=== PATIENT | female | born 1945 | race Caucasian/White ===

== ENCOUNTER 2018-03-14 19:35 | Emergency (ER) | payer MEDICARE ==
--- OUTSIDE RECORDS SUMMARY | 2018-03-14 19:37 | XMS REPORT | Summary of Care ---
:1945 Author Name Masha Yusuf M.A. Address Unavailable Unavailable , Care Team Providers Name Role Phone DORON ANDERS Unavailable Unavailable Unavailable Unavailable Unavailable Functional Status Name Dates Details Functional status health issues are not documented Status: Name Dates Details Cognitive status health issues are not documented Status: Problems Name Dates Details Periprosthetic fracture of shaft of femur (996.44, M97.8XXA) Status: Active Medications Name Dates Details Acetaminophen-Codeine #3 300-30 MG Oral Tablet TAKE 1 TABLET EVERY 6 HOURS Quantity: 20 Refills: 0 DORON ANDERS Start : 08-Jan-2018 Active Vitamin D (Ergocalciferol) 45015 UNIT Oral Capsule TAKE 1 CAPSULE WEEKLY. Quantity: 12 Refills: 0 DORON ANDERS Start : 02-Mar-2018 Active Allergies and Adverse Reactions Name Dates Details Allergy history not documented Status: Procedures Procedure Dates Details Procedures not documented Immunization Name Dates Details Immunizations not documented Social History Name Dates Details Unknown if ever smoked Vital Signs Date Test Result Details No Known Vitals to report Results Date Description Value Details [id number] [U] XRAY FEMUR 2 VWS LEFT 69700 XR FEMUR 2 VWS LEFT Images acquired, not reported on this accession number. Plan of Care Name Dates Details Planned Observations Planned Goals not documented Interventions Provided Medication ChangesVitamin D (Ergocalciferol) 71427 UNIT Oral Capsule - StartLabs /Procedures/Imaging[U] XRAY FEMUR 2 VWS LEFT 74417; Done: 02 Mar 2018 Instructions Name Dates Details Instructions not documented Encounters Appointment; DORON CALDERON PA On: 22-Dec-2017 9:30 Encounter Diagnosis: Problem not documented Appointment; DORON CALDERON PA On: 19-Jan-2018 10:30 Encounter Diagnosis: Problem not documented Appointment; DORON CALDERON PA On: 02-Mar-2018 10:30 Encounter Diagnosis: Problem not documented
[2018-03-14 20:29] LABS: Absolute Lymphocytes (CBC) 0.5 K/uL (0.7-4.9); Absolute Monocytes 0.5 K/uL (0.1-1.3); Absolute Neutrophil 9.5 K/uL (1.8-8.0); Basophils % 0.2 % (0-1.3); Eosinophils % 0.1 % (0-4.4); Hematocrit 30.2 % (36.0-45.0); Lymphocytes % 4.7 % (15.3-44.8); MCH 27.4 pg (27.0-35.0); MCV 80.5 fL (80-100); MPV 7.3 fL (7.6-11.3); RBC Red Blood Cell Count 3.75 M/uL (3.86-4.86)
[2018-03-14 20:35] LABS: Protime INR 1.18
[2018-03-14] MEDS ORDERED: NA CHLORIDE 0.9% 1,000 ML ONE ×2 (20:37→21:42)
--- NOTE | 2018-03-14 20:37 | RAD REPORT ---
EXAM DESCRIPTION: Otf Single View03/14/2018 8:09 pm CLINICAL HISTORY: Cough COMPARISON: 2016 FINDINGS: Calcified granulomas are present within the lungs. The lungs appear clear of acute infiltrate. The heart is normal size IMPRESSION: No acute abnormalities displayed
[2018-03-14 20:42] LABS: Bicarbonate 24 mEq/L (21-31); Glucose Level 164 mg/dL (65-120); Lipase 34 U/L (22-51); Potassium 3.9 mEq/L (3.6-5.0); Sodium Level 130 mEq/L (135-145)
[2018-03-14 20:51] LABS: ALT/SGPT 12 IU/L (10-60); AST/SGOT 16 IU/L (10-42); Albumin 2.5 g/dL (3.2-5.5); Alkaline Phosphatase 89 IU/L (42-121); Amylase Level 54 U/L (28-100); BUN Blood Urea Nitrogen 14 mg/dL (6-20); Bilirubin Direct 0.3 mg/dL (0-0.2); CKMB Creatine Kinase MB 0.7 ng/ml (0.3-4.0); Creatine Phosphokinase 12 IU/L (22-269); Protein, Total 6.6 g/dL (6.0-8.3)
[2018-03-14 20:53] LABS: Blood Morphology Comment NOT SEEN (NOT SEEN); Platelet Estimate ADEQ; Urine White Blood Cell Casts OK
[2018-03-14 21:07] LABS: C-Reactive Protein 219.9 mg/L (<10.0)
[2018-03-14] MEDS ORDERED: AZITHROMYCIN 250 MG TAB ONE (21:09)
[2018-03-14] MEDS ORDERED: CEFTRIAXONE/SWI 1gm 1 GM/10 ML SYR ONE (21:10)
--- NOTE | 2018-03-14 22:29 | EDPHYS ---
Physician Documentation [facility] Name: Jayesh Leavitt Age: 72 yrs Sex: Female : 1945 Arrival Date: 03/14/2018 Time: 19:37 Bed 23 Private MD: ED Physician Queenie Woodward HPI: 03/14 19:56 This 72 yrs old Female presents to ER via Wheelchair with complaints of ma2 Fever, Altered Mental Status. 19:56 The patient reports fever, that was measured at 100.5 degrees Fahrenheit. Onset: The ma2 symptoms/episode began/occurred gradually, 2 day(s) ago. Associated signs and symptoms: Pertinent positives: cough, Pertinent negatives: None. abdominal pain, myalgias, night sweats, runny nose, sinus congestion. Severity of symptoms: At their worst the symptoms were moderate in the emergency department the symptoms are unchanged. The patient has experienced a previous episode. bib daughter who states she has been sleepy all day did not eat anything has been having cough and chills x 2 days . Historical: - Allergies: 19:45 No Known Allergies; la1 - PMHx: 19:45 Anemia; Arthritis; Crohn's; Diabetes - NIDDM; Hypertension; Hypothyroidism; la1 - Immunization history:: Adult Immunizations up to date. - Social history:: Smoking status: Patient/guardian denies using tobacco. - Family history:: not pertinent. ROS: 19:56 Eyes: Negative for injury, pain, redness, and discharge, ENT: Negative for injury, ma2 pain, and discharge, Neck: Negative for injury, pain, and swelling, Cardiovascular: Negative for chest pain, palpitations, and edema, Abdomen/GI: Negative for abdominal pain, nausea, diarrhea, and constipation, Back: Negative for injury and pain, : Negative for injury, bleeding, discharge, and swelling, MS/Extremity: Negative for injury and deformity, Skin: Negative for injury, rash, and discoloration, Neuro: Negative for headache, weakness, numbness, tingling, and seizure, Allergy/Immunology: Negative for hives, rash, and allergies, Hematologic/Lymphatic: Negative for swollen nodes, abnormal bleeding, and unusual bruising. 19:56 Respiratory: Positive for cough, Negative for dyspnea on exertion, hemoptysis, orthopnea, shortness of breath, sputum production, wheezing. Exam: 19:56 Constitutional: This is a well developed, well nourished patient who is awake, alert, ma2 and in no acute distress. Head/Face: Normocephalic, atraumatic. Chest/axilla: Normal chest wall appearance and motion. Nontender with no deformity. No lesions are appreciated. Cardiovascular: Regular rate and rhythm with a normal S1 and S2. No gallops, murmurs, or rubs. Normal PMI, no JVD. No pulse deficits. Respiratory: Lungs have equal breath sounds bilaterally, clear to auscultation and percussion. No rales, rhonchi or wheezes noted. No increased work of breathing, no retractions or nasal flaring. Abdomen/GI: Soft, non-tender, with normal bowel sounds. No distension or tympany. No guarding or rebound. No evidence of tenderness throughout. Skin: Warm, dry with normal turgor. Normal color with no rashes, no lesions, and no evidence of cellulitis. Vital Signs: 19:45 BP 129 / 62; Pulse 103; Resp 19; Temp 100.3(TE); Pulse Ox 100% on R/A; Weight 65.77 kg; la1 Height 5 ft. 5 in. (165.10 cm); 20:16 Pulse 97; Resp 18; Temp 99.3; Pulse Ox 95% on R/A; kr2 22:22 BP 128 / 77; Pulse 92; Resp 16; Pulse Ox 98% on R/A; kr2 19:45 Body Mass Index 24.13 (65.77 kg, 165.10 cm) vt1 MDM: 19:46 Patient medically screened. ma2 19:56 Differential diagnosis: viral Infection, bacterial infection, URI, bronchitis, ma2 pneumonia. 22:25 Data reviewed: vital signs, nurses notes, EMS record, diagnostic data from outside [facility] facility, lab test result(s). Test interpretation: by ED physician or midlevel provider: ECG, plain radiologic studies. Counseling: I had a detailed discussion with the patient and/or guardian regarding: the historical points, exam findings, and any diagnostic results supporting the discharge/admit diagnosis, the presence of at least one elevated blood pressure reading (>120/80) during this emergency department visit, the need for outpatient follow up. Response to treatment: the patient's symptoms have markedly improved after treatment. ED course: patient has cough and was tachycardic initially to 97, she is AOX4 her pulse improved with IVF she has no other component of SIRS her lab and CXR wnl, she is likely having bronchitis or early pneumonia, she improved plan is do discharge home with close f/u or return to ed for any new or worsening of her cough she agree with plan. . 03/14 19:55 Order name: Amylase, Serum; Complete Time: 21:12 dc03/14 19:55 Order name: Basic Metabolic Panel; Complete Time: 21:12 dc03/14 19:55 Order name: Blood Culture Adult (2) dc03/14 19:55 Order name: BNP; Complete Time: 20:53 dc03/14 19:55 Order name: C-Reactive Protein; Complete Time: 21:12 dc03/14 19:55 Order name: CBC with Diff; Complete Time: 20:53 dc03/14 19:55 Order name: Ckmb; Complete Time: 21:12 [facility] 03/14 19:55 Order name: CPK; Complete Time: 21:12 dc03/14 19:55 Order name: Lactate; Complete Time: 20:53 dc03/14 19:55 Order name: LFT's; Complete Time: 21:12 dc03/14 19:55 Order name: Lipase; Complete Time: 21:12 03/14 19:55 Order name: Procalcitonin; Complete Time: 21:12 dc03/14 19:55 Order name: Protime (+inr); Complete Time: 20:53 dc03/14 19:55 Order name: Ptt, Activated; Complete Time: 20:53 dc03/14 19:55 Order name: Sed Rate; Complete Time: 20:53 dc03/14 19:55 Order name: Troponin (emerg Dept Use Only); Complete Time: 20:53 dc03/14 19:55 Order name: Chest Single View XRAY; Complete Time: 20:53 dc03/14 19:55 Order name: Accucheck; Complete Time: 20:25 dc03/14 19:55 Order name: Cardiac monitoring; Complete Time: 20:25 [facility] 03/14 19:55 Order name: EKG - Nurse/Tech; Complete Time: 20:32 dc2 03/14 19:55 Order name: IV Saline Lock - Large Bore; Complete Time: 20:25 dc2 03/14 19:55 Order name: Labs collected and sent; Complete Time: 20:25 dc2 03/14 19:55 Order name: O2 Per Protocol; Complete Time: 20:25 dc2 03/14 19:55 Order name: O2 Sat Monitoring; Complete Time: 20:26 dc2 03/14 19:55 Order name: Urine Dipstick-Ancillary (obtain specimen); Complete Time: 22:42 dc2 03/14 20:32 Order name: CBC Smear Scan; Complete Time: 20:53 EDHI 03/14 21:15 Order name: UA MICROSCOPIC ma2 Administered Medications: 20:45 Drug: NS 0.9% (30 ml/kg) 30 ml/kg Route: IV; Rate: bolus; Site: right antecubital; kr2 22:42 Follow up: Response: No adverse reaction; IV Status: Completed infusion kr2 21:15 Drug: Rocephin 1 grams Route: IV; Rate: bolus; Site: right antecubital; kr2 21:30 Follow up: Response: No adverse reaction; IV Status: Completed infusion kr2 21:15 Drug: AZITHromycin 500 mg Route: PO; kr2 22:27 Follow up: Response: No adverse reaction kr2 Point of Care Testing: Blood Glucose: 20:16 Blood Glucose: 167 mg/dL; kr2 Ranges: Critical Glucose Levels:Adult <50 mg/dl or >400 mg/dl <40 mg/dl or >180 mg/dl Disposition: 03/14/18 22:28 Discharged to Home. Impression: Bronchitis, not specified as acute or chronic. - Condition is Stable. - Prescriptions for Zithromax 500 mg Oral Tablet - take 1 tablet by ORAL route once daily for 5 days; 5 tablet. - Medication Reconciliation Form, Thank You Letter, Antibiotic Education, Prescription Opioid Use form. - Follow up: Private Physician; When: Tomorrow; Reason: Continuance of care. - Problem is new. - Symptoms are unchanged. Signatures: Dispatcher [employer] EDHI Mina Townsend RN RN la1 Flaquita Bledsoe RN RN kr2 Queenie Woodward MD MD ma2
--- NOTE | 2018-03-14 22:29 | ER ---
Nurse's Notes [facility] Name: Jayesh Leavitt Age: 72 yrs Sex: Female : 1945 Arrival Date: 03/14/2018 Time: 19:37 Bed 23 Private MD: Diagnosis: Bronchitis, not specified as acute or chronic Presentation: 03/14 19:44 Presenting complaint: Child states: She has been acting "not herself" and yesterday she la1 was very drowsy and sleepy. I noticed she had a cough and fever as well. Transition of care: patient was not received from another setting of care. Onset of symptoms was March 14, 2018. Initial Sepsis Screen: Does the patient meet any 2 criteria? No. Patient's initial sepsis screen is negative. Does the patient have a suspected source of infection? Yes:. Care prior to arrival: None. 19:44 Method Of Arrival: Wheelchair la1 19:44 Acuity: VELVET 3 la1 Historical: - Allergies: 19:45 No Known Allergies; la1 - PMHx: 19:45 Anemia; Arthritis; Crohn's; Diabetes - NIDDM; Hypertension; Hypothyroidism; la1 - Immunization history:: Adult Immunizations up to date. - Social history:: Smoking status: Patient/guardian denies using tobacco. - Family history:: not pertinent. Screenin:00 Abuse screen: Denies threats or abuse. Denies injuries from another. Nutritional kr2 screening: No deficits noted. Tuberculosis screening: No symptoms or risk factors identified. Fall Risk IV access (20 points). Assessment: 19:50 General: Appears in no apparent distress. comfortable, slender, well groomed, well kr2 developed, well nourished, Behavior is calm, cooperative. Pain: Denies pain. Neuro: Level of Consciousness is awake, alert, obeys commands, Oriented to person, place, situation, Diamond Sawer are equal bilaterally Moves all extremities. Speech is normal, Facial symmetry appears normal, Pupils are PERRLA, Intact. Cardiovascular: Denies chest pain, Capillary refill < 3 seconds in bilateral fingers Patient's skin is warm and dry. Rhythm is sinus rhythm. Cardiovascular: Parent/caregiver reports patient has had fatigue. Respiratory: Reports cough that is persistent pain with cough since 2 weeks Airway is patent Respiratory effort is even, unlabored, Respiratory pattern is regular, symmetrical. GI: Abdomen is flat, non-distended, Reports Decreased appetite starting yesterday, episode of diarrhea after taking Methotrexate. : Parent/caregiver report the patient having urine that has been dark with a strong odor. EENT: Oral mucosa is dry. Derm: Skin is intact, is fragile, Skin is pink, warm \\T\\ dry. Musculoskeletal: Circulation, motion, and sensation intact. 21:00 Reassessment: Patient appears in no apparent distress at this time. Patient and/or kr2 family updated on plan of care and expected duration. Pain level reassessed. Patient is alert, oriented x 3, equal unlabored respirations, skin warm/dry/pink. Patient denies pain at this time. Patient states feeling better. 22:45 Reassessment: Patient appears in no apparent distress at this time. Patient and/or kr2 family updated on plan of care and expected duration. Pain level reassessed. Patient is alert, oriented x 3, equal unlabored respirations, skin warm/dry/pink. Family member states, "She is doing much better than we she came in" Patient denies pain at this time. Patient states feeling better. Patient states symptoms have improved. Vital Signs: 19:45 BP 129 / 62; Pulse 103; Resp 19; Temp 100.3(TE); Pulse Ox 100% on R/A; Weight 65.77 kg; la1 Height 5 ft. 5 in. (165.10 cm); 20:16 Pulse 97; Resp 18; Temp 99.3; Pulse Ox 95% on R/A; kr2 22:22 BP 128 / 77; Pulse 92; Resp 16; Pulse Ox 98% on R/A; kr2 19:45 Body Mass Index 24.13 (65.77 kg, 165.10 cm) la1 ED Course: 19:37 Patient arrived in ED. al2 19:45 Triage completed. la1 19:45 Arm band placed on left wrist. la1 19:46 Queenie Woodward MD is Attending Physician. ma2 20:00 Patient has correct armband on for positive identification. Bed in low position. Call kr2 light in reach. Side rails up X2. Adult w/ patient. phototypesetting equipment monitor on. Pulse ox on. NIBP on. Door closed. Head of bed elevated. 20:08 X-ray completed. Portable x-ray completed in exam room. Patient tolerated procedure kp1 well. 20:09 Chest Single View XRAY In Process Unspecified. EDMS 20:12 Flaquita Bledsoe, RN is Primary Nurse. kr2 20:17 Initial lab(s) drawn, by me, sent to lab. First set of blood cultures drawn by me. dh3 20:17 Inserted saline lock: 22 gauge in right antecubital area, using aseptic technique. dh3 Blood collected. 20:32 EKG done, by ED staff, reviewed by Queenie Woodward MD. kr2 20:48 Second set of blood cultures drawn by venipuncture 23G to right forearm by me. dh3 22:45 No provider procedures requiring assistance completed. IV discontinued, intact, kr2 bleeding controlled, No redness/swelling at site. Pressure dressing applied. Administered Medications: 20:45 Drug: NS 0.9% (30 ml/kg) 30 ml/kg Route: IV; Rate: bolus; Site: right antecubital; kr2 22:42 Follow up: Response: No adverse reaction; IV Status: Completed infusion kr2 21:15 Drug: Rocephin 1 grams Route: IV; Rate: bolus; Site: right antecubital; kr2 21:30 Follow up: Response: No adverse reaction; IV Status: Completed infusion kr2 21:15 Drug: AZITHromycin 500 mg Route: PO; kr2 22:27 Follow up: Response: No adverse reaction kr2 Point of Care Testing: Blood Glucose: 20:16 Blood Glucose: 167 mg/dL; kr2 Ranges: Outcome: 22:28 Discharge ordered by MD. ma2 22:46 Discharged to home via wheelchair, with family. kr2 22:46 Condition: improved 22:46 Discharge instructions given to patient, family, Instructed on discharge instructions, follow up and referral plans. medication usage, Demonstrated understanding of instructions, follow-up care, medications, Prescriptions given X 1. 22:46 Patient left the ED. kr2 Addendum: 03/19/2018 10:23 Addendum: Culture Results: Positive urine culture. Phone call Attempt #1 spoke with s s pt's daughter who reports that patient is not having any urinary s/s, and will follow up as needed with PCP. Signatures: Dispatcher [facility] Scarlett Armenta RN RN Mina Townsend RN RN la1 FrancoHemalatha 1 Mary Bonilla 3 Flaquita Bledsoe, NIKO RN kr2 Masha, Romi al2 Queenie Woodward MD MD ma2 Corrections: (The following items were deleted from the chart) 03/14 20:25 20:23 Inserted saline lock: 22 gauge in right antecubital area, using aseptic 3 technique. Blood collected. 3 22:14 19:50 Neuro: Level of Consciousness is awake, alert, obeys commands, Oriented to kr2 person, place, time, situation, Diamond Sawer are equal bilaterally Moves all extremities. Speech is normal, Facial symmetry appears normal, Pupils are PERRLA, Intact 2 22:45 21:00 Reassessment: Patient appears in no apparent distress at this time. Patient kr2 and/or family updated on plan of care and expected duration. Pain level reassessed. Patient is alert, oriented x 3, equal unlabored respirations, skin warm/dry/pink. Family member states, "She is doing much better than we she came in" Patient denies pain at this time. Patient states feeling better. Patient states symptoms have improved. kr2
[2018-03-14 22:53] VITALS: TEMP 99.3
[2018-03-14 22:54] VITALS: BP 128/77; O2SAT 98
[2018-03-14 23:02] LABS: Urine Bacteria 20-50 /HPF (<20); Urine Culture Reflex Order REFLEXED; Urine Mucus MOD /HPF (NONE SEEN); Urine RBC <5 /HPF (NONE SEEN)
--- NOTE | 2018-03-15 12:03 | EKG ---
Test Date: 2018-03-14 Test Time: 20:27:47 [employer] Taper Helper: JOSE MEASUREMENT RESULTS: Intervals: Rate: 94 [place]: 140 QRSD: 88 QT: 356 QTc: 445 [place]: P: 0 [place]: 140 QRS: 24 T: 45 INTERPRETIVE STATEMENTS: Normal sinus rhythm Normal ECG Compared to ECG 11/22/2015 14:05:24 No significant changes Electronically Signed On 03-15-18 12:03:18 CDT by Taurus White
== END 2018-03-14 22:46 | disposition home or self-care (01) ==
LOC: ER 19:35
DX: J40 Bronchitis, not specified as acute or chronic (principal); R50.9 Fever, unspecified; I10 Essential (primary) hypertension
CPT/HCPCS: 36415; 71045; 80048; 80076; 81015; 82150; 82550; 82553; 82962; 83605; 83690; 83880; 84145; 84484; 85025; 85610; 85652; 85730; 86140; 87040 ×2; 87086; 87088; 93005; 96365; 96366; 96375; 99285; J0696; J7030 ×2; 87077; 87186

== ENCOUNTER 2018-09-10 22:15 | Inpatient (IN) | payer MEDICARE ==
[2018-09-10] MEDS ORDERED: NA CHLORIDE 0.9% 1,000 ML ONE (23:10)
[2018-09-10] MEDS ORDERED: ONDANSETRON 4 MG/2 ML VIAL ONE (23:10)
[2018-09-10] MEDS ORDERED: FENTANYL CITR 100 MCG/2 ML ONE (23:10)
[2018-09-10] MEDS ORDERED: FAMOTIDINE 20 MG/2 ML VIAL IV ONE (23:10)
[2018-09-10 23:36] LABS: Protime INR 0.94
[2018-09-10 23:43] LABS: Absolute Lymphocytes (CBC) 0.3 K/uL (0.7-4.9); Absolute Monocytes 0.2 K/uL (0.1-1.3); Absolute Neutrophil 1.4 K/uL (1.8-8.0); Basophils % 0.3 % (0-1.3); Eosinophils % 0.4 % (0-4.4); Hematocrit 28.5 % (36.0-45.0); MCH 24.2 pg (27.0-35.0); MCV 73.5 fL (80-100); MPV 7.2 fL (7.6-11.3); Monocytes % 11.2 % (3.3-12.3); RBC Red Blood Cell Count 3.87 M/uL (3.86-4.86)
[2018-09-10 23:46] LABS: ALT/SGPT 17 U/L (12-78); AST/SGOT 14 U/L (15-37); Albumin 2.6 g/dL (3.4-5.0); Alkaline Phosphatase 74 U/L (45-117); BUN Blood Urea Nitrogen 18 mg/dL (7-18); Bicarbonate 26 mmol/L (21-32); Bilirubin Direct < 0.1 mg/dL (0-0.2); Bilirubin Total 0.2 mg/dL (0.2-1.0); Glucose Level 146 mg/dL (74-106); Lipase 238 U/L (73-393); NT PRO-BNP 319 pg/mL (<125); Potassium 4.3 mmol/L (3.5-5.1); Protein, Total 6.5 g/dL (6.4-8.2); Sodium Level 133 mmol/L (136-145); Troponin (Emerg Dept Use Only) < 0.02 ng/mL (0.0-0.045)
--- NOTE | 2018-09-11 00:02 | ER ---
Nurse's Notes [facility] Name: Jayesh Leavitt Age: 72 yrs Sex: Female : 1945 Arrival Date: 09/10/2018 Time: 22:17 Bed 6 Private MD: Diagnosis: Fall due to bumping against object;Fracture of unspecified part of neck of right femur;Type 1 diabetes mellitus;Retention of urine;Neutropenia, unspecified;Anemia, unspecified Presentation: 09/10 22:24 Presenting complaint: EMS states: "pt fell from a standing position onto right hip. pt jd3 unsure if it is broken, but she say it hurts to move the right hip at all.". Transition of care: patient was not received from another setting of care. Onset of symptoms was September 10, 2018. Risk Assessment: Do you want to hurt yourself or someone else? Patient reports no desire to harm self or others. Initial Sepsis Screen: Does the patient meet any 2 criteria? No. Patient's initial sepsis screen is negative. Does the patient have a suspected source of infection? No. Patient's initial sepsis screen is negative. Care prior to arrival: None. 22:24 Method Of Arrival: EMS: [facility] jd3 22:24 Acuity: VELVET 3 jd3 Historical: - Allergies: 22:34 No Known Allergies; jd3 - Home Meds: 22:34 levothyroxine oral once daily [Active]; Prednisone Oral [Active]; Paxil Oral [Active]; jd3 Folic Acid Oral [Active]; - PMHx: 22:34 Anemia; Arthritis; Diabetes - NIDDM; Hypertension; Crohn's; Hypothyroidism; jd3 - PSHx: 22:34 ; joseph knee knee; left femur fracture; jd3 - Immunization history:: Pneumococcal vaccine is not up to date, Flu vaccine is not up to date. - Social history:: Smoking status: Patient/guardian denies using tobacco. - Ebola Screening: : Patient negative for fever greater than or equal to 101.5 degrees Fahrenheit, and additional compatible Ebola Virus Disease symptoms. - Family history:: not pertinent. Screenin:37 Abuse screen: Denies threats or abuse. Nutritional screening: No deficits noted. jd3 Tuberculosis screening: No symptoms or risk factors identified. Fall Risk Fall in past 12 months (25 points). Ambulatory Aid- None/Bed Rest/Nurse Assist (0 pts). Gait- Impaired (20 pts.). Mental Status- Oriented to own ability (0 pts). Total Gonzalez Fall Scale indicates High Risk Score (45 or more points). Fall prevention measures have been instituted. Side Rails Up X 2 Placed Close to Nursing Station Frequent Obs/Assessments Occuring Family Present and informed to notify staff if the need to leave the bedside. Assessment: 22:35 General: Appears uncomfortable, Behavior is calm, cooperative, appropriate for age. jd3 Pain: Complains of pain in right hip Pain currently is 7 out of 10 on a pain scale. Quality of pain is described as sharp, Is continuous, Aggravated by increased activity, repositioning. Neuro: Level of Consciousness is awake, alert, obeys commands, Oriented to person, place, time, situation. Cardiovascular: Capillary refill < 3 seconds Patient's skin is warm and dry. Respiratory: Airway is patent Respiratory effort is even, unlabored, Respiratory pattern is regular, symmetrical. GI: No signs and/or symptoms were reported involving the gastrointestinal system. : No signs and/or symptoms were reported regarding the genitourinary system. EENT: No signs and/or symptoms were reported regarding the EENT system. Derm: Skin is intact, Skin is dry, Skin is normal, Skin temperature is warm. Musculoskeletal: Circulation, motion, and sensation intact. Range of motion: limited in right hip. 23:58 Reassessment: Patient appears in no apparent distress at this time. No changes from jd3 previously documented assessment. Patient and/or family updated on plan of care and expected duration. Pain level reassessed. Patient is alert, oriented x 3, equal unlabored respirations, skin warm/dry/pink. 09/11 01:02 Reassessment: Patient appears in no apparent distress at this time. Patient and/or jd3 family updated on plan of care and expected duration. Pain level reassessed. Patient is alert, oriented x 3, equal unlabored respirations, skin warm/dry/pink. 02:28 Reassessment: Patient appears in no apparent distress at this time. Patient and/or jd3 family updated on plan of care and expected duration. Pain level reassessed. Patient is alert, oriented x 3, equal unlabored respirations, skin warm/dry/pink. Vital Signs: 09/10 22:34 BP 164 / 91; Pulse 72; Resp 17 S; Temp 98.7(O); Pulse Ox 98% on R/A; Weight 70.31 kg jd3 (R); Height 5 ft. 5 in. (165.10 cm) (R); Pain 8/10; 23:58 BP 165 / 86; Pulse 80; Resp 18 S; Pulse Ox 99% on R/A; jd3 09/11 01:02 BP 155 / 90; Pulse 72; Resp 16 S; Pulse Ox 99% on R/A; jd3 02:28 BP 170 / 73; Pulse 74; Resp 17 S; Pulse Ox 97% on R/A; jd3 09/10 22:34 Body Mass Index 25.79 (70.31 kg, 165.10 cm) jd3 ED Course: 09/10 22:17 Patient arrived in ED. mr 22:22 Derian Carr RN is Primary Nurse. jd3 22:27 Triage completed. jd3 22:30 Inserted saline lock: 22 gauge in right antecubital area, using aseptic technique. jd3 Blood collected. placed by Erum POPE. 22:35 Arm band placed on. jd3 22:37 Patient has correct armband on for positive identification. Bed in low position. Call jd3 light in reach. Side rails up X2. Adult w/ patient. 22:38 Carlyle Torrez MD is Attending Physician. pastora 23:56 Milagros Adam MD is Hospitalizing Provider. pastora 09/11 00:23 XRAY Chest (1 view) In Process Unspecified. EDMS 00:23 Pelvis XRAY In Process Unspecified. EDMS 00:23 Hip Right 2 View XRAY In Process Unspecified. EDMS 00:23 Femur Right XRAY In Process Unspecified. EDMS 02:26 No provider procedures requiring assistance completed. Patient admitted, IV remains in jd3 place. Administered Medications: 09/10 23:12 Drug: NS 0.9% 1000 ml Route: IV; Rate: 125 ml/hr; Site: right antecubital; tl2 09/11 02:35 Follow up: Response: No adverse reaction; IV Status: Infusion continued upon admission j 09/10 23:12 Drug: fentaNYL (PF) 50 mcg Route: IVP; Site: right antecubital; tl2 09/11 00:03 Follow up: Response: No adverse reaction jd3 09/10 23:12 Drug: Zofran 4 mg Route: IVP; Site: right antecubital; tl2 09/11 00:04 Follow up: Response: No adverse reaction jd3 09/10 23:12 Drug: Pepcid 20 mg Route: IVP; Site: right antecubital; tl2 09/11 00:04 Follow up: Response: No adverse reaction jd3 00:47 Drug: fentaNYL (PF) 25 mcg Route: IVP; Site: right antecubital; jd3 01:41 Follow up: Response: No adverse reaction jd3 02:03 Not Given (Physician Discretion): fentaNYL (PF) 25 mcg IVP once jd3 02:08 Drug: Dilaudid 0.5 mg Route: IVP; Site: right antecubital; tl2 02:34 Follow up: Response: Marked relief of symptoms; Pain is decreased jd3 02:09 Drug: Zofran 4 mg Route: IVP; Site: right antecubital; tl2 02:34 Follow up: Response: No adverse reaction jd3 02:55 Drug: Dilaudid 0.5 mg Route: IVP; Site: right antecubital; tl2 03:06 Follow up: Response: No adverse reaction; Pain is decreased tl2 Outcome: 00:01 Decision to Hospitalize by Provider. pastora 02:27 Admitted to Med/surg accompanied by nurse, via stretcher, room 412, with chart, Report jd3 called to Carmela POPE 02:27 Condition: stable 02:27 Instructed on the need for admit, Demonstrated understanding of instructions. 03:07 Patient left the ED. tl2 Signatures: Dispatcher [employer] Carlyle Mason MD MD cha Rivera, Mary mr Knox, Taylor, RN RN tl2 Derian Carr RN RN jd3
--- NOTE | 2018-09-11 00:03 | EDPHYS ---
Physician Documentation [facility] Name: Jayesh Leavitt Age: 72 yrs Sex: Female : 1945 Arrival Date: 09/10/2018 Time: 22:17 Bed 6 Private MD: ED Physician Carlyle Torrez HPI: 09/10 22:48 This 72 yrs old Female presents to ER via EMS with complaints of fall, right pastora hip pain. 22:48 The patient or guardian reports decreased range of motion, pain. that occurred at home, pastora sustained from a fall. The complaints affect the right femoral area and right hip. Onset: The symptoms/episode began/occurred just prior to arrival. Modifying factors: The symptoms are alleviated by nothing, the symptoms are aggravated by nothing. Associated signs and symptoms: Pertinent positives: nausea, vomiting, weakness. Severity of symptoms: At their worst the symptoms were mild, moderate, in the emergency department the symptoms are unchanged. The patient has not experienced similar symptoms in the past. Historical: - Allergies: 22:34 No Known Allergies; jd3 - Home Meds: 22:34 levothyroxine oral once daily [Active]; Prednisone Oral [Active]; Paxil Oral [Active]; jd3 Folic Acid Oral [Active]; - PMHx: 22:34 Anemia; Arthritis; Diabetes - NIDDM; Hypertension; Crohn's; Hypothyroidism; jd3 - PSHx: 22:34 ; joseph knee knee; left femur fracture; jd3 - Immunization history:: Pneumococcal vaccine is not up to date, Flu vaccine is not up to date. - Social history:: Smoking status: Patient/guardian denies using tobacco. - Ebola Screening: : Patient negative for fever greater than or equal to 101.5 degrees Fahrenheit, and additional compatible Ebola Virus Disease symptoms. - Family history:: not pertinent. ROS: 22:48 Constitutional: Negative for fever, chills, and weight loss, Eyes: Negative for injury, pastora pain, redness, and discharge, ENT: Negative for injury, pain, and discharge, Neck: Negative for injury, pain, and swelling, Cardiovascular: Negative for chest pain, palpitations, and edema, Respiratory: Negative for shortness of breath, cough, wheezing, and pleuritic chest pain, Abdomen/GI: Negative for abdominal pain, nausea, vomiting, diarrhea, and constipation, Back: Negative for injury and pain, : Negative for injury, bleeding, discharge, and swelling, Skin: Negative for injury, rash, and discoloration, Neuro: Negative for headache, weakness, numbness, tingling, and seizure, Psych: Negative for depression, anxiety, suicide ideation, homicidal ideation, and hallucinations, Allergy/Immunology: Negative for hives, rash, and allergies, Endocrine: Negative for neck swelling, polydipsia, polyuria, polyphagia, and marked weight changes, Hematologic/Lymphatic: Negative for swollen nodes, abnormal bleeding, and unusual bruising. 22:48 MS/extremity: Positive for decreased range of motion, pain, of the right femoral area and right hip. Exam: 22:48 Constitutional: This is a well developed, well nourished patient who is awake, alert, pastora and in no acute distress. Head/Face: Normocephalic, atraumatic. Eyes: Pupils equal round and reactive to light, extra-ocular motions intact. Lids and lashes normal. Conjunctiva and sclera are non-icteric and not injected. Cornea within normal limits. Periorbital areas with no swelling, redness, or edema. ENT: Nares patent. No nasal discharge, no septal abnormalities noted. Tympanic membranes are normal and external auditory canals are clear. Oropharynx with no redness, swelling, or masses, exudates, or evidence of obstruction, uvula midline. Mucous membranes moist. Neck: Trachea midline, no thyromegaly or masses palpated, and no cervical lymphadenopathy. Supple, full range of motion without nuchal rigidity, or vertebral point tenderness. No Meningismus. Chest/axilla: Normal chest wall appearance and motion. Nontender with no deformity. No lesions are appreciated. Cardiovascular: Regular rate and rhythm with a normal S1 and S2. No gallops, murmurs, or rubs. Normal PMI, no JVD. No pulse deficits. Respiratory: Lungs have equal breath sounds bilaterally, clear to auscultation and percussion. No rales, rhonchi or wheezes noted. No increased work of breathing, no retractions or nasal flaring. Abdomen/GI: Soft, non-tender, with normal bowel sounds. No distension or tympany. No guarding or rebound. No evidence of tenderness throughout. Back: No spinal tenderness. No costovertebral tenderness. Full range of motion. Skin: Warm, dry with normal turgor. Normal color with no rashes, no lesions, and no evidence of cellulitis. Neuro: Awake and alert, GCS 15, oriented to person, place, time, and situation. Cranial nerves II-XII grossly intact. Motor strength 5/5 in all extremities. Sensory grossly intact. Cerebellar exam normal. Normal gait. Psych: Awake, alert, with orientation to person, place and time. Behavior, mood, and affect are within normal limits. 22:48 Musculoskeletal/extremity: Extremities: noted in the right hip: decreased ROM, pain, tenderness. Vital Signs: 22:34 BP 164 / 91; Pulse 72; Resp 17 S; Temp 98.7(O); Pulse Ox 98% on R/A; Weight 70.31 kg [facility] (R); Height 5 ft. 5 in. (165.10 cm) (R); Pain 8/10; 23:58 BP 165 / 86; Pulse 80; Resp 18 S; Pulse Ox 99% on R/A; d3 09/11 01:02 BP 155 / 90; Pulse 72; Resp 16 S; Pulse Ox 99% on R/A; jd3 02:28 BP 170 / 73; Pulse 74; Resp 17 S; Pulse Ox 97% on R/A; [facility] 09/10 22:34 Body Mass Index 25.79 (70.31 kg, 165.10 cm) [facility] MDM: 09/10 22:38 Patient medically screened. [facility] 22:52 Data reviewed: vital signs, nurses notes, lab test result(s), EKG, radiologic studies, pastora plain films. 09/10 22:48 Order name: Basic Metabolic Panel [facility] 09/10 22:48 Order name: CBC with Diff [facility] 09/10 22:48 Order name: LFT's; Complete Time: 23:52 [facility] 09/10 22:48 Order name: Magnesium; Complete Time: 23:52 [facility] 09/10 22:48 Order name: NT PRO-BNP; Complete Time: 23:52 [facility] 09/10 22:48 Order name: PT-INR; Complete Time: 23:45 [facility] 09/10 22:48 Order name: Troponin (emerg Dept Use Only); Complete Time: 23:52 [facility] 09/10 22:48 Order name: Lipase; Complete Time: 23:52 [facility] 09/10 22:48 Order name: Type And Screen; Complete Time: 01:56 [facility] 09/10 22:48 Order name: Urine Culture [facility] 09/10 22:48 Order name: Basic Metabolic Panel; Complete Time: 23:52 [facility] 09/10 22:48 Order name: CBC with Automated Diff; Complete Time: 01:56 [facility]IN 09/11 00:12 Order name: CBC Smear Scan; Complete Time: 01:56 [facility]IN 09/11 00:47 Order name: Urine Dipstick--Ancillary (enter results) nd 09/10 22:48 Order name: XRAY Chest (1 view) [facility] 09/10 22:48 Order name: EKG; Complete Time: 22:49 [facility] 09/10 22:48 Order name: Pelvis XRAY [facility] 09/10 22:48 Order name: Hip Right 2 View XRAY [facility] 09/10 22:48 Order name: Femur Right XRAY [facility] 09/11 00:13 Order name: CONS Physician Consult [facility] 09/11 02:06 Order name: Urine Dipstick-Ancillary [facility] 09/10 22:48 Order name: Cardiac monitoring; Complete Time: 23:12 [facility] 09/10 22:48 Order name: EKG - Nurse/Tech; Complete Time: 23:12 [facility] 09/10 22:48 Order name: IV Saline Lock; Complete Time: 23:12 [facility] 09/10 22:48 Order name: Labs collected and sent; Complete Time: 23:12 [facility] 09/10 22:48 Order name: O2 Per Protocol; Complete Time: 22:50 [facility] 09/10 22:48 Order name: O2 Sat Monitoring; Complete Time: 22:50 [facility] 09/10 22:48 Order name: Urine Dipstick-Ancillary (obtain specimen); Complete Time: 00:46 [facility] 09/11 00:02 Order name: Mcgarry; Complete Time: 00:46 [facility] 09/11 00:13 Order name: CONS Physician Consult EDMS Administered Medications: 23:12 Drug: NS 0.9% 1000 ml Route: IV; Rate: 125 ml/hr; Site: right antecubital; tl2 09/11 02:35 Follow up: Response: No adverse reaction; IV Status: Infusion continued upon admission jd3 09/10 23:12 Drug: fentaNYL (PF) 50 mcg Route: IVP; Site: right antecubital; tl2 09/11 00:03 Follow up: Response: No adverse reaction jd3 09/10 23:12 Drug: Zofran 4 mg Route: IVP; Site: right antecubital; tl2 09/11 00:04 Follow up: Response: No adverse reaction jd3 09/10 23:12 Drug: Pepcid 20 mg Route: IVP; Site: right antecubital; tl2 09/11 00:04 Follow up: Response: No adverse reaction jd3 00:47 Drug: fentaNYL (PF) 25 mcg Route: IVP; Site: right antecubital; jd3 01:41 Follow up: Response: No adverse reaction jd3 02:03 Not Given (Physician Discretion): fentaNYL (PF) 25 mcg IVP once jd3 02:08 Drug: Dilaudid 0.5 mg Route: IVP; Site: right antecubital; tl2 02:34 Follow up: Response: Marked relief of symptoms; Pain is decreased jd3 02:09 Drug: Zofran 4 mg Route: IVP; Site: right antecubital; tl2 02:34 Follow up: Response: No adverse reaction jd3 02:55 Drug: Dilaudid 0.5 mg Route: IVP; Site: right antecubital; tl2 03:06 Follow up: Response: No adverse reaction; Pain is decreased tl2 Disposition: 09/11/18 00:01 Hospitalization ordered by Milagros Adam for Inpatient Admission. Preliminary diagnosis are Fall due to bumping against object, Fracture of unspecified part of neck of right femur, Type 1 diabetes mellitus, Retention of urine, Neutropenia, unspecified, Anemia, unspecified. - Bed requested for Telemetry/MedSurg (Inpatient). - Status is Inpatient Admission. tl2 - Condition is Fair. - Problem is new. - Symptoms have improved. UTI on Admission? No Signatures: Dispatcher [employer] Cherri Pearce RN RN kl Anderson, Corey, MD MD cha Ballard, Brenda, RN RN bb Knox, Taylor, RN RN tl2 Derian Carr RN RN jd3 Corrections: (The following items were deleted from the chart) 00:03 00:01 Hospitalization Ordered by Milagros Adam MD for Inpatient Admission. Preliminary pastora diagnosis is Fall due to bumping against object; Fracture of unspecified part of neck of right femur. Bed requested for Telemetry/MedSurg (Inpatient). Status is Inpatient Admission. Condition is Fair. Problem is new. Symptoms have improved. UTI on Admission? No. [place] 00:12 00:03 09/11/2018 00:01 Hospitalization Ordered by Milagros Adam MD for Inpatient pastora Admission. Preliminary diagnosis is Fall due to bumping against object; Fracture of unspecified part of neck of right femur; Type 1 diabetes mellitus. Bed requested for Telemetry/MedSurg (Inpatient). Status is Inpatient Admission. Condition is Fair. Problem is new. Symptoms have improved. UTI on Admission? No. past[place] 00:30 00:12 09/11/2018 00:01 Hospitalization Ordered by Milagros Adam MD for Inpatient pastora Admission. Preliminary diagnosis is Fall due to bumping against object; Fracture of unspecified part of neck of right femur; Type 1 diabetes mellitus; Retention of urine; Neutropenia, unspecified. Bed requested for Telemetry/MedSurg (Inpatient). Status is Inpatient Admission. Condition is Fair. Problem is new. Symptoms have improved. UTI on Admission? No. past[place] 01:37 00:30 09/11/2018 00:01 Hospitalization Ordered by Milagros Adam MD for Inpatient kl Admission. Preliminary diagnosis is Fall due to bumping against object; Fracture of unspecified part of neck of right femur; Type 1 diabetes mellitus; Retention of urine; Neutropenia, unspecified; Anemia, unspecified. Bed requested for Telemetry/MedSurg (Inpatient). Status is Inpatient Admission. Condition is Fair. Problem is new. Symptoms have improved. UTI on Admission? No. past[place] 03:07 01:37 09/11/2018 00:01 Hospitalization Ordered by Milagros Adam MD for Inpatient tl2 Admission. Preliminary diagnosis is Fall due to bumping against object; Fracture of unspecified part of neck of right femur; Type 1 diabetes mellitus; Retention of urine; Neutropenia, unspecified; Anemia, unspecified. Bed requested for Telemetry/MedSurg (Inpatient). Status is Inpatient Admission. Condition is Fair. Problem is new. Symptoms have improved. UTI on Admission? No. kl
[2018-09-11] MEDS ORDERED: FENTANYL CITR 100 MCG/2 ML ONE (00:52)
[2018-09-11 01:40] LABS: Blood Morphology Comment NOT SEEN (NOT SEEN); Platelet Estimate ADEQ; Urine White Blood Cell Casts OK
--- NOTE | 2018-09-11 01:47 | P.HP ---
Certification for Inpatient Patient admitted to: Inpatient With expected LOS: >2 Midnights Practitioner: I am a practitioner with admitting privileges, knowledge of patient current condition, hospital course, and medical plan of care. Services: Services provided to patient in accordance with Admission requirements found in Title 42 Section 412.3 of the Code of Federal Regulations Patient History Date of Service: 09/11/18 Reason for admission: Hip fracture History of Present Illness: Ms Leavitt is a 72-year-old woman with history of diabetes mellitus types 2, RA on prednisone treatment, left hip fracture, who was walking at home when suddenly she fell from standing position over her right side. Immediately she started feeling significant pain of her right hip area, unable to bear weight. She denied any dizziness, palpitation or chest pain previous to the fall. X- ray was remarkable for right femoral neck fracture. Lab work remarkable for leukopenia, WBC count 1.9 K. Allergies No Known Allergies Allergy (Verified 05/22/17 02:48) Home medications list reviewed: Yes Home Medications: Levothyroxine Sodium 300 mcg PO [id number] 01/18/15 Ciprofloxacin HCl [Cipro 500 MG Tablet] 500 mg PO BID #14 tab 05/22/17 Cyanocobalamin (Vitamin B-12) [Vitamin B-12] 1,000 mcg PO DAILY #30 tablet 05/22 Ferrous Sulfate [Iron] 325 mg PO BID #60 tablet 05/22/17 Pantoprazole [Protonix Tab] 40 mg PO DAILY #30 tab 05/22/17 - Past Medical/Surgical History Diabetic: Yes -: Diabetes mellitus type 2 -: Hypertension -: Hypothyroidism -: Crohn's disease -: Rheumatoid Arthritis -: Iron and B12 deficiency anemia -: Bilateral knee replacements -: C-sections x2 Psychosocial/ Personal History: She is a . She has 6 children. She is retired - Family History Mother -: Diabetes, Blood disorders (Pernicious anemia) Father -: Heart disease, Cancer (Bladder cancer) Notes: mother and sister diabetes. father bladder ca - Social History Alcohol use: No CD- Drugs: No Caffeine use: Yes Place of Residence: Home Review of Systems 10-point ROS is otherwise unremarkable Physical Examination - Physical Exam General: Alert, In no apparent distress HEENT: Atraumatic, PERRLA, Mucous membr. moist/pink, EOMI, Sclerae nonicteric Neck: Supple, 2+ carotid pulse no bruit, No LAD, Without JVD or thyroid abnormality Respiratory: Clear to auscultation bilaterally, Normal air movement Cardiovascular: Regular rate/rhythm, Normal S1 S2 Gastrointestinal: Normal bowel sounds, No tenderness Musculoskeletal: Tenderness (Right hip area) Integumentary: No rashes Neurological: Normal speech, Normal strength at 5/5 x4 extr, Normal tone, Normal affect Lymphatics: No axilla or inguinal lymphadenopathy - Studies Laboratory Data (last 24 hrs) 09/10/18 23:00: PT 11.1, INR 0.94 09/10/18 23:00: WBC 1.9 L*, Hgb 9.4 L, Hct 28.5 L, Plt Count 241 09/10/18 23:00: Sodium 133 L, Potassium 4.3, BUN 18, Creatinine 0.50 L, Glucose 146 H, Magnesium 2.0, Total Bilirubin 0.2, AST 14 L, ALT 17, Alkaline Phosphatase 74, Lipase 238 Assessment and Plan - Problems (Diagnosis) (1) Hip fracture Current Visit: Yes Status: Acute Qualifiers: Encounter type: initial encounter Fracture type: closed Laterality: right Qualified Code(s): S72.001A - Fracture of unspecified part of neck of right femur, initial encounter for closed fracture (2) DM2 (diabetes mellitus, type 2) Current Visit: No Status: Acute Qualifiers: Diabetes mellitus marketing lead insulin use: with marketing lead use Diabetes mellitus complication status: without complication Qualified Code(s): E11.9 - Type 2 diabetes mellitus without complications (3) Diabetes mellitus Current Visit: No Status: Chronic Qualifiers: Diabetes mellitus type: type 2 Diabetes mellitus marketing lead insulin use: without jail use Diabetes mellitus complication status: without complication Qualified Code(s): E11.9 - Type 2 diabetes mellitus without complications (4) Hypertension Current Visit: No Status: Chronic Qualifiers: Hypertension type: essential hypertension Qualified Code(s): I10 - Essential (primary) hypertension (5) Rheumatoid arthritis Current Visit: No Status: Chronic Qualifiers: Rheumatoid arthritis location: unspecified site Rheumatoid factor presence : unspecified presence Qualified Code(s): M06.9 - Rheumatoid arthritis, unspecified - Plan The patient will be admitted to the hospital due to right hip fracture. Will keep her NPO for surgical fixation in the morning. Will order an echocardiogram to evaluate progression of aortic valve disease radiated to surgery. Will continue with traction and pain medication. Consult Dr. Cazares. - Advance Directives Does patient have a Living Will: No Does patient have a Durable POA for Healthcare: No - Code Status/Comfort Care Code Status Assessed: Yes Code Status: Full Code
[2018-09-11 02:05] LABS: Urine Blood NEGATIVE (NEG); Urine Glucose NEGATIVE (NEG); Urine Protein NEGATIVE (NEG); Urine Specific Gravity 1.025 (1.005-1.030)
[2018-09-11] MEDS ORDERED: HYDROMORPHONE HCL 1 MG/ML INJ ONE (02:05)
[2018-09-11] MEDS ORDERED: ONDANSETRON 4 MG/2 ML VIAL ONE (02:09)
[2018-09-11] MEDS ORDERED: SODIUM CHLORIDE 0.9% 10ML INJ IV PRN (03:01)
[2018-09-11] MEDS ORDERED: ONDANSETRON 4 MG/2 ML VIAL IV PRN (03:01)
[2018-09-11] MEDS ORDERED: KETOROLAC 30 MG/ML INJ IV PRN (03:01)
[2018-09-11] MEDS ORDERED: ACETAMINOPHEN 500 MG TAB PO PRN (03:01)
[2018-09-11 04:34] VITALS: BMI 25.7
[2018-09-11] MEDS: NA CHLORIDE 0.9% 1,000 ML IV SCH ×3 (05:33→16:33)
[2018-09-11] MEDS: INSULIN -REGULAR HUMAN 50 UNIT/0.5 ML ML SQ SCH ×3 (06:00→18:00)
--- NOTE | 2018-09-11 06:50 | EKG ---
Test Date: 2018-09-10 Test Time: 23:12:11 Thread Machine Operator: MEENA MEASUREMENT RESULTS: Intervals: Rate: 68 PA: 144 QRSD: 92 QT: 418 QTc: 444 [place]: P: 62 PA: 144 QRS: 16 T: 59 INTERPRETIVE STATEMENTS: Normal sinus rhythm Normal ECG Compared to ECG 03/14/2018 20:27:47 No significant changes Electronically Signed On 09-11-18 06:49:[address]
[2018-09-11] MEDS ORDERED: INFLUENZA VACCINE (for 3y+) 0.5 ML DOSE IMVAC ONE (08:00)
[2018-09-11] MEDS ORDERED: PNEUMOCOCCAL VACCINE 0.5 ML IMVAC ONE (08:00)
--- NOTE | 2018-09-11 08:06 | RAD REPORT ---
EXAM DESCRIPTION: RAD - Hip Right 2 View - 09/11/2018 12:22 am CLINICAL HISTORY: Right hip pain status post fall FINDINGS: Subcapital fracture extends into the proximal the femoral neck with mild displacement of fracture fra gments. No dislocation is seen
--- NOTE | 2018-09-11 08:06 | RAD REPORT ---
EXAM DESCRIPTION: RAD - Pelvis - 09/11/2018 12:22 am CLINICAL HISTORY: Pelvic pain status post fall FINDINGS: Subcapital fracture extends into the proximal the femoral neck with mild displacement of f racture fragments. No dislocation is seen
--- NOTE | 2018-09-11 08:06 | RAD REPORT ---
EXAM DESCRIPTION: RAD - Femur Right - 09/11/2018 12:22 am CLINICAL HISTORY: Right leg pain status post fall FINDINGS: Subcapital fracture extends into the proximal the femoral neck with mild displacement of fracture fra gments. No dislocation is seen with
--- NOTE | 2018-09-11 08:47 | RAD REPORT ---
EXAM DESCRIPTION: Zuleymat Single View09/11/2018 12:22 am CLINICAL HISTORY: Chest pain COMPARISON: February 2018 FINDINGS: Calcified lung granulomas are seen. The lungs appear clear of acute infiltrate. The heart is normal size IMPRESSION: No acute abnormalities displayed
[2018-09-11] MEDS: PANTOPRAZOLE 40 MG INJ IVP SCH (09:56)
[2018-09-11 12:32] LABS: C-Reactive Protein 17.4 mg/L (<3.00); Ferritin 39.6 ng/mL (8-388)
--- NOTE | 2018-09-11 13:37 | PN ---
Date of Progress Note: 09/11/2018 Subjective: The patient seen and examined. Chart reviewed and case discussed with RN. The patient states her pain is well controlled. Otherwise doing well. Receiving echocardiogram. Code status, full. Review of Systems: Negative except as above. Medications: List reviewed. Physical Examination: Vital Signs: Temperature 97.6, heart rate 72, blood pressure 156/86, respirations 20, O2 98% on room air. General: Awake, alert, oriented x3. Some mild distress due to pain. Elderly female appearing. CV: S1, S2. Peripheral pulses present. No murmurs. Respiratory: Moving air well bilaterally. Abdomen: Soft, nontender, nondistended. Positive bowel sounds. Extremities: No clubbing, cyanosis, or edema. Musculoskeletal: Right hip tenderness to palpation, shortened. Neurologic: Nonfocal. Laboratory Data: Urine culture pending. Assessment: A 72-year-old female with: 1. Right-sided hip fracture, initial encounter closed. Pain control. Traction. 2. Diabetes mellitus type 2 with long-term use of insulin with hyperglycemia. We will continue sliding scale insulin. Check hemoglobin A1c. Continue Accu- Cheks. 3. Essential hypertension, stable. resume home meds 4. Rheumatoid arthritis, steroid dependent. 5. Hypothyroidism. Continue levothyroxine. 6. History of Crohn disease, stable. 7. Iron deficiency and B12 deficiency anemia, on supplements. 8. Gastrointestinal and deep venous thrombosis prophylaxis, addressed. Plan: Review echocardiogram. Plan for surgery in a.m. by Dr. Cazares. /NAN Voice ID: [id number] Report ID: [id number] MTDD
[2018-09-11] MEDS: MORPHINE 4 MG/ML SYR IV PRN ×2 (14:08→20:29)
[2018-09-11 14:09] LABS: RBC Red Blood Cell Count 3.72 M/uL (3.86-4.86)
--- NOTE | 2018-09-11 16:40 | CON ---
Date of Service: 09/11/2018 Preoperative Diagnosis: Right hip femoral neck fracture with underlying rheumatoid disease. History Of Present Illness: Ms. Jayesh Leavitt is a 72-year-old woman who sustained a fall in her home. She previously had fractured her left femur in diaphyseal region, treated with Synthes nail in [facility] with a displaced femoral neck fracture. Underlying history of rheumatoid disease is significant as there appears to be an erosion of her acetabulum. Likely, she will need a total hip replacement. She also has a history of neutropenia with her current white blood cell count of 1.9. This is concerning for her hip fracture, but we have little alternative. Secondary to her low white blood count, she is not a candidate for biologics for immunosuppression. Her rheumatoid disease has been fairly symptomatic lately. Past Medical History: Significant for hypothyroidism, diabetes mellitus, hypertension, GERD, Crohn disease, rheumatoid arthritis, history of anemia and right knee degenerative joint disease. Current Medications: Tylenol Extra Strength, folic acid, Novolin insulin, Toradol, Protonix, Paxil. She is on intermittent Zofran as well. Allergies: SHE HAS NO ALLERGIES LISTED. Physical Examination: General: She is well developed, alert, and oriented. Musculoskeletal: Complains of pain in her right hip and 5 pounds of Sam's traction. Neurologic and vascular structures appear to be intact. She has well -healed surgical scars on the left hip. Provocative testing of the right hip is not performed. Chest: Clear. Abdomen: Soft to isolate herself. Plan: Will be to proceed with a right total hip after medical clearance. She should have a hematology oncologic evaluation. She will follow up at her surgical setting tomorrow morning. SUMAN Voice ID: [id number] Report ID: [id number] MARITO
[2018-09-12] MEDS: MORPHINE 4 MG/ML SYR IV PRN ×3 (00:33→13:56)
[2018-09-12] MEDS: NA CHLORIDE 0.9% 1,000 ML IV SCH ×2 (00:37→08:33)
[2018-09-12] MEDS: LEVOTHYROXINE SOD 0.1 MG TAB PO SCH (05:35)
[2018-09-12] MEDS: INSULIN -REGULAR HUMAN 50 UNIT/0.5 ML ML SQ SCH ×5 (06:00→20:21)
[2018-09-12 06:02] LABS: Absolute Lymphocytes (CBC) 0.3 K/uL (0.7-4.9); Absolute Monocytes 0.2 K/uL (0.1-1.3); Absolute Neutrophil 0.8 K/uL (1.8-8.0); Basophils % 0.9 % (0-1.3); Eosinophils % 2.9 % (0-4.4); Hematocrit 27.6 % (36.0-45.0); Lymphocytes % 25.6 % (15.3-44.8); MCH 23.8 pg (27.0-35.0); MCV 73.8 fL (80-100); MPV 6.9 fL (7.6-11.3); Monocytes % 13.8 % (3.3-12.3); RBC Red Blood Cell Count 3.74 M/uL (3.86-4.86)
[2018-09-12 06:10] LABS: BUN Blood Urea Nitrogen 13 mg/dL (7-18); Bicarbonate 25 mmol/L (21-32); Glucose Level 106 mg/dL (74-106); Potassium 3.9 mmol/L (3.5-5.1); Sodium Level 134 mmol/L (136-145)
[2018-09-12] MEDS: PANTOPRAZOLE 40 MG INJ IVP SCH (08:29)
[2018-09-12] MEDS ORDERED: CEFAZOLIN/SWI 1gm 2 GM/20 ML SYR ONE (09:13)
[2018-09-12] MEDS ORDERED: PROPOFOL 200 MG/20 ML VIAL IV ONE (09:19)
[2018-09-12] MEDS ORDERED: GLYCOPYRROLATE 0.2 MG/ML SYR ONE ×2 (09:20)
[2018-09-12] MEDS ORDERED: LIDOCAINE 2% MPF 5 ML VIAL ONE (09:20)
[2018-09-12] MEDS ORDERED: FENTANYL CITR 250 MCG/5 ML ONE (09:20)
[2018-09-12] MEDS ORDERED: ROCURONIUM 50 MG/5 ML VIAL IV ONE ×2 (09:20→10:31)
[2018-09-12] MEDS ORDERED: MIDAZOLAM HCL 2 MG/2 ML INJ ONE (09:21)
[2018-09-12] MEDS ORDERED: SUCCINYLCHOLINE 20 MG/ML (10 ML) IV ONE (09:30)
[2018-09-12] MEDS ORDERED: MORPHINE/NS PCA 50 MG/50 ML PCA.SYRING IV PRN (09:38)
[2018-09-12] MEDS ORDERED: ONDANSETRON 4 MG/2 ML VIAL IV PRN (09:38)
[2018-09-12] MEDS ORDERED: DOCUSATE NA 100 MG CAP PO PRN (09:38)
[2018-09-12] MEDS: Ringers Lactate 1,000 ML IV SCH (10:00)
[2018-09-12] MEDS ORDERED: HYDROCORTISONE SUC 250 MG INJ ONE (10:02)
[2018-09-12] MEDS ORDERED: TRANEXAMIC ACID 1,000 MG in NA CHLORIDE 0.9% 50 ML IV ONE (10:53)
[2018-09-12] MEDS ORDERED: Phenylephrine HCl 10 MG/ML 1 ML VIAL ONE (11:34)
[2018-09-12] MEDS ORDERED: POTASSIUM CL SA 10 MEQ TAB PO ONE (12:00)
[2018-09-12] MEDS: MIDAZOLAM HCL 2 MG/2 ML INJ ONE ×2 (12:21→13:07)
[2018-09-12] MEDS ORDERED: Ringers Lactate 1,000 ML IV ONE (13:01)
[2018-09-12] MEDS ORDERED: METHYLPREDNISOLONE 40 MG INJ IV ONE (14:08)
[2018-09-12] MEDS: FOLIC ACID 1 MG TABLET PO SCH (14:30)
[2018-09-12] MEDS: PARoxetine HCl 10 MG TAB PO SCH (14:30)
--- NOTE | 2018-09-12 14:54 | RAD REPORT ---
EXAM DESCRIPTION: RAD - Pelvis - 09/12/2018 2:24 pm CLINICAL HISTORY: Right femoral fracture FINDINGS: Right hip arthroplasty has been performed. Prosthesis is in good position. No dislocation is seen. A drain is in place
[2018-09-12] MEDS ORDERED: D50W 25 GM/50 ML SYRINGE IV PRN (15:26)
[2018-09-12] MEDS ORDERED: GLUCAGON 1 MG/VIAL IM PRN (15:26)
[2018-09-12 17:50] LABS: Hematocrit 27.4 % (36.0-45.0)
--- NOTE | 2018-09-12 18:28 | PN ---
Date of Progress Note: 09/12/2018 History: The patient seen and examined. Chart reviewed and case discussed with Dr. Cazares. The p atient did well postoperatively. Tolerated procedure well. Does report some pain. Review of Systems: Negative except as above. Medications: List reviewed. Physical Examination: Vital Signs: Temperature 98.9, heart rate 75, blood pressure 101/53, respirations 18, O2 98% on supp lemental oxygen. CV: S1, S2. No murmurs. Peripheral pulses present. Respiratory: Moving air well bilaterally. No wheezing. Gastrointestinal: Abdomen is soft, nontender, nondistended. Positive bowel sounds. Extremities: No clubbing, cyanosis, edema. Musculoskeletal: Right hip incision site clean, dry, intact. Neurologic: Nonfocal. Laboratory Data: Sodium 134, potassium 3.9, chloride 103, CO2 25, BUN 13, creatinine 0.4, glucose 10 6, calcium 7.1. WBC 1.3, H and H 8.9, 27.6, recheck after surgery is 8.7, 26, platelets 150, neutrop hils 56%. Urine culture growing 4+ gram-negative rods. Assessment And Plan: A 72-year-old female with: 1.Acute right-sided hip fracture, initial encounter, closed fracture status post open reduction and internal fixation, postoperative day #0, Dr. Cazares on the case. 2.Diabetes mellitus type 2 with long-term use of insulin with hyperglycemia. We will continue slidi ng scale insulin. Continue Accu-Cheks. 3.Essential hypertension, stable. 4.Rheumatoid arthritis, steroid dependent. We will resume home dose of steroids. 5.Hypothyroidism. Continue levothyroxine. 6.History of Crohn disease, stable. 7.Leukopenia. We will continue to monitor. Hematology consultation underway. 8.Iron deficiency and B12 deficiency anemia, on supplements. We will expect hemoglobin to drop post operatively. We will monitor H and H and transfuse as needed. 9.Gastrointestinal and deep venous thrombosis prophylaxis with Xarelto for post hip surgery deep arnold ous thrombosis prophylaxis. /NNA Voice ID: [id number] Report ID: [id number]
[2018-09-12] MEDS: VANCOMYCIN/NS 1 gm 1 GM/250 ML BAG IV SCH (20:50)
[2018-09-12] MEDS ORDERED: VANCOMYCIN 1GM/D5W 200 ML IV SCH (21:00)
--- NOTE | 2018-09-12 23:18 | OP ---
Surgeon: Santos Cazares MD Date of Sercvice: 09/12/2018 Preoperative Diagnoses: 1. Right femoral neck fracture. 2. Primary bone marrow disorder. Postoperative Diagnoses: 1. Right femoral neck fracture. 2. Primary bone marrow disorder. Procedure Performed: Right total hip arthroplasty. Coin Machine Supervisor: Edin Mae PA-C. Complications: None. Disposition: Recovery room, stable. Procedure In Detail: The patient was taken to the operative suite, placed in supine position, induced anesthesia, the hip was prepped and draped in usual sterile fashion. This patient had significant preexisting acetabular disease secondary to rheumatoid arthritis. She has a primary bone marrow disorder resulting in exceptionally low granulocytes. Her white blood cell count preoperatively was 1.9. She was cleared by Cardiology and Hematology prior to surgery. During the surgery, we obtained a bone marrow aspirate for us to help delineate the nature of her bone marrow disorder. A posterior approach to the hip was utilized and a skin incision created. Hemostasis was verified. External rotators were elevated, tagged for later reattachment. A circumferential capsulectomy was performed after the fractured femoral neck was osteomized and femoral head was delivered. So, reaming was begun through a 53 mm diameter, 54 mm cup was impacted into appropriate orientation and version with femoral screw fixation with 2 screws. Hi-Wall liner was then placed followed by a trial. The ring canal was reamed and broached to a maximum diameter of 14. There was excessive bleeding in the intramedullary canal. It was controlled with tamponade by the insertion of the broach. Reviewing the medications, it appears the patient received a preoperative dose of Toradol approximately 24 hours prior to surgery. A 14 stem standard offset was appropriate with a standard neck. It was impacted in appropriate orientation and version. A layered closure was performed including reattachment of external rotators through drill holes in bone. The patient tolerated the procedure well. Reversed anesthesia and should be in the recovery room shortly. GALINA/NAN Voice ID: [id number] Report ID: [id number] MARITO
--- NOTE | 2018-09-12 23:50 | CON ---
Date of Consultation: 09/11/2018 Consulting Physician: Milagros Harris. Reason For Consultation: Neutropenia. History Of Present Illness: Ms. Leavitt is a 72-year-old lady who was hospitalized in the early hours of 09/11/2018 with a fracture of the right femur. She describes waking up at night to go to the bathroom where she lost her balance and fell on her right hip following which she was unable to stand and noted significant pain on that side. An x-ray done in the emergency room revealed a femoral neck fracture on the right side. CBC on admission revealed a white count of 1.9 with an absolute neutrophil count of 1.4, hemoglobin was 9.4, hematocrit 28.5 with a low MCV and MCH. Platelet count was normal 241, 000. Ms. Leavitt was scheduled to see me on September 14 for evaluation of this neutropenia. Her white count was noted to be low by her mesh man on 02/24/2018. The total white count was 1.5 with an absolute neutrophil count of 600, hemoglobin was 10.3, and hematocrit was 31.7 at that time. She has a long history of rheumatoid arthritis, which has largely gone untreated because of her failure to follow up with the mesh man and recommendations. She says that she has noted a 40 pounds weight loss in the past 2 years, anorexia, and severe fatigue. She blamed it on taking care for her sick parents who finally 2 years ago. During this past 2 years, she has noted dry eyes with a gritty sensation and a dry mouth requiring her to drink multiple sips of water through the day and at night. She denies any fevers or sweats. She denies any enlarged lymph nodes, rash, or itching. There is no history of dysphagia, reflux type symptoms, abdominal pain, or diarrhea. She has noted stiffness and pain of the small joints of her hands as well as her feet, which have been worsening in the past 2 years. She also describes blanching pain and blue mottling of her extremities intermittently. She has noted numbness and pain at the bottom of her feet along with difficulty walking, which she actually ascribes to weakness of her thighs and shoulder muscles. She had similarly fall in November 2017 and fractured her left femoral shaft and underwent open reduction and internal fixation of the joint followed by rehab. She states she was able to walk upon leaving rehab. Unfortunately, her overall weakness has necessitated her using a wheelchair since the past 6 months or so. Past Medical History: Significant for: 1. Hypertension. 2. Diabetes mellitus type 2 (off all medications since she lost weight). 3. Hypothyroidism. 4. Iron deficiency anemia. 5. Rheumatoid arthritis. Past Surgical History: Significant for 2 sections, knee replacement in 2009, ORIF left femoral shaft in November 2017. Medications: Home medications are as follows: 1. Levothyroxine 300 mcg p.o. daily in a.m. 2. Vitamin B12 1000 mcg p.o. daily. 3. Iron sulfate 325 mg p.o. b.i.d. 4. Protonix 40 mg p.o. daily. Allergies: SHE HAS NO KNOWN DRUG ALLERGIES. Social/family History: Ms. Leavitt is a . She lives alone and has 6 children. There is family history of rheumatoid arthritis in her sister. She is a former smoker, quit long time ago. Denies any alcohol or recreational drug use. Physical Examination: General: Ms. Leavitt appears chronically ill and pale. Vital Signs: At 8 a.m. revealed a temperature of 97.6, pulse 72, respirations 20, blood pressure 156/86, saturating at 98% on room air. HEENT: Reveals pallor. There was no petechiae, bleeding, or bruising noted. No oral thrush. Lymph Node Survey: Reveals no palpable lymphadenopathy in the neck, axilla, or groin. Chest: Clear to auscultation. No rales or rhonchi were heard. Heart: Sounds reveal normal S1, S2. No gallops or murmurs. Abdomen: Soft and nontender. Liver and spleen were not palpable. Bowel sounds were present. Neurologic: She was alert and oriented with no acute neuro deficits. Extremities: Showed some coolness to palpation, but no cyanosis. No evidence of calf swelling or tenderness. Laboratory Data: As noted above. White count on admission was 1.9, hemoglobin 9.4 g/dL, platelet count 241,000. I ordered a sedimentation rate which was elevated at 50, reticulocyte count was normal at 2.61%. Chemistries reveal a sodium of 133 on admission, potassium was 4.3, BUN, creatinine were normal for an estimated GFR of 90, glucose was mildly elevated at 146. Albumin was low at 2.6, globulin was mildly elevated at 3.9. C-reactive protein was 17.4. An iron profile revealed a low iron of 27, transferrin saturation was 9.5, ferritin was 39.6. Assessment And Plan: 1. Leukopenia/neutropenia. Her white count has been chronically low since at least February 2018 as per records available from her mesh man. The possible etiologies include uncontrolled rheumatoid arthritis and/or other autoimmune disease such as mixed connective tissue disorder. Another possibility in the setting of RA would be LGL leukemia and/or marrow hypoplasia. The possibility of acute leukemia is low given the chronicity of her pancytopenia. I have spoken to Dr. Patiño, who is going to be performing surgery on 2017. We will get a bone marrow aspirate and possibly a biopsy at the time of surgery to evaluate her bone marrow. I will start her on G-CSF on 300 mcg SQ daily from 09/12/2018 to prevent any worsening of neutropenia and to help with postop healing. The plan is to treat her with a biologic agent for the rheumatoid arthritis once a hematological disorder is ruled out. 2. Anemia. She has hypochromic microcytic anemia, iron saturation, and ferritin were low especially given the elevated sedimentation rate and CRP, which point to anemia of chronic disease as well. I will start her on IV iron while she is in the hospital to replenish iron stores and correct the iron deficiency anemia. Some of this anemia is due to the autoimmune disorder and should improve with treatment of the rheumatoid arthritis. Thank you for asking me to see her. Please do not hesitate to call me if you have any questions. HUBERT/NAN Voice ID: [id number] Report ID: [id number] MARITO
[2018-09-13] MEDS: LEVOTHYROXINE SOD 0.1 MG TAB PO SCH (04:50)
[2018-09-13] MEDS: Ringers Lactate 1,000 ML IV SCH ×2 (04:50→21:28)
[2018-09-13 07:02] LABS: BUN Blood Urea Nitrogen 17 mg/dL (7-18); Bicarbonate 23 mmol/L (21-32); Glucose Level 111 mg/dL (74-106); Potassium 4.5 mmol/L (3.5-5.1); Sodium Level 133 mmol/L (136-145)
[2018-09-13] MEDS: INSULIN -REGULAR HUMAN 50 UNIT/0.5 ML ML SQ SCH ×4 (07:30→20:45)
[2018-09-13] MEDS: predniSONE 10 MG TAB PO SCH (08:11)
[2018-09-13] MEDS: PANTOPRAZOLE 40 MG INJ IVP SCH (08:11)
[2018-09-13] MEDS: PARoxetine HCl 10 MG TAB PO SCH (08:11)
[2018-09-13] MEDS: RIVAROXABAN 10 MG TABLET PO SCH (08:12)
[2018-09-13] MEDS: FOLIC ACID 1 MG TABLET PO SCH (08:12)
[2018-09-13] MEDS: TBO-FILGRASTIM 300 MCG/0.5 ML SYR SQ SCH (08:13)
[2018-09-13] MEDS: Meropenem 1,000 MG in NA CHLORIDE 0.9% 100 ML IV SCH ×2 (08:49→17:59)
[2018-09-13] MEDS ORDERED: Meropenem 1000 MG/VIAL IV SCH (09:00)
[2018-09-13 09:01] LABS: Absolute Lymphocytes (CBC) 0.4 K/uL (0.7-4.9); Absolute Monocytes 0.2 K/uL (0.1-1.3); Absolute Neutrophil 0.7 K/uL (1.8-8.0); Basophils % 0.8 % (0-1.3); Hematocrit 24.9 % (36.0-45.0); Lymphocytes % 32.1 % (15.3-44.8); MCH 24.7 pg (27.0-35.0); MCV 75.2 fL (80-100); MPV 6.9 fL (7.6-11.3); Monocytes % 13.3 % (3.3-12.3); RBC Red Blood Cell Count 3.32 M/uL (3.86-4.86)
[2018-09-13] MEDS: VANCOMYCIN/NS 1 gm 1 GM/250 ML BAG IV SCH (09:28)
--- NOTE | 2018-09-13 13:28 | P.PN ---
Subjective Date of Service: 09/13/18 Chief Complaint: Hip fracture Subjective: Tolerating diet, New changes (hgbbstabilizing at 8.2 hemovac drainage clear at this time), Working w/ PT Physical Examination - Vital Signs Temperature: 97.9 F Blood Pressure: 109/50 Pulse: 94 Respirations: 15 Pulse Ox (%): 100
--- NOTE | 2018-09-13 14:57 | PN ---
Date of Progress Note: 09/13/2018 Subjective: The patient was seen and examined, chart reviewed, and case discussed with RN. The cathy ent is feeling better today. Pain is well controlled. Continues to be on PORTABLE POWER TOOL REPAIRER morphine pump. Review of Systems: Negative except as above. Medications: List reviewed. Objective: Vital Signs: Temperature 97.9, heart rate 83, blood pressure 131/62, respirations 18, O2 of 100% on room air. General: Awake, alert, oriented x3, in some mild distress due to pain, elderly female. CV: S1, S2. Peripheral pulses present. Regular rate and rhythm. Respiratory: Clear to auscultation bilaterally. No wheezing. Gastrointestinal: Abdomen is soft, nontender, nondistended. Positive bowel sounds. Extremities: No clubbing, cyanosis, or edema. Neurologic: Nonfocal. Musculoskeletal: Right hip incision site is clean, dry, and intact. Hemovac in place. Minimal drai nage. Laboratory Data: Sodium 133, potassium 4.5, chloride 101, CO2 of 23, BUN 17, creatinine 0.4, glucose 111, calcium 7.2. WBC 1.3, H and H 8.2 and 24.9, platelets 156, neutrophils 51%. Urine culture liseth wing out E. coli that is ESBL producing. Assessment And Plan: A 72-year-old female with: 1.Status post fall. 2.Right hip fracture, initial encounter closed, status post open reduction and internal fixation, po stoperative day #1. Ortho on the case. Continue Xarelto for deep venous thrombosis prophylaxis. We will start on PT, and will likely need rehab. 3.Leukopenia, unclear etiology. The patient had bone marrow biopsy done during the hip surgery. Ap preciate Dr. Leiva's input. Continue to monitor WBC count. Not neutropenic at this time. 4.Acute cystitis without hematuria secondary to extended-spectrum beta-lactamase producing Escherich ia coli. The patient will need at least 2 weeks of IV antibiotics. We will switch to meropenem 1 g q.8 hours. 5.Diabetes mellitus type 2 with long-term use of insulin with hyperglycemia. Continue sliding scale insulin. 6.Acute blood loss anemia. The patient also has history of iron deficiency and vitamin B12 deficien cy. We will continue to monitor hemoglobin and hematocrit. The patient received 1 unit PRBCs yester day. 7.Essential hypertension, stable. 8.Rheumatoid arthritis, steroid dependent. 9.Hypothyroidism, levothyroxine. 10.History of Crohn disease. 11.Gastrointestinal and deep venous thrombosis prophylaxis, addressed. PLAN: Step down from ICU. /NAN Voice ID: [id number] Report ID: [id number]
[2018-09-14] MEDS: Meropenem 1,000 MG in NA CHLORIDE 0.9% 100 ML IV SCH ×3 (00:28→17:01)
[2018-09-14 05:26] LABS: Hematocrit 22.2 % (36.0-45.0)
[2018-09-14] MEDS ORDERED: Magnesium Sulfate 2gm IVPB 2 G/50 ML BAG IV ONE (06:00)
[2018-09-14] MEDS: LEVOTHYROXINE SOD 0.1 MG TAB PO SCH (06:26)
[2018-09-14] MEDS ORDERED: NA CHLORIDE 0.9% 100 ML ONE (06:28)
[2018-09-14] MEDS: INSULIN -REGULAR HUMAN 50 UNIT/0.5 ML ML SQ SCH ×4 (07:30→21:00)
--- NOTE | 2018-09-14 08:15 | ECHO ---
HEIGHT: 5 ft 5 in WEIGHT: 155 lb 0 oz DATE OF STUDY: 09/11/[address]: Milagros Harris MD 2-DIMENSIONAL: YES M.MODE: YES DOPPLER: YES COLOR FLOW: YES TDS: NO PORTABLE: NO DEFINITY: NO BUBBLE STUDY: NO DIAGNOSIS: SYSTOLIC MURMUR CARDIAC HISTORY: CATHERIZATION: NO SURGERY: NO PROSTHETIC VALVE: NO PACEMAKER: NO MEASUREMENTS (cm) DIASTOLIC (NORMALS) SYSTOLIC (NORMALS) IVSd 1.0 (0.6-1.2) LA Diam 4.0 (1.9-4.0) LVEF 67% LVIDd 4.3 (3.5-5.7) LVIDs 2.7 (2.0-3.5) %FS 37% LVPWd 1.0 (0.6-1.2) Ao Diam 2.7 (2.0-3.7) 2 DIMENSIONAL ASSESSMENT: RIGHT ATRIUM: NORMAL LEFT ATRIUM: NORMAL RIGHT VENTRICLE: NORMAL LEFT VENTRICLE: NORMAL TRICUSPID VALVE: NORMAL MITRAL VALVE: MITRAL ANNULAR CALCIFICATION PULMONIC VALVE: NORMAL AORTIC VALVE: STENOTIC PERICARDIAL EFFUSION: NONE AORTIC ROOT: NORMAL LEFT VENTRICULAR WALL MOTION: NORMAL. DOPPLER/COLOR FLOW: AORTIC STENOSIS MODERATE 1.4 CENTIMETERS SQUARED. COMMENTS: MODERATE AORTIC STENOSIS 1.4 CENTIMETERS SQUARED. MITRAL ANNULAR CALCIFICATION. NORMAL LEFT VENTRICULAR SIZE AND FUNCTION. TECHNICALLY DIFFICULT STUDY. TECHNOLOGIST: DAPHNE FLYNN
[2018-09-14] MEDS: RIVAROXABAN 10 MG TABLET PO SCH (09:00)
[2018-09-14] MEDS: PANTOPRAZOLE 40 MG INJ IVP SCH (09:06)
[2018-09-14] MEDS: PARoxetine HCl 10 MG TAB PO SCH (09:07)
[2018-09-14] MEDS: FOLIC ACID 1 MG TABLET PO SCH (09:07)
[2018-09-14] MEDS: predniSONE 10 MG TAB PO SCH (09:07)
[2018-09-14] MEDS: TBO-FILGRASTIM 300 MCG/0.5 ML SYR SQ SCH (11:07)
[2018-09-14 12:47] LABS: Hematocrit 24.8 % (36.0-45.0)
[2018-09-14 14:01] VITALS: O2SAT 97
[2018-09-14] MEDS ORDERED: MAGNESIUM SULFATE 1 gm IVPB 1 GM/100 ML BAG IV ONE (15:50)
--- NOTE | 2018-09-14 15:59 | RAD REPORT ---
EXAM DESCRIPTION: RAD - Chest Single View - 09/14/2018 3:54 pm CLINICAL HISTORY: Device placement PICC line placement COMPARISON: September 10 FINDINGS: A PICC line has been inserted with its tip in the mid superior vena cava. The lungs appear clear of acute infiltrate. The heart is normal size. IMPRESSION: PICC line with its tip in the mid superior vena cava
--- NOTE | 2018-09-14 16:18 | P.PN ---
Subjective Date of Service: 09/14/18 Chief Complaint: Hip fracture Physical Examination - Vital Signs Temperature: 97.1 F Blood Pressure: 112/64 Pulse: 108 Respirations: 16 Pulse Ox (%): 96
--- NOTE | 2018-09-14 16:20 | P.PN ---
Subjective Date of Service: 09/14/18 Chief Complaint: Hip fracture Subjective: Tolerating diet (hgb 8.1 ready for rehab from [facility]), Doing well Physical Examination - Vital Signs Temperature: 97.1 F Blood Pressure: 112/64 Pulse: 108 Respirations: 16 Pulse Ox (%): 96
[2018-09-14] MEDS ORDERED: NA CHLORIDE 0.9% 250 ML ONE ×2 (17:06→22:38)
[2018-09-14 19:11] LABS: Absolute Monocytes 0.4 K/uL (0.1-1.3); Absolute Neutrophil 4.4 K/uL (1.8-8.0); Hematocrit 20.9 % (36.0-45.0); MPV 7.1 fL (7.6-11.3); RBC Red Blood Cell Count 2.76 M/uL (3.86-4.86)
[2018-09-14 19:13] LABS: Absolute Lymphocytes (CBC) 0.3 K/uL (0.7-4.9); Eosinophils % 0.1 % (0-4.4); Lymphocytes % 5.1 % (15.3-44.8); MCH 24.6 pg (27.0-35.0); MCV 75.6 fL (80-100); Monocytes % 8.5 % (3.3-12.3)
[2018-09-14 19:18] LABS: BUN Blood Urea Nitrogen 12 mg/dL (7-18); Bicarbonate 24 mmol/L (21-32); Glucose Level 185 mg/dL (74-106); Sodium Level 132 mmol/L (136-145)
[2018-09-14 20:40] LABS: Immunoglobulin A 418 mg/dL (81-463); Immunoglobulin G 1004 mg/dL (694-1618); Immunoglobulin M 169 mg/dL (48-271)
[2018-09-14] MEDS: Ringers Lactate 1,000 ML IV SCH (21:14)
[2018-09-14 23:52] LABS: Blood Morphology Comment NOT SEEN (NOT SEEN); Platelet Estimate ADEQ
--- NOTE | 2018-09-14 23:54 | PN ---
Date of Progress Note: 09/12/2018 Subjective: The patient seen and examined. Chart reviewed and case discussed with RN. The patient' s pain is controlled. Doing well overall. Review of Systems: Negative except as above. Medications: List reviewed. Physical Examination: Vital Signs: Temperature 97.1, heart rate 108, blood pressure 112/64, respirations 16, O2 96% on kwasi m air. General: Awake, alert, oriented x3, not in acute distress. Elderly female. CV: S1, S2. No murmurs. Peripheral pulses present. Respiratory: Moving air well bilaterally. Abdomen: Abdomen is soft, nontender, nondistended. Positive bowel sounds. Extremities: No clubbing, cyanosis, or edema. Musculoskeletal: Right hip incision site clean, dry, intact. NEURO: Nonfocal. Laboratory Data: Glucose 143, 129, 118. H and H 8.3 and 24.8. Assessment: A 72-year-old female with: 1.Status post mechanical fall. 2.Right hip fracture. Initial encounter, closed, status post open reduction and internal fixation, postoperative day #2. Continue Xarelto for deep venous thrombosis prophylaxis. Continue with PT luz ab referral. 3.Leukopenia, a bone marrow biopsy done, pending. Appreciate Dr. Leiva's input. Continue Granix. F ollow up with WBC count. 4.Acute cystitis without hematuria secondary to extended spectrum beta-lactamases producing Escheric hia coli. Continue with meropenem for 2 weeks. 5.Diabetes mellitus type 2 with insulin requiring with hyperglycemia. Continue sliding scale insuli n. 6.Acute blood loss anemia and iron deficiency anemia. Monitor H and H, transfuse as needed. 7.Essential hypertension, stable. 8.Rheumatoid arthritis, steroid dependent. 9.Hypothyroidism, on levothyroxine. 10.History of Crohn disease, stable. 11.Gastrointestinal and deep venous thrombosis prophylaxis, addressed. SA/MODL Voice ID: [id number] Report ID: [id number]
[2018-09-15] MEDS: Meropenem 1,000 MG in NA CHLORIDE 0.9% 100 ML IV SCH ×3 (01:02→17:41)
[2018-09-15 05:36] LABS: Hematocrit 22.3 % (36.0-45.0)
[2018-09-15] MEDS: LEVOTHYROXINE SOD 0.1 MG TAB PO SCH (05:43)
[2018-09-15 05:51] LABS: BUN Blood Urea Nitrogen 8 mg/dL (7-18); Bicarbonate 26 mmol/L (21-32); Glucose Level 82 mg/dL (74-106); Magnesium 2.1 mg/dL (1.8-2.4); Potassium 3.7 mmol/L (3.5-5.1); Sodium Level 137 mmol/L (136-145)
[2018-09-15] MEDS ORDERED: KCL 20 MEQ/100 mL IVPB 20 MEQ/100 ML BAG IV SCH (07:00)
[2018-09-15] MEDS: INSULIN -REGULAR HUMAN 50 UNIT/0.5 ML ML SQ SCH ×4 (07:30→21:00)
[2018-09-15] MEDS: TBO-FILGRASTIM 300 MCG/0.5 ML SYR SQ SCH (08:27)
[2018-09-15] MEDS: predniSONE 10 MG TAB PO SCH (08:28)
[2018-09-15] MEDS: PARoxetine HCl 10 MG TAB PO SCH (08:28)
[2018-09-15] MEDS: FOLIC ACID 1 MG TABLET PO SCH (08:28)
[2018-09-15] MEDS: PANTOPRAZOLE 40 MG INJ IVP SCH (08:29)
[2018-09-15] MEDS: RIVAROXABAN 10 MG TABLET PO SCH (09:00)
--- NOTE | 2018-09-15 10:14 | P.PN ---
Date of Service: 09/15/18 labs reviewed concerned about HBG but it is comming back up, 6.7 yeasterday, 7.2mg today
[2018-09-15] MEDS: Ringers Lactate 1,000 ML IV SCH ×2 (10:26→17:43)
[2018-09-15] MEDS: HYDROCODONE/APAP 7.5/325 MG TAB PO PRN ×2 (14:05→18:21)
--- NOTE | 2018-09-15 14:20 | P.PN ---
Subjective Date of Service: 09/15/18 Chief Complaint: Hip fracture Patient seen and examined at bedside. No family at bedside. Case discussed with nursing staff. Patient is status post ORIF, postop day 3. She is complaining of feeling tired but otherwise states pain is well controlled. She is working with physical therapy. Review of Systems 10-point ROS is otherwise unremarkable Physical Examination - Vital Signs Temperature: 98.1 F Blood Pressure: 117/75 Pulse: 104 Respirations: 16 Pulse Ox (%): 97 - Physical Exam General: Alert, In no apparent distress HEENT: Atraumatic, PERRLA, EOMI Neck: Supple, JVD not distended Respiratory: Clear to auscultation bilaterally, Normal air movement Cardiovascular: Regular rate/rhythm, Normal S1 S2 Gastrointestinal: Normal bowel sounds, No tenderness Musculoskeletal: Other (Incision site without any evidence of infection. Clean , dry and intact.) Neurological: Normal speech, Normal tone, Normal affect - Studies Medications List Reviewed: Yes Assessment And Plan - Current Problems (Diagnosis) (1) Hip fracture Onset Date: 09/14/18 Current Visit: Yes Status: Acute Plan: She is status post ORIF, postop day 3. Pain well controlled. 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 IV pain medications. Patient aware that she will need to ask for medical options for pain control. She will continue working with physical therapy. She is pending insurance/facility approval for placement at [facility] for rehab Qualifiers: Encounter type: initial encounter Fracture type: closed Laterality: right Qualified Code(s): S72.001A - Fracture of unspecified part of neck of right femur, initial encounter for closed fracture (2) Leukopenia Current Visit: Yes Status: Acute Plan: , Bone marrow biopsy done, pending. Appreciate Dr. Leiva's input. Continue Granix. Follow up with WBC count. (3) Acute cystitis with positive culture Current Visit: Yes Status: Acute Plan: secondary to extended spectrum beta-lactamases producing Escherichia coli. Continue with meropenem for 2 weeks (4) DM2 (diabetes mellitus, type 2) Onset Date: 09/14/18 Current Visit: Yes Status: Acute Plan: Continue Accu-Cheks and sliding scale insulin. Qualifiers: Diabetes mellitus manager long term care insulin use: with manager long term care use Diabetes mellitus complication status: without complication Qualified Code(s): E11.9 - Type 2 diabetes mellitus without complications (5) Hypertension Onset Date: 09/14/18 Current Visit: Yes Status: Chronic Plan: Stable, continue current medications. Qualifiers: Hypertension type: essential hypertension Qualified Code(s): I10 - Essential (primary) hypertension (6) Rheumatoid arthritis Onset Date: 09/14/18 Current Visit: Yes Status: Chronic Plan: If patient seems to be steroid dependent for rheumatoid arthritis Qualifiers: Rheumatoid arthritis location: unspecified site Rheumatoid factor presence : unspecified presence Qualified Code(s): M06.9 - Rheumatoid arthritis, unspecified (7) Anemia Onset Date: 05/09/16 Current Visit: No Status: Chronic Plan: H&H stable and status post 2 units PRBCs transfusion. Recheck H&H at 6:00 p.m. today, and if below 7 transfuse 2 units PRBCs. Qualifiers: Anemia type: iron deficiency Iron deficiency anemia type: inadequate dietary iron intake Qualified Code(s): D50.8 - Other iron deficiency anemias (8) Crohn disease Current Visit: No Status: Chronic Plan: Stable Qualifiers: Gastrointestinal tract location: small intestine (9) Hypothyroidism Current Visit: No Status: Chronic Plan: Continue home levothyroxine. Qualifiers: Hypothyroidism type: unspecified Qualified Code(s): E03.9 - Hypothyroidism , unspecified Discharge Plan: Other Plan to discharge in: 48 Hours (Pending insurance/facility approval at [facility].)
[2018-09-15 18:24] LABS: Hematocrit 24.2 % (36.0-45.0)
[2018-09-16] MEDS: Meropenem 1,000 MG in NA CHLORIDE 0.9% 100 ML IV SCH ×3 (00:50→17:00)
[2018-09-16] MEDS: HYDROCODONE/APAP 7.5/325 MG TAB PO PRN ×4 (00:54→17:47)
[2018-09-16 04:54] LABS: Hematocrit 21.8 % (36.0-45.0)
[2018-09-16 05:03] LABS: BUN Blood Urea Nitrogen 9 mg/dL (7-18); Bicarbonate 28 mmol/L (21-32); Glucose Level 108 mg/dL (74-106); Potassium 3.8 mmol/L (3.5-5.1); Sodium Level 137 mmol/L (136-145)
[2018-09-16] MEDS: LEVOTHYROXINE SOD 0.1 MG TAB PO SCH (06:52)
[2018-09-16] MEDS: INSULIN -REGULAR HUMAN 50 UNIT/0.5 ML ML SQ SCH ×3 (07:30→16:30)
--- NOTE | 2018-09-16 08:29 | P.PN ---
Subjective Date of Service: 09/16/18 Chief Complaint: Hip fracture Subjective: New changes, Doing well (hgb drifting down may need to abandon antcoagulation) Physical Examination - Vital Signs Temperature: 97.3 F Blood Pressure: 110/55 Pulse: 74 Respirations: 16 Pulse Ox (%): 97 - Studies Medications List Reviewed: Yes
[2018-09-16] MEDS: predniSONE 10 MG TAB PO SCH (09:00)
[2018-09-16] MEDS: RIVAROXABAN 10 MG TABLET PO SCH (09:25)
[2018-09-16] MEDS: PARoxetine HCl 10 MG TAB PO SCH (09:25)
[2018-09-16] MEDS: FOLIC ACID 1 MG TABLET PO SCH (09:26)
[2018-09-16] MEDS: TBO-FILGRASTIM 300 MCG/0.5 ML SYR SQ SCH (09:27)
[2018-09-16] MEDS: PANTOPRAZOLE 40 MG INJ IVP SCH (09:27)
[2018-09-16] MEDS ORDERED: POTASSIUM 25 MEQ EFFERV TAB PO ONE (09:41)
--- NOTE | 2018-09-16 13:07 | P.PN ---
Subjective Date of Service: 09/16/18 Chief Complaint: Hip fracture Patient seen and examined at bedside. No family at bedside. Case discussed with nursing staff. Patient is status post ORIF, postop day 4. She is complaining of feeling tired but otherwise states pain is well controlled. She is working with physical therapy. Review of Systems As noted above Physical Examination - Vital Signs Temperature: 97.7 F Blood Pressure: 106/61 Pulse: 96 Respirations: 17 Pulse Ox (%): 99 - Physical Exam General: Alert, In no apparent distress HEENT: Atraumatic, PERRLA, EOMI Neck: Supple, JVD not distended Respiratory: Clear to auscultation bilaterally, Normal air movement Cardiovascular: Regular rate/rhythm, Normal S1 S2 Gastrointestinal: Normal bowel sounds, No tenderness Musculoskeletal: Other (Hip without any evidence of infection. No bleeding/ drainage noted) Integumentary: No rashes Neurological: Normal speech, Normal tone, Normal affect Lymphatics: No axilla or inguinal lymphadenopathy - Studies Medications List Reviewed: Yes Assessment And Plan - Current Problems (Diagnosis) (1) Hip fracture Onset Date: 09/14/18 Current Visit: Yes Status: Acute Plan: She is status post ORIF, postop day 3. Pain well controlled. 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 IV pain medications. Patient aware that she will need to ask for medical options for pain control. She will continue working with physical therapy. She is pending insurance/facility approval for placement at [facility] for rehab Qualifiers: Encounter type: initial encounter Fracture type: closed Laterality: right Qualified Code(s): S72.001A - Fracture of unspecified part of neck of right femur, initial encounter for closed fracture (2) Leukopenia Current Visit: Yes Status: Acute Plan: , Bone marrow biopsy done, pending. Appreciate Dr. Leiva's input. Continue Granix. Follow up with WBC count. (3) Acute cystitis with positive culture Current Visit: Yes Status: Acute Plan: secondary to extended spectrum beta-lactamases producing Escherichia coli. Continue with meropenem for 2 weeks (4) DM2 (diabetes mellitus, type 2) Onset Date: 09/14/18 Current Visit: Yes Status: Acute Plan: Continue Accu-Cheks and sliding scale insulin. Qualifiers: Diabetes mellitus terminal gauger supervisor insulin use: with terminal gauger supervisor use Diabetes mellitus complication status: without complication Qualified Code(s): E11.9 - Type 2 diabetes mellitus without complications (5) Hypertension Onset Date: 09/14/18 Current Visit: Yes Status: Chronic Plan: Stable, continue current medications. Qualifiers: Hypertension type: essential hypertension Qualified Code(s): I10 - Essential (primary) hypertension (6) Rheumatoid arthritis Onset Date: 09/14/18 Current Visit: Yes Status: Chronic Plan: If patient seems to be steroid dependent for rheumatoid arthritis Qualifiers: Rheumatoid arthritis location: unspecified site Rheumatoid factor presence : unspecified presence Qualified Code(s): M06.9 - Rheumatoid arthritis, unspecified (7) Anemia Onset Date: 05/09/16 Current Visit: No Status: Chronic Plan: H&H stable and status post 2 units PRBCs transfusion. Recheck H&H at 6:00 p.m. today, and if below 7 transfuse 2 units PRBCs. Qualifiers: Anemia type: iron deficiency Iron deficiency anemia type: inadequate dietary iron intake Qualified Code(s): D50.8 - Other iron deficiency anemias (8) Crohn disease Current Visit: No Status: Chronic Plan: Stable Qualifiers: Gastrointestinal tract location: small intestine (9) Hypothyroidism Current Visit: No Status: Chronic Plan: Continue home levothyroxine. Qualifiers: Hypothyroidism type: unspecified Qualified Code(s): E03.9 - Hypothyroidism , unspecified
[2018-09-16] MEDS: Ringers Lactate 1,000 ML IV SCH (14:00)
[2018-09-16 15:28] LABS: Hematocrit 23.4 % (36.0-45.0)
[2018-09-16 20:07] VITALS: BP 115/63; TEMP 98.1
== END 2018-09-16 20:30 | DRG 470 ==
LOC: ER 22:15 → ERHOLD 09-11 00:24 → 4TH 09-11 02:13 → 3RD-ICU 09-12 13:10 → 2ND 09-13 11:05
PROVIDERS: ADMIT Internal Medicine; ATTEND Family Medicine
PROC: 07DR0ZX Extraction of Iliac Bone Marrow, Open Approach, Diagnostic (ICD-10-PCS; 2018-09-12)
PROC: 30233N1 Transfusion of Nonautologous Red Blood Cells into Peripheral Vein, Percutaneous Approach (ICD-10-PCS; 2018-09-12)
PROC: 0SR90JZ Replacement of Right Hip Joint with Synthetic Substitute, Open Approach (ICD-10-PCS; principal; 2018-09-12 09:30)
PROC: 02HV33Z Insertion of Infusion Device into Superior Vena Cava, Percutaneous Approach (ICD-10-PCS; 2018-09-13)
DX: S72.001A Fracture of unspecified part of neck of right femur, initial encounter for closed fracture (principal); N30.00 Acute cystitis without hematuria; D62 Acute posthemorrhagic anemia; K50.00 Crohn's disease of small intestine without complications; W18.09XA Striking against other object with subsequent fall, initial encounter; Y93.01 Activity, walking, marching and hiking; Y92.129 Unspecified place in nursing home as the place of occurrence of the external cause; E03.9 Hypothyroidism, unspecified; M06.9 Rheumatoid arthritis, unspecified; Z96.653 Presence of artificial knee joint, bilateral; I10 Essential (primary) hypertension; D50.9 Iron deficiency anemia, unspecified; D51.9 Vitamin B12 deficiency anemia, unspecified; K21.9 Gastro-esophageal reflux disease without esophagitis; D70.9 Neutropenia, unspecified; B96.20 Unspecified Escherichia coli [E. coli] as the cause of diseases classified elsewhere; E11.65 Type 2 diabetes mellitus with hyperglycemia; Z79.4 Long term (current) use of insulin
CPT/HCPCS: 36415; 71045; 72170; 80048; 80076; 81003; 82728; 82784; 82962; 83540; 83690; 83735; 83880; 84132; 84466; 84484; 85014; 85018; 85025; 85044; 85610; 85652; 86140; 86334; 86850; 86900; 86901; 87077; 87086; 87088; 87186; 88304; 88305; 88311; 93005; 93306; 96361; 96374; 96375; 97163; 99285; C9113; J0330; J0690; J1170; J1720; J2250; J2270; J2370; J2405; J2920; J3010; J3370; J3475; J7030; J7512; P9016

== ENCOUNTER 2019-05-16 06:57 | Emergency (ER) | payer MEDICARE ==
--- OUTSIDE RECORDS SUMMARY | 2019-05-16 07:03 | XMS REPORT | Continuity of Care Document ---
:1945 Author Organization Interface Problems Problem Status Onset Classification Date Comments Source Date Reported Displaced 12/16/19 03/14/2018 [facility] supracondylar 18 Medical fracture without Center intracondylar extension of lower end of left femur, initial encounter for closed fracture LT FEMUR FRACTURE, Active 11/28/19 [facility] GETTING IN CAR AND Medical LE Center CLOSED COMMINUTED Active 11/28/19 [facility] INTRA-ARTICULAR FX Medical OF [place] Crohns disease Resolved Problem 03/14/2018 [facility] Hypothyroid Resolved Problem 03/14/2018 [facility] RA (<span Resolved Problem 03/14/2018 [facility] ID="[id number]"> Medical Confirmed</span>) Center DM type II Resolved Problem 03/14/2018 [facility] Medical peripheral Center vascular disorder(<span ID="[id number]"> Confirmed</span >) Crohn's disease, 03/14/2018 [facility] unspecified, Medical without Center complications Acute kidney 03/14/2018 [facility] failure, Medical unspecified Center Type 2 diabetes 03/14/2018 [facility] mellitus with Medical hyperglycemia Center Periprosthetic 03/14/2018 [facility] fracture around Medical internal Center prosthetic left hip joint, initial encounter Acute 03/14/2018 [facility] posthemorrhagic Medical anemia Center Rheumatoid 03/14/2018 [facility] arthritis, Medical unspecified Center Fall on same 03/14/2018 [facility] level, Medical unspecified, Center initial encounter Vitamin D 03/14/2018 [facility] deficiency, Medical unspecified Center OTH FRACTURE OF Active [facility] LOWER END OF UNSP Medical FEMUR, Center Medications Medication Details Route Status Patient Ordering Order Source Instructions Provider Date tramadol 50 mg=1 tab, No Longer [place] hydrochloride 50 PO, Q6H, PRN Active 018 Medical MG Oral Tablet Pain Score Center 6-10, X 7 day, # 28 tab, 0 Refill(s) senna 8.6 mg oral 17.2 mg=2 Active [place] tablet tab, PO, 018 Medical Bedtime, 0 Center Refill(s) bisacodyl 10 mg 10 mg=1 Active [facility] rectal supp, [place], 018 Medical suppository Daily, PRN Center Constipation , 0 Refill(s) Docusate Sodium 100 mg=1 Active [facility] 100 MG Oral cap, PO, 018 Medical Capsule BID, 0 Center Refill(s) Ergocalciferol 50,000 Active [facility] [address] UNT Oral IntlUnit=1 018 Medical Capsule cap, PO, Center Q7D, 0 Refill(s) Enoxaparin 30 mg=0.3 Active [facility] mL, SUB-Q, 018 Medical [id number], Center STOP DATE IS 12/20/17, 0 Refill(s) sennosides, [facility] 17.2 mg=2 Active [facility] 8.6 MG Oral tab, PO, 018 Medical Tablet Bedtime, 0 Center Refill(s) Prednisone 10 mg, 1 Inactive [facility] tab, Route: 018 Medical PO, Drug Center form: TAB, Daily, Dosing Weight 74.091, kg, Start date: 12/04/17 9:00:00 [employer], Duration: 30 day, Stop date: 01/02/18 9:00:00 CSTNotes: (Same as: PredniSONE) Take with food. Ergocalciferol 50,000 No Longer [facility] [address] UNT Oral IntlUnit, 1 Active 018 Medical Capsule cap, Route: Center PO, Drug form: CAP, Q7D, Dosing Weight 74.091, kg, Start date: 12/02/17 9:00:00 [employer], Duration: 30 day, Stop date: 12/30/17 9:00:00 CSTNotes: (Same as: Vitamin D) "Do Not Crush" Sodium Chloride 250 mL, No Longer [facility] 0.9% (titrate) Rate: On Active 018 Medical 250 mL call for use Center with blood product administrati on, Dosing Weight 74.091, kg, Route: IV, Total Volume: 250, Start Date: 12/02/17 7:41:00 [employer], Duration: 1 day, Stop date: 12/03/17 7:40:00 [employer], Replace Every: 24 hr Metformin 500 mg=1 No Longer [facility] hydrochloride 500 tab, PO, Active 018 Medical MG Oral Tablet BID-Meals, # Center 180 tab, 0 Refill(s) lisinopril 40 mg 40 mg=1 tab, No Longer [place] oral tablet PO, Daily, # Active 018 Medical 30 tab, 0 Center Refill(s) Acetaminophen 300 1 tab, PO, No Longer [facility] MG / Codeine Q6H, PRN Active 018 Medical Phosphate 60 MG pain, # 28 Center Oral Tablet tab predniSONE 20 mg 10 mg=0.5 No Longer [facility] oral tablet tab, PO, Active [facility] Medical Daily Center Synthroid 300 No Longer [facility] microgram, 3 Active 018 Medical tab, Route: Center PO, Drug form: TAB, [id number], Dosing Weight 74.091, kg, Start date: 12/01/17 11:00:00 [employer], Duration: 30 day, Stop date: 12/31/17 6:30:00 CSTNotes: Take 1 hour before or 2 hours after meal; Enteral feeds may interefere with the absorption of this medication. (Same as:Levothroi d, Synthroid) Prednisone 20 mg, 1 No Longer [facility] tab, Route: Active 018 Medical PO, Drug Center form: TAB, Daily, Dosing Weight 74.091, kg, Start date: 12/01/17 11:00:00 [employer], Duration: 30 day, Stop date: 12/31/17 9:00:00 CSTNotes: Take with food. Calcium Carbonate 1 tab, No Longer [facility] 1250 MG / Route: CHEW, Active 018 Medical Cholecalciferol Drug Form: [place] 400 UNT Chewable CHEWTAB, Tablet Dosing Weight 74.091, kg, BID, Start date: 12/01/17 9:00:00 [employer], Duration: 30 day, Stop date: 12/30/17 17:00:00 CSTNotes: (calcium carbonate-vi t D 500mg-400uni t chew TAB) Same as: Oscal 500+D Sodium Chloride 250 mL, No Longer [facility] 0.9% (titrate) Rate: On Active 018 Medical 250 mL call for use Center with blood product administrati on, Dosing Weight 74.091, kg, Route: IV, Total Volume: 250, Start Date: 11/30/17 7:26:00 [employer], Duration: 30 day, Stop date: 12/30/17 7:25:00 [employer], Replace Every: 24 hr Ancef + sterile 2 gm, Route: No Longer [facility] water 20 mL IVP, [id number], Active [facility] Medical Dosing Center Weight 74.091, kg, Start date: 11/30/17 1:30:00 [employer], Duration: 1 day, Stop date: 12/01/17 2:00:00 [employer], ABX Indication: Surgical ProphylaxisN otes: (Same As: Ancef, Kefzol) MEDICATION WASTE Product Size: 1000 mg Product Wasted: ___ mg sennosides, [facility] 17.2 mg, 2 No Longer [facility] tab, Route: Active [address] [place] [address] PO, Drug Center Form: TAB, Dosing Weight 68.182, kg, Bedtime, Start date: 11/29/17 21:00:00 [employer], Duration: 30 day, Stop date: 12/28/17 21:00:00 CSTNotes: (Same as: Senokot) Cefazolin 2 gm, Route: Inactive [facility] IVPB, [address] [place] [address] [id number], Center Dosing Weight 74.091, kg, Start date: 11/29/17 19:00:00 [employer], Duration: 1 doses or times, Stop date: 11/29/17 19:00:00 [employer], ABX Indication: Surgical ProphylaxisN otes: (Same As: Ancef, Kefzol) MEDICATION WASTE Product Size: 1000 mg Product Wasted: ___ mg Enoxaparin 30 mg, 0.3 No Longer [facility] mL, Route: Active [address] [place] [address] SUB-Q, Drug Center form: INJ, [id number], Dosing Weight 68.182, kg, Start date: 11/29/17 17:51:00 [employer], Stop date: 12/29/17 5:51:00 CSTNotes: (Same as: Lovenox) Isolyte S PH 7.4 500 mL, Inactive [facility] 500 mL Rate: 250 018 Medical ml/hr, Center Infuse over: 2 hr, Route: IV, Dosing Weight 74.091 kg, Total Volume: 500, Start date: 11/29/17 17:12:00 [employer], Duration: 1 doses or times, Stop date: 11/29/17 19:11:00 [employer], 1.86, h2Tthna: (Same as: Isolyte S PH7.4) Sodium Chloride 500 mL, 250 Inactive [place] 0.9% (Bolus) IV ml/hr, 018 Medical Infuse Over: Center 1 hr, Route: IV, ONCE, Priority: Routine, Dosing Weight 74.091 kg, Start date: 11/29/17 17:10:00 [employer], Stop date: 11/29/17 17:10:00 [employer] hydromorphone Route: IV, Inactive [facility] (ANES) Drug form: 018 Medical INJ, ONCE, Center Stop date: 11/29/17 13:02:00 [employer] acetaminophen Route: IV, Inactive [facility] (ANES) Drug form: 018 Medical INJ, ONCE, Center Stop date: 11/29/17 12:47:00 [employer] hydrocortisone Route: IV, Inactive [facility] (ANES) Drug form: 018 Medical INJ, ONCE, Center Stop date: 11/29/17 12:07:00 [employer] norepinephrine Route: IV, Inactive [facility] (ANES) Drug form: 018 Medical INJ, ONCE, Center Stop date: 11/29/17 12:02:00 [employer] phenylephrine Route: IV, Inactive [facility] (ANES) Drug form: 018 Medical INJ, ONCE, Center Stop date: 11/29/17 11:42:00 [employer] rocuronium (ANES) Route: IV, Inactive [facility] Drug form: 018 Medical INJ, ONCE, Center Stop date: 11/29/17 11:42:00 [employer] fentaNYL (ANES) Route: IV, Inactive [facility] Drug form: 018 Medical INJ, ONCE, Center Stop date: 11/29/17 11:42:00 [employer] ceFAZolin (ANES) Route: IV, Inactive [facility] Drug form: 018 Medical INJ, ONCE, Center Stop date: 11/29/17 11:42:00 [employer] lidocaine (ANES) Route: IV, Inactive [facility] Drug form: 018 Medical INJ, ONCE, Center Stop date: 11/29/17 11:42:00 [employer] propofol (ANES) Route: IV, Inactive [facility] Drug form: 018 Medical INJ, ONCE, Center Stop date: 11/29/17 11:42:00 [employer] Lactated Ringers Route: IV, Inactive [facility] Injection IV Total 018 Medical (ANES) 1000 mL Volume: Center 1,000, Start date: 11/29/17 10:46:00 [employer], Stop date: 11/29/17 11:46:00 [employer] Biotene Oral 1 appl, No Longer [facility] Balance Route: Active 018 Medical MUCOUS MEM, Center Drug Form: GEL, Dosing Weight 74.091, kg, 5X Day, Start date: 11/29/17 10:00:00 [employer], Duration: 14 day, Stop date: 12/13/17 6:00:00 CSTNotes: Same as Biotene Oral Balance Dry Mouth Docusate 100 mg, 1 No Longer [facility] cap, Route: Active 018 Medical PO, Drug Center form: CAP, BID, Dosing Weight 68.182, kg, Start date: 11/29/17 9:00:00 [employer], Duration: 30 day, Stop date: 12/28/17 17:00:00 CSTNotes: (Same as: Colace) (Do Not Crush) gabapentin 100 MG 100 mg, 1 No Longer [facility] Oral Capsule cap, Route: Active 018 Medical PO, Drug Center form: CAP, Q8H, Dosing Weight 68.182, kg, Start date: 11/29/17 8:00:00 [employer], Duration: 30 day, Stop date: 12/29/17 0:00:00 CSTNotes: (Same as: Neurontin) levothyroxine 300 300 Active [facility] mcg (0.3 mg) oral microgram=1 018 Medical tablet tab, PO, Center Daily, # 30 tab, 0 Refill(s) Ondansetron 4 mg, 2 mL, No Longer [facility] Route: IVP, Active 018 Medical Drug form: Center INJ, Q8H, Dosing Weight 68.182, kg, PRN Nausea & Vomiting, Start date: 11/29/17 7:28:00 [employer], Duration: 30 day, Stop date: 12/29/17 7:27:00 CSTNotes: (Same as: Zofran) MEDICATION WASTE Product Size: 4 mg Product Wasted: _0__ mg Bisacodyl 10 mg, 1 No Longer [facility] supp, Route: Active 018 Medical KS, Drug Center form: SUPP, Daily, Dosing Weight 68.182, kg, PRN Constipation , Start date: 11/29/17 7:28:00 [employer], Duration: 30 day, Stop date: 12/29/17 7:27:00 CSTNotes: (Same As: Dulcolax, Bisco-Lax) tizanidine 2 mg, 1 tab, No Longer [facility] Route: PO, Active 018 Medical Drug form: Center TAB, Q6H, Dosing Weight 68.182, kg, PRN Muscle Spasms, Start date: 11/29/17 7:28:00 [employer], Duration: 30 day, Stop date: 12/29/17 7:27:00 CSTNotes: (Same As: Zanaflex) Oxycodone 10 mg, 2 No Longer [facility] Hydrochloride 5 tab, Route: Active 018 Medical MG Oral Tablet PO, Drug Center form: TAB, Q4H, Dosing Weight 68.182, kg, PRN Pain Score 7-10, Start date: 11/29/17 7:28:00 [employer], Duration: 30 day, Stop date: 12/29/17 7:27:00 CSTNotes: (Same as: Roxicodone) Tramadol 50 mg, 1 No Longer [facility] tab, Route: Active 018 Medical PO, Drug Center form: TAB, Q6H, Dosing Weight 68.182, kg, PRN Pain Score 4-6, Start date: 11/29/17 7:28:00 [employer], Duration: 30 day, Stop date: 12/29/17 7:27:00 CSTNotes: Not to exceed 400mg/day. (Same As: Ultram) Acetaminophen 650 mg, 2 No Longer [facility] tab, Route: Active 018 Medical PO, Drug Center form: TAB, Q6H, Dosing Weight 68.182, kg, Start date: 11/29/17 6:00:00 [employer], Stop date: 12/29/17 0:00:00 CSTNotes: Do not exceed 4 gm/day. (Same as: Tylenol) predniSONE 20 mg 20 mg=1 tab, No Longer [facility] oral tablet PO, Daily, # Active 018 Medical 7 tab, 0 Center Refill(s) Ondansetron 4 mg, 2 mL, Inactive [facility] Route: IVP, [facility] Medical Drug form: Center INJ, Q6H, Dosing Weight 68.182, kg, PRN Nausea & Vomiting, Start date: 11/29/17 5:51:00 [employer], Duration: 30 day, Stop date: 12/29/17 5:50:00 CSTNotes: (Same as: Zofran) MEDICATION WASTE Product Size: 4 mg Product Wasted: ___ mg Morphine 2 mg, 0.5 No Longer [facility] mL, Route: Active 018 Medical IVP, Drug Center form: SOLN, Q4H, Dosing Weight 68.182, kg, PRN Pain Score 7-10, Start date: 11/29/17 5:51:00 [employer], Duration: 30 day, Stop date: 12/29/17 5:50:00 CSTNotes: (Same as:MORPhine Sulfate) Acetaminophen 325 1 tab, No Longer [facility] MG / Hydrocodone Route: PO, Active [facility] Medical Bitartrate 5 MG Drug Form: Center Oral Tablet TAB, Dosing Weight 68.182, kg, Q4H, PRN Pain Score 4-6, Start date: 11/29/17 5:51:00 [employer], Duration: 30 day, Stop date: 12/29/17 5:50:00 CSTNotes: (Same as: [place] 325/5) Do not exceed 4gm/day of acetaminophe n. Dilaudid 0.5 mg, 0.25 No Longer [facility] mL, Route: Active 018 Medical IVP, Drug Center form: INJ, ONCE, Dosing Weight 68.182, kg, Priority: STAT, Start date: 11/29/17 4:51:00 [employer], Stop date: 11/29/17 4:51:00 CSTNotes: Same as Dilaudid Dilaudid 1 mg, Route: Inactive [facility] IVP, ONCE, 018 Medical Dosing Center Weight 68.182, kg, Priority: STAT, Start date: 11/29/17 4:09:00 [employer], Stop date: 11/29/17 4:09:00 [employer] Zofran 4 mg, 2 mL, Inactive [facility] Route: IVP, 018 Medical Drug form: Center INJ, ONCE, Dosing Weight 68.182, kg, Priority: STAT, Start date: 11/29/17 1:31:00 [employer], Stop date: 11/29/17 1:31:00 CSTNotes: (Same as: Zofran) MEDICATION WASTE Product Size: 4 mg Product Wasted: ___ mg Morphine 4 mg, 1 mL, Inactive [facility] Route: IVP, 018 Medical Drug form: Center SOLN, ONCE, Dosing Weight 68.182, kg, Priority: STAT, Start date: 11/29/17 1:31:00 [employer], Stop date: 11/29/17 1:31:00 CSTNotes: (Same as:MORPhine Sulfate) Saline Flush 0.9% 10 mL, No Longer [facility] Route: IVP, Active 018 Medical Drug Form: Center INJ, Dosing Weight 68.182, kg, PRN, PRN Line Flush, Start date: 11/29/17 0:47:00 [employer], Duration: 30 day, Stop date: 12/29/17 0:46:00 CSTNotes: Same as: BD Posiflush Sterile Allergies, Adverse Reactions, Alerts Substance Category Reaction Severity Reaction Status Date Comments Source type Reported Immunizations Immunization Date Given Site Status Last Updated Comments Source Results Order Name Results Value Reference Date Interpretation Comments Source Range CARDIAC Troponin-I null 0.00 - 12/06 [facility] ENZYMES 0.40 /2017 [facility] HEMATOLOGY MCV 81.1 fL 80.0 - 12/05 [place] 98.0 /2017 [facility] HEMATOLOGY MCH 26.6 pg 27.0 - 12/05 [place] 31.0 /2017 [facility] HEMATOLOGY MCHC 32.8 g/dL 32.0 - 12/05 [facility] 36.0 /2018 [facility] HEMATOLOGY RDW 21.3 % 11.5 - 12/05 [facility] 14.5 [facility] HEMATOLOGY Platelet 252 K/CMM 133 - 450 12/[address] HEMATOLOGY WBC 6.4 K/CMM 3.7 - 10.4 12/[address] HEMATOLOGY RBC 3.92 M/CMM 4.20 - 12/05 [facility] 5.40 /2017 [facility] HEMATOLOGY Hgb 10.4 g/dL 12.0 - 12/05 [facility] 16.0 [facility] HEMATOLOGY Hct 31.8 % 36.0 - 12/05 [facility] 48.0 /2017 [facility] HEMATOLOGY MPV 7.3 fL 7.4 - 10.4 12/[address] HEMATOLOGY Segs-Bands # 5.6 K/CMM 1.5 - 8.1 12/[address] HEMATOLOGY Eosinophils # 0.1 K/CMM 0.0 - 0.5 12/[address] HEMATOLOGY Anisocyte 1+ None Seen 12/05 [facility] [address] [place], [place] [address]ABN* Center (12/05/17 11:44 AM) HEMATOLOGY Lymphocytes # 0.6 K/CMM 1.0 - 5.5 12/[address] HEMATOLOGY Monocytes # 0.2 K/CMM 0.0 - 0.8 12/[address] HEMATOLOGY Basophils 0.2 % 0.0 - 1.0 12/[address] HEMATOLOGY Eosinophils 1.1 % 0.0 - 4.0 12/[address] HEMATOLOGY Monocytes 3.0 % 2.0 - 12.0 12/[address] HEMATOLOGY Lymphocytes 9.3 % 20.0 - 12/05 [facility] 40.0 [facility] HEMATOLOGY Segs 86.4 % 45.0 - 12/05 [facility] 75.0 [facility] CHEM PANEL Phosphorus 2.7 mg/dL 2.5 - 4.5 12/[address] CHEM PANEL Magnesium Lvl 1.8 mg/dL 1.8 - 2.4 12/[address] CHEM PANEL eGFR 108 12/03 Result Comment: The eGFR is calculated using the CKD-EPI formula. In most young, healthy individuals the eGFR will be >90 mL/ min/1.73m2. The eGFR declines with age. An eGFR of 60-89 may be normal in [facility] mL/min/1. some populations, particularly the elderly, for whom the CKD-EPI formula has not been extensively validated. Use of the eGFR is not recommended in the following populations: [place] [address] Center Individuals with unstable creatinine concentrations, including patients and those with serious co-morbid conditions. Patients with extremes in muscle mass or diet. The data above are obtained from the National Kidney Disease Education Program (NKDEP) which additionally recommends that when the eGFR is used in patients with extremes of body mass index for purposes of drug dosing, the eGFR should be multiplied by the estimated BMI. CHEM PANEL Calcium Lvl 7.7 mg/dL 8.5 - 10.5 12/03 [facility] CHEM PANEL AGAP 12.3 meq/L 10.0 - 12/03 [facility] 20.0 [facility] CHEM PANEL CO2 25 meq/L 24 - 32 12/[address] CHEM PANEL BUN 12 mg/dL 7 - 22 12/[address] CHEM PANEL Chloride Lvl 103 meq/L 95 - 109 12/[address] CHEM PANEL Potassium Lvl 4.3 meq/L 3.5 - 5.1 12/[address] CHEM PANEL Glucose Lvl 115 mg/dL 70 - 99 12/[address] CHEM PANEL Creatinine 0.36 mg/dL 0.50 - 12/03 [facility] Lvl 1.40 [facility] CHEM PANEL Sodium Lvl 136 meq/L 135 - 145 12/[address] HEMATOLOGY Hct 24.4 % 36.0 - 12/03 [facility] 48.0 [facility] HEMATOLOGY Hgb 8.0 g/dL 12.0 - 12/03 16.0 [facility] HEMATOLOGY RBC 3.09 M/CMM 4.20 - 12/03 [facility] 5.40 [facility] HEMATOLOGY RDW 20.4 % 11.5 - 12/03 [facility] 14.5 [facility] HEMATOLOGY MCV 79.2 fL 80.0 - 12/03 98.0 [facility] HEMATOLOGY MCHC 32.7 g/dL 32.0 - 12/03 [facility] 36.0 [facility] HEMATOLOGY MCH 25.9 pg 27.0 - 12/03 [facility] 31.0 /2017 [facility] HEMATOLOGY WBC 3.9 K/CMM 3.7 - 10.4 12/03 2017 [facility] HEMATOLOGY Platelet 232 K/CMM 133 - 450 12/[address] HEMATOLOGY MPV 7.0 fL 7.4 - 10.4 12/[address] HEMATOLOGY Lymphocytes # 0.8 K/CMM 1.0 - 5.5 12/[address] HEMATOLOGY Eosinophils # 0.1 K/CMM 0.0 - 0.5 12/[address] HEMATOLOGY Monocytes # 0.3 K/CMM 0.0 - 0.8 12/[address] HEMATOLOGY Lymphocytes 20.6 % 20.0 - 12/03 [facility] 40.0 [facility] HEMATOLOGY Segs 70.2 % 45.0 - 12/03 [facility] 75.0 [facility] HEMATOLOGY Monocytes 7.4 % 2.0 - 12.0 12/[address] HEMATOLOGY Eosinophils 1.5 % 0.0 - 4.0 12/[address] HEMATOLOGY Segs-Bands # 2.7 K/CMM 1.5 - 8.1 12/[address] HEMATOLOGY Basophils 0.3 % 0.0 - 1.0 12/[address] BLOOD BANK Antibody Scrn Negative 12/03 [facility] (12/02/17 6:19 PM) Center BLOOD BANK ABO/Rh A POS 12/03 [facility] HEMATOLOGY Microcyte 1+ None Seen 12/[address] [place] [address] *ABN* Center (12/02/17 6:19 PM) HEMATOLOGY Monocytes # 0.2 K/CMM 0.0 - 0.8 12/[address] HEMATOLOGY Lymphocytes # 0.5 K/CMM 1.0 - 5.5 12/[address] HEMATOLOGY Segs-Bands # 5.3 K/CMM 1.5 - 8.1 12/[address] HEMATOLOGY Basophils 0.1 % 0.0 - 1.0 12/[address] HEMATOLOGY Eosinophils 0.2 % 0.0 - 4.0 12/03 [facility] HEMATOLOGY Monocytes 3.3 % 2.0 - 12.0 12/03 [facility] HEMATOLOGY Lymphocytes 8.7 % 20.0 - 12/03 [place] 40.0 [facility] HEMATOLOGY Segs 87.7 % 45.0 - 12/03 [place] 75.0 [facility] HEMATOLOGY MPV 7.5 fL 7.4 - 10.4 12/03 [facility] HEMATOLOGY RDW 20.3 % 11.5 - 12/03 [place] 14.5 [facility] HEMATOLOGY MCHC 33.3 g/dL 32.0 - 12/03 [place] 36.0 [facility] HEMATOLOGY MCH 26.1 pg 27.0 - 12/03 [facility] 31.0 [facility] HEMATOLOGY Platelet 230 K/CMM 133 - 450 12/03 [facility] HEMATOLOGY WBC 6.0 K/CMM 3.7 - 10.4 12/03 [facility] HEMATOLOGY RBC 3.26 M/CMM 4.20 - 12/03 [place] 5.40 [facility] HEMATOLOGY Hct 25.5 % 36.0 - 12/03 [place] 48.0 [facility] HEMATOLOGY Hgb 8.5 g/dL 12.0 - 12/03 [facility] 16.0 [facility] HEMATOLOGY MCV 78.2 fL 80.0 - 12/03 [facility] 98.0 [facility] BLOOD BANK RBC product Product available 12/02 [facility] (12/02/17 7:41 AM) [place] CHEM PANEL Magnesium Lvl 1.8 mg/dL 1.8 - 2.4 12/02 [facility] CHEM PANEL Phosphorus 3.3 mg/dL 2.5 - 4.5 12/02 [facility] ELECTROLYTE AGAP 11.3 meq/L 10.0 - 12/02 [facility] S 20.0 [facility] ELECTROLYTE eGFR 94 12/02 Result Comment: The eGFR is calculated using the CKD-EPI formula. In most young, healthy individuals the eGFR will be >90 mL/ min/1.73m2. The eGFR declines with age. An eGFR of 60-89 may be normal in [facility] mL/min/1 some populations, particularly the elderly, for whom the CKD-EPI formula has not been extensively validated. Use of the eGFR is not recommended in the following populations: [address] Individuals with unstable creatinine concentrations, including patients and those with serious co-morbid conditions. Patients with extremes in muscle mass or diet. The data above are obtained from the National Kidney Disease Education Program (NKDEP) which additionally recommends that when the eGFR is used in patients with extremes of body mass index for purposes of drug dosing, the eGFR should be multiplied by the estimated BMI. ELECTROLYTE Sodium Lvl 140 meq/L 135 - 145 12/02 [facility] [address] [place] [address] ELECTROLYTE Chloride Lvl 106 meq/L 95 - 109 12/[address] ELECTROLYTE Potassium Lvl 4.3 meq/L 3.5 - 5.1 12/[address] ELECTROLYTE Calcium Lvl 7.7 mg/dL 8.5 - 10.5 12/[address] ELECTROLYTE CO2 27 meq/L 24 - 32 12/[address] ELECTROLYTE Glucose Lvl 131 mg/dL 70 - 99 12/[address] ELECTROLYTE Creatinine 0.55 mg/dL 0.50 - 12/02 [facility] Lvl 1.[address] [place] [address] ELECTROLYTE BUN 17 mg/dL 7 - 22 12/[address] HEMATOLOGY Microcyte 1+ None Seen 12/02 [facility] *ABN* [place] (12/02/17 4:40 AM) CHEM PANEL Vitamin D, 3.7 ng/mL 30.0 - 12/01 [facility] 25-OH, Total 100.0 [facility] HEMATOLOGY Microcyte 1+ None Seen 12/[facility] (12/01/17 8:18 AM) HEMATOLOGY Eosinophils # 0.1 K/CMM 0.0 - 0.5 12/01 [facility] [address] [place] [address] PARATHYROID PTH Intact 55.6 pg/mL 11.1 - 12/01 [facility] PROFILE 79.5 [facility] BLOOD BANK RBC product Product available 11/30 [facility] [facility] (11/30/17 7:26 AM) Center CHEM PANEL eGFR 99 11/30 Result Comment: The eGFR is calculated using the CKD-EPI formula. In most young, healthy individuals the eGFR will be >90 mL/ min/1.73m2. The eGFR declines with age. An eGFR of 60-89 may be normal in [facility] mL/min/1.7 some populations, particularly the elderly, for whom the CKD-EPI formula has not been extensively validated. Use of the eGFR is not recommended in the following populations: [address] Individuals with unstable creatinine concentrations, including patients and those with serious co-morbid conditions. Patients with extremes in muscle mass or diet. The data above are obtained from the National Kidney Disease Education Program (NKDEP) which additionally recommends that when the eGFR is used in patients with extremes of body mass index for purposes of drug dosing, the eGFR should be multiplied by the estimated BMI. CHEM PANEL Creatinine 0.46 mg/dL 0.50 - 11/30 [facility] Lvl 1.40 [facility] CHEM PANEL Sodium Lvl 139 meq/L 135 - 145 11/[address] CHEM PANEL BUN 21 mg/dL 7 - 22 11/[address] CHEM PANEL CO2 26 meq/L 24 - 32 11/[address] CHEM PANEL ALT 12 unit/L 0 - 65 11/[address] CHEM PANEL Albumin Lvl 1.7 g/dL 3.5 - 5.0 11/[address] CHEM PANEL AST 13 unit/L 0 - 37 11/[address] CHEM PANEL Bili Total 0.2 mg/dL 0.2 - 1.3 11/[address] CHEM PANEL Alk Phos 75 unit/L 39 - 136 11/[address] CHEM PANEL Calcium Lvl 7.4 mg/dL 8.5 - 10.5 11/[address] CHEM PANEL Total Protein 4.5 g/dL 6.4 - 8.4 11/[address] CHEM PANEL Potassium Lvl 3.5 meq/L 3.5 - 5.1 11/[address] CHEM PANEL Chloride Lvl 105 meq/L 95 - 109 11/[address] CHEM PANEL Glucose Lvl 88 mg/dL 70 - 99 11/[address] CHEM PANEL B/C Ratio 46 6 - 25 11/[address] CHEM PANEL AGAP 11.5 meq/L 10.0 - 11/30 [facility] [place] 20.0 [facility] CHEM PANEL Globulin 2.8 g/dL 2.7 - 4.2 11/30 [facility] /2017 [facility] CHEM PANEL A/G Ratio 0.6 0.7 - 1.6 11/30 [facility] /2017 [facility] Femur Femur series EXAM: XR FEMUR 2 VIEWS 11/29 - [facility] series DX DX - [facility] DATE: 11/29/2017 10:54 AM [employer] Read by: Wm Blanco MD Dictated Date/time: 11/30/17 07:29 Electronically Signed by: Wm Blanco MD 11/30/17 07:30 FINAL REPORT INDICATION: POST OP IM NAIL - POST OP FILMS IM NAIL COMPARISON: Left femur series 11/29/2017 TECHNIQUE: AP and lateral radiographs of the femur Laterality: Left FINDINGS: Satisfactory alignment of the distal femur metadiaphyseal fracture post fixation using antegrade intramedullary nail and multiple interfragmentary screws. No hardware malalignment. Unchanged, satisfactory appearance of total knee arthroplasty. Severe left hip osteoarthrosis. Left thigh soft tissue swelling and lateral left hip soft tissue gas. IMPRESSION: Satisfactory appearance of distal femur metadiaphyseal fracture post internal fixation. BLOOD BANK Antibody Scrn Negative 11/29 [facility] RESULTS [facility] (11/29/17 5:30 AM) [place] BLOOD BANK ABO/Rh A POS 11/29 [facility] DRUG SCREEN UDS Note See Note 11/29 [facility] (11/29/17 2:31 AM) [place] DRUG SCREEN U Celia Scr Negative Negative 11/29 [facility] *NA* [place] (11/29/17 2:31 AM) DRUG SCREEN U Amph Scr Negative Negative 11/29 [facility] *NA* [place] (11/29/17 2:31 AM) DRUG SCREEN U Benzodia Negative Negative 11/29 [facility] Scr /2017 [facility] *NA* [place] (11/29/17 2:31 AM) DRUG SCREEN U Opiate Scr Positive Negative 11/29 [facility] *ABN* [place] (11/29/17 2:31 AM) DRUG SCREEN U Cannab [facility] Negative [facility] [place] (11/29/17 2:31 AM) DRUG SCREEN U Cocaine Scr Negative Negative 11/29 [facility] *NA* [place] (11/29/17 2:31 AM) DRUG SCREEN U Phencyc Scr Negative Negative 11/29 [facility] [address] [place] [address] *NA* Center (11/29/17 2:31 AM) URINE AND UA WBC 0-2 /HPF [facility] [address] [facility]A Bacteria Many /HPF None [facility] [address] [place] [address] URINE AND UA RBC 0-2 /HPF 0 - 2 11/[address] URINE AND UA Mucus Few /LPF None Seen 11/29 [facility] /LPF /[address] [place] [address] URINE AND UA Sq Epi Few /LPF Few /LPF 11/[address] URINE AND UA Nitrite Positive Negative 11/29 [facility] [address] [place] [address] *ABN* [place] (11/29/17 2:31 AM) URINE AND UA Leuk Est Negative Negative 11/[address] (11/29/17 2:31 AM) [place] URINE AND UA Bili Negative Negative 11/[address] *NA* [place] (11/29/17 2:31 AM) URINE AND UA Blood Negative Negative 11/29 [facility] [address] [place] [address] (11/29/17 2:31 AM) [place] URINE AND UA 1.0 EU/dL 0.1 - 1.0 11/29 [facility] Urobilinogen /[address] [place] [address] URINE AND UA Glucose Negative Negative 11/[address] (11/29/17 2:31 AM) [place] URINE AND UA Ketones Trace Negative 11/29 [facility] [address] [place] [address] *ABN* [place] (11/29/17 2:31 AM) URINE AND UA Spec Grav 1.025 <=1.030 11/[address] URINE AND UA pH 6.0 5.0 - 8.0 11/[address] URINE AND UA Protein Negative Negative 11/[address] (11/29/17 2:31 AM) [place] URINE AND UA Color Dark Yellow Yellow 11/[address] (11/29/17 2:31 AM) [place] URINE AND UA Turbidity Slight Cloudy Clear 11/[address] (11/29/17 2:31 AM) [place] CHEM PANEL Lactic Acid 1.4 mMol/L 0.5 - 2.2 11/29 [facility] Lvl [facility] HEMATOLOGY G-value Rapid 10.0 K 5.0 - 11.6 11/29 [facility] d/sc [facility] HEMATOLOGY Estimated % 3.3 % 0.0 - 7.5 11/29 Result Comment: "Significant Findings called to Clarisse [facility] Gabat at 11/29/2017 02:49 by RM. Read Back OK." [facility] HEMATOLOGY Max Amplitude 67 mm 52 - 71 11/29 [facility] HEMATOLOGY R-time Rapid 0.5 min 0.4 - 0.7 11/29 [facility]2017 [facility] HEMATOLOGY ACT (TEG) 97 s 86 - 118 11/29 [facility] HEMATOLOGY Split Point 0.4 min 11/29 [facility] HEMATOLOGY Angle Rapid 77 degrees 64 - 80 11/29 [facility]2017 [facility] HEMATOLOGY K-time Rapid 1.1 min 0.6 - 2.3 11/29 [facility]2017 [facility] TOXICOLOGY Ethanol Lvl null 11/29 [facility]2017 [facility] TOXICOLOGY Etoh (%) null 11/29 [facility]2017 [facility] Knee 3 Knee 3 views EXAM: XR LEFT FEMUR 2 VIEWS 11/29 - [facility] views DX - Medical EXAM: XR LEFT KNEE 3 VIEWS This report was dictated by a System Technologist/Fellow. I have personally reviewed the images as Center well as the Resident's interpretation and agree with the findings. Read by: Val Oseguera MD Resident: Val Oseguera MD Dictated Date/time: 11/29/17 06:13 DATE: 11/29/2017 5:22 AM [employer] Electronically Signed by: Garry Weiss 11/29/17 07:16 FINAL REPORT INDICATION: - 2 view distal femur in traction COMPARISON: Left femur and knee radiograph 0200 hours TECHNIQUE: 2 views of the femur, 3 views of the knee FINDINGS: Spiral distal femoral metadiaphyseal fracture with persistent three fourth shaft width anterior displacement of the distal fracture fragment and minimal posterior apex angulation. Traction pin is seen in the proximal tibia. IMPRESSION: Distal femoral metadiaphyseal fracture is improved in alignment with persistent three fourth shaft width's anterior displacement and minimal posterior apex angulation. [place] SECTION: ER Femur Femur series EXAM: XR LEFT FEMUR 2 VIEWS 11/29 - [place] series DX DX /2017 - Medical EXAM: XR LEFT KNEE 3 VIEWS This report was dictated by a System Technologist/Fellow. I have personally reviewed the images as Center well as the Resident's interpretation and agree with the findings. Read by: Val Oseguera MD Resident: Val Oseguera MD Dictated Date/time: 11/29/17 06:13 DATE: 11/29/2017 5:22 AM [employer] Electronically Signed by: Garry Weiss 11/29/17 07:16 FINAL REPORT INDICATION: - 2 view distal femur in traction COMPARISON: Left femur and knee radiograph 0200 hours TECHNIQUE: 2 views of the femur, 3 views of the knee FINDINGS: Spiral distal femoral metadiaphyseal fracture with persistent three fourth shaft width anterior displacement of the distal fracture fragment and minimal posterior apex angulation. Traction pin is seen in the proximal tibia. IMPRESSION: Distal femoral metadiaphyseal fracture is improved in alignment with persistent three fourth shaft width's anterior displacement and minimal posterior apex angulation. [place] SECTION: ER Knee wo Knee wo EXAM: CT LEFT KNEE WITHOUT CONTRAST, WITH 3-D 11/29 - [facility] contrast CT contrast CT /2017 - Medical This report was dictated by a System Technologist/Fellow. I have personally reviewed the images as Center well as the Resident's interpretation and agree with the findings. DATE: 11/29/2017 4:32 AM [employer] Read by: Val Oseguera MD Resident: Val Oseguera MD Dictated Date/time: 11/29/17 05:21 Electronically Signed by: Garry Weiss 11/29/17 05:55 FINAL REPORT INDICATION: - periprosthetic fracture, distal femur fx COMPARISON: Femur radiograph 11/29/2017 TECHNIQUE: Volumetric acquisition of the knee without contrast. Axial, sagittal and coronal reconstructions. 3-D volume rendered images. IV contrast: None. DLP: 131 mGy-cm FINDINGS: There is a traction pin through the proximal tibia. Spiral distal femoral metadiaphyseal fracture is again noted with about three fourth shaft width anterior displacement of the distal fracture fragment, lateral apex angulation and 1.5 cm fracture fragme nt override, improved from prior study. Again noted small butterfly fragment which is minimally displaced posteriorly. The fracture is at least 3.5 cm proximal to the femoral component of the knee arthroplasty on the posterior aspect. Total knee arthroplasty and patellar resurfacing is noted, with expected appearance. No loosening or displacement is seen. Mild soft tissue swelling is seen at the knee and distal thigh. Moderate amount of knee joint fluid is present. IMPRESSION: 1. Moderately displaced, mildly angulated and overriding distal femoral metadiaphyseal fracture, without involvement of the femoral component of the knee arthroplasty. 2. Traction pin in the proximal tibia. 3. Moderate amount of knee joint fluid. [place] SECTION: ER Knee 3 Knee 3 views EXAM: XR LEFT HIP 2 VIEW AND AP PELVIS 11/29 - [place] views DX - Medical EXAM: XR LEFT FEMUR 2 VIEWS This report was dictated by a System Technologist/Fellow. I have personally reviewed the images as Center well as the Resident's interpretation and agree with the findings. EXAM: XR LEFT KNEE 3 VIEWS Read by: Val Oseguera MD Resident: Val Oseguera MD Dictated Date/time: 11/29/17 02:40 EXAM: XR LEFT TIBIA-FIBULA 2 VIEWS Electronically Signed by: Garry Weiss 11/29/17 03:19 FINAL REPORT DATE: 11/29/2017 1:31 AM [employer] INDICATION: - L leg pain COMPARISON: Radiograph from outside hospital dated 11/28/2017. TECHNIQUE: AP pelvis, 2 view hip, 2 views of the femur, 3 views of the knee , 2 views of the tibia-fibula FINDINGS: Fiberglas splint seen posterolaterally in the lower leg and thigh. Pelvis/Hip: No acute fracture or malalignment is identified. Severe left hip osteoarthrosis with [id number] appearance, and complete loss of superior joint space. Partially visualized lumbar spine degenerative changes Femur: Spiral and minimally comminuted, extra-articular distal femoral metadiaphyseal fracture with one shaft width anterior displacement of the distal fracture fragment as well as 5 cm fracture fragmen t override. A small posterior butterfly fragment is minimally displaced posteriorly. The fracture is about 2.3 cm proximal to the femoral component of the knee arthroplasty, on the posterior aspect. Knee: Total knee arthroplasty hardware with patellar resurfacing. Hardware is intact without signs of loosening or displacement. Moderate amount of knee joint fluid noted. Tibia-fibula: No acute fracture or dislocation. Soft tissues: Soft tissue swelling about the distal thigh and knee. IMPRESSION: 1. Moderately displaced and overriding spiral distal femoral metadiaphysis fracture, with a small posterior butterfly fragment. 2. Left knee total arthroplasty without hardware fracture or loosening. 3. Moderate amount of knee joint fluid. 4. Left hip osteoarthrosis. [place] SECTION: ER Tibia Tibia fibula EXAM: XR LEFT HIP 2 VIEW AND AP PELVIS 11/29 - [facility] fibula series DX /2018 - Medical series DX EXAM: XR LEFT FEMUR 2 VIEWS This report was dictated by a System Technologist/Fellow. I have personally reviewed the images as Center well as the Resident's interpretation and agree with the findings. EXAM: XR LEFT KNEE 3 VIEWS Read by: Val Oseguera MD Resident: Val Oseguera MD Dictated Date/time: 11/29/17 02:40 EXAM: XR LEFT TIBIA-FIBULA 2 VIEWS Electronically Signed by: Garry Weiss 11/29/17 03:19 FINAL REPORT DATE: 11/29/2017 1:31 AM [employer] INDICATION: - L leg pain COMPARISON: Radiograph from outside hospital dated 11/28/2017. TECHNIQUE: AP pelvis, 2 view hip, 2 views of the femur, 3 views of the knee , 2 views of the tibia-fibula FINDINGS: Fiberglas splint seen posterolaterally in the lower leg and thigh. Pelvis/Hip: No acute fracture or malalignment is identified. Severe left hip osteoarthrosis with [id number] appearance, and complete loss of superior joint space. Partially visualized lumbar spine degenerative changes Femur: Spiral and minimally comminuted, extra-articular distal femoral metadiaphyseal fracture with one shaft width anterior displacement of the distal fracture fragment as well as 5 cm fracture fragmen t override. A small posterior butterfly fragment is minimally displaced posteriorly. The fracture is about 2.3 cm proximal to the femoral component of the knee arthroplasty, on the posterior aspect. Knee: Total knee arthroplasty hardware with patellar resurfacing. Hardware is intact without signs of loosening or displacement. Moderate amount of knee joint fluid noted. Tibia-fibula: No acute fracture or dislocation. Soft tissues: Soft tissue swelling about the distal thigh and knee. IMPRESSION: 1. Moderately displaced and overriding spiral distal femoral metadiaphysis fracture, with a small posterior butterfly fragment. 2. Left knee total arthroplasty without hardware fracture or loosening. 3. Moderate amount of knee joint fluid. 4. Left hip osteoarthrosis. [place] SECTION: ER Femur Femur series EXAM: XR LEFT HIP 2 VIEW AND AP PELVIS 11/29 - [facility] series DX - Medical EXAM: XR LEFT FEMUR 2 VIEWS This report was dictated by a System Technologist/Fellow. I have personally reviewed the images as Center well as the Resident's interpretation and agree with the findings. EXAM: XR LEFT KNEE 3 VIEWS Read by: Val Oseguera MD Resident: Val Oseguera MD Dictated Date/time: 11/29/17 02:40 EXAM: XR LEFT TIBIA-FIBULA 2 VIEWS Electronically Signed by: Garry Weiss 11/29/17 03:19 FINAL REPORT DATE: 11/29/2017 1:31 AM [employer] INDICATION: - L leg pain COMPARISON: Radiograph from outside hospital dated 11/28/2017. TECHNIQUE: AP pelvis, 2 view hip, 2 views of the femur, 3 views of the knee , 2 views of the tibia-fibula FINDINGS: Fiberglas splint seen posterolaterally in the lower leg and thigh. Pelvis/Hip: No acute fracture or malalignment is identified. Severe left hip osteoarthrosis with [id number] appearance, and complete loss of superior joint space. Partially visualized lumbar spine degenerative changes Femur: Spiral and minimally comminuted, extra-articular distal femoral metadiaphyseal fracture with one shaft width anterior displacement of the distal fracture fragment as well as 5 cm fracture fragmen t override. A small posterior butterfly fragment is minimally displaced posteriorly. The fracture is about 2.3 cm proximal to the femoral component of the knee arthroplasty, on the posterior aspect. Knee: Total knee arthroplasty hardware with patellar resurfacing. Hardware is intact without signs of loosening or displacement. Moderate amount of knee joint fluid noted. Tibia-fibula: No acute fracture or dislocation. Soft tissues: Soft tissue swelling about the distal thigh and knee. IMPRESSION: 1. Moderately displaced and overriding spiral distal femoral metadiaphysis fracture, with a small posterior butterfly fragment. 2. Left knee total arthroplasty without hardware fracture or loosening. 3. Moderate amount of knee joint fluid. 4. Left hip osteoarthrosis. [place] SECTION: ER Hip 2/3 Hip 2/3 views EXAM: XR LEFT HIP 2 VIEW AND AP PELVIS 11/29 - [facility] views uni w uni w pelvis /2018 - Medical pelvis DX DX EXAM: XR LEFT FEMUR 2 VIEWS This report was dictated by a System Technologist/Fellow. I have personally reviewed the images as Center well as the Resident's interpretation and agree with the findings. EXAM: XR LEFT KNEE 3 VIEWS Read by: Val Oseguera MD Resident: Val Oseguera MD Dictated Date/time: 11/29/17 02:40 EXAM: XR LEFT TIBIA-FIBULA 2 VIEWS Electronically Signed by: Garry Weiss 11/29/17 03:19 FINAL REPORT DATE: 11/29/2017 1:31 AM [employer] INDICATION: - L leg pain COMPARISON: Radiograph from outside hospital dated 11/28/2017. TECHNIQUE: AP pelvis, 2 view hip, 2 views of the femur, 3 views of the knee , 2 views of the tibia-fibula FINDINGS: Fiberglas splint seen posterolaterally in the lower leg and thigh. Pelvis/Hip: No acute fracture or malalignment is identified. Severe left hip osteoarthrosis with [id number] appearance, and complete loss of superior joint space. Partially visualized lumbar spine degenerative changes Femur: Spiral and minimally comminuted, extra-articular distal femoral metadiaphyseal fracture with one shaft width anterior displacement of the distal fracture fragment as well as 5 cm fracture fragmen t override. A small posterior butterfly fragment is minimally displaced posteriorly. The fracture is about 2.3 cm proximal to the femoral component of the knee arthroplasty, on the posterior aspect. Knee: Total knee arthroplasty hardware with patellar resurfacing. Hardware is intact without signs of loosening or displacement. Moderate amount of knee joint fluid noted. Tibia-fibula: No acute fracture or dislocation. Soft tissues: Soft tissue swelling about the distal thigh and knee. IMPRESSION: 1. Moderately displaced and overriding spiral distal femoral metadiaphysis fracture, with a small posterior butterfly fragment. 2. Left knee total arthroplasty without hardware fracture or loosening. 3. Moderate amount of knee joint fluid. 4. Left hip osteoarthrosis. [place] SECTION: ER Vital Signs Vital Sign Value Date Comments Source Heart Rate 77 12/06/2017 [facility] Respitory Rate 18 12/06/2017 [facility] Systolic (mm Hg) 111 12/06/2017 [facility] Diastolic (mm Hg) 58 12/06/2017 [facility] Temperature Oral (F) 98.9 F 12/06/2017 [facility] Systolic (mm Hg) 134 12/06/2017 [facility] Diastolic (mm Hg) 81 12/06/2017 [facility] Heart Rate 82 12/06/2017 [facility] Temperature Oral (F) 98.6 F 12/06/2017 [facility] Respitory Rate 18 12/06/2017 [facility] Heart Rate 90 12/06/2017 [facility] Systolic (mm Hg) 123 12/06/2017 [facility] Diastolic (mm Hg) 67 12/06/2017 [facility] Respitory Rate 17 12/06/2017 [facility] Temperature Oral (F) 98.3 F 12/06/2017 [facility] BMI Calculated 27.18 11/29/2017 [facility] Weight 74.091 11/29/2017 [facility] Height 165.1 cm 11/29/2017 [facility] Weight 68.182 11/29/2017 [facility] BMI Calculated 25.01 11/29/2017 [facility] Height 165.1 cm 11/29/2017 [facility] Encounters Location Location Encounter Encounter Reason Attending ADM DC Status Source Details Type Number For Provider Date Date Visit [facility] [id number] [facility] 11/29 12/06 [facility] David Vega /2017 [facility] Procedures Procedure Code Date Perfomer Comments Source section [id number] [facility] Knee replacement [id number] [facility]
[2019-05-16] MEDS ORDERED: HYDROMORPHONE HCL 0.5 MG/0.5 ML INJ ONE ×3 (07:22→09:34)
[2019-05-16 07:34] LABS: Absolute Lymphocytes (CBC) 0.5 K/uL (0.7-4.9); Basophils % 0.8 % (0-1.3); Eosinophils % 1.5 % (0-4.4); Hematocrit 31.2 % (36.0-45.0); Lymphocytes % 37.8 % (15.3-44.8); MPV 7.6 fL (7.6-11.3); Monocytes % 23.7 % (3.3-12.3)
[2019-05-16 07:38] LABS: Protime INR 0.98
[2019-05-16 07:43] LABS: BUN Blood Urea Nitrogen 17 mg/dL (7-18); Bicarbonate 23 mmol/L (21-32); Glucose Level 130 mg/dL (74-106); Potassium 4.1 mmol/L (3.5-5.1); Sodium Level 133 mmol/L (136-145)
--- NOTE | 2019-05-16 08:25 | ER ---
Nurse's Notes [facility] Name: Jayesh Leavitt Age: 73 yrs Sex: Female : 1945 Arrival Date: 05/16/2019 Time: 07:06 Bed 3 Private MD: Diagnosis: Right Distal Femur Fracture Presentation: 05/16 07:06 Presenting complaint: EMS states: Pt fell while using bedside commode. Pt states she tl2 fell on her left hip but has severe pain in right upper leg. R hip recently replaced in September. Pt received 100 mcg fentanyl and 4 zofran per EMS. Transition of care: patient was not received from another setting of care. Onset of symptoms was May 16, 2019 at 05:30. Risk Assessment: Do you want to hurt yourself or someone else? Patient reports no desire to harm self or others. Initial Sepsis Screen: Does the patient meet any 2 criteria? No. Patient's initial sepsis screen is negative. Does the patient have a suspected source of infection? No. Patient's initial sepsis screen is negative. Care prior to arrival: Medication(s) given: zofran 4 mg, 100 mcg fentanyl IV initiated. 24 g R hand Glucose check: 133. 07:06 Method Of Arrival: EMS: [facility] tl2 07:06 Acuity: VELVET 2 tl2 07:21 Mechanism of Injury: Fall from standing position. Trauma event details: Injury occurred la1 in the [facility]. Historical: - Allergies: 07:12 No Known Allergies; tl2 - Home Meds: 07:12 Folic Acid Oral [Active]; levothyroxine oral once daily [Active]; Paxil Oral [Active]; tl2 Prednisone Oral [Active]; Tylenol #3 Oral [Active]; - PMHx: 07:12 Anemia; Arthritis; Crohn's; Diabetes - NIDDM; Hypertension; Hypothyroidism; Rheumatoid tl2 Arthritis; - PSHx: 07:12 femur fracture- Nov 2017; right hip replacement- August 2018; KELLY knee replacement; tl2 ; - Immunization history:: Adult Immunizations up to date. - Social history:: Smoking status: Patient/guardian denies using tobacco. - Immunization history: Last tetanus immunization: unknown. - Ebola Screening: : No symptoms or risks identified at this time. Screenin:13 Abuse screen: Denies threats or abuse. Nutritional screening: No deficits noted. tl2 Tuberculosis screening: No symptoms or risk factors identified. Fall Risk IV access (20 points). Ambulatory Aid- None/Bed Rest/Nurse Assist (0 pts). Gait- Impaired (20 pts.). Primary Survey: 07:19 NO uncontrolled hemorrhage observed. A: The patient is alert. Airway: patent. la1 Breathing/Chest: Respiratory pattern: regular, Respiratory effort: spontaneous, unlabored. Circulation: Pulses: palpable right posterior tibial artery, right dorsalis pedis artery, left posterior tibial artery and left dorsalis pedis artery. Skin color: pink. Disability Alert. Exposure/Environment: All clothing and personal items were removed. 07:20 Reassessment Airway Airway Patent Breathing/Chest Respiratory pattern Regular la1 Respiratory effort Spontaneous Unlabored Circulation Color [place] Disability Alert. 08:10 A: The patient is alert. Airway: patent. Breathing/Chest: Respiratory pattern: regular, la1 Respiratory effort: spontaneous, unlabored. Circulation: Skin color: pink. Disability Alert. 09:10 A: The patient is alert. Airway: patent. Breathing/Chest: Respiratory pattern: regular, la1 Respiratory effort: spontaneous, unlabored. Circulation: Skin color: pink. Disability Alert. Exposure/Environment:. Secondary Survey: 07:19 Musculoskeletal: Swelling to right knee, right leg appears possibly shortened. la1 Assessment: 07:20 General: Appears in no apparent distress. Behavior is calm, cooperative. Pain: la1 Complains of pain in right leg. Neuro: Level of Consciousness is awake, alert, obeys commands, Oriented to person, place, time, situation. Cardiovascular: Capillary refill < 3 seconds is brisk in bilateral toes Patient's skin is warm and dry. Respiratory: Airway is patent Respiratory effort is even, unlabored, Respiratory pattern is regular, symmetrical. GI: No signs and/or symptoms were reported involving the gastrointestinal system. : No signs and/or symptoms were reported regarding the genitourinary system. Musculoskeletal: Circulation, motion, and sensation intact. Vital Signs: 07:12 BP 131 / 74; Pulse 78; Resp 18; Temp 98.1(O); Pulse Ox 99% on R/A; Weight 77.11 kg; tl2 Height 5 ft. 5 in. (165.10 cm); Pain 10/10; 07:55 BP 121 / 60; Pulse 81; Resp 16; Pulse Ox 98% on R/A; la1 08:55 BP 107 / 54; Pulse 71; Resp 16; Pulse Ox 98% on R/A; la1 09:33 BP 131 / 74; Pulse 78; Resp 16; Temp 98.4; Pulse Ox 98% on R/A; la1 07:12 Body Mass Index 28.29 (77.11 kg, 165.10 cm) tl2 Patriot Coma Score: 07:20 Eye Response: spontaneous(4). Verbal Response: oriented(5). Motor Response: obeys la1 commands(6). Total: 15. Trauma Score (Adult): 07:20 Eye Response: spontaneous(1); Verbal Response: oriented(1); Motor Response: obeys la1 commands(2); Systolic BP: > 89 mm Hg(4); Respiratory Rate: 10 to 29 per min(4); Patriot Score: 15; Trauma Score: 12 08:10 Eye Response: spontaneous(1); Verbal Response: oriented(1); Motor Response: obeys la1 commands(2); Systolic BP: > 89 mm Hg(4); Respiratory Rate: 10 to 29 per min(4); Patriot Score: 15; Trauma Score: 12 08:55 Eye Response: spontaneous(1); Verbal Response: oriented(1); Motor Response: obeys la1 commands(2); Systolic BP: > 89 mm Hg(4); Respiratory Rate: 10 to 29 per min(4); Mahamed Score: 15; Trauma Score: 12 09:33 Eye Response: spontaneous(1); Verbal Response: oriented(1); Motor Response: obeys la1 commands(2); Systolic BP: > 89 mm Hg(4); Respiratory Rate: 10 to 29 per min(4); Mahamed Score: 15; Trauma Score: 12 ED Course: 07:06 Patient arrived in ED. tl2 07:06 Jon Hoover PA is PHCP. jr8 07:06 Carlyle Torrez MD is Attending Physician. jr8 07:09 Triage completed. tl2 07:12 Arm band placed on right wrist. Affected limb elevated. tl2 07:13 Patient has correct armband on for positive identification. Placed in gown. Bed in low tl2 position. Call light in reach. Side rails up X2. 07:13 Maintain EMS IV. Dressing intact. Site clean \T\ dry. Gauge \T\ site: 24 g R hand. tl 2 07:13 Inserted saline lock: 22 gauge in left hand, using aseptic technique. Blood collected. tl2 placed by AMARIS Webb. 07:19 Mina Townsend, RN is Primary Nurse. la1 07:21 Patient maintains SpO2 saturation greater than 95% on room air. la1 07:21 Thermoregulation: warm blanket given to patient. la1 07:48 XRAY Femur RIGHT In Process Unspecified. EDMS 08:55 Mcgarry cath inserted, using sterile technique, 16 Fr., by ED staff, balloon inflated, to la1 gravity drainage, returned clear yellow urine. Patient tolerated well. 09:34 No provider procedures requiring assistance completed. Patient transferred, IV remains la1 in place. Administered Medications: 07:14 Drug: Dilaudid 0.5 mg Route: IVP; Site: left hand; tl2 09:36 Follow up: Response: No adverse reaction; Pain is decreased la1 08:09 Drug: Dilaudid 0.5 mg Route: IVP; Site: left hand; la1 09:36 Follow up: Response: No adverse reaction; Pain is decreased la1 09:15 Drug: Dilaudid 0.5 mg Route: IVP; Site: left hand; la1 09:37 Follow up: Response: No adverse reaction; Pain is decreased la1 Output: 09:33 Urine: 250ml (Mcgarry); Total: 250ml. la1 Outcome: 08:24 ER care complete, transfer ordered by MD. blair 09:35 Transferred by ground EMS to [facility], Transfer form completed. la1 X-rays sent w/ patient. 09:35 Condition: stable 09:35 Instructed on the need for transfer. 09:35 Transfer truckPatient's length of stay extended due to la1 09:37 Patient left the ED. la1 Signatures: Dispatcher [employer] EDMS Jon Hoover PA PA jr8 Mina Townsend RN RN la1 Erum Toro RN RN tl2
--- NOTE | 2019-05-16 08:25 | EDPHYS ---
Physician Documentation [facility] Name: Jayesh Leavitt Age: 73 yrs Sex: Female : 1945 Arrival Date: 05/16/2019 Time: 07:06 Bed 3 Private MD: ED Physician Carlyle Torrez HPI: 05/16 07:24 This 73 yrs old Female presents to ER via EMS with complaints of Fall Injury. jr8 07:48 Details of fall: The patient fell from an upright position, while standing. Onset: The jr8 symptoms/episode began/occurred acutely, today. Associated injuries: The patient sustained right leg. Severity of symptoms: At their worst the symptoms were moderate, in the emergency department the symptoms are unchanged. The patient has experienced similar episodes in the past, a few times. The patient has not recently seen a physician. Patient stated that she stepped wrong and fell on the left side twisting her right leg. Pain with obvious deformity to right side since incident. EMS medicated and splinted in place prior to arrival . Historical: - Allergies: 07:12 No Known Allergies; tl2 - Home Meds: 07:12 Folic Acid Oral [Active]; levothyroxine oral once daily [Active]; Paxil Oral [Active]; tl2 Prednisone Oral [Active]; Tylenol #3 Oral [Active]; - PMHx: 07:12 Anemia; Arthritis; Crohn's; Diabetes - NIDDM; Hypertension; Hypothyroidism; Rheumatoid tl2 Arthritis; - PSHx: 07:12 femur fracture- Nov 2017; right hip replacement- August 2018; KELLY knee replacement; tl2 ; - Immunization history:: Adult Immunizations up to date. - Social history:: Smoking status: Patient/guardian denies using tobacco. - Immunization history: Last tetanus immunization: unknown. - Ebola Screening: : No symptoms or risks identified at this time. ROS: 07:48 Eyes: Negative for injury, pain, redness, and discharge, ENT: Negative for injury, jr8 pain, and discharge, Neck: Negative for injury, pain, and swelling, Cardiovascular: Negative for chest pain, palpitations, and edema, Respiratory: Negative for shortness of breath, cough, wheezing, and pleuritic chest pain, Abdomen/GI: Negative for abdominal pain, nausea, vomiting, diarrhea, and constipation, Back: Negative for injury and pain, Skin: Negative for injury, rash, and discoloration, Neuro: Negative for headache, weakness, numbness, tingling, and seizure. 07:48 MS/extremity: Positive for decreased range of motion, deformity, pain, tenderness, of the right leg. Exam: 07:48 Eyes: Pupils equal round and reactive to light, extra-ocular motions intact. Lids and jr8 lashes normal. Conjunctiva and sclera are non-icteric and not injected. Cornea within normal limits. Periorbital areas with no swelling, redness, or edema. ENT: Nares patent. No nasal discharge, no septal abnormalities noted. Tympanic membranes are normal and external auditory canals are clear. Oropharynx with no redness, swelling, or masses, exudates, or evidence of obstruction, uvula midline. Mucous membranes moist. Neck: Trachea midline, no thyromegaly or masses palpated, and no cervical lymphadenopathy. Supple, full range of motion without nuchal rigidity, or vertebral point tenderness. No Meningismus. Cardiovascular: Regular rate and rhythm with a normal S1 and S2. No gallops, murmurs, or rubs. Normal PMI, no JVD. No pulse deficits. Respiratory: Lungs have equal breath sounds bilaterally, clear to auscultation and percussion. No rales, rhonchi or wheezes noted. No increased work of breathing, no retractions or nasal flaring. Abdomen/GI: Soft, non-tender, with normal bowel sounds. No distension or tympany. No guarding or rebound. No evidence of tenderness throughout. Back: No spinal tenderness. No costovertebral tenderness. Full range of motion. Skin: Warm, dry with normal turgor. Normal color with no rashes, no lesions, and no evidence of cellulitis. Neuro: Awake and alert, GCS 15, oriented to person, place, time, and situation. Cranial nerves II-XII grossly intact. Motor strength 5/5 in all extremities. Sensory grossly intact. Cerebellar exam normal. Normal gait. 07:48 Musculoskeletal/extremity: Extremities: grossly normal except: noted in the right leg: Patient with obvious deformity to the distal right femur. No bruising or swelling. Tenderness to palpation , ROM: limited active range of motion, in the right leg, limited passive range of motion, in the right leg, limited active range of motion due to pain, in the right leg, limited passive range of motion due to pain, in the right leg, Pulses: noted to be 2+ in the right radial artery, right dorsalis pedis artery, left radial artery and left dorsalis pedis artery, Sensation intact. Vital Signs: 07:12 BP 131 / 74; Pulse 78; Resp 18; Temp 98.1(O); Pulse Ox 99% on R/A; Weight 77.11 kg; tl2 Height 5 ft. 5 in. (165.10 cm); Pain 10/10; 07:55 BP 121 / 60; Pulse 81; Resp 16; Pulse Ox 98% on R/A; la1 08:55 BP 107 / 54; Pulse 71; Resp 16; Pulse Ox 98% on R/A; la1 09:33 BP 131 / 74; Pulse 78; Resp 16; Temp 98.4; Pulse Ox 98% on R/A; la1 07:12 Body Mass Index 28.29 (77.11 kg, 165.10 cm) tl2 Mahamed Coma Score: 07:20 Eye Response: spontaneous(4). Verbal Response: oriented(5). Motor Response: obeys la1 commands(6). Total: 15. Trauma Score (Adult): 07:20 Eye Response: spontaneous(1); Verbal Response: oriented(1); Motor Response: obeys la1 commands(2); Systolic BP: > 89 mm Hg(4); Respiratory Rate: 10 to 29 per min(4); Mahamed Score: 15; Trauma Score: 12 08:10 Eye Response: spontaneous(1); Verbal Response: oriented(1); Motor Response: obeys la1 commands(2); Systolic BP: > 89 mm Hg(4); Respiratory Rate: 10 to 29 per min(4); Pilger Score: 15; Trauma Score: 12 08:55 Eye Response: spontaneous(1); Verbal Response: oriented(1); Motor Response: obeys la1 commands(2); Systolic BP: > 89 mm Hg(4); Respiratory Rate: 10 to 29 per min(4); Pilger Score: 15; Trauma Score: 12 09:33 Eye Response: spontaneous(1); Verbal Response: oriented(1); Motor Response: obeys la1 commands(2); Systolic BP: > 89 mm Hg(4); Respiratory Rate: 10 to 29 per min(4); Mahamed Score: 15; Trauma Score: 12 MDM: 07:06 Patient medically screened. [facility] 07:55 Data reviewed: vital signs, nurses notes, lab test result(s), radiologic studies, plain [facility] films. Data interpreted: Pulse oximetry: on room air is 98 %. Interpretation: normal. Counseling: I had a detailed discussion with the patient and/or guardian regarding: the historical points, exam findings, and any diagnostic results supporting the discharge/admit diagnosis, lab results, radiology results, the need to transfer to another facility, for higher level of care. 08:23 ED course: [facility] accepted without consultation . 05/16 07:06 Order name: CBC with Diff 05/16 07:06 Order name: Basic Metabolic Panel; Complete Time: 07:56 05/16 07:06 Order name: Protime (+inr); Complete Time: 07:56 [facility] 05/16 07:06 Order name: Ptt, Activated; Complete Time: 07:56 [facility] 05/16 07:06 Order name: TS; Complete Time: 08:24 05/16 07:08 Order name: CBC with Automated Diff; Complete Time: 08:38 EDMS 05/16 07:06 Order name: IV; Complete Time: 07:14 05/16 07:07 Order name: XRAY Femur RIGHT; Complete Time: 08:40 05/16 07:37 Order name: CBC Smear Scan; Complete Time: 08:38 EDMS Administered Medications: 07:14 Drug: Dilaudid 0.5 mg Route: IVP; Site: left hand; tl2 09:36 Follow up: Response: No adverse reaction; Pain is decreased la1 08:09 Drug: Dilaudid 0.5 mg Route: IVP; Site: left hand; la1 09:36 Follow up: Response: No adverse reaction; Pain is decreased la1 09:15 Drug: Dilaudid 0.5 mg Route: IVP; Site: left hand; la1 09:37 Follow up: Response: No adverse reaction; Pain is decreased la1 Disposition: 05/16/19 08:24 Transfer ordered to [facility]. Diagnosis is Right Distal Femur Fracture . - Reason for transfer: Higher level of care. - Accepting physician is Dr. Leblanc. - Condition is Stable. - Problem is new. - Symptoms are unchanged. Addendum: 05/17/2019 09:46 Co-signature as Attending Physician, Carlyle Torrez MD I agree with the assessment and c rosado plan of care. Signatures: Dispatcher [employer] EDWI Carlyle Torrez MD MD cha Roszak, Josh, AMARIS PA jr8 Mina Townsend RN RN la1 Erum Toro RN RN tl2 Corrections: (The following items were deleted from the chart) 05/16 09:37 08:24 05/16/2019 08:24 Transfer ordered to [facility]. la1 Diagnosis is Right Distal Femur Fracture . Reason for transfer: Higher level of care. Accepting physician is Dr. Leblanc. Condition is Stable. Problem is new. Symptoms are unchanged. jr8
[2019-05-16 08:37] LABS: Anisocytosis 1+; Blood Morphology Comment NOTED (NOT SEEN); Platelet Estimate ADEQ; Urine White Blood Cell Casts OK
--- NOTE | 2019-05-16 08:39 | RAD REPORT ---
EXAM DESCRIPTION: RAD - Femur Right - 05/16/2019 7:45 am CLINICAL HISTORY: Fall, hip pain COMPARISON: August 2018 FINDINGS: Spiral fracture of the mid and distal right femoral shaft is present. There is overlap of approximately 2- 3 cm with 25 degree posterior angulation of the distal fracture fragment. Right hip prosthesis and right knee prosthesis in place. No radiographic evidence for loosening. No f racture near either implant. Distal femur fracture terminates just above the knee prosthesis. No path ologic component seen. No air or foreign body in the soft tissues. IMPRESSION: Right femur fracture as detailed.
[2019-05-16 09:52] VITALS: O2SAT 98
[2019-05-16 09:57] VITALS: BP 131/74; TEMP 98.4
== END 2019-05-16 09:37 | disposition short-term general hospital (02) ==
LOC: ER 06:57
DX: S72.401A Unspecified fracture of lower end of right femur, initial encounter for closed fracture (principal); W19.XXXA Unspecified fall, initial encounter; Y93.89 Activity, other specified; Y92.9 Unspecified place or not applicable; Z96.641 Presence of right artificial hip joint; Z96.653 Presence of artificial knee joint, bilateral; I10 Essential (primary) hypertension; E11.9 Type 2 diabetes mellitus without complications; E03.9 Hypothyroidism, unspecified
CPT/HCPCS: 85025; 80048; 36415; 86900; 86850; 85610; 86901; 85730; 73552; 51702; 96374; 99285; J1170 ×3

== ENCOUNTER 2019-08-22 15:04 | Emergency (ER) | payer MEDICARE ==
--- NOTE | 2019-08-22 16:38 | RAD REPORT ---
EXAM DESCRIPTION: RAD - Chest Single View - 08/22/2019 3:51 pm CLINICAL HISTORY: Hypertension, weakness, shortness of breath COMPARISON: August 2018 TECHNIQUE: AP portable chest image was obtained [id number] hours . FINDINGS: Lung volumes are low. Interstitial opacification is accentuated by the shallow inspiration . Numerous small granulomatous type calcifications are present and stable. PICC line has been removed since comparison. No focal mass or consolidation. Heart and vasculature are normal. No measurable pl eural effusion and no pneumothorax. No acute bony abnormality seen. No acute aortic findings suspecte d. IMPRESSION: No acute cardiopulmonary process. No significant interval change.
[2019-08-22 16:45] LABS: Absolute Lymphocytes (CBC) 0.4 K/uL (0.7-4.9); Basophils % 0.9 % (0-1.3); Hematocrit 26.3 % (36.0-45.0); Lymphocytes % 46.5 % (15.3-44.8); RBC Red Blood Cell Count 3.22 M/uL (3.86-4.86)
[2019-08-22 16:48] LABS: Protime INR 1.06
[2019-08-22 17:04] LABS: ALT/SGPT 10 U/L (12-78); AST/SGOT 13 U/L (15-37); Albumin 2.5 g/dL (3.4-5.0); Alkaline Phosphatase 84 U/L (45-117); BUN Blood Urea Nitrogen 12 mg/dL (7-18); Bicarbonate 27 mmol/L (21-32); Bilirubin Direct 0.1 mg/dL (0-0.2); Bilirubin Total 0.3 mg/dL (0.2-1.0); Glucose Level 161 mg/dL (74-106); Magnesium 1.6 mg/dL (1.8-2.4); NT PRO-BNP 896 pg/mL (<125); Potassium 4.2 mmol/L (3.5-5.1); Protein, Total 6.1 g/dL (6.4-8.2); Sodium Level 135 mmol/L (136-145); Troponin (Emerg Dept Use Only) < 0.02 ng/mL (0.0-0.045)
[2019-08-22] MEDS ORDERED: NA CHLORIDE 0.9% 500 ML ONE (17:04)
--- NOTE | 2019-08-22 17:08 | EDPHYS ---
Physician Documentation [facility] Name: Jayesh Leavitt Age: 73 yrs Sex: Female : 1945 Arrival Date: 08/22/2019 Time: 15:09 Bed 14 Private MD: ED Physician Carlyle Torrez HPI: 08/22 15:24 This 73 yrs old Female presents to ER via Wheelchair with complaints of High [facility] Blood Pressure, weakness. 15:24 This is a 73 year old female with a history of DM, anemia, crohns, that presents to the [facility] ED with complaints of generalized weakness which has been progressively worsening. Patient states she does have a history of anemia and has needed blood transfusions in the past. Patient complains of generalized joint pain she attributes to there RA. Denies chest pain. Denies dark stools. Patient states having chronic abdominal pain which is no different today. . Historical: - Allergies: 15:15 No Known Allergies; sv - PMHx: 15:15 Anemia; Arthritis; Crohn's; Diabetes - NIDDM; Hypertension; Hypothyroidism; Rheumatoid sv Arthritis; - PSHx: 15:15 femur fracture- Nov 2017; right hip replacement- August 2018; KELLY knee replacement; sv ; - Immunization history:: Adult Immunizations unknown. - Social history:: Smoking status: Patient/guardian denies using tobacco. - Ebola Screening: : No symptoms or risks identified at this time. ROS: 15:24 Constitutional: Negative for fever, chills, and weight loss, Cardiovascular: Negative [facility] for chest pain, palpitations, and edema, Respiratory: Negative for shortness of breath, cough, wheezing, and pleuritic chest pain. 15:24 Back: Negative for injury and pain. 15:24 Abdomen/GI: Positive for abdominal pain, Negative for black/tarry stool. 15:24 Neuro: Positive for weakness. 15:24 All other systems are negative. Exam: 15:24 Constitutional: This is a well developed, well nourished patient who is awake, alert, jmm and in no acute distress. Head/Face: atraumatic. Eyes: EOMI, no conjunctival erythema appreciated ENT: Moist Mucus Membranes Neck: Trachea midline, Supple Chest/axilla: Normal chest wall appearance and motion. 15:24 Cardiovascular: Rate: normal, Rhythm: regular, Pulses: no pulse deficits are appreciated, Heart sounds: murmur. 15:24 Respiratory: the patient does not display signs of respiratory distress, Respirations: normal, Breath sounds: are clear throughout. 15:24 Abdomen/GI: Palpation: soft, in all quadrants. 15:24 Musculoskeletal/extremity: ROM: intact in all extremities. 15:24 Skin: Appearance: Color: normal in color. 15:24 Neuro: Orientation: is normal, Mentation: is normal, Memory: is normal. 15:24 Psych: Behavior/mood is pleasant, cooperative. Vital Signs: 15:15 BP 126 / 79; Pulse 101; Resp 18; Temp 98.4; Pulse Ox 100% ; Weight 72.57 kg; Height 5 sv ft. 5 in. (165.10 cm); 16:15 BP 140 / 72; Pulse 92; Resp 16 S; Pulse Ox 100% on R/A; jl7 17:26 BP 131 / 67; Pulse 90; Resp 16 S; Pulse Ox 100% on R/A; jl7 19:12 BP 132 / 90; Pulse 90; Resp 20; Pulse Ox 99% on R/A; Pain 0/10; lp1 15:15 Body Mass Index 26.63 (72.57 kg, 165.10 cm) sv MDM: 15:24 Patient medically screened. [facility] 17:03 Data reviewed: vital signs, nurses notes. Counseling: I had a detailed discussion with saskia the patient and/or guardian regarding: the historical points, exam findings, and any diagnostic results supporting the discharge/admit diagnosis, lab results, the need for outpatient follow up, to return to the emergency department if symptoms worsen or persist or if there are any questions or concerns that arise at home. 18:50 ED course: Patient is alert and non toxic in appearance. Labs discussed with Dr. Abbie kruger whom states labs are at the patient's baseline. Urinalysis concerning for UTI. Patient is advised to follow up with Rheumatology. Patient was otherwise given strict return precautions. Patient understood and agrees with the plan of care. . 08/22 15:33 Order name: Basic Metabolic Panel; Complete Time: 17:18 [facility] 08/22 15:33 Order name: CBC with Diff; Complete Time: 18:02 [facility] 08/22 15:33 Order name: LFT's; Complete Time: 17:18 [facility] 08/22 15:33 Order name: Magnesium; Complete Time: 17:18 [facility] 08/22 15:33 Order name: NT PRO-BNP; Complete Time: 17:18 [facility] 08/22 15:33 Order name: PT-INR; Complete Time: 16:53 [facility] 08/22 15:33 Order name: Troponin (emerg Dept Use Only); Complete Time: 17:18 [facility] 08/22 15:33 Order name: XRAY Chest (1 view); Complete Time: 17:13 [facility] 08/22 15:33 Order name: Type And Screen; Complete Time: 18:02 [facility] 08/22 16:55 Order name: Manual Differential; Complete Time: 18:02 [facility] 08/22 17:15 Order name: Urine Culture [facility] 08/22 17:23 Order name: Urine Dipstick--Ancillary (enter results); Complete Time: 18:02 08/22 15:33 Order name: EKG; Complete Time: 15:34 [facility] 08/22 15:33 Order name: Cardiac monitoring; Complete Time: 17:16 [facility] 08/22 15:33 Order name: EKG - Nurse/Tech; Complete Time: 17:16 [facility] 08/22 15:33 Order name: IV Saline Lock; Complete Time: 16:39 [facility] 08/22 15:33 Order name: Labs collected and sent; Complete Time: 16:40 [facility] 08/22 15:33 Order name: O2 Per Protocol; Complete Time: 16:40 [facility] 08/22 15:33 Order name: O2 Sat Monitoring; Complete Time: 16:40 [facility] 08/22 15:33 Order name: Urine Dipstick-Ancillary (obtain specimen); Complete Time: 17:16 [facility] Administered Medications: 17:00 Drug: NS 0.9% 500 ml Route: IV; Rate: bolus; Site: left upper arm; jl7 18:12 Follow up: Response: No adverse reaction; IV Status: Completed infusion; IV Intake: jl7 500ml 18:20 Drug: Magnesium Sulfate 1 grams Route: IVPB; Infused Over: 1 hrs; Site: left upper arm; jl7 19:38 Follow up: IV Status: Completed infusion lp1 Disposition: 08/23 09:17 Co-signature as Attending Physician, Carlyle Torrez MD I agree with the assessment and pastora plan of care. Disposition: 08/22/19 19:25 Discharged to Home. Impression: Urinary tract infection, site not specified, Hypomagnesemia. - Condition is Stable. - Discharge Instructions: Hypomagnesemia, Urinary Tract Infection, Adult. - Prescriptions for Macrobid 100 mg Oral Capsule - take 1 capsule by ORAL route every 12 hours for 7 days; 14 capsule. - Medication Reconciliation Form, Thank You Letter, Antibiotic Education, Prescription Opioid Use form. - Follow up: Private Physician; When: 2 - 3 days; Reason: Recheck today's complaints, Continuance of care, Re-evaluation by your physician. Signatures: Dispatcher [employer] EDMS Disha Taylor RN RN Carlyle Cantu MD MD cha Mickail, Joel, PA PA [facility] Dana Lacy RN RN lp1 Mandie Mtz RN RN jl7 Corrections: (The following items were deleted from the chart) 08/22 17:12 17:06 08/22/2019 17:06 Discharged to Home. Impression: Radiculopathy, cervicothoracic [facility] region. Condition is Stable. Forms are Medication Reconciliation Form, Thank You Letter, Antibiotic Education, Prescription Opioid Use. Follow up: Private Physician; When: 2 - 3 days; Reason: Recheck today's complaints, Continuance of care, Re-evaluation by your physician. [facility] 18:50 17:03 ED course: Patient is alert and non toxic in appearance. Pain is relieved in the [facility] ED. I do not suspect a cardiac process or an acute impingement. Patient advised to follow up with ortho and otherwise given strict return precautions. Patient understood and agrees with the plan of care. . [facility] 19:38 19:25 08/22/2019 19:25 Discharged to Home. Impression: Urinary tract infection, site lp1 not specified; Hypomagnesemia. Condition is Stable. Prescriptions for Tylenol-Codeine #3 300-30 mg Oral Tablet - take 1 tablet by ORAL route every 6 hours As needed; 12 tablet, Medrol (Abimael) 4 mg Oral Tablets, Dose Pack - take 1 tablet by ORAL route as directed - follow package instructions; 1 packet. and Forms are Medication Reconciliation Form, Thank You Letter, Antibiotic Education, Prescription Opioid Use. Follow up: Private Physician; When: 2 - 3 days; Reason: Recheck today's complaints, Continuance of care, Re-evaluation by your physician. saskia
--- NOTE | 2019-08-22 17:08 | ER ---
Nurse's Notes [facility] Name: Jayesh Leavitt Age: 73 yrs Sex: Female : 1945 Arrival Date: 08/22/2019 Time: 15:09 Bed 14 Private MD: Diagnosis: Urinary tract infection, site not specified;Hypomagnesemia Presentation: 08/22 15:14 Presenting complaint: Patient states: HTN stated by her home health nurse at home. sv Transition of care: patient was not received from another setting of care. Onset of symptoms was August 22, 2019. Risk Assessment: Do you want to hurt yourself or someone else? Patient reports no desire to harm self or others. Care prior to arrival: None. 15:14 Method Of Arrival: Wheelchair sv 15:14 Acuity: VELVET 4 sv Historical: - Allergies: 15:15 No Known Allergies; sv - PMHx: 15:15 Anemia; Arthritis; Crohn's; Diabetes - NIDDM; Hypertension; Hypothyroidism; Rheumatoid sv Arthritis; - PSHx: 15:15 femur fracture- Nov 2017; right hip replacement- August 2018; KELLY knee replacement; sv ; - Immunization history:: Adult Immunizations unknown. - Social history:: Smoking status: Patient/guardian denies using tobacco. - Ebola Screening: : No symptoms or risks identified at this time. Screenin:42 Abuse screen: Denies threats or abuse. Denies injuries from another. Nutritional jl7 screening: No deficits noted. Tuberculosis screening: No symptoms or risk factors identified. Fall Risk IV access (20 points). Total Gonzalez Fall Scale indicates No Risk (0-24 pts). Assessment: 16:15 General: Appears in no apparent distress. uncomfortable, Behavior is calm, cooperative, jl7 appropriate for age. Pain: Denies pain. Neuro: Level of Consciousness is awake, alert, obeys commands, Oriented to person, place, time, situation. Cardiovascular: Patient's skin is warm and dry. Respiratory: Airway is patent Respiratory effort is even, unlabored, Respiratory pattern is regular, symmetrical. Derm: Skin is pink, warm \T\ dry. 17:26 Reassessment: Patient appears in no apparent distress at this time. No changes from jl7 previously documented assessment. Patient and/or family updated on plan of care and expected duration. Pain level reassessed. Patient is alert, oriented x 3, equal unlabored respirations, skin warm/dry/pink. 19:11 Reassessment: Patient appears in no apparent distress at this time. Patient is alert, lp1 oriented x 3, equal unlabored respirations, skin warm/dry/pink. Patient aware of pending discharge after completion of Magnesium infusion. Vital Signs: 15:15 BP 126 / 79; Pulse 101; Resp 18; Temp 98.4; Pulse Ox 100% ; Weight 72.57 kg; Height 5 sv ft. 5 in. (165.10 cm); 16:15 BP 140 / 72; Pulse 92; Resp 16 S; Pulse Ox 100% on R/A; jl7 17:26 BP 131 / 67; Pulse 90; Resp 16 S; Pulse Ox 100% on R/A; jl7 19:12 BP 132 / 90; Pulse 90; Resp 20; Pulse Ox 99% on R/A; Pain 0/10; lp1 15:15 Body Mass Index 26.63 (72.57 kg, 165.10 cm) sv ED Course: 15:09 Patient arrived in ED. am2 15:14 Triage completed. sv 15:15 Arm band placed on. sv 15:17 Sean Herrera PA is PHCP. [facility] 15:17 Carlyle Torrez MD is Attending Physician. [facility] 15:17 Mandie Mtz, NIKO is Primary Nurse. jl7 15:51 X-ray completed. Portable x-ray completed in exam room. Patient tolerated procedure kw well. 15:55 XRAY Chest (1 view) In Process Unspecified. EDMS 16:42 Patient has correct armband on for positive identification. Placed in gown. Bed in low jl7 position. Call light in reach. Side rails up X 1. equipment monitor phototypesetting on. Pulse ox on. NIBP on. Warm blanket given. 16:42 Initial lab(s) drawn, by me, sent to lab. Inserted saline lock: 22 gauge in left upper jl7 arm, using aseptic technique. Blood collected. 19:12 No provider procedures requiring assistance completed. lp1 19:37 IV discontinued, No redness/swelling at site. Pressure dressing applied. lp1 Administered Medications: 17:00 Drug: NS 0.9% 500 ml Route: IV; Rate: bolus; Site: left upper arm; jl7 18:12 Follow up: Response: No adverse reaction; IV Status: Completed infusion; IV Intake: jl7 500ml 18:20 Drug: Magnesium Sulfate 1 grams Route: IVPB; Infused Over: 1 hrs; Site: left upper arm; jl7 19:38 Follow up: IV Status: Completed infusion lp1 Intake: 18:12 IV: 500ml; Total: 500ml. jl7 Outcome: 17:06 Discharge ordered by . saskia 19:25 Discharge ordered by . saskia 19:37 Discharged to home via wheelchair, with family. lp1 19:37 Condition: good 19:37 Discharge instructions given to patient, family, Instructed on discharge instructions, follow up and referral plans. medication usage, Demonstrated understanding of instructions, follow-up care, medications, Prescriptions given X 1. 19:38 Patient left the ED. lp1 Addendum: 08/26/2019 15:53 Addendum: Culture Results: Positive urine culture. Bacteria is resistant to, has s s intermediate sensitivity, or is not tested against prescribed antibiotics. Report given to SAEED for further evaluation and then to junior accountant bookkeeper for follow up with patient. Phone call Attempt #1 Spoke with patient who reports that she is not having any symptoms of a UTI and just wants to follow up with PCP and states that she has an appointment soon. Signatures: Dispatcher [facility] Disha Gregg RN RN sv Mickail, Joel, PA PA jmm Smirch, Shelby, RN RN ss Whitley, Kimberlee kw Pena, Laura, RN RN lp1 Mandie Mtz RN RN jl7 Isi Campbell am2 Corrections: (The following items were deleted from the chart) 08/22 15:16 15:14 Acuity: VELVET 3 sv
[2019-08-22 17:30] LABS: Urine Blood TRACE (NEG); Urine Glucose NEGATIVE (NEG); Urine Protein NEGATIVE (NEG); Urine pH 6.5 (5.0-7.0)
[2019-08-22 17:43] LABS: Platelet Estimate DECR
[2019-08-22 17:44] LABS: Anisocytosis 2+; Blood Morphology Comment NOTED (NOT SEEN)
[2019-08-22] MEDS ORDERED: MAGNESIUM SULFATE 1 gm IVPB 1 GM/100 ML BAG IV ONE (18:19)
[2019-08-22 19:46] VITALS: TEMP 98.4
[2019-08-22 19:50] VITALS: BP 132/90; O2SAT 99
--- NOTE | 2019-08-23 06:12 | EKG ---
Test Date: 2019-08-22 Test Time: 16:51:54 Log Haul Operator: MARCELO MEASUREMENT RESULTS: Intervals: Rate: 91 OK: 144 QRSD: 86 QT: 368 QTc: 452 [place]: P: -13 OK: 144 QRS: 44 T: 13 INTERPRETIVE STATEMENTS: Normal sinus rhythm Low voltage QRS Borderline ECG Compared to ECG 09/10/2018 23:12:11 Low QRS voltage now present Electronically Signed On 08-23-19 06:11:28 CDT by Taurus White
== END 2019-08-22 19:38 | disposition home or self-care (01) ==
LOC: ER 15:04
DX: N39.0 Urinary tract infection, site not specified (principal); E83.42 Hypomagnesemia; I10 Essential (primary) hypertension; E11.9 Type 2 diabetes mellitus without complications
CPT/HCPCS: 96365; 96361; 93005; 87088; 85025; 87086; 80048; 36415; 86900; 83735; 86850; 85610; 86901; 80076; 87077; 87186; 81003; 84484; 83880; 71045; 99284; J3475

== ENCOUNTER 2019-09-07 13:05 | Inpatient (IN) | payer MEDICARE ==
--- NOTE | 2019-09-07 14:22 | ER ---
Nurse's Notes [facility] Name: Jayesh Leavitt Age: 73 yrs Sex: Female : 1945 Arrival Date: 09/07/2019 Time: 13:11 Bed 8 Private MD: Diagnosis: Urinary tract infection, site not specified;Weakness;Neutropenia;Type 2 diabetes mellitus;Conjunctivitis;Bandemia;Cutaneous abscess of limb, unspecified-left forearm;Cellulitis and acute lymphangitis of other parts of limb Presentation: 09/07 13:12 Presenting complaint: EMS states: pt finished abx therapy for UTI, diagnosed here last sg week and sent home with medication. Clinical Engineering Director reports that there were no medications given for the eye redness and now it is swollen shut with discharge and drainage, there is also a bite on the forearm, maybe an insect bite that has swelling and looks infected, pt denies any urinary problems, mostly concerned with the eye swelling and discharge today. Transition of care: patient was not received from another setting of care. Onset of symptoms was September 07, 2019. Risk Assessment: Do you want to hurt yourself or someone else? Patient reports no desire to harm self or others. Initial Sepsis Screen: Does the patient meet any 2 criteria? No. Patient's initial sepsis screen is negative. Does the patient have a suspected source of infection? No. Patient's initial sepsis screen is negative. Care prior to arrival: None. 13:12 Method Of Arrival: EMS: [facility] 13:12 Acuity: VELVET 3 sg Historical: - Allergies: 13:15 No Known Allergies; sg - PMHx: 13:15 Anemia; Arthritis; Crohn's; Diabetes - NIDDM; Hypertension; Hypothyroidism; Rheumatoid sg Arthritis; - PSHx: 13:15 femur fracture- Nov 2017; right hip replacement- August 2018; KELLY knee replacement; sg ; - Immunization history:: Adult Immunizations up to date. - Social history:: Smoking status: Patient/guardian denies using tobacco. - Ebola Screening: : Patient negative for fever greater than or equal to 101.5 degrees Fahrenheit, and additional compatible Ebola Virus Disease symptoms Patient denies exposure to infectious person Patient denies travel to an Ebola-affected area in the 21 days before illness onset No symptoms or risks identified at this time. - Family history:: not pertinent. Screenin:11 Abuse screen: Denies threats or abuse. Denies injuries from another. Nutritional sv screening: No deficits noted. Tuberculosis screening: No symptoms or risk factors identified. Fall Risk None identified. Assessment: 13:11 General: Appears in no apparent distress. uncomfortable, Behavior is cooperative, sv appropriate for age, anxious. Pain: Complains of pain in right eye and left arm. Neuro: Level of Consciousness is awake, alert, obeys commands, Oriented to person, place, time, situation, Moves all extremities. Respiratory: Respiratory effort is even, unlabored, Respiratory pattern is regular, symmetrical. EENT: Sclera/Cornea are reddened in right eye with drainage.. Derm: Skin with poor turgor Skin is pink, warm \T\ dry. Abscess located on dorsal aspect of left forearm is nickel sized, has no drainage, is red, is raised. 14:00 Reassessment: Patient appears in no apparent distress at this time. Patient and/or sg family updated on plan of care and expected duration. Pain level reassessed. Patient is alert, oriented x 3, equal unlabored respirations, skin warm/dry/pink. 14:05 Reassessment: Patient appears in no apparent distress at this time. pt family at bedside at this time, awaiting orders at this time. 14:56 Reassessment: Dr Torrez at the bedside for I\T\D. sv 15:00 Reassessment: Patient and/or family updated on plan of care and expected duration. Pain sg level reassessed. Patient states feeling better. 16:00 Reassessment: Patient appears in no apparent distress at this time. Patient and/or sg family updated on plan of care and expected duration. Pain level reassessed. 17:13 Reassessment: Patient appears in no apparent distress at this time. No changes from sv previously documented assessment. Patient and/or family updated on plan of care and expected duration. Pain level reassessed. Patient is alert, oriented x 3, equal unlabored respirations, skin warm/dry/pink. 17:30 Reassessment: pt and pt family updated that the patient is to be admitted, pt and pt sg family stated understanding, will continue to monitor. 17:45 Reassessment: at [facility] for insertion of EJ to the Left jugular. sg 19:36 Reassessment: Patient appears in no apparent distress at this time. Patient and/or aa1 family updated on plan of care and expected duration. Pain level reassessed. Patient is alert, oriented x 3, equal unlabored respirations, skin warm/dry/pink. Awaiting admission to floor. Denies pain at this time. pt given water. 19:45 Reassessment: Report given to Berta Rodney RN. aa1 Vital Signs: 13:11 BP 119 / 73; Pulse 107; Resp 18; Temp 98.3; Pulse Ox 98% ; sv 14:17 BP 128 / 70; Pulse 112; Resp 18; Temp 98.1(TE); Pulse Ox 98% on R/A; mh5 16:00 BP 112 / 68; Pulse 110; Resp 17; Pulse Ox 98% on R/A; sg 18:30 BP 118 / 70; Pulse 109; Resp 18; Temp 98.3; Pulse Ox 98% on R/A; sg 19:30 BP 127 / 68; Pulse 103; Resp 18; Temp 98.2; Pulse Ox 97% on R/A; Pain 0/10; aa1 20:13 BP 125 / 66; Pulse 100; Resp 16; Temp 98.1; Pulse Ox 98% on R/A; Pain 0/10; aa1 ED Course: 13:11 Patient arrived in ED. sg 13:11 Arm band placed on. sg 13:14 Triage completed. sg 13:14 Carlyle Torrez MD is Attending Physician. [place] 14:18 Patient has correct armband on for positive identification. Bed in low position. Call mh5 light in reach. Side rails up X2. Warm blanket given. Pulse ox on. NIBP on. 14:20 Servando Medel MD is Referral Physician. [place] 15:10 Straight cath inserted, using sterile technique, 16 Fr. Specimen obtained. 60cc mh5 obtained. 15:13 UA Sent. mh5 15:13 Urine Culture Sent. mh5 15:17 Servando Medel MD is Referral Physician. [place] 15:39 CT Stone Protocol In Process Unspecified. EDMS 16:20 Missed attempt(s): 24 gauge in right wrist. Bleeding controlled, band aid applied, sg catheter tip intact. 16:50 Missed attempt(s): 24 gauge in right upper arm. Bleeding controlled, band aid applied, sv catheter tip intact. 16:50 Dressings: non-adherent dressing x 1 dorsal aspect of left forearm secured with paper sg tape, prior to transfer to [place], will apply tegaderm once returned from [place]. Wound care: to cellulitis located on dorsal aspect of left forearm was cleaned with Hibiclens, dressed with Neosporin, non adherent dressing, Patient tolerated well. 16:55 Inserted saline lock: 24 gauge in right antecubital area, using aseptic technique. sv ,using aseptic technique. diffusics Blood collected. Flushed right antecubital with 5 ml normal saline. 17:23 Ben Morneo MD is Hospitalizing Provider. [facility] 17:45 Lab(s) recollected, by ED staff, sent to lab. First set of blood cultures drawn by physician. 17:49 XRAY Chest (1 view) In Process Unspecified. EDMS 18:00 Second set of blood cultures drawn by physician. 18:04 EKG done, by field crop technical officer. reviewed by Carlyle Torrez MD. [facility] 18:19 Procalcitonin Sent. 5 18:19 Blood Culture Adult (2) Sent. [facility] 18:19 Lactate Sent. [facility] 18:20 Admitting physician to see patient. 18:44 Pt visited by daughter, son. sg 18:50 Dressings: non-adherent dressing x 1 dorsal aspect of left forearm Tegaderm X 1; dorsal sg aspect of left forearm. 18:51 Diet: Patient given snack. Patient given juice. SANDWICH AND CHIPS. [facility] 19:00 Report received from Ej Kenny RN. aa1 20:14 No provider procedures requiring assistance completed. Patient admitted, IV remains in aa1 place. Administered Medications: 15:35 Drug: Bactrim (160 mg-800 mg (DS) 1 tablet Route: PO; sg 16:00 Follow up: Response: No adverse reaction sv 15:35 Drug: Tobrex 0.3 % 1 application Route: Ophthalmic; Site: right eye; sg 15:45 Drug: Bactroban Ointment 2 % 1 application Route: Topical; Site: affected area; sg 17:11 Drug: NS 0.9% 1000 ml Route: IV; Rate: 1 bolus; Site: right antecubital; sv 18:15 Follow up: Response: No adverse reaction; IV Status: Completed infusion; IV Intake: sv 1000ml 18:30 Drug: Rocephin 1 grams Route: IV; Rate: per protocol; Site: right forearm; sg 18:32 Follow up: Response: No adverse reaction; IV Status: Completed infusion; IV Intake: 10mlsv 18:38 Drug: vancoMYCIN 1 grams Route: IVPB; Infused Over: 2 hrs; Site: right forearm; sg 19:37 Follow up: IV Status: Infusion continued upon admission aa1 Intake: 18:15 IV: 1000ml; Total: 1000ml. sv 18:32 IV: 10ml; Total: 1010ml. sv Outcome: 14:20 Discharge ordered by . pastora 15:17 Discharge ordered by . pastora 17:26 Decision to Hospitalize by Provider. [place] 20:13 Admitted to Med/surg accompanied by nurse, family with patient, via stretcher, room aa1 231, with chart, Report called to Berta Rodney RN 20:14 Condition: stable aa1 20:14 Discharge instructions given to patient, family, Instructed on the need for admit, Demonstrated understanding of instructions. 20:14 Patient left the ED. aa1 Signatures: Dispatcher [employer] Disha Gregg RN RN sv Gay, Steven, RN RN sg Autenrieth, Alissa, RN RN aa1 Carlyle Torrez MD MD cha Martinez, Maria [facility] Vanessa Tillman [facility]
--- NOTE | 2019-09-07 14:22 | EDPHYS ---
Physician Documentation [facility] Name: Jayesh Leavitt Age: 73 yrs Sex: Female : 1945 Arrival Date: 09/07/2019 Time: 13:11 Bed 8 Private MD: ED Physician Carlyle Torrez HPI: 09/07 14:11 This 73 yrs old Female presents to ER via EMS with complaints of Eye Problem, pastora Insect Bite, Urinary Problem. 14:11 The patient is experiencing burning, matting or discharge, pain, redness. Onset: The pastora symptoms/episode began/occurred 3 day(s) ago. Duration: the symptoms are continuous. Associated signs and symptoms: Pertinent positives: None. Severity of symptoms: At their worst the symptoms were mild in the emergency department the symptoms are unchanged. The patient has not experienced similar symptoms in the past. Historical: - Allergies: 13:15 No Known Allergies; sg - PMHx: 13:15 Anemia; Arthritis; Crohn's; Diabetes - NIDDM; Hypertension; Hypothyroidism; Rheumatoid sg Arthritis; - PSHx: 13:15 femur fracture- Nov 2017; right hip replacement- August 2018; KELLY knee replacement; sg ; - Immunization history:: Adult Immunizations up to date. - Social history:: Smoking status: Patient/guardian denies using tobacco. - Ebola Screening: : Patient negative for fever greater than or equal to 101.5 degrees Fahrenheit, and additional compatible Ebola Virus Disease symptoms Patient denies exposure to infectious person Patient denies travel to an Ebola-affected area in the 21 days before illness onset No symptoms or risks identified at this time. - Family history:: not pertinent. ROS: 14:11 Constitutional: Negative for fever, chills, and weight loss, ENT: Negative for injury, pastora pain, and discharge, Neck: Negative for injury, pain, and swelling, Cardiovascular: Negative for chest pain, palpitations, and edema, Respiratory: Negative for shortness of breath, cough, wheezing, and pleuritic chest pain, Abdomen/GI: Negative for abdominal pain, nausea, vomiting, diarrhea, and constipation, Back: Negative for injury and pain, MS/Extremity: Negative for injury and deformity, Neuro: Negative for headache, weakness, numbness, tingling, and seizure, Psych: Negative for depression, anxiety, suicide ideation, homicidal ideation, and hallucinations, Allergy/Immunology: Negative for hives, rash, and allergies, Endocrine: Negative for neck swelling, polydipsia, polyuria, polyphagia, and marked weight changes, Hematologic/Lymphatic: Negative for swollen nodes, abnormal bleeding, and unusual bruising. 14:11 : Positive for urinary symptoms, burning with urination, difficulty urinating. 14:11 Skin: Positive for abscess, cellulitis. Exam: 14:11 Constitutional: This is a well developed, well nourished patient who is awake, alert, pastora and in no acute distress. Head/Face: Normocephalic, atraumatic. ENT: Nares patent. No nasal discharge, no septal abnormalities noted. Tympanic membranes are normal and external auditory canals are clear. Oropharynx with no redness, swelling, or masses, exudates, or evidence of obstruction, uvula midline. Mucous membranes moist. Neck: Trachea midline, no thyromegaly or masses palpated, and no cervical lymphadenopathy. Supple, full range of motion without nuchal rigidity, or vertebral point tenderness. No Meningismus. Chest/axilla: Normal chest wall appearance and motion. Nontender with no deformity. No lesions are appreciated. Cardiovascular: Regular rate and rhythm with a normal S1 and S2. No gallops, murmurs, or rubs. Normal PMI, no JVD. No pulse deficits. Respiratory: Lungs have equal breath sounds bilaterally, clear to auscultation and percussion. No rales, rhonchi or wheezes noted. No increased work of breathing, no retractions or nasal flaring. Abdomen/GI: Soft, non-tender, with normal bowel sounds. No distension or tympany. No guarding or rebound. No evidence of tenderness throughout. Back: No spinal tenderness. No costovertebral tenderness. Full range of motion. Female : Normal external genitalia. MS/ Extremity: Pulses equal, no cyanosis. Neurovascular intact. Full, normal range of motion. Neuro: Awake and alert, GCS 15, oriented to person, place, time, and situation. Cranial nerves II-XII grossly intact. Motor strength 5/5 in all extremities. Sensory grossly intact. Cerebellar exam normal. Normal gait. Psych: Awake, alert, with orientation to person, place and time. Behavior, mood, and affect are within normal limits. 14:11 Eyes: Periorbital structures: appear normal, no acute changes, Pupils: no acute changes, equal, round, and reactive to light and accomodation, Extraocular movements: intact throughout, Conjunctiva: injected, Corneas: cloudy, Sclera: injected, Anterior chamber: normal, no acute changes, Lids and lashes: appear normal, no acute changes, Visual duong: Nystagmus: is not appreciated. 15:15 Abdomen/GI: Inspection: abdomen appears normal, Bowel sounds: normal, Palpation: pastora nontender, in all quadrants, Rectal exam: is unremarkable, rectal tone normal, Liver: no appreciated palpable abnormalities, Hernia: not appreciated. Vital Signs: 13:11 BP 119 / 73; Pulse 107; Resp 18; Temp 98.3; Pulse Ox 98% ; sv 14:17 BP 128 / 70; Pulse 112; Resp 18; Temp 98.1(TE); Pulse Ox 98% on R/A; mh5 16:00 BP 112 / 68; Pulse 110; Resp 17; Pulse Ox 98% on R/A; sg 18:30 BP 118 / 70; Pulse 109; Resp 18; Temp 98.3; Pulse Ox 98% on R/A; sg 19:30 BP 127 / 68; Pulse 103; Resp 18; Temp 98.2; Pulse Ox 97% on R/A; Pain 0/10; aa1 20:13 BP 125 / 66; Pulse 100; Resp 16; Temp 98.1; Pulse Ox 98% on R/A; Pain 0/10; aa1 Procedures: 14:20 I \T\ D: Prepped with Betadine, Anesthetized with nothing. Incised with 18 guage. Drained pastora small amount purulent fluid. Dressing: non-Adherent dressing, the patient tolerated the procedure well. 17:56 Peripheral line: by aseptic technique a peripheral line was placed in the left external pastora jugular vein. MDM: 13:14 Patient medically screened. [facility] 14:14 Data reviewed: vital signs, nurses notes, lab test result(s). [facility] 09/07 14:11 Order name: Urine Culture [facility] 09/07 14:19 Order name: Wound Culture [facility] 09/07 14:56 Order name: UA; Complete Time: 17:16 bd 09/07 15:01 Order name: CBC with Diff; Complete Time: 17:16 [facility] 09/07 15:01 Order name: Comprehensive Metabolic Panel; Complete Time: 17:16 [facility] 09/07 15:34 Order name: Urine Microscopic Only; Complete Time: 17:16 [facility] 09/07 16:47 Order name: Manual Differential; Complete Time: 17:16 [facility] 09/07 17:13 Order name: Slides for Pathologist Review [facility] 09/07 17:22 Order name: Basic Metabolic Panel; Complete Time: 19:30 [facility] 09/07 17:22 Order name: LFT's; Complete Time: 19:30 [facility] 09/07 17:22 Order name: Magnesium; Complete Time: 19:30 [facility] 09/07 17:22 Order name: NT PRO-BNP; Complete Time: 19:30 [facility] 09/07 17:22 Order name: PT-INR; Complete Time: 19:30 [facility] 09/07 17:22 Order name: Troponin (emerg Dept Use Only); Complete Time: 19:30 [facility] 09/07 14:11 Order name: Urine Dipstick-Ancillary (obtain specimen); Complete Time: 16:09 [facility] 09/07 15:01 Order name: CT Stone Protocol; Complete Time: 17:16 [facility] 09/07 16:09 Order name: Straight Cath - Urine; Complete Time: 16:09 09/07 17:22 Order name: XRAY Chest (1 view); Complete Time: 19:30 [facility] 09/07 17:22 Order name: EKG; Complete Time: 17:23 [facility] 09/07 17:22 Order name: Cardiac monitoring; Complete Time: 17:23 [facility] 09/07 17:22 Order name: EKG - Nurse/Tech; Complete Time: 17:23 [facility] 09/07 17:22 Order name: Blood Culture Adult (2) [facility] 09/07 17:22 Order name: Procalcitonin; Complete Time: 19:30 [facility] 09/07 18:00 Order name: Lactate; Complete Time: 19:30 [facility] 09/07 17:22 Order name: IV Saline Lock; Complete Time: 17:23 [facility] 09/07 17:22 Order name: Labs collected and sent; Complete Time: 17:23 [facility] 09/07 17:22 Order name: O2 Per Protocol; Complete Time: 17:23 [facility] 09/07 17:22 Order name: O2 Sat Monitoring; Complete Time: 17:23 [facility] Administered Medications: 15:35 Drug: Bactrim (160 mg-800 mg (DS) 1 tablet Route: PO; sg 16:00 Follow up: Response: No adverse reaction sv 15:35 Drug: Tobrex 0.3 % 1 application Route: Ophthalmic; Site: right eye; sg 15:45 Drug: Bactroban Ointment 2 % 1 application Route: Topical; Site: affected area; sg 17:11 Drug: NS 0.9% 1000 ml Route: IV; Rate: 1 bolus; Site: right antecubital; sv 18:15 Follow up: Response: No adverse reaction; IV Status: Completed infusion; IV Intake: sv 1000ml 18:30 Drug: Rocephin 1 grams Route: IV; Rate: per protocol; Site: right forearm; sg 18:32 Follow up: Response: No adverse reaction; IV Status: Completed infusion; IV Intake: 10mlsv 18:38 Drug: vancoMYCIN 1 grams Route: IVPB; Infused Over: 2 hrs; Site: right forearm; sg 19:37 Follow up: IV Status: Infusion continued upon admission aa1 Disposition: 09/07/19 17:26 Hospitalization ordered by Ben Moreno for Inpatient Admission. Preliminary diagnosis are Urinary tract infection, site not specified, Weakness, Neutropenia, Type 2 diabetes mellitus, Conjunctivitis, Bandemia, Cutaneous abscess of limb, unspecified - left forearm, Cellulitis and acute lymphangitis of other parts of limb. - Bed requested for Telemetry/MedSurg (Inpatient). - Status is Inpatient Admission. aa1 - Condition is Fair. - Problem is new. - Symptoms have improved. UTI on Admission? Yes Signatures: Dispatcher [employer] EDMS Mary Reyes Stephanie, RN RN Ej Kenny RN RN Page Harvey RN RN aa1 Carlyle Torrez MD MD cha Corrections: (The following items were deleted from the chart) 14:22 14:20 09/07/2019 14:20 Discharged to Home. Impression: Conjunctivitis; Cutaneous pastora abscess of left upper limb; Urinary tract infection, site not specified; Constipation. Condition is Stable. Discharge Instructions: Skin Abscess, Bacteremia, Constipation, Adult, Dysuria, Bacterial Conjunctivitis, Incision and Drainage, Urinary Tract Infection, Adult, Skin Abscess, [id number], Urinary Tract Infection, Adult, [id number]. Prescriptions for Tobrex 0.3 % Ophthalmic ointment - apply 1 inch ribbon by OPHTHALMIC route 3 times per day; 3.5 gram, Bactroban 2 % Topical Ointment - Apply to affected area 1 application by TOPICAL route every 12 hours; 30 gram, Bactrim DS 800-160 mg Oral Tablet - take 1 tablet by ORAL route every 12 hours for 7 days; 14 tablet, Miralax 17 gram/dose Oral - take 1 packet by ORAL route once daily dilute powder in 8 ounces of water or juice; 15 packet. and Forms are Medication Reconciliation Form, Thank You Letter, Antibiotic Education, Prescription Opioid Use. Follow up: Private Physician; When: 2 - 3 days; Reason: Recheck today's complaints, Continuance of care, Re-evaluation by your physician. Follow up: Servando Medel; When: 2 - 3 days; Reason: Recheck today's complaints, Continuance of care, Re-evaluation by your physician. Problem is new. Symptoms have improved. [facility] 15:02 14:22 09/07/2019 14:20 Discharged to Home. Impression: Conjunctivitis; Cutaneous pastora abscess of left upper limb; Urinary tract infection, site not specified; Constipation; Combined forms of age-related cataract, bilateral. Condition is Stable. Discharge Instructions: Skin Abscess, Bacteremia, Constipation, Adult, Dysuria, Bacterial Conjunctivitis, Incision and Drainage, Urinary Tract Infection, Adult, Skin Abscess, [id number], Urinary Tract Infection, Adult, Cyuf-wl-Iogz. Prescriptions for Tobrex 0.3 % Ophthalmic ointment - apply 1 inch ribbon by OPHTHALMIC route 3 times per day; 3.5 gram, Bactroban 2 % Topical Ointment - Apply to affected area 1 application by TOPICAL route every 12 hours; 30 gram, Bactrim DS 800-160 mg Oral Tablet - take 1 tablet by ORAL route every 12 hours for 7 days; 14 tablet, Miralax 17 gram/dose Oral - take 1 packet by ORAL route once daily dilute powder in 8 ounces of water or juice; 15 packet. and Forms are Medication Reconciliation Form, Thank You Letter, Antibiotic Education, Prescription Opioid Use. Follow up: Private Physician; When: 2 - 3 days; Reason: Recheck today's complaints, Continuance of care, Re-evaluation by your physician. Follow up: Servando Medel; When: 2 - 3 days; Reason: Recheck today's complaints, Continuance of care, Re-evaluation by your physician. Problem is new. Symptoms have improved. [facility] 17:19 15:17 09/07/2019 15:17 Discharged to Home. Impression: Conjunctivitis; Cutaneous pastora abscess of left upper limb; Urinary tract infection, site not specified; Constipation. Condition is Stable. Discharge Instructions: Constipation, Adult, Dysuria, Bacterial Conjunctivitis, Incision and Drainage, Urinary Tract Infection, Adult, Skin Abscess, [id number], Urinary Tract Infection, Adult, [id number], Incision and Drainage, Care After. Prescriptions for Tobrex 0.3 % Ophthalmic ointment - apply 1 inch ribbon by OPHTHALMIC route 3 times per day; 3.5 gram, Bactroban 2 % Topical Ointment - Apply to affected area 1 application by TOPICAL route every 12 hours; 30 gram, Bactrim DS 800-160 mg Oral Tablet - take 1 tablet by ORAL route every 12 hours for 7 days; 14 tablet, Miralax 17 gram/dose Oral - take 1 packet by ORAL route once daily dilute powder in 8 ounces of water or juice; 15 packet, Tobrex 0.3 % Ophthalmic ointment - apply 1 inch ribbon by OPHTHALMIC route 3 times per day; 3.5 gram, Bactrim DS 800-160 mg Oral Tablet - take 1 tablet by ORAL route every 12 hours for 7 days; 14 tablet, Miralax 17 gram/dose Oral - take 1 packet by ORAL route once daily dilute powder in 8 ounces of water or juice; 15 packet. and Forms are Medication Reconciliation Form, Thank You Letter, Antibiotic Education, Prescription Opioid Use. Follow up: Private Physician; When: 2 - 3 days; Reason: Recheck today's complaints, Continuance of care, Re-evaluation by your physician. Follow up: Servando Medel; When: 2 - 3 days; Reason: Recheck today's complaints, Continuance of care, Re-evaluation by your physician. Problem is new. Symptoms have improved. [facility] 18:49 17:26 Hospitalization Ordered by Ben Moreno MD for Inpatient Admission. Preliminary bd diagnosis is Urinary tract infection, site not specified; Weakness; Neutropenia; Type 2 diabetes mellitus; Conjunctivitis; Bandemia. Bed requested for Telemetry/MedSurg (Inpatient). Status is Inpatient Admission. Condition is Fair. Problem is new. Symptoms have improved. UTI on Admission? Yes. [facility] 19:32 18:49 09/07/2019 17:26 Hospitalization Ordered by Ben Moreno MD for Inpatient pastora Admission. Preliminary diagnosis is Urinary tract infection, site not specified; Weakness; Neutropenia; Type 2 diabetes mellitus; Conjunctivitis; Bandemia. Bed requested for Telemetry/MedSurg (Inpatient). Status is Inpatient Admission. Condition is Fair. Problem is new. Symptoms have improved. UTI on Admission? Yes. bd 20:14 19:32 09/07/2019 17:26 Hospitalization Ordered by Ben Moreno MD for Inpatient aa1 Admission. Preliminary diagnosis is Urinary tract infection, site not specified; Weakness; Neutropenia; Type 2 diabetes mellitus; Conjunctivitis; Bandemia; Cutaneous abscess of limb, unspecified - left forearm; Cellulitis and acute lymphangitis of other parts of limb. Bed requested for Telemetry/MedSurg (Inpatient). Status is Inpatient Admission. Condition is Fair. Problem is new. Symptoms have improved. UTI on Admission? Yes. pastora
[2019-09-07] MEDS ORDERED: SMZ./TMP. 800/160 MG TABLET ONE (14:39)
[2019-09-07] MEDS ORDERED: MUPIROCIN 2% OINT 22GM TUBE TOP ONE (14:40)
[2019-09-07] MEDS ORDERED: TOBRAMYCIN SULF 0.3% OPTH OINT ONE (14:40)
[2019-09-07 15:27] LABS: Urine Appearance TURBID; Urine Blood 2+ (NEG); Urine Color DK YELLOW; Urine Glucose NEGATIVE (NEG); Urine Protein 2+ (NEG); Urine Specific Gravity 1.025 (1.005-1.030); Urine pH 7.5 (5.0-7.0)
[2019-09-07 15:32] LABS: Urine Bilirubin 1+ (NEG); Urine Microscopic Reflex ORDER UMIC
[2019-09-07 15:44] LABS: Urine Amorphous Sediment 2+ /HPF (NONE SEEN); Urine Bacteria 20-50 /HPF (<20); Urine Culture Reflex Order NOT NEEDED; Urine Mucus 3+ /HPF (NONE SEEN); Urine RBC 20-50 /HPF (NONE SEEN)
[2019-09-07] MEDS ORDERED: NA CHLORIDE 0.9% 1,000 ML ONE (16:12)
--- NOTE | 2019-09-07 16:16 | RAD REPORT ---
EXAM DESCRIPTION: CT - Stone Protocol - 09/07/2019 3:38 pm CLINICAL HISTORY: ABD PAIN COMPARISON: Abdomen Pelvis Wo Contrast dated 05/09/2016 TECHNIQUE: Axial [address] imaging of the abdomen and pelvis was performed without IV contrast. No IV contrast was given because of allergy, abnormal renal function, patient refusal or physician re quest. Oral contrast was given. All CT scans are performed using dose optimization technique as appropriate and may include automated exposure control or mA/KV adjustment according to patient size. FINDINGS: No suspicious findings in the lung bases. No focal liver or finding on noncontrast imaging. Splenomegaly matches comparison. No focal splenic a bnormality. No acute pancreatic process seen. Gallbladder and biliary tree are also without suspiciou s finding. Aortic and mesenteric arterial calcifications are present. No hydronephrosis or suspicious renal mass. No significant adrenal finding. Isodense renal masses an d pyelonephritis cannot be excluded in the absence of IV contrast. Urinary bladder is contracted limi ting detail. Maybell artifact from hip metal devices limits pelvic floor assessment. No gastric dilatation. No colon dilatation. Contrast or hyperdense medication is seen in the left tip e of the colon. Prominent distal small bowel loops are noted. This pattern was seen in 2016. No colon or small bowel wall thickening or edema seen. No free air, free fluid or inflammatory stranding. No hernia, mass or bulky lymphadenopathy. Uterus a nd ovaries show no suspicious findings for age. Prominent disc and bony degenerative change present. No acute or pathologic bone process seen. IMPRESSION: Noncontrast CT abdomen and pelvis imaging shows no bowel obstruction, free air or surgic ally emergent finding. Prominent distal small bowel loops match the 2016 study. Nonspecific enteritis is still possible. Isodense masses and pyelonephritis are not excluded on noncontrast imaging. Overall evaluation is mor e limited in the absence of contrast. Overall, the exam does not appear clearly different from 2016. Full assessment is limited is the absence of IV contrast.
[2019-09-07 16:42] LABS: Absolute Lymphocytes (CBC) 0.5 K/uL (0.7-4.9); Basophils % 0.6 % (0-1.3); Hematocrit 27.5 % (36.0-45.0); Lymphocytes % 47.3 % (15.3-44.8)
[2019-09-07 17:01] LABS: ALT/SGPT 12 U/L (12-78); AST/SGOT 13 U/L (15-37); Albumin 2.4 g/dL (3.4-5.0); Alkaline Phosphatase 105 U/L (45-117); BUN Blood Urea Nitrogen 17 mg/dL (7-18); Bicarbonate 27 mmol/L (21-32); Bilirubin Total 0.4 mg/dL (0.2-1.0); Glucose Level 112 mg/dL (74-106); Potassium 4.3 mmol/L (3.5-5.1); Protein, Total 6.3 g/dL (6.4-8.2); Sodium Level 134 mmol/L (136-145)
[2019-09-07 17:09] LABS: Blood Morphology Comment NOT SEEN (NOT SEEN); Platelet Estimate ADEQ
[2019-09-07] MEDS ORDERED: CEFTRIAXONE/SWI 1gm 1 GM/10 ML SYR ONE (17:30)
--- NOTE | 2019-09-07 18:06 | RAD REPORT ---
EXAM DESCRIPTION: RAD - Chest Single View - 09/07/2019 5:48 pm CLINICAL HISTORY: Abdominal distention, cough COMPARISON: August 22 TECHNIQUE: AP portable chest image was obtained 1742 hours . FINDINGS: Lung volumes are low. No peripheral mass or consolidation. Hilar granulomatous calcificati ons are stable. No acute finding of the lung parenchyma. Heart and vasculature are normal. No measura ble pleural effusion and no pneumothorax. No acute bony abnormality seen. No acute aortic findings amador spected. IMPRESSION: No acute cardiopulmonary process. No suspicious change from comparison.
[2019-09-07 18:18] LABS: Protime INR 1.04
[2019-09-07 18:36] LABS: ALT/SGPT 11 U/L (12-78); AST/SGOT 14 U/L (15-37); Albumin 2.3 g/dL (3.4-5.0); Alkaline Phosphatase 92 U/L (45-117); BUN Blood Urea Nitrogen 17 mg/dL (7-18); Bicarbonate 26 mmol/L (21-32); Bilirubin Direct 0.2 mg/dL (0-0.2); Bilirubin Total 0.4 mg/dL (0.2-1.0); Glucose Level 91 mg/dL (74-106); Magnesium 1.8 mg/dL (1.8-2.4); NT PRO-BNP 486 pg/mL (<125); Potassium 4.3 mmol/L (3.5-5.1); Protein, Total 5.8 g/dL (6.4-8.2); Sodium Level 134 mmol/L (136-145); Troponin (Emerg Dept Use Only) < 0.02 ng/mL (0.0-0.045)
[2019-09-07] MEDS ORDERED: VANCOMYCIN/NS 1 gm 1 GM/250 ML BAG IV ONE (19:00)
[2019-09-07] MEDS ORDERED: VANCOMYCIN/NS 1 gm 1 GM/250 ML BAG IVPB SCH (20:53)
[2019-09-07] MEDS ORDERED: GLUCAGON 1 MG/VIAL IM PRN (20:53)
[2019-09-07] MEDS ORDERED: D50W 25 GM/50 ML SYRINGE IV PRN (20:53)
[2019-09-07] MEDS ORDERED: ONDANSETRON 4 MG/2 ML VIAL IV PRN (20:53)
[2019-09-07] MEDS: BACITRACIN OPTH OINT TUBE RIGHT EYE SCH (21:00)
[2019-09-07] MEDS: INSULIN -REGULAR HUMAN 50 UNIT/0.5 ML ML SQ SCH (21:00)
[2019-09-07] MEDS: NA CHLORIDE 0.9% 1,000 ML IV SCH (21:35)
[2019-09-07 22:00] VITALS: BMI 23.5
[2019-09-08] MEDS ORDERED: PIPER/TAZO/NS 3.375gm 3.375 GM/100 ML BAG ONE (00:58)
[2019-09-08] MEDS: PIPER/TAZO/NS 3.375gm 3.375 GM/100 ML BAG IVPB SCH ×3 (01:11→16:16)
[2019-09-08] MEDS ORDERED: VANCOMYCIN 1 GM/VIAL ONE (04:14)
[2019-09-08] MEDS ORDERED: NA CHLORIDE 0.9% 250 ML ONE (04:16)
--- NOTE | 2019-09-08 04:57 | HP ---
Date of Admission: 09/07/2019 Code Status: Full. Chief Complaint: Generalized weakness, dehydration. Primary Care Physician: Dr. Frances. History Of Present Illness: The patient is a 73-year-old female with past medical history of rheumat oid arthritis, hypertension, diabetes, hypothyroidism, Crohn disease, comes in with abdominal pain, s ymptoms of UTI, frequency. Patient was recently diagnosed with UTI and was given antibiotics, now rosado s failed outpatient treatment. Patient also reports some matting of her right eye with drainage and redness along with small abscess to the right arm. Patient's symptoms are constant, moderate, progre ssively worsening. Workup revealed white count of 1000 with absolute neutrophil count of 209. Patie nt denies any fevers or chills. Does report some chills. No fevers. Patient was referred for admis angel luis. Past Medical History: Diabetes, hypertension, hypothyroidism, Crohn's, rheumatoid arthritis, iron, B 12 deficiency, bilateral knee replacement, x2. Allergies: NO KNOWN DRUG ALLERGIES. Medications: List reviewed. Social History: Patient is a . Has 6 children. Retired. Lives by herself. Does have a careg iver. Denies any alcohol use, tobacco use. Does use a walker for ambulation. Family History: Mother had diabetes, blood disorders, and pernicious anemia. Father had heart disea se and bladder cancer. Mother and sister also had diabetes. Father had bladder cancer. Review of Systems: Ten-point system reviewed, negative except as per HPI. Physical Examination: Vital Signs: Blood pressure 119/73, pulse 107, respirations 18, temperature 98.3, O2 98% on room air . General: Awake, alert, oriented x3. Elderly female, ill appearing. HEENT: Normocephalic, atraumatic. PERRLA. EOMI. Moist mucous membranes. Poor dentition. Conjunct kayla erythematous on the right eye with some crusted drainage on the eyelids. Left eye is clear. CV: S1, S2. Regular rate and rhythm. Peripheral pulses present. RESPIRATORY: Moving air well bilaterally. No wheezing or stridor. No use of accessory muscles. Gastrointestinal: Abdomen is soft, nontender, nondistended. Positive bowel sounds. No rebound or g uarding. Extremities: No clubbing, cyanosis, or edema. No calf tenderness. Neuro: Cranial nerves 2-12 intact grossly. No focal neurological deficit. Speech is normal. Skin: Patient has lesion on the left arm, status post debridement in the ER. No rashes. Psych: Mood is okay. Affect is full. Insight and judgment are good. Laboratory Data: WBC 1000, H and H are 9.1 and 27.5, platelets 162, neutrophils 20%, bands 9%. INR 1.04. Sodium 134, potassium 4.3, chloride 100, CO2 of 27, BUN 17, creatinine 0.54, glucose 112, calc ium 8.5. Lactate and procalcitonin pending. UA positive nitrite, 2+ leukocyte esterase, 20-50 wbc's , 20-50 bacteria. Chest x-ray shows no acute cardiopulmonary process. CT scan of the abdomen shows no bowel obstruction, free air, or surgically emergent finding. Prominent distal small bowel loops m [facility] 2016 study, nonspecific enteritis, still possible. Assessment: A 73-year-old female with: 1.Acute cystitis with hematuria, failed outpatient treatment. We will start on broad spectrum IV an tibiotics due to neutropenia and possibility of resistant bacteria. We will obtain urine culture. 2.Left arm abscess, status post debridement at the bedside in the ER. Wound cultures have been obta ined. Continue with vancomycin to cover methicillin-resistant Staphylococcus aureus pneumonia. 3.Neutropenia. Patient was on methotrexate; however, was stopped 2 months ago. Has seen Hematology /Oncology in the past with a follows with Dr. Clemons. We will consult Hematology. We will g liliana dose of Neupogen. We will place on reverse isolation and broad-spectrum IV antibiotics. Follow up on cultures. Obtain influenza screen. Chest x-ray is clear. 4.Anemia, microcytic. Patient does have history of iron deficiency. We will monitor H and H, trans fuse as needed. 5.History of RA, not currently on any immunologic. 6.History of Crohn disease. 7.Essential hypertension, stable. 8.Hypothyroidism, stable. 9.Diabetes mellitus type 2. We will start on sliding scale insulin and monitor blood glucose levels . Plan: Admit the patient to Med-Surg, place as inpatient. Length of stay, greater than 2 midnights. GIANA Voice ID: [id number]
[2019-09-08 05:51] LABS: Absolute Lymphocytes (CBC) 0.4 K/uL (0.7-4.9); Basophils % 0.5 % (0-1.3); Hematocrit 23.8 % (36.0-45.0); Lymphocytes % 52.9 % (15.3-44.8); RBC Red Blood Cell Count 2.95 M/uL (3.86-4.86)
[2019-09-08 06:04] LABS: BUN Blood Urea Nitrogen 13 mg/dL (7-18); Bicarbonate 26 mmol/L (21-32); Glucose Level 89 mg/dL (74-106); Sodium Level 136 mmol/L (136-145)
[2019-09-08] MEDS ORDERED: VANCOMYCIN/NS 1 gm 1 GM/250 ML BAG IVPB SCH (06:30)
--- NOTE | 2019-09-08 06:51 | EKG ---
Test Date: 2019-09-07 Test Time: 17:58:18 Digital Print Operator: MACK MEASUREMENT RESULTS: Intervals: Rate: 96 WY: 154 QRSD: 88 QT: 354 QTc: 447 Fisher: P: 6 WY: 154 QRS: 42 T: 39 INTERPRETIVE STATEMENTS: Normal sinus rhythm Normal ECG Compared to ECG 08/22/2019 16:51:54 No significant changes Electronically Signed On 09-08-19 06:50:52 CDT by Taurus White
[2019-09-08] MEDS: NA CHLORIDE 0.9% 1,000 ML IV SCH ×2 (06:53→16:16)
[2019-09-08] MEDS: INSULIN -REGULAR HUMAN 50 UNIT/0.5 ML ML SQ SCH ×4 (07:30→21:00)
[2019-09-08 08:08] LABS: Anisocytosis 2+; Blood Morphology Comment NOTED (NOT SEEN); Platelet Estimate ADEQ
[2019-09-08] MEDS: TBO-FILGRASTIM 480 MCG/0.8 ML SYR SQ SCH (10:17)
[2019-09-08] MEDS: BACITRACIN OPTH OINT TUBE RIGHT EYE SCH ×2 (10:17→20:27)
--- NOTE | 2019-09-08 14:57 | PN ---
Date of Progress Note: 09/08/2019 Patient is seen and examined. Chart reviewed and case discussed with RN and Dr. Leiva yesterday. Also, discussed with Dr. Bailey this morning. The patient does report some difficulty sleeping last night. Continues to have urinary frequency. No fevers overnight. Medications: List reviewed. Physical Examination: Vital Signs: Temperature 97.6, heart rate 88, blood pressure 114/64, respirations 18. O2 100% on room air. General: Awake, alert, oriented x3. Elderly female, does not appear to be any acute distress. CV: S1, S2. Regular rate and rhythm. Peripheral pulses present. Respiratory: Moving air well bilaterally. No wheezing or stridor. No use of accessory muscles. Gastrointestinal: Abdomen is soft, nontender, nondistended. Positive bowel sounds. Extremities: No clubbing, cyanosis, or edema. Neurologic: Nonfocal. Cranial nerves 2 through 12 intact grossly. Speech is normal. Skin: No rashes. Normal skin turgor. Does have a wound on the left upper extremity. No surrounding erythema. Laboratory Data: Sodium 136, potassium 4, chloride 106, CO2 of 26, BUN 13, creatinine 0.42, glucose 89, calcium 8.2. WBC 800. H and H 8.1 and 23.8. Platelets 129. Neutrophils 100, 1% bands. Blood cultures pending. Wound cultures pending. Urine culture growing out 4+ gram-negative rods. Assessment And Plan: A 73-year-old female with; 1. Acute cystitis with hematuria, failed outpatient treatment. We will continue with broad-spectrum IV antibiotics. Cultures growing out 4+ gram- negative rods, likely resistant type of bacteria. We will follow up on ID and sensitivity. 2. Left arm abscess, status post debridement in the ER. Wound cultures pending. Continue with vancomycin to cover MRSA. 3. Severe neutropenia. White count is 800, neutrophils are less than 250. The patient has been placed on reverse isolation. ID consultation has been sought. Discussed with Dr. Leiva, Hematology. Continue with Granix shot. 4. Microcytic anemia, this is likely due to iron deficiency. Does have history, but we will monitor H and H and transfuse as needed. 5. Thrombocytopenia. Monitor. No need for transfusion at this time. 6. History of RA methotrexate, has not followed up with washery engineer recently. 7. History of Crohn disease, stable. 8. Essential hypertension, stable. 9. Hypothyroidism. We will continue levothyroxine. 10. Diabetes mellitus type 2. Continue sliding scale insulin and monitor blood glucose levels. 11. Deep vein thrombosis prophylaxis. We will continue with SCDs. We will hold off on Lovenox due to anemia and low platelets. Overall guarded prognosis. /NAN Voice ID: [id number] Report ID: [id number] MARITO
[2019-09-08] MEDS: VANCOMYCIN/NS 1 gm 1 GM/250 ML BAG IVPB SCH (16:16)
--- NOTE | 2019-09-08 16:49 | CON ---
History Of Present Illness: The patient is a 73-year-old female. I was consulted for a neutropenia. The patient also having recurrent urinary tract infection, has significant history of rheumatoid ar thritis, hypertension, diabetes mellitus, hypothyroidism, Crohn disease. Denies any headache, nausea , vomiting, chest pain, abdominal pain, constipation, or diarrhea. Right now, initially she had some abdominal discomfort. Laboratory Data: Her WBC was 1, which is today is 0.8 with neutrophil count of 0.2 to 0.1 today. Ch emistry shows sodium 136, potassium 4, chloride 106, bicarb 26, BUN 13, creatinine 0.4, glucose 90. Blood cultures are pending. Urine cultures are growing gram-negative rods 4+. The patient is curren tly being treated with IV Zosyn and vancomycin. Assessment And Plan: Pancytopenia with urinary tract infection with gram-negative shea sensitivity an d specificity pending. We will continue Zosyn for empiric coverage. Considers discontinue vancomyci n after the cultures are out. We will follow the patient closely. Thank you, Dr. Moreno, for consult hematology on team for possible GSF treatment. We will follow the patient as needed. NF/MODL Voice ID: [id number] Report ID: [id number]
[2019-09-08] MEDS: ACETAMINOPHEN 500 MG TAB PO PRN (17:22)
[2019-09-08] MEDS: ENSURE ENLIVE 237 ML CAN PO SCH (20:28)
[2019-09-09] MEDS: NA CHLORIDE 0.9% 1,000 ML IV SCH ×3 (02:53→22:53)
[2019-09-09 04:20] LABS: Absolute Lymphocytes (CBC) 0.4 K/uL (0.7-4.9); Basophils % 0.1 % (0-1.3); Hematocrit 22.9 % (36.0-45.0); MPV 7.3 fL (7.6-11.3); RBC Red Blood Cell Count 2.85 M/uL (3.86-4.86)
[2019-09-09 04:27] LABS: BUN Blood Urea Nitrogen 11 mg/dL (7-18); Bicarbonate 26 mmol/L (21-32); Glucose Level 80 mg/dL (74-106); Potassium 3.9 mmol/L (3.5-5.1); Sodium Level 135 mmol/L (136-145)
[2019-09-09] MEDS: VANCOMYCIN/NS 1 gm 1 GM/250 ML BAG IVPB SCH ×2 (05:24→16:35)
[2019-09-09] MEDS: LEVOTHYROXINE SOD 0.1 MG TAB PO SCH (05:30)
[2019-09-09] MEDS: INSULIN -REGULAR HUMAN 50 UNIT/0.5 ML ML SQ SCH ×4 (07:30→21:00)
[2019-09-09 08:37] VITALS: O2SAT 96
[2019-09-09] MEDS: PIPER/TAZO/NS 3.375gm 3.375 GM/100 ML BAG IVPB SCH ×2 (08:40)
[2019-09-09] MEDS: TBO-FILGRASTIM 480 MCG/0.8 ML SYR SQ SCH (08:41)
[2019-09-09] MEDS: PARoxetine HCl 10 MG TAB PO SCH (08:41)
[2019-09-09] MEDS: BACITRACIN OPTH OINT TUBE RIGHT EYE SCH ×2 (08:42→20:39)
[2019-09-09] MEDS: ENSURE ENLIVE 237 ML CAN PO SCH ×2 (08:42→20:38)
[2019-09-09] MEDS ORDERED: LEVOTHYROXINE SODIUM 300 MCG PO SCH (09:00)
[2019-09-09] MEDS: ACETAMINOPHEN 500 MG TAB PO PRN ×2 (13:53→20:36)
--- NOTE | 2019-09-09 16:21 | PN ---
Date of Progress Note: 09/09/2019 Subjective: Patient seen and examined. Chart reviewed and case discussed with RN and Dr. Coats T he patient states her right eye is significantly better, asking for drop instead of ointment. I expl ained to her that no drops are available in the formulary. Medications reviewed. Physical Examination: Vital Signs: Temperature 98.1, heart rate 88, blood pressure 137/61, respirations 17, O2 98% on room air. General: Awake, alert, oriented x3, not in any acute distress, elderly female. CV: S1, S2. Regular rate and rhythm. Peripheral pulses present. Respiratory: Moving air well bilaterally. No wheezing or stridor. No use of accessory muscles. Gastrointestinal: Abdomen is soft, nontender, nondistended. Positive bowel sounds. No guarding or rigidity. Extremities: No clubbing, cyanosis, or edema. Neurologic: Nonfocal. Laboratory Data: Sodium 135, potassium 3.9, chloride 101, CO2 26, BUN 11, creatinine 0.45, glucose 8 0, calcium 8.1. WBC 1.7, H and H 7.7 and 22.9, platelets 108, neutrophils 57%, absolute neutrophil c ount is 1000. Assessment And Plan: The 73-year-old female with: 1.Acute cystitis with hematuria, failed outpatient treatment. We will continue with broad-spectrum IV antibiotics. Cultures growing out Proteus mirabilis. We will transition to oral on discharge. 2.Left arm abscess, status post debridement. Wound cultures growing out methicillin-resistant Staph ylococcus aureus, sensitive to Levaquin and Bactrim. Given patient's neutropenic situation, we will continue with IV antibiotics until blood cultures are negative. 3.Severe neutropenia, improving. White blood cell count is up to 1.7 with Granix. Neutrophils impr luz to 1000, removed reverse isolation as neutrophils consistently above 1000. Appreciate ID consul tation. Still awaiting hematology evaluation. 4.Pancytopenia. Platelets and hemoglobin also dropped. No indication for transfusion at this time. We will continue to monitor. 5.History of rheumatoid arthritis, was previously on methotrexate, is no longer taking this medicati on. 6.History of Crohn disease, stable. 7.Essential hypertension, stable. 8.Hypothyroidism, stable. 9.Diabetes mellitus type 2. We will continue with sliding scale insulin and monitor blood glucose l evels. 10.Right eye bacterial conjunctivitis. We will continue with bacterial ointment. No drops availabl e as the patient requested. 11.Disposition, likely discharge in the next 24 to 48 hours depending on ANC and culture results. /NAN Voice ID: [id number] Report ID: [id number]
--- NOTE | 2019-09-09 20:33 | PN ---
Subjective: Patient lying in bed. No new acute event. Chart reviewed. Denies any headache, nausea , vomiting, chest pain, abdominal pain, constipation, or diarrhea. Objective: Vital Signs: Temperature 98.3, pulse 90, respirations 18, blood pressure 140/64. Lungs: Clear to auscultation. Heart: S1 and S2 regular. Abdomen: Soft, nontender. Bowel sounds present. Extremities: No edema. Laboratory Data: WBC 1.7 slightly elevated, hemoglobin 7.7, platelets are 108. Chemistry shows sodi um 135, potassium 3.9, chloride 101, bicarb 26, BUN 11, creatinine 0.45, glucose is 90. Micro Data: MRSA from the left arm wound and Proteus mirabilis in the urine. Assessment And Plan: Pancytopenia with urinary tract infection secondary to Proteus mirabilis and me thicillin-resistant Staphylococcus aureus to the left arm. We will recommend to apply Bactroban to t he left arm wound, discontinue vancomycin. Continue antibiotic for Proteus mirabilis urinary tract i nfection and pancytopenia. Continue total course of 10 days. We will follow the patient closely. NF/MODL Voice ID: [id number] Report ID: [id number]
[2019-09-09] MEDS: CEFEPIME/SWI 2gm 2 GM/20 ML SYR IV SCH (20:36)
[2019-09-09] MEDS: MUPIROCIN 2% OINT 22GM TUBE TOP SCH (20:38)
[2019-09-09] MEDS ORDERED: CEFEPIME 2 GM in NA CHLORIDE 0.9% 100 ML IV SCH (21:00)
[2019-09-10] MEDS: VANCOMYCIN/NS 1 gm 1 GM/250 ML BAG IVPB SCH (05:11)
[2019-09-10] MEDS: LEVOTHYROXINE SOD 0.1 MG TAB PO SCH (05:11)
[2019-09-10 05:41] LABS: Absolute Lymphocytes (CBC) 0.4 K/uL (0.7-4.9); Hematocrit 22.6 % (36.0-45.0); Lymphocytes % 24.3 % (15.3-44.8); MPV 7.6 fL (7.6-11.3); RBC Red Blood Cell Count 2.84 M/uL (3.86-4.86)
[2019-09-10 05:57] LABS: BUN Blood Urea Nitrogen 7 mg/dL (7-18); Bicarbonate 28 mmol/L (21-32); Glucose Level 86 mg/dL (74-106); Potassium 3.9 mmol/L (3.5-5.1); Sodium Level 133 mmol/L (136-145)
[2019-09-10] MEDS: INSULIN -REGULAR HUMAN 50 UNIT/0.5 ML ML SQ SCH ×2 (07:30→11:30)
[2019-09-10] MEDS: ENSURE ENLIVE 237 ML CAN PO SCH (09:00)
[2019-09-10] MEDS: PARoxetine HCl 10 MG TAB PO SCH (09:00)
[2019-09-10] MEDS: MUPIROCIN 2% OINT 22GM TUBE TOP SCH (09:12)
[2019-09-10] MEDS: TBO-FILGRASTIM 480 MCG/0.8 ML SYR SQ SCH (09:12)
[2019-09-10] MEDS: CEFEPIME/SWI 2gm 2 GM/20 ML SYR IV SCH (09:12)
[2019-09-10] MEDS: BACITRACIN OPTH OINT TUBE RIGHT EYE SCH (09:13)
[2019-09-10] MEDS: ACETAMINOPHEN 500 MG TAB PO PRN (09:18)
[2019-09-10 14:45] VITALS: BP 146/62; TEMP 98.6
--- NOTE | 2019-09-11 04:51 | DS ---
Date of Discharge: 09/10/2019 Consultants: 1.Dr. Leiva with Hematology. 2.Dr. Bailey with Infectious Disease. Admitting Diagnoses: 1.Acute cystitis with hematuria. 2.Left arm abscess. 3.Neutropenia. 4.Microcytic anemia. 5.History of rheumatoid arthritis. 6.History of Crohn disease. 7.Essential hypertension. 8.Hypothyroidism. 9.Diabetes mellitus type 2, pya-grylyka-fyblftjvp with hyperglycemia. Discharge Diagnoses: 1.Acute cystitis with hematuria, failed outpatient treatment secondary to Proteus. 2.Left arm abscess, status post debridement at bedside in the ER secondary to methicillin-resistant Staphylococcus aureus. 3.Severe neutropenia, improving. 4.Pancytopenia. 5.History of rheumatoid arthritis. 6.History of Crohn disease. 7.Essential hypertension. 8.Hypothyroidism. 9.Diabetes mellitus type 2, gai-ysxkeir-qaclnslql with hyperglycemia. 10.Right eye bacterial conjunctivitis, improving. Hospital Course: The patient is a 73-year-old female with complicated past medical history including hypertension, diabetes, hypothyroidism, Crohn disease, rheumatoid arthritis, has been on and off imm unologic, has had previous oncologic workup including bone marrow biopsy, which has been negative, wh o remains leukopenic and pancytopenic, comes in with generalized weakness and dehydration. Patient w as found to have UTI. She was started on IV antibiotics. She failed outpatient treatment. She also had right eye bacterial conjunctivitis and was started on bacterial eye ointment. Patient was found to be neutropenic with an absolute neutrophil count of 209. No fevers. Patient did have a wound on her left upper extremity, which was debrided at bedside in the ER. Cultures were obtained, which gr ew out MRSA. Patient's urine culture also grew out Proteus, both were sensitive to Levaquin. Denys madrid was seen by Infectious Disease, Dr. Bailey, who evaluated the patient. Dr. Leiva with Hematology/On cology was also consulted. She recommended Neupogen treatment. Granix shots were given to the gabe nt to help improve her white blood cell count. Her neutropenia resolved. Neutrophil count came up a salena 1000. Patient had significant improvement in her symptoms. Clinically was improved. Her proca lcitonin and lactate were negative. There was no signs of sepsis. Patient was then cleared for disc harge. Her blood cultures remained negative to date. Wound cultures grew out MRSA and urine culture grew out Proteus, both were sensitive to Levaquin. Patient was discharged home in stable condition. Activity: As tolerated, fall precautions. Medications: As per medication reconciliation list. Followup: Follow up with primary care physician in 2 to 3 days. Follow up with insulating machine operator, Dr. Devin joshi in 1 week. Follow up with child care as scheduled. Follow up with ID, Dr. Bailey in 2 weeks . Return to ER for worsening condition. Diet: Diabetic. Physical Examination: General: Awake, alert, and oriented x3. No acute distress, elderly female. CV: S1, S2. Respiratory: Moving air well bilaterally. Abdomen: Soft, nontender, nondistended. Positive bowel sounds. Extremities: No clubbing, cyanosis, edema. Neurologic: Nonfocal. Time Spent: Total time spent discharging the patient was 35 minutes. /NAN Voice ID: [id number] Report ID: [id number]
== END 2019-09-10 14:15 | disposition home or self-care (01) | DRG 690 ==
LOC: ER 13:05 → ERHOLD 18:03 → 2ND 19:48
PROVIDERS: ADMIT Family Medicine; ATTEND Family Medicine
PROC: 0H9EXZX Drainage of Left Lower Arm Skin, External Approach, Diagnostic (ICD-10-PCS; principal; 2019-09-07)
DX: N30.00 Acute cystitis without hematuria (principal); L02.414 Cutaneous abscess of left upper limb; D61.818 Other pancytopenia; K50.90 Crohn's disease, unspecified, without complications; B96.4 Proteus (mirabilis) (morganii) as the cause of diseases classified elsewhere; B95.62 Methicillin resistant Staphylococcus aureus infection as the cause of diseases classified elsewhere; D70.9 Neutropenia, unspecified; M06.9 Rheumatoid arthritis, unspecified; I10 Essential (primary) hypertension; E03.9 Hypothyroidism, unspecified; E11.65 Type 2 diabetes mellitus with hyperglycemia; H10.89 Other conjunctivitis; Z96.653 Presence of artificial knee joint, bilateral
CPT/HCPCS: 36415; 51702; 71045; 74176; 76377; 80048; 80053; 80076; 80202; 81003; 81015; 82962; 83605; 83735; 83880; 84145; 84484; 85025; 85610; 87040; 87070; 87077; 87086; 87088; 87186; 87205; 93005; 94760; 96361; 96365; 96375; 99285; J0692; J0696; J1447; J2543; J3370; J7030

== ENCOUNTER 2019-11-02 02:37 | Emergency (ER) | payer MEDICARE ==
--- OUTSIDE RECORDS SUMMARY | 2019-11-02 02:40 | XMS REPORT ---
:1945 [facility] Address [address] [place] [address] Dr. Ku [address] [place] [id number] Care Team Providers Name Role Phone Unavailable Unavailable Unavailable Problems This patient has no known problems. Allergies, Adverse Reactions, Alerts This patient has no known allergies or adverse reactions. Medications This patient has no known medications. Encounters Start End Encounter Admission Attending Care Care Encounter Date/Time Date/Time Type Type Clinicians Facility Department ID 2019-05-16 2019-05-16 Inpatient E [facility] MED [id number] 15:18:00 08:33:00
[2019-11-02] MEDS ORDERED: IBUPROFEN 200 MG TAB PO ONE (03:41)
[2019-11-02 03:42] LABS: Absolute Lymphocytes (CBC) 0.6 K/uL (0.7-4.9); Basophils % 0.8 % (0-1.3); Hematocrit 30.8 % (36.0-45.0); Lymphocytes % 48.6 % (15.3-44.8); MPV 7.2 fL (7.6-11.3); RBC Red Blood Cell Count 4.08 M/uL (3.86-4.86)
[2019-11-02] MEDS ORDERED: IBUPROFEN 400 MG TAB ONE (03:42)
[2019-11-02 04:02] LABS: ALT/SGPT 13 U/L (12-78); AST/SGOT 12 U/L (15-37); Albumin 2.4 g/dL (3.4-5.0); Alkaline Phosphatase 108 U/L (45-117); BUN Blood Urea Nitrogen 16 mg/dL (7-18); Bicarbonate 25 mmol/L (21-32); Bilirubin Direct 0.1 mg/dL (0-0.2); Bilirubin Total 0.4 mg/dL (0.2-1.0); Glucose Level 106 mg/dL (74-106); Lipase 163 U/L (73-393); Potassium 3.9 mmol/L (3.5-5.1); Sodium Level 129 mmol/L (136-145)
[2019-11-02 04:19] LABS: Anisocytosis 1+; Blood Morphology Comment NOTED (NOT SEEN); Platelet Estimate ADEQ
[2019-11-02 04:22] LABS: Urine Blood 2+ (NEG); Urine Glucose NEGATIVE (NEG); Urine Protein TRACE (NEG); Urine Specific Gravity 1.015 (1.005-1.030); Urine pH 8.5 (5.0-7.0)
[2019-11-02] MEDS ORDERED: CEFTRIAXONE/SWI 1gm 0 GM/0 ML SYR ONE (05:49)
[2019-11-02] MEDS ORDERED: CEFTRIAXONE/SWI 1gm 1 GM/10 ML SYR ONE (05:50)
[2019-11-02 06:12] LABS: Urine Bacteria >50 /HPF (<20); Urine Culture Reflex Order REFLEXED
[2019-11-02 06:13] LABS: Urine RBC NONE SEEN /HPF (NONE SEEN)
--- NOTE | 2019-11-02 06:43 | EDPHYS ---
Physician Documentation [facility] Name: Jayesh Leavitt Age: 74 yrs Sex: Female : 1945 Arrival Date: 11/02/2019 Time: 02:48 Bed 18 Private MD: ED Physician Chris Ny HPI: 11/02 06:40 This 74 yrs old Female presents to ER via EMS with complaints of Nausea. tw4 06:40 The patient presents to the emergency department with nausea, that is mild, vomiting. tw4 Onset: The symptoms/episode began/occurred yesterday. Possible causes: unknown. The symptoms are aggravated by nothing. The symptoms are alleviated by nothing. Associated signs and symptoms: Pertinent positives: dysuria. Severity of symptoms: At their worst the symptoms were mild in the emergency department the symptoms are unchanged. The patient has experienced similar episodes in the past, several times. Historical: - Allergies: 02:55 Shrimp; wh - Home Meds: 02:55 levothyroxine 300 mcg oral tab 1 tab once daily [Active]; Paxil 10 mg oral tab 1 tab wh once daily [Active]; - PMHx: 02:55 Anemia; Arthritis; Crohn's; Diabetes - NIDDM; Hypertension; Hypothyroidism; Rheumatoid wh Arthritis; - Immunization history:: Adult Immunizations up to date. - Social history:: Smoking status: Patient/guardian denies using tobacco. - Ebola Screening: : Patient negative for fever greater than or equal to 101.5 degrees Fahrenheit, and additional compatible Ebola Virus Disease symptoms Patient denies exposure to infectious person. ROS: 06:40 Constitutional: Negative for fever, chills, and weight loss, Eyes: Negative for injury, tw4 pain, redness, and discharge, Cardiovascular: Negative for chest pain, palpitations, and edema, Respiratory: Negative for shortness of breath, cough, wheezing, and pleuritic chest pain. 06:40 MS/Extremity: Negative for injury and deformity, Neuro: Negative for headache, weakness, numbness, tingling, and seizure. 06:40 Abdomen/GI: Positive for abdominal pain, nausea and vomiting, nausea, vomiting, Negative for constipation, abdominal cramps, abdominal distension, anorexia, dysphagia, hematemesis, black/tarry stool, rectal pain, rectal bleeding, bowel incontinence, flatulence. 06:40 : Positive for urinary symptoms, urinary frequency, difficulty urinating, foul smelling urine, Negative for vaginal discharge, vaginal itching, menstrual abnormality, missed period, testicular pain Exam: 06:40 Constitutional: This is a well developed, well nourished patient who is awake, alert, tw4 and in no acute distress. Head/Face: Normocephalic, atraumatic. Chest/axilla: Normal chest wall appearance and motion. Nontender with no deformity. No lesions are appreciated. Cardiovascular: Regular rate and rhythm with a normal S1 and S2. No gallops, murmurs, or rubs. Normal PMI, no JVD. No pulse deficits. Respiratory: Lungs have equal breath sounds bilaterally, clear to auscultation and percussion. No rales, rhonchi or wheezes noted. No increased work of breathing, no retractions or nasal flaring. Abdomen/GI: Soft, non-tender, with normal bowel sounds. No distension or tympany. No guarding or rebound. No evidence of tenderness throughout. Back: No spinal tenderness. No costovertebral tenderness. Full range of motion. MS/ Extremity: Pulses equal, no cyanosis. Neurovascular intact. Full, normal range of motion. Neuro: Awake and alert, GCS 15, oriented to person, place, time, and situation. Cranial nerves II-XII grossly intact. Motor strength 5/5 in all extremities. Sensory grossly intact. Cerebellar exam normal. Normal gait. Vital Signs: 02:52 BP 134 / 91; Pulse 93; Resp 18; Temp 98.6; Pulse Ox 95% ; Weight 70.31 kg; Height 5 ft. wh 5 in. (165.10 cm); 04:30 BP 114 / 56; Pulse 75; Resp 18; Pulse Ox 99% ; wh 05:37 BP 114 / 66; Pulse 85; Resp 16; Pulse Ox 100% on R/A; wh 02:52 Body Mass Index 25.79 (70.31 kg, 165.10 cm) MDM: 02:54 Patient medically screened. tw4 06:40 Data reviewed: vital signs, nurses notes, lab test result(s), CBC, white blood cell tw4 count, hemoglobin, hematocrit, platelets, electrolytes, sodium, potassium, chloride, serum bicarbonate, BUN, creatinine, serum glucose, hepatic panel. Counseling: I had a detailed discussion with the patient and/or guardian regarding: the historical points, exam findings, and any diagnostic results supporting the discharge/admit diagnosis, lab results. Special discussion: I discussed with the patient/guardian in detail that at this point there is no indication for admission to the hospital. It is understood, however, that if the symptoms persist or worsen the patient needs to return immediately for re-evaluation. 11/02 02:55 Order name: Basic Metabolic Panel [facility] 11/02 02:55 Order name: CBC with Diff [facility] 11/02 02:55 Order name: Hepatic Function [facility] 11/02 02:55 Order name: Lipase tw 11/02 02:55 Order name: Urine Microscopic Only; Complete Time: 06:34 [facility] 11/02 06:34 Interpretation: Normal except: SQEPI 5-10; UBACT >50. [facility] 11/02 02:56 Order name: Basic Metabolic Panel; Complete Time: 05:45 [facility] 11/02 05:45 Interpretation: Abnormal: NA 129; CL 96; CRE 0.37. [facility] 11/02 02:56 Order name: CBC with Automated Diff; Complete Time: 05:44 [facility] 11/02 05:44 Interpretation: Normal except: HCT 30.8; HGB 10.3; WBC 1.3; LYM% 48.6; SOFIA% 23.2; MPV tw4 7.2; RDW 19.5; PLT 147; MN% 25.5; MCH 25.2. 11/02 04:14 Order name: Urine Dipstick--Ancillary (enter results) [facility] 11/02 04:19 Order name: Manual Differential; Complete Time: 05:43 [facility] 11/02 05:43 Interpretation: Abnormal: SEGS 10; BANDS [F] 4; LYM 51; MONO 20; BASOS 3. [facility] 11/02 06:15 Order name: Urine Culture [facility] 11/02 02:55 Order name: IV Saline Lock; Complete Time: 02:58 [facility] 11/02 02:55 Order name: Labs collected and sent; Complete Time: 02:58 [facility] 11/02 02:55 Order name: Urine Dipstick-Ancillary (obtain specimen); Complete Time: 03:56 tw4 Administered Medications: 03:20 Drug: Motrin 600 mg Route: PO; 04:34 Follow up: Response: No adverse reaction; Pain is decreased 05:52 Drug: Rocephin - (cefTRIAXone) 1 grams {Note: Changed to Rocephin IVP 10 cc.} Route: IVPB; Infused Over: 30 mins; Site: left forearm; 07:11 Follow up: Response: No adverse reaction; IV Status: Completed infusion tw2 05:53 Not Given (Duplicate Order): Rocephin - (cefTRIAXone) 1 grams IVPB once over 30 mins; (mix in 50 mL NS) 06:46 Not Given (Patient Refused): Zofran 4 mg IVP once; over 2 minutes Disposition: 11/02/19 06:42 Discharged to Home. Impression: Urinary tract infection, site not specified. - Condition is Stable. - Discharge Instructions: Dysuria, Urinary Tract Infection, Adult. - Prescriptions for Pyridium 200 mg Oral Tablet - take 1 tablet by ORAL route every 8 hours for 3 days; 9 tablet. Bactrim DS 800- 160 mg Oral Tablet - take 1 tablet by ORAL route every 12 hours for 10 days; 20 tablet. - Medication Reconciliation Form, Thank You Letter, Antibiotic Education, Prescription Opioid Use form. - Follow up: Private Physician; When: Upon discharge from the Emergency Department; Reason: Recheck today's complaints, Continuance of care. - Problem is an ongoing problem. - Symptoms are unchanged. Signatures: Dispatcher [employer] [facility] Kalpana Garcia, RN RN tw2 [facility] Chris Ny MD MD tw4 Corrections: (The following items were deleted from the chart) 04:10 02:56 Creatinine for Radiology+C.LAB.BRZ ordered. [facility] EDWA 04:20 03:48 CBC Smear Scan ordered. [facility] EDWA 07:11 06:42 11/02/2019 06:42 Discharged to Home. Impression: Urinary tract infection, site tw2 not specified. Condition is Stable. Forms are Medication Reconciliation Form, Thank You Letter, Antibiotic Education, Prescription Opioid Use. Follow up: Private Physician; When: Upon discharge from the Emergency Department; Reason: Recheck today's complaints, Continuance of care. Problem is an ongoing problem. Symptoms are unchanged. tw4
--- NOTE | 2019-11-02 06:43 | ER ---
Nurse's Notes [facility] Name: Jayesh Leavitt Age: 74 yrs Sex: Female : 1945 Arrival Date: 11/02/2019 Time: 02:48 Bed 18 Private MD: Diagnosis: Urinary tract infection, site not specified Presentation: 11/02 02:50 Presenting complaint: EMS states: Pt was diagnosed with UTI just finished Abx last Friday, now C/O nausea and vomiting. Transition of care: patient was not received from another setting of care. Onset of symptoms was November 02, 2019. Risk Assessment: Do you want to hurt yourself or someone else? Patient reports no desire to harm self or others. Initial Sepsis Screen: Does the patient meet any 2 criteria? HR > 90 bpm. Does the patient have a suspected source of infection? No. Patient's initial sepsis screen is negative. Care prior to arrival: Glucose check: 103. 02:50 Method Of Arrival: EMS: [facility] 02:50 Acuity: VELVET 3 Triage Assessment: 02:55 GI: Reports. Historical: - Allergies: 02:55 Shrimp; wh - Home Meds: 02:55 levothyroxine 300 mcg oral tab 1 tab once daily [Active]; Paxil 10 mg oral tab 1 tab once daily [Active]; - PMHx: 02:55 Anemia; Arthritis; Crohn's; Diabetes - NIDDM; Hypertension; Hypothyroidism; Rheumatoid Arthritis; - Immunization history:: Adult Immunizations up to date. - Social history:: Smoking status: Patient/guardian denies using tobacco. - Ebola Screening: : Patient negative for fever greater than or equal to 101.5 degrees Fahrenheit, and additional compatible Ebola Virus Disease symptoms Patient denies exposure to infectious person. Screenin:53 Abuse screen: Denies threats or abuse. Denies injuries from another. Nutritional screening: No deficits noted. Tuberculosis screening: No symptoms or risk factors identified. Fall Risk None identified. Assessment: 02:55 General: Appears in no apparent distress. Behavior is calm, cooperative, appropriate for age. Pain: Denies pain. Neuro: Level of Consciousness is awake, alert, obeys commands, Oriented to person, place, time, situation, Appropriate for age. Cardiovascular: Heart tones S1 S2. Respiratory: Airway is patent Respiratory effort is even, unlabored, Respiratory pattern is regular, symmetrical, Breath sounds are clear bilaterally. GI: Abdomen is flat, non-distended, Bowel sounds present X 4 quads. Abd is soft and non tender X 4 quads. Reports nausea, vomiting. : Reports Previous UTI. EENT: No signs and/or symptoms were reported regarding the EENT system. Derm: Skin is intact, is healthy with good turgor, Skin is pink, warm \T\ dry. normal. Musculoskeletal: Circulation, motion, and sensation intact. 04:15 Reassessment: Patient appears in no apparent distress at this time. No changes from previously documented assessment. Patient and/or family updated on plan of care and expected duration. Pain level reassessed. Patient is alert, oriented x 3, equal unlabored respirations, skin warm/dry/pink. 05:36 Reassessment: Patient appears in no apparent distress at this time. No changes from previously documented assessment. Patient and/or family updated on plan of care and expected duration. Pain level reassessed. Patient is alert, oriented x 3, equal unlabored respirations, skin warm/dry/pink. Pt sleeping well no signs of distress noted Patient denies pain at this time. 06:35 Reassessment: Patient appears in no apparent distress at this time. No changes from previously documented assessment. Patient and/or family updated on plan of care and expected duration. Pain level reassessed. Patient is alert, oriented x 3, equal unlabored respirations, skin warm/dry/pink. Provider at bedside explaining POC Patient denies pain at this time. Vital Signs: 02:52 BP 134 / 91; Pulse 93; Resp 18; Temp 98.6; Pulse Ox 95% ; Weight 70.31 kg; Height 5 ft. 5 in. (165.10 cm); 04:30 BP 114 / 56; Pulse 75; Resp 18; Pulse Ox 99% ; 05:37 BP 114 / 66; Pulse 85; Resp 16; Pulse Ox 100% on R/A; 02:52 Body Mass Index 25.79 (70.31 kg, 165.10 cm) ED Course: 02:48 Patient arrived in ED. ag3 02:50 Marzena Finn is Primary Nurse. 02:51 Triage completed. 02:54 Chris Ny MD is Attending Physician. tw4 02:57 Arm band placed on left wrist. wh 02:57 Patient has correct armband on for positive identification. Placed in gown. Bed in low wh position. Call light in reach. Side rails up X 1. Pulse ox on. NIBP on. 03:15 Inserted saline lock: 22 gauge in right forearm, using aseptic technique. Blood tw2 collected. By [facility]. 07:09 No provider procedures requiring assistance completed. IV discontinued, intact, tw2 bleeding controlled, No redness/swelling at site. Administered Medications: 03:20 Drug: Motrin 600 mg Route: PO; wh 04:34 Follow up: Response: No adverse reaction; Pain is decreased 05:52 Drug: Rocephin - (cefTRIAXone) 1 grams {Note: Changed to Rocephin IVP 10 cc.} Route: IVPB; Infused Over: 30 mins; Site: left forearm; 07:11 Follow up: Response: No adverse reaction; IV Status: Completed infusion tw2 05:53 Not Given (Duplicate Order): Rocephin - (cefTRIAXone) 1 grams IVPB once over 30 mins; wh (mix in 50 mL NS) 06:46 Not Given (Patient Refused): Zofran 4 mg IVP once; over 2 minutes wh Outcome: 06:42 Discharge ordered by . tw4 07:10 Discharged to home via wheelchair, with family. wh 07:10 Condition: stable 07:10 Discharge instructions given to patient, family, Instructed on discharge instructions, follow up and referral plans. medication usage, POC Demonstrated understanding of instructions, follow-up care, medications, POC Prescriptions given X 2. 07:11 Patient left the ED. tw2 Addendum: 11/06/2019 11:07 Addendum: Culture Results: Positive urine culture. Bacteria is resistant to, has i w intermediate sensitivity, or is not tested against prescribed antibiotics. Report given to [facility] for further evaluation and then to tong hooker for follow up with patient. Phone call Attempt #1 pt states symptoms have improved , has f/u appt with Dr. Frances. Signatures: Khadijah Livingston, RN RN Kalpana Garcia RN RN tw2 Marzena Finn Chris Ny MD MD tw4 Gely Rodriguez ag3 Corrections: (The following items were deleted from the chart) 11/02 02:50 Presenting complaint: EMS states: Pt was diagnosed with UTI just finished Abx last Friday, now C/O nausea and vomiting 02:50 Initial Sepsis Screen: Does the patient meet any 2 criteria? No. Patient's initial sepsis screen is negative. Does the patient have a suspected source of infection? No. Patient's initial sepsis screen is negative. 07:13 06:35 Reassessment: Patient appears in no apparent distress at this time. No changes wh from previously documented assessment. Patient and/or family updated on plan of care and expected duration. Pain level reassessed. Patient is alert, oriented x 3, equal unlabored respirations, skin warm/dry/pink. DR Ny at bedside explaining POC tw2 07:10 Discharged to home via wheelchair, with family, 2 07:10 Condition: stable tw2 07:10 Discharge instructions given to patient, family, Instructed on discharge instructions, follow up and referral plans. medication usage, POC Demonstrated understanding of instructions, follow-up care, medications, POC Prescriptions given X 2, tw2
[2019-11-02 07:24] VITALS: TEMP 98.6
[2019-11-02 07:28] VITALS: BP 114/66; O2SAT 100
== END 2019-11-02 07:11 | disposition home or self-care (01) ==
LOC: ER 02:37
DX: N39.0 Urinary tract infection, site not specified (principal); Z91.013 Allergy to seafood; E03.9 Hypothyroidism, unspecified
CPT/HCPCS: 96365; 87088; 85025; 87086; 80048; 36415; 80076; 87077 ×2; 87186 ×2; 83690; 99284; J0696; 81003; 81015

== ENCOUNTER 2020-02-01 22:29 | Inpatient (IN) | payer MEDICARE ==
--- OUTSIDE RECORDS SUMMARY | 2020-02-01 22:31 | XMS REPORT ---
:1945 [facility] [address] [place] [address] Dr. Ku [address] [place] [id number] Care Team Providers Name Role Phone Unavailable Unavailable Unavailable Problems This patient has no known problems. Allergies, Adverse Reactions, Alerts This patient has no known allergies or adverse reactions. Medications This patient has no known medications. Encounters Start End Encounter Admission Attending Care Care Encounter Date/Time Date/Time Type Type Clinicians Facility Department ID 2019-05-16 2019-05-16 Inpatient E [facility] [id number] 15:18:00 08:33:00
[2020-02-01] MEDS ORDERED: CEFTRIAXONE/SWI 1gm 1 GM/10 ML SYR ONE (23:28)
[2020-02-01 23:35] LABS: Urine Bacteria LOADED /HPF (<20); Urine Culture Reflex Order REFLEXED
[2020-02-01 23:37] LABS: Urine Blood 2+ (NEG); Urine Glucose NEGATIVE (NEG); Urine Protein 2+ (NEG); Urine Specific Gravity 1.025 (1.005-1.030)
[2020-02-01 23:48] LABS: Protime INR 0.95
[2020-02-01 23:54] LABS: ALT/SGPT 11 U/L (12-78); AST/SGOT 12 U/L (15-37); Albumin 2.4 g/dL (3.4-5.0); Alkaline Phosphatase 86 U/L (45-117); BUN Blood Urea Nitrogen 18 mg/dL (7-18); Bicarbonate 25 mmol/L (21-32); Bilirubin Direct 0.1 mg/dL (0-0.2); Bilirubin Total 0.3 mg/dL (0.2-1.0); Glucose Level 117 mg/dL (74-106); Magnesium 1.5 mg/dL (1.8-2.4); NT PRO-BNP 550 pg/mL (<125); Potassium 4.1 mmol/L (3.5-5.1); Protein, Total 6.1 g/dL (6.4-8.2); Sodium Level 130 mmol/L (136-145); Troponin (Emerg Dept Use Only) < 0.02 ng/mL (0.0-0.045)
[2020-02-02 00:16] LABS: Absolute Lymphocytes (CBC) 0.6 K/uL (0.7-4.9); Basophils % 1.3 % (0-1.3); Hematocrit 30.2 % (36.0-45.0); Lymphocytes % 57.5 % (15.3-44.8); MPV 6.4 fL (7.6-11.3); RBC Red Blood Cell Count 3.36 M/uL (3.86-4.86)
--- NOTE | 2020-02-02 00:17 | ER ---
Nurse's Notes [facility] Name: Jayesh Leavitt Age: 74 yrs Sex: Female : 1945 Arrival Date: 02/01/2020 Time: 22:31 Bed 6 Private MD: Diagnosis: Weakness;Urinary tract infection, site not specified Presentation: 01/31 22:49 Chief complaint: Patient's son or daughter states: Reports she has been confused and ea unable to get out of the bed. Daughter reports she lives alone and is unable to care for herself. Coronavirus screen: The patient has NOT traveled to a country currently being monitored by the [facility] within the last 14 days. Ebola Screen: No symptoms or risks identified at this time. Initial Sepsis Screen: Does the patient meet any 2 criteria? No. Patient's initial sepsis screen is negative. Does the patient have a suspected source of infection? No. Patient's initial sepsis screen is negative. Risk Assessment: Do you want to hurt yourself or someone else? Patient reports no desire to harm self or others. 22:49 Method Of Arrival: Wheelchair ea 22:49 Acuity: VELVET 3 ea Historical: - Allergies: 22:55 shrimp; ea - Home Meds: 22:55 Paxil 10 mg Oral tab 1 tab once daily [Active]; levothyroxine 300 mcg tab 1 tab once ea daily [Active]; - PMHx: 22:55 Rheumatoid Arthritis; Hypothyroidism; Hypertension; Diabetes - NIDDM; Crohn's; ea Arthritis; Anemia; - Immunization history:: Adult Immunizations up to date. - Social history:: Smoking status: Patient denies any tobacco usage or history of. Screenin:54 Abuse screen: Denies threats or abuse. Nutritional screening: No deficits noted. ea Tuberculosis screening: No symptoms or risk factors identified. Fall Risk None identified. Assessment: 23:02 General: Appears uncomfortable, Behavior is appropriate for age. Pain: Denies pain. ea Neuro: Level of Consciousness is awake, alert, obeys commands, Oriented to person, place. Neuro: Cardiovascular: Patient's skin is warm and dry. Respiratory: Airway is patent Respiratory effort is even, unlabored, Respiratory pattern is regular, symmetrical. Derm: Skin is pink, warm \T\ dry. Vital Signs: 22:49 BP 119 / 70; Pulse 81; Resp 16; Temp 98.2; Pulse Ox 97% on R/A; ea 23:53 BP 141 / 65; Pulse 82; Resp 18; Pulse Ox 98% ; ea 02/01 00:07 BP 130 / 71; Pulse 78; Resp 18; Pulse Ox 96% on R/A; ea ED Course: 01/31 22:31 Patient arrived in ED. cl3 22:35 Chris Ny MD is Attending Physician. tw4 22:54 Triage completed. ea 22:54 Patient has correct armband on for positive identification. Bed in low position. Call ea light in reach. Side rails up X2. 22:54 Arm band placed on right wrist. Patient placed in an exam room, on a stretcher, on ea pulse oximetry. 23:02 Berta Flowers, NIKO is Primary Nurse. ea 23:05 Mcgarry cath inserted, using sterile technique, 16 Fr., by ED staff, balloon inflated, to ea gravity drainage, urine specimen collected. 23:37 Accessed peripheral vein via ultrasound, utilizing dynamic ultrasound technique using bb per hospital protocol. Good blood return. Flushes easily. pro powerglide 20 g 10 cm. 23:38 Initial lab(s) drawn, by nd, sent to lab. bb 02/01 00:16 Queenie Mina MD is Hospitalizing Provider. tw4 00:22 Notified ED physician of a critical lab result(s). WBCs of 1 Dr Ny notified. bb 00:24 XRAY Chest (1 view) In Process Unspecified. EDMS 03:22 No provider procedures requiring assistance completed. Patient admitted, IV remains in ea place. Administered Medications: 01/31 23:49 Drug: Rocephin - (cefTRIAXone) 1 grams Route: IVPB; Infused Over: 30 mins; Site: left ea upper arm; 02/01 03:07 Follow up: Response: No adverse reaction; IV Status: Completed infusion ea 02:50 Drug: Magnesium Sulfate 2 grams Route: IVPB; Infused Over: 2 hrs; Site: left upper arm; ea 03:22 Follow up: Response: No adverse reaction; IV Status: Completed infusion ea Outcome: 00:17 Decision to Hospitalize by Provider. tw4 03:22 Admitted to Med/surg accompanied by nurse, room 222, with chart, Report called to ea Receiving nurse on second floor 03:22 Condition: stable 03:22 Instructed on the need for admit, Demonstrated understanding of instructions, follow-up care. 03:23 Patient left the ED. amna Signatures: Dispatcher [employer] Kathryn Frank, RN Berta Ramirez RN RN hCris Ramirez MD MD tw4 Castillo Brooks cl3
--- NOTE | 2020-02-02 00:18 | EDPHYS ---
Physician Documentation [facility] Name: Jayesh Leavitt Age: 74 yrs Sex: Female : 1945 Arrival Date: 02/01/2020 Time: 22:31 Bed 6 Private MD: ED Physician Chris Ny HPI: 02/01 05:33 This 74 yrs old Female presents to ER via Wheelchair with complaints of tw4 Altered Mental Status. 05:33 The patient presents with agitation. Onset: The symptoms/episode began/occurred 1 tw4 week(s) ago. Possible causes: unknown. Associated signs and symptoms: Pertinent positives: weakness. Patient's baseline: Neuro: alert and fully oriented, Motor: no deficits, Ambulation: walks with assist only. The patient has not experienced similar symptoms in the past. Historical: - Allergies: 01/31 22:55 shrimp; ea - Home Meds: 22:55 Paxil 10 mg Oral tab 1 tab once daily [Active]; levothyroxine 300 mcg tab 1 tab once ea daily [Active]; - PMHx: 22:55 Rheumatoid Arthritis; Hypothyroidism; Hypertension; Diabetes - NIDDM; Crohn's; ea Arthritis; Anemia; - Immunization history:: Adult Immunizations up to date. - Social history:: Smoking status: Patient denies any tobacco usage or history of. ROS: 02/01 05:33 Constitutional: Negative for fever, chills, and weight loss, Eyes: Negative for injury, tw4 pain, redness, and discharge, Cardiovascular: Negative for chest pain, palpitations, and edema, Respiratory: Negative for shortness of breath, cough, wheezing, and pleuritic chest pain, Abdomen/GI: Negative for abdominal pain, nausea, vomiting, diarrhea, and constipation, Back: Negative for injury and pain, MS/Extremity: Negative for injury and deformity, Skin: Negative for injury, rash, and discoloration. Neuro: Positive for altered mental status, weakness. Exam: 05:33 Constitutional: This is a well developed, well nourished patient who is awake, alert, tw4 and in no acute distress. Head/Face: Normocephalic, atraumatic. Chest/axilla: Normal chest wall appearance and motion. Nontender with no deformity. No lesions are appreciated. Cardiovascular: Regular rate and rhythm with a normal S1 and S2. No gallops, murmurs, or rubs. Normal PMI, no JVD. No pulse deficits. Respiratory: Lungs have equal breath sounds bilaterally, clear to auscultation and percussion. No rales, rhonchi or wheezes noted. No increased work of breathing, no retractions or nasal flaring. Abdomen/GI: Soft, non-tender, with normal bowel sounds. No distension or tympany. No guarding or rebound. No evidence of tenderness throughout. Back: No spinal tenderness. No costovertebral tenderness. Full range of motion. MS/ Extremity: Pulses equal, no cyanosis. Neurovascular intact. Full, normal range of motion. Neuro: Awake and alert, GCS 15, oriented to person, place, time, and situation. Cranial nerves II-XII grossly intact. Motor strength 5/5 in all extremities. Sensory grossly intact. Cerebellar exam normal. Normal gait. Vital Signs: 01/31 22:49 BP 119 / 70; Pulse 81; Resp 16; Temp 98.2; Pulse Ox 97% on R/A; ea 23:53 BP 141 / 65; Pulse 82; Resp 18; Pulse Ox 98% ; ea 02/01 00:07 BP 130 / 71; Pulse 78; Resp 18; Pulse Ox 96% on R/A; ea MDM: 01/31 22:35 Patient medically screened. 02/01 05:33 Differential Diagnosis: electrolyte abnormality. Data reviewed: vital signs. Data interpreted: Pulse oximetry: Interpretation: normal. Test interpretation: by ED physician or midlevel provider: ECG, plain radiologic studies. Counseling: I had a detailed discussion with the patient and/or guardian regarding: the historical points, exam findings, and any diagnostic results supporting the discharge/admit diagnosis. Physician consultation: Queenie Mina MD regarding admission, and will see patient. 01/31 23:05 Order name: Basic Metabolic Panel 01/31 23:05 Order name: CBC with Diff 01/31 23:05 Order name: LFT's 01/31 23:05 Order name: Magnesium 01/31 23:05 Order name: NT PRO-BNP 01/31 23:05 Order name: PT-INR 01/31 23:05 Order name: Troponin (emerg Dept Use Only) 01/31 23:05 Order name: Lactate [facility] 01/31 23:06 Order name: Urine Microscopic Only 01/31 23:09 Order name: Urine Culture bb 01/31 23:10 Order name: Urine Dipstick--Ancillary (enter results) ar5 02/01 00:23 Order name: CBC Smear Scan [facility] 02/01 02:05 Order name: Slides for Pathologist Review [facility] 02/01 02:17 Order name: CBC with Automated Diff [facility] 01/31 23:05 Order name: XRAY Chest (1 view) [facility] 01/31 23:05 Order name: EKG; Complete Time: 23:06 [facility] 01/31 23:05 Order name: Cardiac monitoring; Complete Time: 23:13 [facility] 01/31 23:05 Order name: EKG - Nurse/Tech; Complete Time: 23:13 [facility] 01/31 23:05 Order name: IV Saline Lock; Complete Time: 23:12 [facility] 01/31 23:05 Order name: Labs collected and sent; Complete Time: 23:12 [facility] 01/31 23:05 Order name: O2 Per Protocol; Complete Time: 23:12 [facility] 01/31 23:05 Order name: O2 Sat Monitoring; Complete Time: 23:13 [facility] 01/31 23:05 Order name: Mcgarry; Complete Time: 23:05 02/01 02:17 Order name: Regular [facility] 02/01 02:17 Order name: Comprehensive Metabolic Panel [facility] 02/01 02:17 Order name: Magnesium [facility] 02/01 02:17 Order name: Phosphorus EDNE EC:33 Rate is 78 beats/min. Rhythm is regular. QRS [place] is Normal. [place] interval is normal. QRS tw4 interval is normal. QT interval is normal. No Q waves. T waves are Normal. No ST changes noted. Clinical impression: NSR w/ Non-specific ST/T Changes. Interpreted by me. Reviewed by me. Administered Medications: 01/31 23:49 Drug: Rocephin - (cefTRIAXone) 1 grams Route: IVPB; Infused Over: 30 mins; Site: left ea upper arm; 02/01 03:07 Follow up: Response: No adverse reaction; IV Status: Completed infusion ea 02:50 Drug: Magnesium Sulfate 2 grams Route: IVPB; Infused Over: 2 hrs; Site: left upper arm; ea 03:22 Follow up: Response: No adverse reaction; IV Status: Completed infusion ea Disposition: 02/02/20 00:17 Hospitalization ordered by Queenie Mina for Inpatient Admission. Preliminary diagnosis are Weakness, Urinary tract infection, site not specified. - Bed requested for Telemetry/MedSurg (Inpatient). - Status is Inpatient Admission. ea - Condition is Stable. - Problem is an ongoing problem. - Symptoms are unchanged. Signatures: Dispatcher [employer] EDKaylee Mcgraw RN RN dw Antunez, Elena, RN RN ea Wadley, Terrence, MD MD tw4 Corrections: (The following items were deleted from the chart) 02:39 00:17 Hospitalization Ordered by Queenie Mina MD for Inpatient Admission. Preliminary dw diagnosis is Weakness; Urinary tract infection, site not specified. Bed requested for Telemetry/MedSurg (Inpatient). Status is Inpatient Admission. Condition is Stable. Problem is an ongoing problem. Symptoms are unchanged. tw4 02:43 02:39 02/02/2020 00:17 Hospitalization Ordered by Queenie Mina MD for Inpatient dw Admission. Preliminary diagnosis is Weakness; Urinary tract infection, site not specified. Bed requested for Telemetry/MedSurg (Inpatient). Status is Inpatient Admission. Condition is Stable. Problem is an ongoing problem. Symptoms are unchanged. 03:23 02:43 02/02/2020 00:17 Hospitalization Ordered by Queenie Mina MD for Inpatient ea Admission. Preliminary diagnosis is Weakness; Urinary tract infection, site not specified. Bed requested for Telemetry/MedSurg (Inpatient). Status is Inpatient Admission. Condition is Stable. Problem is an ongoing problem. Symptoms are unchanged.
[2020-02-02 02:02] LABS: Blood Morphology Comment NOT SEEN (NOT SEEN); Platelet Estimate ADEQ; Urine White Blood Cell Casts OK
[2020-02-02] MEDS ORDERED: ONDANSETRON 4 MG/2 ML VIAL IV PRN (02:10)
[2020-02-02] MEDS ORDERED: Magnesium Sulfate 2gm IVPB 2 G/50 ML BAG IV ONE (02:37)
[2020-02-02 06:34] LABS: Absolute Lymphocytes (CBC) 0.5 K/uL (0.7-4.9); Basophils % 1.1 % (0-1.3); Lymphocytes % 56.8 % (15.3-44.8); MPV 6.3 fL (7.6-11.3); RBC Red Blood Cell Count 3.21 M/uL (3.86-4.86)
[2020-02-02 06:37] LABS: ALT/SGPT 11 U/L (12-78); AST/SGOT 16 U/L (15-37); Albumin 2.3 g/dL (3.4-5.0); Alkaline Phosphatase 86 U/L (45-117); BUN Blood Urea Nitrogen 18 mg/dL (7-18); Bicarbonate 25 mmol/L (21-32); Bilirubin Total 0.2 mg/dL (0.2-1.0); Glucose Level 98 mg/dL (74-106); Magnesium 2.2 mg/dL (1.8-2.4); Phosphorus 3.5 mg/dL (2.5-4.9); Potassium 4.5 mmol/L (3.5-5.1); Protein, Total 6.2 g/dL (6.4-8.2); Sodium Level 130 mmol/L (136-145)
--- NOTE | 2020-02-02 07:14 | P.HP ---
Certification for Inpatient Patient admitted to: Inpatient With expected LOS: >2 Midnights Patient will require the following post-hospital care: None Practitioner: I am a practitioner with admitting privileges, knowledge of patient current condition, hospital course, and medical plan of care. Services: Services provided to patient in accordance with Admission requirements found in Title 42 Section 412.3 of the Code of Federal Regulations Patient History Date of Service: 02/02/20 Reason for admission: Altered mental status; UTIs; psychosis; leukopenia with an [id number] History of Present Illness: Patient is a 74-year-old female with a history of dementia and rheumatoid arthritis who presents to the hospital with altered mental status. Patient has been confused and has been exhibiting signs of psychosis over the last week. She has been difficult to orient according to the family. She came into the hospital for further evaluation. In the emergency room she was found to have a urinary tract infection along with leukopenia. She has been told of this in the past, but she has not been giving a diagnosis. She states that it could be due to the medication she took for her rheumatoid arthritis. At this time her absolute neutrophil count is approximately 100. We will admit her to the hospital for further workup. She will be started on IV hydration and IV antibiotics. We will also give her Neupogen. Allergies shrimp Allergy (Verified 02/02/20 05:04) unknown Home Medications: Levothyroxine Sodium 300 mcg PO DAILY 09/08/19 PARoxetine HCl [Paxil*] 10 mg PO DAILY 09/08/19 - Past Medical/Surgical History Has patient received pneumonia vaccine in the past: No Diabetic: Yes -: Diabetes mellitus type 2 -: Hypertension -: Hypothyroidism -: Crohn's disease -: Rheumatoid Arthritis -: Iron and B12 deficiency anemia -: Bilateral knee replacements -: C-sections x2 -: Rods KELLY Femur -: Right Hip Replacement Psychosocial/ Personal History: She is a . She has 6 children. She is retired - Family History Mother Medical History: Diabetes, Blood disorders Father Medical History: Heart disease, Cancer Notes: mother and sister diabetes. father bladder ca - Social History Smoking Status: Never smoker Alcohol use: No CD- Drugs: No Caffeine use: Yes Place of Residence: Home Review of Systems 10-point ROS is otherwise unremarkable Physical Examination - Vital Signs Temperature: 97.5 F Blood Pressure: 141/74 Pulse: 85 Respirations: 18 Pulse Ox (%): 99 - Physical Exam General: Alert, In no apparent distress, Oriented x1, Demented, Confused HEENT: Atraumatic, PERRLA, Mucous membr. moist/pink, EOMI, Sclerae nonicteric Neck: Supple, 2+ carotid pulse no bruit, No LAD, Without JVD or thyroid abnormality Respiratory: Clear to auscultation bilaterally, Normal air movement Cardiovascular: Regular rate/rhythm, Normal S1 S2, No murmurs Gastrointestinal: Normal bowel sounds, Soft and benign, Non-distended, No tenderness Musculoskeletal: No clubbing, No swelling, No tenderness Integumentary: No rashes Neurological: Normal speech, Normal tone, Sensation intact, Cranial nerves 3-12 intact, Normal affect, Abnormal gait, Abnormal strength Lymphatics: No axilla or inguinal lymphadenopathy - Studies Laboratory Data (last 24 hrs) 02/01/20 23:30: PT 11.2, INR 0.95 02/01/20 23:30: WBC 1.0 L*, Hgb 10.2 L, Hct 30.2 L, Plt Count 162 02/01/20 23:30: Sodium 130 L, Potassium 4.1, BUN 18, Creatinine 0.65, Glucose 117 H, Magnesium 1.5 L, Total Bilirubin 0.3, AST 12 L, ALT 11 L, Alkaline Phosphatase 86 Assessment & Plan - Problems (Diagnosis) (1) UTI (urinary tract infection) Onset Date: 05/09/16 Current Visit: No Status: Acute Qualifiers: Urinary tract infection type: site unspecified Hematuria presence: without hematuria Qualified Code(s): N39.0 - Urinary tract infection, site not specified (2) Leukopenia Current Visit: No Status: Acute (3) DM2 (diabetes mellitus, type 2) Onset Date: 09/14/18 Current Visit: No Status: Acute Qualifiers: Diabetes mellitus long term care social worker insulin use: with long term care social worker use Diabetes mellitus complication status: without complication Qualified Code(s): E11.9 - Type 2 diabetes mellitus without complications; Z79.4 - long term care social worker (current) use of insulin (4) Weakness generalized Onset Date: 05/22/17 Current Visit: No Status: Acute (5) Crohn disease Current Visit: No Status: Chronic Qualifiers: Gastrointestinal tract location: small intestine Digestive disease complication type: unspecified complication Qualified Code(s): K50.019 - Crohn 's disease of small intestine with unspecified complications (6) Diabetes mellitus Current Visit: No Status: Chronic Qualifiers: Diabetes mellitus type: type 2 Diabetes mellitus long term care social worker insulin use: without long term care social worker use Diabetes mellitus complication status: without complication Qualified Code(s): E11.9 - Type 2 diabetes mellitus without complications (7) Hypertension Onset Date: 09/14/18 Current Visit: No Status: Chronic Qualifiers: Hypertension type: essential hypertension Qualified Code(s): I10 - Essential (primary) hypertension (8) Hypothyroidism Current Visit: No Status: Chronic Qualifiers: Hypothyroidism type: unspecified Qualified Code(s): E03.9 - Hypothyroidism , unspecified (9) Rheumatoid arthritis Onset Date: 09/14/18 Current Visit: No Status: Chronic Qualifiers: Rheumatoid arthritis location: unspecified site Rheumatoid factor presence : unspecified presence Qualified Code(s): M06.9 - Rheumatoid arthritis, unspecified (10) GERD (gastroesophageal reflux disease) Current Visit: No Status: Suspected Qualifiers: Esophagitis presence: esophagitis presence not specified Qualified Code(s) : K21.9 - Gastro-esophageal reflux disease without esophagitis (11) Altered mental status Current Visit: Yes Status: Acute (12) Psychosis Current Visit: Yes Status: Acute - Plan Plan: 1. Continue with IV antibiotic therapy 2. Gentle hydration 3. Neupogen times 48 hr. 4. Monitor hemodynamics closely 5. Medication for acute psychosis if neurologic status continues to worsen 6. May need hematology consultation 7. Strict blood pressure and blood sugar control 8. Check iron levels, B12 levels, and folate level 9. GI and DVT prophylaxis Discharge Plan: Long-Term Plan to discharge in: Greater than 2 days - Advance Directives Does patient have a Living Will: No Does patient have a Durable POA for Healthcare: No - Code Status/Comfort Care Code Status Assessed: Yes Code Status: Full Code Critical Care: No Time Spent Managing PTS Care (In Minutes): 45
[2020-02-02 07:55] VITALS: BMI 26.0
--- NOTE | 2020-02-02 08:28 | RAD REPORT ---
EXAM DESCRIPTION: RAD - Chest Single View - 02/02/2020 12:24 am CLINICAL HISTORY: CHEST PAIN Chest pain. COMPARISON: Chest Single View dated 09/07/2019; Chest Single View dated 08/22/2019; Chest Single View dated 09/14/2018; Chest Single View dated 09/10/2018 FINDINGS: Portable technique limits examination quality. Mild bilateral interstitial lung opacities are seen. This may represent mild interstitial pneumonitis or interstitial pulmonary edema. The heart is normal in size. No displaced fractures.
[2020-02-02] MEDS: NA CHLORIDE 0.9% 1,000 ML IV SCH (08:38)
[2020-02-02] MEDS: TBO-FILGRASTIM 300 MCG/0.5 ML SYR SQ SCH (08:38)
[2020-02-02] MEDS: CEFTRIAXONE/SWI 1gm 1 GM/10 ML SYR IV SCH (08:39)
[2020-02-02] MEDS: ENOXAPARIN 40 MG/0.4 ML SQ SCH (08:39)
[2020-02-02] MEDS: PARoxetine HCL 10 MG TAB PO SCH (08:39)
[2020-02-02] MEDS ORDERED: PNEUMOCOCCAL VACCINE 0.5 ML IMVAC ONE (09:00)
--- NOTE | 2020-02-02 09:26 | EKG ---
Test Date: 2020-02-01 Test Time: 23:37:56 Multiplex Operator: STEF MEASUREMENT RESULTS: Intervals: Rate: 78 [place]: 154 QRSD: 92 QT: 390 QTc: 444 [place]: P: 1 [place]: 154 QRS: 15 T: 32 INTERPRETIVE STATEMENTS: Normal sinus rhythm Low voltage QRS Borderline ECG Compared to ECG 09/07/2019 17:58:18 Low QRS voltage now present Electronically Signed On 02-02-20 09:25:15 CDT by Taurus White
[2020-02-02 10:25] LABS: Anisocytosis 1+; Blood Morphology Comment NOTED (NOT SEEN); Platelet Estimate ADEQ
[2020-02-02] MEDS: LEVOTHYROXINE SOD 0.1 MG TAB PO SCH (10:54)
--- NOTE | 2020-02-02 12:17 | P.PN ---
Subjective Date of Service: 02/02/20 Chief Complaint: Altered mental status; UTIs; psychosis; leukopenia with an ANC= 100 Patient has no complain today. She states she feels better. She has been afebrile. She denies shortness of breath. Physical Examination - Vital Signs Temperature: 97.5 F Blood Pressure: 120/57 Pulse: 81 Respirations: 18 Pulse Ox (%): 99 - Physical Exam General: Alert, In no apparent distress, Oriented x3 HEENT: Mucous membr. moist/pink, Sclerae nonicteric Neck: Supple, JVD not distended Respiratory: Clear to auscultation bilaterally, Normal air movement Cardiovascular: No edema, Regular rate/rhythm, Normal S1 S2 Capillary refill: <2 Seconds Gastrointestinal: Normal bowel sounds, Soft and benign, Non-distended, No tenderness Musculoskeletal: No swelling, No erythema Integumentary: No rashes Neurological: Normal speech, Normal strength at 5/5 x4 extr - Studies Laboratory Data (last 24 hrs) 02/01/20 23:30: PT 11.2, INR 0.95 02/01/20 23:30: WBC 1.0 L*, Hgb 10.2 L, Hct 30.2 L, Plt Count 162 02/01/20 23:30: Sodium 130 L, Potassium 4.1, BUN 18, Creatinine 0.65, Glucose 117 H, Magnesium 1.5 L, Total Bilirubin 0.3, AST 12 L, ALT 11 L, Alkaline Phosphatase 86 Assessment And Plan - Current Problems (Diagnosis) (1) Metabolic encephalopathy Current Visit: Yes Status: Acute (2) DM2 (diabetes mellitus, type 2) Onset Date: 09/14/18 Current Visit: No Status: Chronic Qualifiers: Diabetes mellitus ocean transportation intermediary insulin use: with ocean transportation intermediary use Diabetes mellitus complication status: without complication Qualified Code(s): E11.9 - Type 2 diabetes mellitus without complications; Z79.4 - custodial (current) use of insulin (3) Leukopenia Current Visit: No Status: Chronic (4) UTI (urinary tract infection) Onset Date: 05/09/16 Current Visit: No Status: Acute Qualifiers: Urinary tract infection type: site unspecified Hematuria presence: without hematuria Qualified Code(s): N39.0 - Urinary tract infection, site not specified (5) Rheumatoid arthritis Onset Date: 09/14/18 Current Visit: No Status: Chronic Qualifiers: Rheumatoid arthritis location: unspecified site Rheumatoid factor presence : unspecified presence Qualified Code(s): M06.9 - Rheumatoid arthritis, unspecified - Plan Continue current antibiotics. Urine culture is pending. Case discussed with Dr. Leiva. Patient has longstanding leukopenia, status post bone marrow biopsy. 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 Dr. Leiva recommend Neupogen if there is evidence of infection. Patient is started on Neupogen given evidence of UTI. Monitor CBC.
[2020-02-02] MEDS: ACETAMINOPHEN 500 MG TAB PO PRN (17:52)
[2020-02-02] MEDS ORDERED: HYDROCODONE/APAP 5/325 MG TAB PO ONE (22:06)
[2020-02-02] MEDS: ALPRAZOLAM 0.25 MG TABLET PO PRN (22:23)
[2020-02-03] MEDS: NA CHLORIDE 0.9% 1,000 ML IV SCH ×2 (03:53→22:57)
[2020-02-03 06:28] LABS: Absolute Lymphocytes (CBC) 0.4 K/uL (0.7-4.9); Basophils % 0.5 % (0-1.3); Hematocrit 27.8 % (36.0-45.0); Lymphocytes % 39.6 % (15.3-44.8); MPV 6.6 fL (7.6-11.3); RBC Red Blood Cell Count 3.08 M/uL (3.86-4.86)
[2020-02-03] MEDS: LEVOTHYROXINE SOD 0.1 MG TAB PO SCH (06:43)
[2020-02-03] MEDS: HYDROCODONE/APAP 5/325 MG TAB PO PRN ×3 (09:28→21:17)
[2020-02-03] MEDS: ENOXAPARIN 40 MG/0.4 ML SQ SCH (09:29)
[2020-02-03] MEDS: CEFTRIAXONE/SWI 1gm 1 GM/10 ML SYR IV SCH (09:29)
[2020-02-03] MEDS: PARoxetine HCL 10 MG TAB PO SCH (09:29)
[2020-02-03] MEDS: TBO-FILGRASTIM 300 MCG/0.5 ML SYR SQ SCH (09:29)
[2020-02-03 09:50] LABS: Ferritin 230.6 ng/mL (8-388); Folic Acid, (Folate) 7.5 ng/mL (3.1-17.5)
--- NOTE | 2020-02-03 12:43 | P.PN ---
Subjective Date of Service: 02/03/20 Chief Complaint: Altered mental status; UTIs; psychosis; leukopenia with an ANC= 100 Patient has no complain today. She has been afebrile. She denies shortness of breath. Urine culture is growing pansensitive E. coli. Physical Examination - Vital Signs Temperature: 97.9 F Blood Pressure: 129/62 Pulse: 80 Respirations: 18 Pulse Ox (%): 95 - Physical Exam General: Alert, In no apparent distress, Oriented x3 HEENT: Mucous membr. moist/pink, Sclerae nonicteric Neck: Supple Respiratory: Clear to auscultation bilaterally, Normal air movement Cardiovascular: No edema, Regular rate/rhythm, Normal S1 S2 Gastrointestinal: Normal bowel sounds, Soft and benign, Non-distended, No tenderness Musculoskeletal: No swelling Integumentary: No rashes Neurological: Normal speech, Normal strength at 5/5 x4 extr Urinary: Mcgarry catheter Assessment And Plan - Current Problems (Diagnosis) (1) Metabolic encephalopathy Current Visit: Yes Status: Resolved (2) DM2 (diabetes mellitus, type 2) Onset Date: 09/14/18 Current Visit: No Status: Chronic Qualifiers: Diabetes mellitus jail insulin use: with local company intermodal truck driver use Diabetes mellitus complication status: without complication Qualified Code(s): E11.9 - Type 2 diabetes mellitus without complications; Z79.4 - local company intermodal truck driver (current) use of insulin (3) Leukopenia Current Visit: No Status: Chronic (4) UTI (urinary tract infection) Onset Date: 05/09/16 Current Visit: No Status: Acute Qualifiers: Urinary tract infection type: site unspecified Hematuria presence: without hematuria Qualified Code(s): N39.0 - Urinary tract infection, site not specified (5) Rheumatoid arthritis Onset Date: 09/14/18 Current Visit: No Status: Chronic Qualifiers: Rheumatoid arthritis location: unspecified site Rheumatoid factor presence : unspecified presence Qualified Code(s): M06.9 - Rheumatoid arthritis, unspecified - Plan Continue IV Rocephin. Continue Neupogen. Target ANC of > 1000 Monitor CBC. PT/OT given impaired mobility. Social service to assist with disposition.
[2020-02-03] MEDS: ALPRAZOLAM 0.25 MG TABLET PO PRN (20:04)
[2020-02-04 04:44] LABS: Absolute Lymphocytes (CBC) 0.4 K/uL (0.7-4.9); Basophils % 0.9 % (0-1.3); Hematocrit 26.3 % (36.0-45.0); Lymphocytes % 34.8 % (15.3-44.8); MPV 6.8 fL (7.6-11.3); RBC Red Blood Cell Count 2.94 M/uL (3.86-4.86)
[2020-02-04] MEDS: LEVOTHYROXINE SOD 0.1 MG TAB PO SCH (06:50)
[2020-02-04] MEDS: CEFTRIAXONE/SWI 1gm 1 GM/10 ML SYR IV SCH (08:35)
[2020-02-04] MEDS: PARoxetine HCL 10 MG TAB PO SCH (08:35)
--- NOTE | 2020-02-04 12:07 | P.PN ---
Subjective Date of Service: 02/04/20 Chief Complaint: Altered mental status; UTIs; psychosis; leukopenia with an ANC= 100 Patient has no complain today. She participated in physical therapy yesterday, Physical Examination - Vital Signs Temperature: 97.7 F Blood Pressure: 136/69 Pulse: 85 Respirations: 18 Pulse Ox (%): 98 - Physical Exam General: Alert, In no apparent distress, Oriented x3 HEENT: Mucous membr. moist/pink Neck: Supple Respiratory: Clear to auscultation bilaterally, Normal air movement Cardiovascular: Regular rate/rhythm, Normal S1 S2 Gastrointestinal: Normal bowel sounds, Soft and benign, Non-distended Musculoskeletal: No swelling, No erythema Neurological: Normal speech, Other (Nonfocal.) Assessment And Plan - Current Problems (Diagnosis) (1) Metabolic encephalopathy Current Visit: Yes Status: Resolved (2) DM2 (diabetes mellitus, type 2) Onset Date: 09/14/18 Current Visit: No Status: Chronic Qualifiers: Diabetes mellitus manager ui insulin use: with manager ui use Diabetes mellitus complication status: without complication Qualified Code(s): E11.9 - Type 2 diabetes mellitus without complications; Z79.4 - acetylene operator (current) use of insulin (3) Leukopenia Current Visit: No Status: Chronic (4) UTI (urinary tract infection) Onset Date: 05/09/16 Current Visit: No Status: Acute Qualifiers: Urinary tract infection type: site unspecified Hematuria presence: without hematuria Qualified Code(s): N39.0 - Urinary tract infection, site not specified (5) Rheumatoid arthritis Onset Date: 09/14/18 Current Visit: No Status: Chronic Qualifiers: Rheumatoid arthritis location: unspecified site Rheumatoid factor presence : unspecified presence Qualified Code(s): M06.9 - Rheumatoid arthritis, unspecified - Plan Patient will complete 5 days of antibiotic. ANC is now 500. Continue Neupogen. Target ANC of > 1000 Monitor CBC. PT/OT given impaired mobility. Patient planned for SNF rehab.
[2020-02-04] MEDS: NA CHLORIDE 0.9% 1,000 ML IV SCH (20:00)
[2020-02-04] MEDS: HYDROCODONE/APAP 5/325 MG TAB PO PRN (22:21)
[2020-02-04] MEDS: ALPRAZOLAM 0.25 MG TABLET PO PRN (22:21)
[2020-02-05] MEDS: NA CHLORIDE 0.9% 1,000 ML IV SCH ×3 (03:51→23:30)
[2020-02-05] MEDS: LEVOTHYROXINE SOD 0.1 MG TAB PO SCH (05:39)
[2020-02-05 06:43] LABS: BUN Blood Urea Nitrogen 8 mg/dL (7-18); Bicarbonate 29 mmol/L (21-32); Glucose Level 93 mg/dL (74-106); Potassium 3.9 mmol/L (3.5-5.1); Sodium Level 129 mmol/L (136-145)
[2020-02-05 06:46] LABS: Absolute Lymphocytes (CBC) 0.4 K/uL (0.7-4.9); Basophils % 0.8 % (0-1.3); Hematocrit 26.8 % (36.0-45.0); Lymphocytes % 40.8 % (15.3-44.8); MPV 7.2 fL (7.6-11.3); RBC Red Blood Cell Count 3.02 M/uL (3.86-4.86)
[2020-02-05] MEDS: PARoxetine HCL 10 MG TAB PO SCH (08:23)
[2020-02-05] MEDS: CEFTRIAXONE/SWI 1gm 1 GM/10 ML SYR IV SCH (08:23)
[2020-02-05] MEDS ORDERED: POTASSIUM CL SA 10 MEQ TAB PO ONE (09:00)
[2020-02-05] MEDS: TBO-FILGRASTIM 300 MCG/0.5 ML SYR SQ SCH (10:09)
--- NOTE | 2020-02-05 11:54 | P.PN ---
Subjective Date of Service: 02/05/20 Chief Complaint: Altered mental status; UTIs; psychosis; leukopenia with an ANC= 100 Patient has no complain today. No change in ANC since yesterday. Patient is participating with physical therapy. Antibiotics daily 4. Urine culture result reviewed and reporting pansensitive Klebsiella. Physical Examination - Vital Signs Temperature: 97.0 F Blood Pressure: 123/73 Pulse: 73 Respirations: 16 Pulse Ox (%): 95 - Physical Exam General: Alert, In no apparent distress, Oriented x3 HEENT: Mucous membr. moist/pink Neck: Supple Respiratory: Clear to auscultation bilaterally, Normal air movement Cardiovascular: No edema, Regular rate/rhythm, Normal S1 S2, Systolic murmur Gastrointestinal: Normal bowel sounds, Soft and benign, No tenderness Musculoskeletal: No swelling, No erythema Integumentary: No rashes Neurological: Normal speech, Other (Nonfocal) - Studies Microbiology Data (last 24 hrs): 02/01/20 23:06 Catheterized Urine [place] Count - Final >100,000 CFU/ML. 02/01/20 23:06 Catheterized Urine - Final Klebsiella Pneumoniae Enterococcus Faecalis Assessment And Plan - Current Problems (Diagnosis) (1) Metabolic encephalopathy Current Visit: Yes Status: Resolved (2) DM2 (diabetes mellitus, type 2) Onset Date: 09/14/18 Current Visit: No Status: Chronic Qualifiers: Diabetes mellitus correction insulin use: with terminal make up operator use Diabetes mellitus complication status: without complication Qualified Code(s): E11.9 - Type 2 diabetes mellitus without complications; Z79.4 - nursing home (current) use of insulin (3) Leukopenia Current Visit: No Status: Chronic (4) UTI (urinary tract infection) Onset Date: 05/09/16 Current Visit: No Status: Acute Qualifiers: Urinary tract infection type: site unspecified Hematuria presence: without hematuria Qualified Code(s): N39.0 - Urinary tract infection, site not specified (5) Rheumatoid arthritis Onset Date: 09/14/18 Current Visit: No Status: Chronic Qualifiers: Rheumatoid arthritis location: unspecified site Rheumatoid factor presence : unspecified presence Qualified Code(s): M06.9 - Rheumatoid arthritis, unspecified - Plan Patient will complete 5 days of antibiotic. Continue Neupogen. Target ANC of > 1000 Monitor CBC. PT/OT given impaired mobility. Patient planned for SNF rehab.
[2020-02-05] MEDS: HYDROCODONE/APAP 5/325 MG TAB PO PRN ×2 (13:12→20:19)
[2020-02-05] MEDS ORDERED: CYANOCOBALAMIN 1000MCG/ML INJ IM ONE (21:49)
[2020-02-05] MEDS: ALPRAZOLAM 0.25 MG TABLET PO PRN (21:51)
[2020-02-06 05:19] LABS: Absolute Lymphocytes (CBC) 0.6 K/uL (0.7-4.9); Basophils % 0.1 % (0-1.3); Hematocrit 27.5 % (36.0-45.0); Lymphocytes % 21.3 % (15.3-44.8); RBC Red Blood Cell Count 3.07 M/uL (3.86-4.86)
[2020-02-06] MEDS: LEVOTHYROXINE SOD 0.1 MG TAB PO SCH (05:30)
[2020-02-06 05:58] LABS: Anisocytosis SLIGHT; Blood Morphology Comment NOTED (NOT SEEN); Platelet Estimate DECR
[2020-02-06 06:04] LABS: BUN Blood Urea Nitrogen 10 mg/dL (7-18); Bicarbonate 26 mmol/L (21-32); Glucose Level 88 mg/dL (74-106); Potassium 4.3 mmol/L (3.5-5.1); Sodium Level 128 mmol/L (136-145)
[2020-02-06] MEDS: TBO-FILGRASTIM 300 MCG/0.5 ML SYR SQ SCH (09:00)
[2020-02-06] MEDS: CEFTRIAXONE/SWI 1gm 1 GM/10 ML SYR IV SCH (09:47)
[2020-02-06] MEDS: HYDROCODONE/APAP 5/325 MG TAB PO PRN ×3 (09:47→23:14)
[2020-02-06] MEDS: PARoxetine HCL 10 MG TAB PO SCH (09:47)
[2020-02-06] MEDS: CYANOCOBALAMIN 1,000 MCG TAB SL SCH (09:48)
--- NOTE | 2020-02-06 11:40 | P.PN ---
Subjective Date of Service: 02/06/20 Chief Complaint: Altered mental status; UTIs; psychosis; leukopenia with an ANC= 100 Patient has no new complaints apart from joint pains. WBC count has improved. Antibiotics day 5. Physical Examination - Vital Signs Temperature: 97.9 F Blood Pressure: 116/59 Pulse: 81 Respirations: 17 Pulse Ox (%): 98 - Physical Exam General: Alert, In no apparent distress HEENT: Mucous membr. moist/pink Neck: Supple Respiratory: Clear to auscultation bilaterally, Normal air movement Cardiovascular: No edema, Regular rate/rhythm Gastrointestinal: Normal bowel sounds, Soft and benign, No tenderness Neurological: Other (Nonfocal) Assessment And Plan - Current Problems (Diagnosis) (1) Metabolic encephalopathy Current Visit: Yes Status: Resolved (2) DM2 (diabetes mellitus, type 2) Onset Date: 09/14/18 Current Visit: No Status: Chronic Qualifiers: Diabetes mellitus continuous churn buttermaker insulin use: with fci use Diabetes mellitus complication status: without complication Qualified Code(s): E11.9 - Type 2 diabetes mellitus without complications; Z79.4 - continuous churn buttermaker (current) use of insulin (3) Leukopenia Current Visit: No Status: Chronic (4) UTI (urinary tract infection) Onset Date: 05/09/16 Current Visit: No Status: Acute Qualifiers: Urinary tract infection type: site unspecified Hematuria presence: without hematuria Qualified Code(s): N39.0 - Urinary tract infection, site not specified (5) Rheumatoid arthritis Onset Date: 09/14/18 Current Visit: No Status: Chronic Qualifiers: Rheumatoid arthritis location: unspecified site Rheumatoid factor presence : unspecified presence Qualified Code(s): M06.9 - Rheumatoid arthritis, unspecified - Plan Patient completed antibiotic therapy for UTI. ANC is > 1000. Stop Neupogen Continue to monitor CBC. Continue PT and OT Patient planned for SNF rehab.
[2020-02-06] MEDS: NA CHLORIDE 0.9% 1,000 ML IV SCH ×2 (12:00→17:46)
[2020-02-06] MEDS: ACETAMINOPHEN 500 MG TAB PO PRN (12:20)
[2020-02-06 22:20] LABS: Urine Appearance CLEAR; Urine Bilirubin NEGATIVE (NEG); Urine Blood NEGATIVE (NEG); Urine Color YELLOW; Urine Glucose NEGATIVE (NEG); Urine Protein NEGATIVE (NEG); Urine Specific Gravity 1.015 (1.005-1.030)
[2020-02-06 23:00] LABS: Urine Bacteria <20 /HPF (<20); Urine Culture Reflex Order NOT NEEDED; Urine RBC <5 /HPF (NONE SEEN)
[2020-02-07 05:26] LABS: Absolute Lymphocytes (CBC) 0.4 K/uL (0.7-4.9); Basophils % 0.2 % (0-1.3); Hematocrit 27.7 % (36.0-45.0); Lymphocytes % 25.1 % (15.3-44.8); MPV 6.5 fL (7.6-11.3); RBC Red Blood Cell Count 3.08 M/uL (3.86-4.86)
[2020-02-07 05:38] LABS: BUN Blood Urea Nitrogen 8 mg/dL (7-18); Bicarbonate 29 mmol/L (21-32); Glucose Level 98 mg/dL (74-106); Magnesium 1.7 mg/dL (1.8-2.4); Potassium 3.9 mmol/L (3.5-5.1); Sodium Level 126 mmol/L (136-145)
[2020-02-07] MEDS: LEVOTHYROXINE SOD 0.1 MG TAB PO SCH (06:04)
[2020-02-07] MEDS: NA CHLORIDE 0.9% 1,000 ML IV SCH (08:00)
[2020-02-07] MEDS ORDERED: POTASSIUM CL SA 10 MEQ TAB PO ONE (09:00)
[2020-02-07] MEDS ORDERED: MAGNESIUM SULFATE 1 gm IVPB 1 GM/100 ML BAG IV ONE (09:00)
[2020-02-07] MEDS: PARoxetine HCL 10 MG TAB PO SCH (09:42)
[2020-02-07] MEDS: CYANOCOBALAMIN 1,000 MCG TAB SL SCH (09:42)
[2020-02-07 10:52] LABS: Thyroid Stimulating Hormone 5.89 uIU/mL (0.360-3.740)
[2020-02-07] MEDS: HYDROCODONE/APAP 5/325 MG TAB PO PRN (14:33)
--- NOTE | 2020-02-07 15:33 | P.PN ---
Subjective Date of Service: 02/07/20 Chief Complaint: Altered mental status; UTIs; psychosis; leukopenia with an ANC= 100 Subjective: Other (Patient is slowly improving.) Physical Examination - Vital Signs Temperature: 97 F Blood Pressure: 114/70 Pulse: 80 Respirations: 18 Pulse Ox (%): 100 - Physical Exam General: Alert HEENT: Atraumatic Neck: Supple Respiratory: Clear to auscultation bilaterally, Normal air movement Cardiovascular: Normal pulses, Regular rate/rhythm Gastrointestinal: Normal bowel sounds, Soft and benign, Non-distended Integumentary: No erythema, No warmth, No cyanosis Neurological: Normal speech, Normal strength at 5/5 x4 extr, Normal tone - Studies Medications List Reviewed: Yes Assessment & Plan Discharge Plan: Other (residential facility) Plan to discharge in: 48 Hours Physician Review Additional Text: Impression: Metabolic encephalopathy complicated with UTI, culture positive for Klebsiella and Enterococcus Chronic leukopenia Diabetes mellitus type 2 insulin-dependent Rheumatoid arthritis Hyponatremia Hypothyroidism Vitamin-B 12 deficiency anemia Plan: Metabolic encephalopathy complicated with UTI, culture positive for Klebsiella and Enterococcus: Patient has finished antibiotic therapy. Will recheck urine to maintain resolution of symptoms. Repeat urinalysis yesterday was negative. Continue physical therapy and occupational therapy. Awaiting approval for skilled placement. Chronic leukopenia: Patient with chronic leukopenia. Will start Granix to maintain absolute neutrophil count greater than a 1000. Will discuss with hematology. Diabetes mellitus type 2 insulin-dependent: Continue basal insulin, will monitor and adjust appropriately. Rheumatoid arthritis: Continue home medication Hyponatremia: Will consult Nephrology. Discontinue IV fluids. Salt tablets initiated. Hypothyroidism: Continue home medication. Vitamin-B 12 deficiency anemia: Continue vitamin B12 supplementation. Time Spent Managing Pts Care (In Minutes): 55
[2020-02-07] MEDS: SODIUM CHLORIDE 1 GM TAB PO SCH (16:35)
[2020-02-07] MEDS: TBO-FILGRASTIM 480 MCG/0.8 ML SYR SQ SCH (16:35)
[2020-02-07] MEDS: ENOXAPARIN 30 MG/0.3 ML SQ SCH (16:35)
[2020-02-07] MEDS: MAGNESIUM OXIDE 400 MG TAB PO SCH (21:20)
--- NOTE | 2020-02-08 01:14 | CON ---
Date of Consultation: 02/07/2020 Chief Complaint: Hyponatremia, hypomagnesemia. History Of Present Illness: Patient was found to have progressively worse hyponatremia on arrival to the hospital. Sodium level was 130 and gradually sodium level declined to 126 today. Patient was on normal saline for hydration to correct hyponatremia. Patient previously had blood work done with electrolyte panel. Review of previous medical records shows that patient has chronic and recurrent hyponatremia. Previously back pain 2017 sodium level was 130 and in August 2019 sodium level was 134, although during this admission, sodium level is trending down from 130 to 126. In 2019, the sodium level was 129 on one occasion. Nephrology consultation is obtained for electrolyte abnormalities and hyponatremia. Patient has chronic hyponatremia. Patient cannot provide review of systems, she is somewhat confused. Normal saline was stopped and patient was started on sodium chloride tablets as tolerated. She came to the hospital on January 31 and hyponatremia was mild at that time, although has progressed to 126. Patient has history of urinary tract infection, psychosis. She was found to have leukopenia. ANC 100. Patient has altered mental status. She is a 74-year-old female with history of dementia, rheumatoid arthritis, and she presented to the hospital because of confusion. Patient was confused and had episodes of acute psychosis. She was disoriented and family was concerned that her mental status deteriorated and brought her to the emergency room. She was found to have urinary tract infection along with leukopenia. Apparently she had episode of leukopenia before and she was taken off rheumatoid arthritis medication due to leukopenia complication. Patient during this admission is started on IV hydration with normal saline and was given antibiotics and Neupogen to boost up white count. Review of Systems: Unobtainable. Past Medical History: Diabetes mellitus, hypertension, hypothyroidism, Crohn disease, rheumatoid arthritis, bilateral knee replacement, , bilateral femur, right hip replacement. Family History: Diabetes mellitus, lung disorder. Brother had heart disease and cancer. Sister had diabetes and father bladder cancer. Social history ; no tobacco , no alcohol, no drugs Physical Examination: General: Not in acute distress. Oriented x1, confused. Eyes: Anicteric sclerae. EOMI. Ears, Nose, Mouth, and Throat: Oral mucosa moist. No pallor. Heart: S1, S2. No pericardial friction rub. Abdomen: Soft, benign, nontender. No rebound, no guarding. Extremities: No edema, no clubbing, no cyanosis. Neurologic: Moving extremities. Cranial nerves intact. Psychiatric: Unobtainable review of systems. Patient is confused and follows few commands. Laboratory Data: WBC 1.0, hemoglobin 10.2, hematocrit 30.2, platelet count 162. Sodium 130, potassium 4.1, BUN 18, creatinine 0.65, glucose 117, magnesium 1.5. Impression And Plan: 1. Hyponatremia hypo-osmolar. Patient will have sodium chloride tablets to control hyponatremia. Plan is to stop sodium chloride IV fluids which may precipitate progressively worse hyponatremia. At this point, patient will need to have TSH level checked and a.m. cortisol level to rule out other possible causes of hyponatremia. 2. Hypertension. Continue blood pressure medication. 3. Diabetes mellitus. Continue insulin. Monitor blood glucose. 4. Leukopenia. Patient may be a candidate for Epogen. 5. Urinary tract infection, monitor urine culture and start antibiotics. JADIEL/NAN Voice ID: [id number] Report ID: [id number] MARITO
[2020-02-08] MEDS: LEVOTHYROXINE SOD 0.1 MG TAB PO SCH (05:42)
[2020-02-08 06:06] LABS: Absolute Lymphocytes (CBC) 0.3 K/uL (0.7-4.9); BUN Blood Urea Nitrogen 10 mg/dL (7-18); Basophils % 0.3 % (0-1.3); Bicarbonate 28 mmol/L (21-32); Glucose Level 82 mg/dL (74-106); Hematocrit 28.5 % (36.0-45.0); Lymphocytes % 6.8 % (15.3-44.8); MPV 6.7 fL (7.6-11.3); Potassium 4.3 mmol/L (3.5-5.1); RBC Red Blood Cell Count 3.12 M/uL (3.86-4.86); Sodium Level 128 mmol/L (136-145)
[2020-02-08] MEDS: MAGNESIUM OXIDE 400 MG TAB PO SCH ×2 (09:00→21:00)
[2020-02-08] MEDS: PARoxetine HCL 10 MG TAB PO SCH (09:15)
[2020-02-08] MEDS: TBO-FILGRASTIM 480 MCG/0.8 ML SYR SQ SCH (09:15)
[2020-02-08] MEDS: CYANOCOBALAMIN 1,000 MCG TAB SL SCH (09:16)
[2020-02-08] MEDS: HYDROCODONE/APAP 5/325 MG TAB PO PRN ×2 (09:16→16:20)
[2020-02-08] MEDS: SODIUM CHLORIDE 1 GM TAB PO SCH ×3 (09:16→21:50)
--- NOTE | 2020-02-08 10:51 | P.PN ---
Subjective Date of Service: 02/09/20 Chief Complaint: Altered mental status; UTIs; psychosis; leukopenia with an ANC= 100 Subjective Pt with Hx chronic hyponatremia, psychosis, admitted with confusion found to have neutropenia and hyponatremia Sodium didnt improve on NS Today Sodium slighlt improved on sodium tablet will increase to tid high urine osmol , will send for electrolytes Physical exam general: awake and alert, NAD Neck; Supple, No elevated JVD hear: RRR, normal S1,2 no murmur or rub Chest: CTAB, no rales or wheezes Abdomen: Soft , Nt Extremities No edema or ulcer A/P euvolemic hyponatremia possibly due to SIAD vs salt wasting will increase salt tablets and order w/u fluid restriction AMS improving neutropenia resolved F/U with hematology Physical Examination - Vital Signs Temperature: 98.2 F Blood Pressure: 121/58 Pulse: 79 Respirations: 18 Pulse Ox (%): 98 - Studies Medications List Reviewed: Yes
[2020-02-08] MEDS: ENOXAPARIN 30 MG/0.3 ML SQ SCH (17:37)
[2020-02-09] MEDS: LEVOTHYROXINE SOD 0.1 MG TAB PO SCH (05:08)
[2020-02-09 05:36] LABS: Absolute Lymphocytes (CBC) 0.6 K/uL (0.7-4.9); Basophils % 0.2 % (0-1.3); Hematocrit 26.5 % (36.0-45.0); Lymphocytes % 8.3 % (15.3-44.8); RBC Red Blood Cell Count 2.94 M/uL (3.86-4.86)
[2020-02-09 06:10] LABS: BUN Blood Urea Nitrogen 14 mg/dL (7-18); Bicarbonate 28 mmol/L (21-32); Glucose Level 88 mg/dL (74-106); Magnesium 1.9 mg/dL (1.8-2.4); Potassium 4.4 mmol/L (3.5-5.1); Sodium Level 125 mmol/L (136-145); Uric Acid 5.5 mg/dL (2.6-6.0)
[2020-02-09 08:02] LABS: Blood Morphology Comment NOT SEEN (NOT SEEN); Platelet Estimate DECR; Toxic Granulation PRESENT
[2020-02-09] MEDS: SODIUM CHLORIDE 1 GM TAB PO SCH ×3 (09:00→20:59)
[2020-02-09] MEDS: PARoxetine HCL 10 MG TAB PO SCH (09:46)
[2020-02-09] MEDS: CYANOCOBALAMIN 1,000 MCG TAB SL SCH (09:47)
[2020-02-09] MEDS: HYDROCODONE/APAP 5/325 MG TAB PO PRN ×3 (09:47→22:27)
[2020-02-09] MEDS: MAGNESIUM OXIDE 400 MG TAB PO SCH ×2 (09:47→20:59)
[2020-02-09] MEDS: TBO-FILGRASTIM 480 MCG/0.8 ML SYR SQ SCH (09:47)
--- NOTE | 2020-02-09 14:03 | PN ---
Date of Progress Note: 02/09/2020 Subjective: Patient seen and examined. Chart reviewed and case discussed with RN. Patient overall feeling better. Medications: List reviewed. Code Status: Full. Physical Examination: Vital Signs: Temperature 97.9, heart rate 82, blood pressure 132/60, respirations 16, O2 sat 94% on room air. General: Awake, alert, oriented x3. Elderly female, not in any acute distress. CV: S1, S2. Regular rate and rhythm. Peripheral pulses present. Respiratory: Moving air well bilaterally. No wheezing or stridor. Gastrointestinal: Abdomen is soft, nontender, nondistended. Positive bowel sounds. Extremities: No clubbing, cyanosis, edema. Neurologic: Nonfocal. Laboratory Data: Sodium 125, potassium 4.4, chloride 92, CO2 of 28, BUN 14, creatinine 0.39, glucose 88, uric acid 5.5, calcium 7.9, magnesium 1.9. WBC 7.6 , H and H 9.2 and 26.5, platelets 91, neutrophils 85.2%, absolute neutrophil count is 6400. Urine cultures growing out Klebsiella pneumoniae and Enterococcus faecalis. Assessment: A 74-year-old female with. 1. Metabolic encephalopathy, improved, secondary to urinary tract infection. Patient's mental status is back to baseline. 2. Acute cystitis. Cultures positive for klebsiella and enterococcus. Patient has completed antibiotic therapy. Repeat urinalysis was negative. 3. Chronic leukopenia. Patient was started on Granix. Neutrophil count is now 6400. We will continue to monitor. 4. Hyponatremia. Salt tablets have been initiated. We will hold the patient' s selective serotonin reuptake inhibitor. Nephrology has been consulted. Check serum osmolality. 5. Rheumatoid arthritis, stable. 6. Diabetes mellitus type 2, insulin dependent. We will continue with sliding scale insulin. Monitor blood glucose levels. Continue her basal insulin dose. 7. Hypothyroidism. Continue home medications. 8. Vitamin B12 deficiency. Continue supplementation. Plan: Discharge to SNF once accepted and medically stable. /MODL Voice ID: [id number] Report ID: [id number] MTDD
[2020-02-09] MEDS: ENOXAPARIN 30 MG/0.3 ML SQ SCH (15:48)
--- NOTE | 2020-02-09 15:57 | PN ---
Date of Progress Note: 02/09/2020 Subjective: The patient was admitted with altered mental status, hyponatremia. Patient was started on salt tablet. Patient still slightly confused. Sodium dropped down again. Physical Examination: Vital Signs: Blood pressure 117/58, pulse of 80, afebrile. Chest: Clear to auscultation. Heart: S1, S2. Regular. Abdomen: Soft, nontender. Extremity: No edema. Laboratory Data: H and H 9.2/26.5. Sodium 125, potassium 4.4, bicarb 28, BUN 14, creatinine 0.3, ca lcium 7.9, magnesium 1.9, cortisol of 13. TSH within normal limit. Urine electrolytes: Sodium 139, potassium of 28. Current urine osmolality 484. Current Medications: The patient is on, include, salt tablet 1 g t.i.d., paroxetine, Zofran levothyr oxine. Assessment And Plan: 1.Hyponatremia, normal volume. Mostly, it is secondary to syndrome of inappropriate antidiuretic ho rmone secretion. I am going to go ahead and increase her salt tablet to 2 g t.i.d. We will add Lasi x to establish more water diuresis and we will follow up the patient. 2.Hypertension, controlled, optimal. Continue with current medication. GERARD/NAN Voice ID: [id number] Report ID: [id number]
[2020-02-10 05:43] LABS: Absolute Lymphocytes (CBC) 0.8 K/uL (0.7-4.9); Basophils % 0.3 % (0-1.3); Hematocrit 26.3 % (36.0-45.0); Lymphocytes % 6.7 % (15.3-44.8); MPV 7.5 fL (7.6-11.3); RBC Red Blood Cell Count 2.89 M/uL (3.86-4.86)
[2020-02-10] MEDS: LEVOTHYROXINE SOD 0.1 MG TAB PO SCH (05:54)
[2020-02-10] MEDS: HYDROCODONE/APAP 5/325 MG TAB PO PRN ×3 (05:55→21:12)
[2020-02-10 06:17] LABS: Albumin 2.3 g/dL (3.4-5.0); BUN Blood Urea Nitrogen 16 mg/dL (7-18); Bicarbonate 28 mmol/L (21-32); Glucose Level 89 mg/dL (74-106); Magnesium 1.9 mg/dL (1.8-2.4); Phosphorus 4.4 mg/dL (2.5-4.9); Potassium 4.6 mmol/L (3.5-5.1); Sodium Level 126 mmol/L (136-145); Uric Acid 5.6 mg/dL (2.6-6.0)
[2020-02-10 08:34] LABS: Blood Morphology Comment NOT SEEN (NOT SEEN); Platelet Estimate DECR; Toxic Granulation PRESENT
[2020-02-10] MEDS: MAGNESIUM OXIDE 400 MG TAB PO SCH ×2 (08:45→21:12)
[2020-02-10] MEDS: FUROSEMIDE 20 MG TABLET PO SCH (08:46)
[2020-02-10] MEDS: SODIUM CHLORIDE 1 GM TAB PO SCH ×4 (08:46→21:00)
[2020-02-10] MEDS: CYANOCOBALAMIN 1,000 MCG TAB SL SCH (08:46)
[2020-02-10] MEDS ORDERED: MAGNESIUM SULFATE 1 gm IVPB 1 GM/100 ML BAG IV ONE (11:57)
[2020-02-10] MEDS ORDERED: MAGNESIUM OXIDE 400 MG TAB PO ONE (12:23)
--- NOTE | 2020-02-10 13:57 | PN ---
Date of Progress Note: 02/10/2020 Subjective: Patient was admitted with hyponatremia. Patient has been started on salt tablet. Physical Examination: Vital Signs: When I saw the patient, blood pressure 139/67, pulse 62. Patient had good urine output . Chest: Clear to auscultation. Heart: S1, S2. Regular. Abdomen: Soft, nontender. Extremities: No edema. Neuro: Confused. Nonfocal. Laboratory Data: Sodium 126, potassium 4.6, bicarb 28, BUN 16, creatinine 0.3, calcium 7.6, magnesiu m 1.9, albumin 2.3, corrected calcium 9. Cortisol level of 13. TSH 1.6. Urine electrolytes; sodium 119, potassium 45. Current Medications: 1.Tylenol. 2.Paroxetine. 3.Lasix 20. 4.Zofran. 5.Levothyroxine. 6.Magnesium oxide. 7.Salt tablet 2 g t.i.d. Assessment And Plan: 1.Hyponatremia secondary to syndrome of inappropriate antidiuretic hormone secretion, currently on s alt tablet. Yesterday, we increased the salt tablet. We will continue current dose. If sodium did not improve in the next 24 hours, patient is going to be already almost 48 hours on max dose of the s alt tablet at that time. We are going to need to start the patient on vaptans so we will follow up t he lab tomorrow. 2.Hypertension, controlled, optimal. Continue to monitor. 3.Hypomagnesemia. I am going to go ahead and supplement. SHAUNNA Voice ID: [id number] Report ID: [id number]
[2020-02-10] MEDS: ENOXAPARIN 30 MG/0.3 ML SQ SCH (16:04)
--- NOTE | 2020-02-10 16:18 | PN ---
Date of Progress Note: 02/10/2020 Subjective: Patient seen and examined. Chart reviewed and case discussed with RN. Patient still aw aiting approval for [employer]. Denies any acute events overnight. Medications: List reviewed. Physical Examination: Vital Signs: Temperature 96.9, heart rate 62, blood pressure 139/67, respirations 16, O2 98% on room air. General: Awake, alert, oriented x3, not in any acute distress. Elderly female. CV: S1, S2. Peripheral pulses present. Respiratory: Moving air well bilaterally. No wheezing. Gastrointestinal: Abdomen is soft, nontender, nondistended. Positive bowel sounds. Extremities: No clubbing, cyanosis, or edema. Neurologic: Nonfocal. Laboratory Data: Sodium 126, potassium 4.6, chloride 93, CO2 of 28, BUN 16, creatinine 0.35, glucose 89, uric acid 5.6, calcium 7.6, phosphorus 4.4, magnesium 1.9. WBC 12.3, H and H 8.9 and 26.3, plat elets 86, neutrophils 89%. Urine culture growing out klebsiella and enterococcus. Patient has compl eted treatment. Assessment: A 74-year-old female with: 1.Metabolic encephalopathy, improving, likely secondary to urinary tract infection and hyponatremia. Mental status back to baseline. 2.Acute cystitis without hematuria secondary to Klebsiella and enterococcus. Treatment completed wi antibiotics. Repeat UA negative. 3.Chronic leukopenia, improved with Granix that has been discontinued. We will continue to monitor. No neutropenia at this time. 4.Hyponatremia. Continue salt tablets. SSRI has been held. Appreciate Nephrology input. Sodium i s improving. We will continue to monitor. 5.Rheumatoid arthritis, stable. 6.Diabetes mellitus type 2, insulin dependent. We will continue with sliding scale insulin. Monito r Accu-Cheks. 7.Hypothyroidism, stable. Continue home medication. 8.Vitamin B12 deficiency. Continue supplementation. Disposition: Discharged to SNF once accepted. Can monitor sodium at the facility, medically stable. SA/MODL Voice ID: [id number] Report ID: [id number]
[2020-02-11] MEDS: HYDROCODONE/APAP 5/325 MG TAB PO PRN ×2 (06:04→14:06)
[2020-02-11] MEDS: LEVOTHYROXINE SOD 0.1 MG TAB PO SCH (06:05)
[2020-02-11 06:29] LABS: Absolute Lymphocytes (CBC) 0.5 K/uL (0.7-4.9); Basophils % 0.3 % (0-1.3); Hematocrit 27.1 % (36.0-45.0); Lymphocytes % 10.6 % (15.3-44.8); RBC Red Blood Cell Count 2.96 M/uL (3.86-4.86)
[2020-02-11 06:57] LABS: Albumin 2.3 g/dL (3.4-5.0); BUN Blood Urea Nitrogen 17 mg/dL (7-18); Bicarbonate 28 mmol/L (21-32); Glucose Level 92 mg/dL (74-106); Phosphorus 4.1 mg/dL (2.5-4.9); Potassium 4.5 mmol/L (3.5-5.1); Sodium Level 127 mmol/L (136-145)
[2020-02-11] MEDS: CYANOCOBALAMIN 1,000 MCG TAB SL SCH (08:51)
[2020-02-11] MEDS: FUROSEMIDE 20 MG TABLET PO SCH (08:51)
[2020-02-11] MEDS: MAGNESIUM OXIDE 400 MG TAB PO SCH ×2 (08:51→20:31)
[2020-02-11] MEDS: SODIUM CHLORIDE 1 GM TAB PO SCH ×3 (08:58→20:33)
--- NOTE | 2020-02-11 11:42 | P.PN ---
Subjective Date of Service: 02/11/20 Chief Complaint: Altered mental status; UTIs; psychosis; leukopenia with an ANC= 100 Subjective Pt with Hx chronic hyponatremia, psychosis, admitted with confusion , leukopneia found to have neutropenia and hyponatremia sodium <130 on salt tablets Today sodium 127 on NAcl 2gm tid refusing to take meds today will give tolvaptan Once Physical exam general: awake and alert, NAD Neck; Supple, No elevated JVD hear: RRR, normal S1,2 no murmur or rub Chest: CTAB, no rales or wheezes Abdomen: Soft , Nt Extremities No edema or ulcer A/P euvolemic hyponatremia possibly due to SIAD refusing to take salt tablets will give tolvaptan 7.5mg X1 fluid restriction AMS resolved neutropenia resolved F/U with hematology Physical Examination - Vital Signs Temperature: 97.9 F Blood Pressure: 122/62 Pulse: 66 Respirations: 18 Pulse Ox (%): 98 - Studies Medications List Reviewed: Yes
[2020-02-11] MEDS ORDERED: TOLVAPTAN 15 MG TABLET PO ONE (12:00)
--- NOTE | 2020-02-11 13:05 | PN ---
Date of Progress Note: 02/11/2020 Subjective: Patient seen and examined, chart reviewed, and case discussed with RN and Dr. Marquez. Patient seems to be in good spirits. No acute events overnight. Medications: List reviewed. Physical Examination: Vital Signs: Temperature 97.9, heart rate 66, blood pressure 122/62, respirations 18, O2 98% on room air. General: Awake, alert, oriented x3. Elderly female, not in any acute distress. CV: S1, S2. Peripheral pulses weak. Regular rate and rhythm. Respiratory: Moving air well bilaterally. No wheezing or stridor. Gastrointestinal: Abdomen is soft, nontender, nondistended. Positive bowel sounds. Extremities: No clubbing, cyanosis, or edema. Neurologic: Nonfocal. Laboratory Data: WBC 4.9, H and H 9.1 and 27.1, platelets 105, neutrophils 84%. Sodium 127, potassi um 4.5, chloride 93, CO2 of 28, BUN 17, creatinine 0.32, glucose 92, calcium 7.5, phosphorus 4.1, alb umin 2.3. Urine culture growing out Klebsiella and Enterococcus faecalis. Assessment: A 74-year-old female with: 1.Acute metabolic encephalopathy, resolved, back to baseline, was secondary to urinary tract infecti on and hyponatremia. 2.Acute cystitis without hematuria secondary to Klebsiella and Enterococcus. Treatment completed antibiotics. 3.Hyponatremia, improving. Hold SSRI. Continue with salt tablets. Nephrology on board. We will i ncrease dose of salt tablets. Holding off on use of tolvaptan for now. 4.Chronic leukopenia, improved with Granix. No neutropenia at this time. 5.Rheumatoid arthritis, stable. 6.Diabetes mellitus type 2, insulin requiring with hyperglycemia. We will continue with sliding sca le insulin. Monitor blood glucose levels. 7.Hypothyroidism, stable. 8.Vitamin B12 deficiency. Continue supplementation. 9.Deep vein thrombosis prophylaxis with Lovenox. Plan: Discharge to assisted facility once accepted. Patient's baseline sodium level is aroun d 130, which is acceptable for her as it is chronic and she is asymptomatic. SA/MODL Voice ID: [id number] Report ID: [id number]
[2020-02-11] MEDS: ENOXAPARIN 30 MG/0.3 ML SQ SCH (16:46)
[2020-02-12 05:39] LABS: Absolute Lymphocytes (CBC) 0.5 K/uL (0.7-4.9); Basophils % 0.2 % (0-1.3); Hematocrit 28.3 % (36.0-45.0); Lymphocytes % 18.1 % (15.3-44.8)
[2020-02-12 05:47] LABS: Albumin 2.4 g/dL (3.4-5.0); BUN Blood Urea Nitrogen 12 mg/dL (7-18); Bicarbonate 30 mmol/L (21-32); Glucose Level 99 mg/dL (74-106); Phosphorus 4.4 mg/dL (2.5-4.9); Potassium 4.2 mmol/L (3.5-5.1); Sodium Level 134 mmol/L (136-145)
[2020-02-12] MEDS: LEVOTHYROXINE SOD 0.1 MG TAB PO SCH (06:18)
[2020-02-12] MEDS: SODIUM CHLORIDE 1 GM TAB PO SCH ×4 (09:00→20:44)
[2020-02-12] MEDS: FUROSEMIDE 20 MG TABLET PO SCH (09:35)
[2020-02-12] MEDS: MAGNESIUM OXIDE 400 MG TAB PO SCH ×2 (09:36→20:43)
[2020-02-12] MEDS: CYANOCOBALAMIN 1,000 MCG TAB SL SCH (09:36)
[2020-02-12] MEDS: ACETAMINOPHEN 500 MG TAB PO PRN ×2 (11:45→21:01)
[2020-02-12] MEDS: ENOXAPARIN 30 MG/0.3 ML SQ SCH (17:23)
--- NOTE | 2020-02-12 17:30 | PN ---
Date of Progress Note: 02/12/2020 Subjective: Patient seen and examined. Chart reviewed and case discussed with RN and Dr. Lucas. Kyara garnt unable to go to [facility] as she has not been approved by her insurance yet. Sodium is significa ntly improved. Patient denies any symptoms. Medications: List reviewed. Physical Examination: Vital Signs: Temperature 96.8, heart rate 80, blood pressure 116/58, respirations 18, O2 97% on room air. General: Awake, alert, oriented x3. Elderly female, not in any acute distress. CV: S1, S2. Regular rate and rhythm. Peripheral pulses present. Respiratory: Moving air well bilaterally. Abdomen: Soft, nontender, nondistended. Positive bowel sounds. Extremities: No clubbing, cyanosis, or edema. Neuro: Nonfocal. Laboratory Data: Sodium 134, potassium 4.2, chloride 99, CO2 of 30, BUN 12, creatinine 0.37, glucose 99, calcium 8, phosphorus 4.4, albumin 2.4. WBC 2.9, H and H 9.4 and 28.3, platelets 111, absolute neutrophil count 2.2. Assessment: 74-year-old female with: 1.Acute metabolic encephalopathy, resolved, back to baseline secondary to urinary tract infection, h yponatremia. 2.Acute cystitis without hematuria secondary to klebsiella and enterococcus. Treatment completed. 3.Hyponatremia, resolving. Patient received 1 dose of tolvaptan yesterday. Sodium is at 134. Cont inue salt tablets. Appreciate Nephrology input. 4.Chronic leukopenia, improved with Granix. The patient's white blood cell count currently down to 2900 with 2200 neutrophils. We will continue to monitor closely. 5.Rheumatoid arthritis, stable. 6.Diabetes mellitus type 2 insulin requiring with hyperglycemia. Continue sliding scale insulin and Accu-Cheks. 7.Hypothyroidism, stable. Continue Synthroid. 8.Vitamin B12 deficiency. Continue supplementation. 9.Deep venous thrombosis prophylaxis with Lovenox. Plan: Discharge to [facility] once accepted. The patient is medically stable. SA/MODL Voice ID: [id number] Report ID: [id number]
[2020-02-12] MEDS: ZOLPIDEM TARTRATE 5 MG TABLET PO ONE ×2 (22:17→22:18)
--- NOTE | 2020-02-13 01:15 | PN ---
Date of Progress Note: 02/12/2020 Chief Complaint: Hyponatremia, hypoosmolar. Patient has history of hyponatremia and psychosis. She was admitted with confusion. She was found to have leukopenia, neutropenia and hyponatremia. She was started on sodium chloride tablets and sodium level remains below 130. Review of Systems: Patient denies PND, orthopnea. Physical Examination: Lungs: Few crackles at bases. Heart: S1, S2. Abdomen: Soft. Benign. Extremities: No edema. Laboratory Data: Hemoglobin 9.4, WBC 2.9, platelet count 111. Chemistry showed sodium 134, potassium 4.2, chloride 99, CO2 of 30, BUN 12, creatinine 0.37, calcium 8.0, phosphorus 4.4. Impression And Plan: 1. Hyponatremia, hypoosmolar. Sodium level gradually improved. Plan is to wean off sodium chloride tablets and continue p.o. fluid restriction. 2. Urinary tract infection. Continue treatment with antibiotics according to urine culture. 3. Altered mental status, resolved. 4. Neutropenia per primary team. White count is improving. 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 On previous occasion, patient refused to take sodium chloride tablets. Recommend fluid restriction. Continue to monitor. i spent total 36 min including 25 min to coordinate care plan. JADIEL/NAN Voice ID: [id number] Report ID: [id number] MARITO
[2020-02-13 06:01] LABS: Absolute Lymphocytes (CBC) 0.7 K/uL (0.7-4.9); Basophils % 0.3 % (0-1.3); Hematocrit 26.7 % (36.0-45.0); Lymphocytes % 28.8 % (15.3-44.8); MPV 7.1 fL (7.6-11.3)
[2020-02-13 06:11] LABS: Albumin 2.4 g/dL (3.4-5.0); BUN Blood Urea Nitrogen 18 mg/dL (7-18); Bicarbonate 29 mmol/L (21-32); Glucose Level 95 mg/dL (74-106); Potassium 4.5 mmol/L (3.5-5.1); Sodium Level 132 mmol/L (136-145)
[2020-02-13] MEDS: LEVOTHYROXINE SOD 0.1 MG TAB PO SCH (06:18)
[2020-02-13] MEDS: SODIUM CHLORIDE 1 GM TAB PO SCH ×2 (08:00→16:29)
[2020-02-13] MEDS: ACETAMINOPHEN 500 MG TAB PO PRN (08:37)
[2020-02-13] MEDS: MAGNESIUM OXIDE 400 MG TAB PO SCH ×2 (08:39→20:49)
[2020-02-13] MEDS: CYANOCOBALAMIN 1,000 MCG TAB SL SCH (08:39)
[2020-02-13] MEDS: FUROSEMIDE 20 MG TABLET PO SCH (08:39)
--- NOTE | 2020-02-13 11:30 | PN ---
Date of Progress Note: 02/13/2020 Subjective: Patient seen and examined, chart reviewed, and case discussed with RN. No acute events overnight. Patient still very weak, max assist even to get out of bed. Medications: List reviewed. Physical Examination: Vital Signs: Temperature 97.5, heart rate 85, blood pressure 119/60, respirations 18, O2 of 99% on r oom air. General: Awake, alert, oriented x3. Elderly female, in no acute distress. CV: S1, S2. Regular rate and rhythm. Peripheral pulses weak. Respiratory: Moving air well bilaterally. No wheezing or stridor. Gastrointestinal: Abdomen is soft, nontender, nondistended. Positive bowel sounds. Extremities: No clubbing, cyanosis, or edema. Neurologic: Nonfocal. Laboratory Data: Sodium 132, potassium 4.5, chloride 97, CO2 of 29, BUN 18, creatinine 0.37, glucose 95, calcium 8, phosphorus 4, albumin 2.4. WBC 2.4, H and H 9 and 26.7, platelets 122, neutrophils 1 400. Assessment: 74-year-old female with, 1.Acute metabolic encephalopathy, resolved. This was secondary to her urinary tract infection and h yponatremia, which have essentially been corrected. 2.Acute cystitis without hematuria secondary to klebsiella and enterococcus. Treatment completed. 3.Hyponatremia, improving. The patient is now refusing salt tablets because the way they taste make s her nauseated. We will try to get the medications with half a tablet at that time. Patient did re ceive 1 dose of tolvaptan previously. 4.Chronic leukopenia. The patient's neutrophil count now down to 1400. We will give another dose t manfred and monitor. 5.Rheumatoid arthritis, stable. 6.Diabetes mellitus type 2, insulin requiring with hyperglycemia. Continue with sliding scale insul in and Accu-Cheks. 7.Hypothyroidism, stable. Continue with Synthroid. 8.Vitamin B12 deficiency. Continue supplementation. 9.Deep venous thrombosis prophylaxis with Lovenox. Plan: Discharge to [facility] once accepted. /NAN Voice ID: [id number] Report ID: [id number]
[2020-02-13] MEDS ORDERED: TBO-FILGRASTIM 480 MCG/0.8 ML SYR SQ ONE (12:00)
[2020-02-13] MEDS: ENOXAPARIN 30 MG/0.3 ML SQ SCH (16:11)
--- NOTE | 2020-02-13 22:22 | PN ---
Date of Progress Note: 02/13/2020 Chief Complaint: Hyponatremia, hypoosmolar. Patient has a history of hyponatremia and psychosis. Patient is tolerating p.o. intake. She was admitted with confusion, was found to have leukopenia, neutropenia, and hyponatremia. Patient was started on sodium chloride tablets when sodium level was below 130. Patient was instructed to follow recommendation with sodium chloride tablets, but she is refusing and is not taking sodium chloride tablets, she is not compliant with p.o. fluid restriction on occasions. Review of Systems: She is refusing to follow commands. Physical Examination: Lungs: Clear to auscultation bilaterally. Heart: S1, S2. Abdomen: Soft, benign. Extremities: Minimal edema. Laboratory Data: Hemoglobin 9.0, WBC 2.4, and platelet count is 122,000 improving from 86,000. Chemistry showed sodium 132, potassium 4.5, chloride 97 , CO2 of 29, BUN 18, creatinine 0.37, calcium 8.0, phosphorus is 4.0. Impression: 1. Hyponatremia, hypoosmolar. Sodium level is in acceptable control. Patient again was instructed to follow recommendations. Sodium chloride tablet was continued. Patient on occasion does not want to comply with orders. 2. Urinary tract infection. Continue treatment with antibiotics according to urine culture. 3. Altered mental status, resolved. Patient although has some underlying history of confusion. 4. Chronic pain, per primary team. 5. 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 On previous occasion, she was treated with sodium chloride tablets and at this point, sodium level is in acceptable control. I spent total 36 min including 25 min to coordinate care plan. JADIEL/NAN Voice ID: [id number] Report ID: [id number] MARITO
[2020-02-14] MEDS: ACETAMINOPHEN 500 MG TAB PO PRN (00:53)
[2020-02-14 05:03] LABS: Absolute Lymphocytes (CBC) 0.5 K/uL (0.7-4.9); Basophils % 0.2 % (0-1.3); Hematocrit 26.3 % (36.0-45.0); Lymphocytes % 6.7 % (15.3-44.8); MPV 7.3 fL (7.6-11.3); RBC Red Blood Cell Count 2.85 M/uL (3.86-4.86)
[2020-02-14 05:10] LABS: Albumin 2.4 g/dL (3.4-5.0); BUN Blood Urea Nitrogen 13 mg/dL (7-18); Bicarbonate 27 mmol/L (21-32); Glucose Level 91 mg/dL (74-106); Phosphorus 3.9 mg/dL (2.5-4.9); Potassium 4.5 mmol/L (3.5-5.1); Sodium Level 129 mmol/L (136-145)
[2020-02-14] MEDS: LEVOTHYROXINE SOD 0.1 MG TAB PO SCH (06:35)
[2020-02-14 07:00] LABS: Blood Morphology Comment NOT SEEN (NOT SEEN); Platelet Estimate ADEQ; Toxic Granulation PRESENT
[2020-02-14] MEDS: SODIUM CHLORIDE 1 GM TAB PO SCH ×2 (08:00→16:23)
[2020-02-14] MEDS: CYANOCOBALAMIN 1,000 MCG TAB SL SCH (08:14)
[2020-02-14] MEDS: MAGNESIUM OXIDE 400 MG TAB PO SCH ×2 (08:15→21:47)
[2020-02-14] MEDS: HYDROCODONE/APAP 5/325 MG TAB PO PRN ×2 (09:11→16:23)
--- NOTE | 2020-02-14 10:17 | PN ---
Date of Progress Note: 02/14/2020 Subjective: Patient seen and examined, chart reviewed, and case discussed with RN. Patient's daught er on the phone during the visit. Treatment plan explained. All questions answered. Medications: List reviewed. Physical Examination: Vital Signs: Temperature 97.7, heart rate 79, blood pressure 130/62, respirations 16, O2 98% on room air. General: Awake, alert, oriented x3. Not in any acute distress. Elderly female. CV: S1, S2. Regular rate and rhythm. Peripheral pulses present. Respiratory: Moving air well bilaterally. No wheezing or stridor. Gastrointestinal: Abdomen is soft, nontender, nondistended. Positive bowel sounds. Extremities: No clubbing, cyanosis, or edema. Neurologic: Nonfocal. Laboratory Data: WBC 7.7, H and H 8.8 and 26.3, platelets 113, neutrophils 89.3%. Sodium 129, potas sium 4.5, chloride 95, CO2 of 27, BUN 13, creatinine 0.4, glucose 91, calcium 8.1, phosphorus 3.9, al bumin 2.4. Assessment: A 74-year-old female with: 1.Acute metabolic encephalopathy, resolved, secondary to urinary tract infection and hyponatremia. 2.Acute cystitis without hematuria secondary to Klebsiella and Enterococcus. Treatment plan has bee n completed. No further antibiotics. 3.Hyponatremia. Patient refusing to take her salt tablets. She was counseled extensively and state s that she will take them today. She is refusing because they make her nauseated. However, she has not thrown up. Sodium dropped down to 129 today. 4.Chronic leukopenia. She was given Granix yesterday. WBC count has improved. We will continue to monitor. 5.Rheumatoid arthritis, stable. 6.Diabetes mellitus type 2, insulin requiring with hyperglycemia. We will continue with sliding sca le insulin and Accu-Cheks. 7.Hypothyroidism. Continue Synthroid. 8.Vitamin B12 deficiency. Continue supplementation. 9.Deep venous thrombosis prophylaxis. Lovenox. Plan: Discharge to SNF once accepted. Patient is medically cleared. SA/MODL Voice ID: [id number] Report ID: [id number]
[2020-02-14] MEDS: ENOXAPARIN 30 MG/0.3 ML SQ SCH (16:23)
[2020-02-14 22:02] VITALS: O2SAT 97
--- NOTE | 2020-02-14 23:32 | PN ---
Date of Progress Note: 02/14/2020 Chief Complaint: Hyponatremia, hypo-osmolar. Patient has a history of hyponatremia and psychosis. Patient is tolerating p.o. intake. Patient was admitted with confusion, and was found to have leukopenia and neutropenia and hyponatremia. Patient was started on sodium chloride tablets and p.o. fluid restriction when sodium level dropped below 130. Sodium chloride tablets dose was increased today. Hyponatremia has worsened over last 24 hours and patient is noncompliant with the p.o. fluid restriction. Review of Systems: Denies complaints. Physical Examination: Lungs: Clear to auscultation bilaterally. Heart: S1, S2. Abdomen: Soft, benign. Extremities: Minimal edema. Impression: 1. Hyponatremia, hypo-osmolar. Sodium level is fluctuating. Sodium chloride tablets were adjusted to control hyponatremia. Continue p.o. fluid restriction. 2. Urinary tract infection. Patient is on antibiotics. 3. Altered mental status, resolved. 4. Patient has euvolemic hyponatremia, possibly due to syndrome of inappropriate antidiuretic hormone secretion. On previous occasion, she was treated with sodium chloride tablets and the dose was increased today for adequate control of hyponatremia. I spent total 35 min including 25 min to coordinate care plan. JADIEL/NAN Voice ID: [id number] Report ID: [id number] MARITO
[2020-02-15] MEDS: HYDROCODONE/APAP 5/325 MG TAB PO PRN (00:02)
[2020-02-15 04:35] LABS: Absolute Lymphocytes (CBC) 0.6 K/uL (0.7-4.9); Basophils % 0.6 % (0-1.3); Hematocrit 25.7 % (36.0-45.0); Lymphocytes % 16.8 % (15.3-44.8); MPV 7.3 fL (7.6-11.3); RBC Red Blood Cell Count 2.77 M/uL (3.86-4.86)
[2020-02-15 04:58] LABS: ALT/SGPT 13 U/L (12-78); AST/SGOT 13 U/L (15-37); Albumin 2.3 g/dL (3.4-5.0); Alkaline Phosphatase 94 U/L (45-117); BUN Blood Urea Nitrogen 13 mg/dL (7-18); Bicarbonate 27 mmol/L (21-32); Bilirubin Total 0.3 mg/dL (0.2-1.0); Glucose Level 100 mg/dL (74-106); Potassium 4.3 mmol/L (3.5-5.1); Protein, Total 6.1 g/dL (6.4-8.2); Sodium Level 128 mmol/L (136-145)
[2020-02-15] MEDS: LEVOTHYROXINE SOD 0.1 MG TAB PO SCH (06:35)
[2020-02-15] MEDS: SODIUM CHLORIDE 1 GM TAB PO SCH (08:06)
[2020-02-15] MEDS: MAGNESIUM OXIDE 400 MG TAB PO SCH (08:06)
[2020-02-15] MEDS: CYANOCOBALAMIN 1,000 MCG TAB SL SCH (08:07)
[2020-02-15] MEDS: ACETAMINOPHEN 500 MG TAB PO PRN (08:07)
[2020-02-15 08:36] VITALS: BP 147/68; TEMP 97.5
--- NOTE | 2020-02-15 11:58 | P.DS ---
Admission Date: 02/02/20 Discharge Date: 02/17/20 Disposition: TRANSFER TO SNF - REHAB Discharge Condition: GOOD Reason for Admission: Altered mental status; UTIs; psychosis; leukopenia with an [id number] Consultations: Nutritional Assistant - Problems (1) Acute cystitis with positive culture Status: Acute (2) Altered mental status Status: Acute (3) DM2 (diabetes mellitus, type 2) Status: Acute Qualifiers: Diabetes mellitus alf insulin use: with alf use Diabetes mellitus complication status: without complication Qualified Code(s): E11.9 - Type 2 diabetes mellitus without complications (4) Degenerative joint disease of knee, right Onset Date: 01/26/15 Status: Acute (5) Hip fracture Onset Date: 09/14/18 Status: Acute Qualifiers: Encounter type: initial encounter Fracture type: closed Laterality: right Qualified Code(s): S72.001A - Fracture of unspecified part of neck of right femur, initial encounter for closed fracture (6) Hypomagnesemia Onset Date: 05/09/16 Status: Acute (7) Hypothyroid Onset Date: 05/22/17 Status: Acute (8) Near syncope Onset Date: 05/09/16 Status: Acute (9) UTI (urinary tract infection) Onset Date: 05/22/17 Status: Acute Hospital Course: Ms. Leavitt is 74-year-old female with history of dementia a rheumatoid arthritis who presented to the ER with AMS. Initial evaluation found patient to be in metabolic encephalopathy secondary to urinary tract infection. Urine culture grew Klebsiella pneumonia and enterococcus faecalis. She completed antibiotics while in the hospital. Patient has chronic leukopenia was treated with granix while in the hospital, WBC count has now improved. She has a history of chronic hyponatremia secondary to SIADH, likely contributed to altered mental status on presentation. Patient continued to decline prescribed salt tablets. Her risk of not taking this medication was addressed with patient. She was evaluated by golf caddy while inpatient. Patient is on SSRI, which may be contributing to SIADH. Patient needs re- evaluation by psychiatrist and medication adjustments. She remained hemodynamically stable for discharge to SNF. Vital Signs/Physical Exam: Temp Pulse Resp BP Pulse Ox 97.5 F 76 18 147/68 H 99 02/15/20 08:00 02/15/20 08:00 02/15/20 08:00 02/15/20 08:00 02/15/20 08:00 General: Alert, In no apparent distress HEENT: Atraumatic, PERRLA, EOMI Neck: Supple, JVD not distended Respiratory: Clear to auscultation bilaterally, Normal air movement Cardiovascular: Regular rate/rhythm, Normal S1 S2 Gastrointestinal: Normal bowel sounds, No tenderness Musculoskeletal: No tenderness Integumentary: No rashes Neurological: Normal speech, Normal tone, Normal affect Lymphatics: No axilla or inguinal lymphadenopathy Laboratory Data at Discharge: WBC 3.3 K/uL (4.3-10.9) L D 02/15/20 04:13 Hgb 8.7 g/dL (12.0-15.0) L 02/15/20 04:13 Hct 25.7 % (36.0-45.0) L 02/15/20 04:13 Plt Count 106 K/uL (152-406) L 02/15/20 04:13 PT 11.2 SECONDS (9.5-12.5) 02/01/20 23:30 INR 0.95 02/01/20 23:30 Sodium 128 mmol/L (136-145) L 02/15/20 04:13 Potassium 4.3 mmol/L (3.5-5.1) 02/15/20 04:13 BUN 13 mg/dL (7-18) 02/15/20 04:13 Creatinine 0.29 mg/dL (0.55-1.3) L 02/15/20 04:13 Glucose 100 mg/dL (74-106) 02/15/20 04:13 Uric Acid 5.6 mg/dL (2.6-6.0) 02/10/20 05:11 Phosphorus 3.9 mg/dL (2.5-4.9) 02/14/20 04:28 Magnesium 1.9 mg/dL (1.8-2.4) 02/10/20 05:11 Total Bilirubin 0.3 mg/dL (0.2-1.0) 02/15/20 04:13 AST 13 U/L (15-37) L 02/15/20 04:13 ALT 13 U/L (12-78) 02/15/20 04:13 Alkaline Phosphatase 94 U/L (45-117) 02/15/20 04:13 Home Medications: Levothyroxine Sodium 300 mcg PO DAILY 10/16/19 PARoxetine HCL [Paxil*] 10 mg PO DAILY 09/08/19 Sodium Chloride Tab [Sodium Chloride*] 2 gm PO BIDWM #30 tab 02/15/20 New Medications: Sodium Chloride Tab [Sodium Chloride*] 2 gm PO BIDWM #30 tab Patient Discharge Instructions: Follow up with pcp; need serial electrolyte (Na ) check. Diet: Regular Activity: Ad [place] Followup: NONE,NONE [Primary Care Provider] -
== END 2020-02-15 10:21 | DRG 689 ==
LOC: ER 22:29 → ERHOLD 02-02 02:24 → 2ND 02-02 03:17
PROVIDERS: ADMIT Hospitalist; ATTEND Hospitalist
DX: N30.00 Acute cystitis without hematuria (principal); G93.41 Metabolic encephalopathy; E22.2 Syndrome of inappropriate secretion of antidiuretic hormone; K50.019 Crohn's disease of small intestine with unspecified complications; F23 Brief psychotic disorder; E03.9 Hypothyroidism, unspecified; I10 Essential (primary) hypertension; M06.9 Rheumatoid arthritis, unspecified; Z96.653 Presence of artificial knee joint, bilateral; Z96.641 Presence of right artificial hip joint; Z79.890 Hormone replacement therapy; Z91.013 Allergy to seafood; Z60.2 Problems related to living alone; Z79.4 Long term (current) use of insulin; K21.9 Gastro-esophageal reflux disease without esophagitis; B95.2 Enterococcus as the cause of diseases classified elsewhere; B96.1 Klebsiella pneumoniae [K. pneumoniae] as the cause of diseases classified elsewhere; D53.9 Nutritional anemia, unspecified; D51.9 Vitamin B12 deficiency anemia, unspecified; E83.42 Hypomagnesemia; E11.65 Type 2 diabetes mellitus with hyperglycemia; D70.9 Neutropenia, unspecified; Z91.19 Patient's noncompliance with other medical treatment and regimen; M17.11 Unilateral primary osteoarthritis, right knee
CPT/HCPCS: 36415; 51702; 71045; 80048; 80053; 80069; 80076; 81001; 81003; 81015; 82435; 82533; 82607; 82728; 82746; 82947; 83540; 83605; 83615; 83735; 83880; 83930; 83935; 84100; 84132; 84300; 84439; 84443; 84466; 84484; 84550; 85025; 85044; 85610; 87077; 87086; 87088; 87186; 90670; 93005; 96365; 96366; 97110; 97112; 97161; 97530; 99285; J0696; J1447; J1650; J2405; J3420; J3475; J7030; J8499

== ENCOUNTER 2020-08-29 13:00 | Emergency (ER) | payer MEDICARE ==
[2020-08-29] MEDS ORDERED: ONDANSETRON 4 MG/2 ML VIAL ONE (14:18)
[2020-08-29] MEDS ORDERED: FENTANYL CITR 100 MCG/2 ML ONE (14:18)
[2020-08-29 14:55] LABS: Absolute Lymphocytes (CBC) 0.6 K/uL (0.7-4.9); Basophils % 0.8 % (0-1.3); Lymphocytes % 51.9 % (15.3-44.8); MPV 7.4 fL (7.6-11.3); RBC Red Blood Cell Count 3.57 M/uL (3.86-4.86)
[2020-08-29 15:17] LABS: ALT/SGPT 11 U/L (12-78); AST/SGOT 9 U/L (15-37); Albumin 2.1 g/dL (3.4-5.0); Alkaline Phosphatase 75 U/L (45-117); BUN Blood Urea Nitrogen 12 mg/dL (7-18); Bicarbonate 28 mmol/L (21-32); Bilirubin Direct 0.1 mg/dL (0-0.2); Bilirubin Total 0.3 mg/dL (0.2-1.0); Creatine Phosphokinase 26 U/L (26-192); Glucose Level 92 mg/dL (74-106); Lipase 94 U/L (73-393); Potassium 3.7 mmol/L (3.5-5.1); Protein, Total 6.5 g/dL (6.4-8.2); Sodium Level 138 mmol/L (136-145); Troponin I < 0.02 ng/mL (0.0-0.045)
[2020-08-29 15:37] LABS: Blood Morphology Comment NOT SEEN (NOT SEEN); Platelet Estimate ADEQ; White Blood Cell Scan OK (OK)
--- NOTE | 2020-08-29 16:24 | EDPHYS ---
Physician Documentation [facility] Name: Jayesh Leavitt Age: 74 yrs Sex: Female : 1945 Arrival Date: 08/29/2020 Time: 13:05 Bed 18 Private MD: ED Physician Joaquin Scott HPI: 08/29 13:50 This 74 yrs old Female presents to ER via EMS with complaints of Problem With cp Urinary Catheter - suprapubic, Urinary Problem. 13:50 The patient presents with urinary symptoms, dysuria. cp 13:50 Onset: The symptoms/episode began/occurred gradually. Associated signs and symptoms: cp Pertinent negatives: fever, AMS. Patient with history of suprapubic catheter and reports concern that catheter site may be infected. Noticed redness and pain. Patient currently on antibiotic for UTI after being seen at [facility] yesterday. Historical: - Allergies: 13:15 shrimp; ph - PMHx: 13:15 Anemia; Arthritis; Crohn's; Diabetes - NIDDM; Hypertension; Hypothyroidism; Rheumatoid ph Arthritis; - PSHx: 13:15 suprapubic catheter; ph - Immunization history:: Adult Immunizations unknown. - Social history:: Smoking status: Patient denies any tobacco usage or history of. ROS: 13:55 Constitutional: Negative for body aches, chills, fever. cp 13:55 Cardiovascular: Negative for chest pain. cp 13:55 Respiratory: Negative for cough, shortness of breath. 13:55 Abdomen/GI: Negative for vomiting, diarrhea, constipation. 13:55 : Positive for suprapubic catheter. 13:55 Neuro: Negative for altered mental status, weakness. 13:55 All other systems are negative. Exam: 14:00 Constitutional: The patient appears in no acute distress, alert, awake, non-toxic, well cp developed, well nourished. 14:00 Head/Face: Normocephalic, atraumatic. cp 14:00 Eyes: Periorbital structures: appear normal, Pupils: equal, round, and reactive to light and accomodation, Extraocular movements: intact throughout, Lids and lashes: appear normal, bilaterally. 14:00 Chest/axilla: Inspection: normal, Palpation: is normal, no crepitus, no tenderness. 14:00 Cardiovascular: Rate: normal, Rhythm: regular, Edema: is not appreciated, JVD: is not appreciated. 14:00 Respiratory: the patient does not display signs of respiratory distress, Respirations: normal, no use of accessory muscles, no retractions, labored breathing, is not present, Breath sounds: are clear throughout, no decreased breath sounds, no stridor, no wheezing. 14:00 Abdomen/GI: Inspection: abdomen appears normal, Bowel sounds: active, all quadrants, Palpation: soft, in all quadrants, mild abdominal tenderness, in the suprapubic area, noted suprapubic catheter with mild surrounding erythema and mild drainage from site. 14:00 Back: pain, is absent. 14:00 Neuro: Orientation: to person, place \T\ time. Mentation: is normal. Vital Signs: 13:06 BP 119 / 72; Pulse 80; Resp 18; Temp 97.8(O); Pulse Ox 98% on R/A; ph 14:37 BP 106 / 80; Pulse 70; Resp 16; Pulse Ox 94% on R/A; ph 16:09 BP 101 / 44; Pulse 66; Resp 16; Pulse Ox 95% on R/A; ph 17:00 BP 114 / 52; Pulse 68; Resp 18; Pulse Ox 96% on R/A; ph 18:00 BP 119 / 50; Pulse 67; Resp 16; Pulse Ox 95% on R/A; ph 19:25 BP 142 / 68; Pulse 78; Resp 16 S; Temp 98(O); Pulse Ox 97% on R/A; bb 16:09 pt asleep at this time ph MDM: 14:07 Patient medically screened. cp 16:20 Data reviewed: vital signs, nurses notes, lab test result(s), EKG, radiologic studies. cp 08/29 13:55 Order name: CBC with Diff; Complete Time: 15:59 cp 08/29 15:31 Interpretation: Normal except: WBC 1.1; RBC 3.57; HGB 8.8; HCT 27.0; MCV 75.4; MCH cp 24.7; RDW 17.7; MPV 7.4; SOFIA% 19.9; LYM% 51.9; MN% 22.2; EOSINOPHIL % 5.2; NEUT A 0.2; LYMA 0.6. 08/29 13:55 Order name: Procalcitonin; Complete Time: 16:09 cp 08/29 16:09 Interpretation: Within normal limits: Procalcitonin < 0.05. cp 08/29 13:55 Order name: Lactate; Complete Time: 15:17 cp 08/29 13:55 Order name: LFT's; Complete Time: 15:30 cp 08/29 15:30 Interpretation: Normal except: AST 9; ALT 11; ALB 2.1; GLOB 4.4; A/G 0.5. cp 08/29 13:55 Order name: Lipase; Complete Time: 15:30 cp 08/29 13:55 Order name: BMP; Complete Time: 15:30 cp 08/29 15:30 Interpretation: Normal except: CRE 0.34; CA 7.7. cp 08/29 13:55 Order name: Blood Culture Adult (2) 08/29 13:55 Order name: Wound Culture: urostomy site 08/29 13:55 Order name: Urine Culture 08/29 13:55 Order name: Urine Microscopic Only 08/29 13:55 Order name: CPK; Complete Time: 15:30 cp 08/29 13:55 Order name: Troponin I; Complete Time: 15:30 cp 08/29 15:37 Order name: CBC Smear Scan; Complete Time: 15:59 EDMS 08/29 18:18 Order name: Urine Dipstick--Ancillary (enter results) 08/29 13:55 Order name: IV; Complete Time: 14:29 cp 08/29 13:55 Order name: Urine Dipstick-Ancillary (obtain specimen); Complete Time: 15:59 08/29 13:55 Order name: EKG - Nurse/Tech; Complete Time: 19:05 cp Administered Medications: 14:20 Drug: NS 0.9% 500 ml Route: IV; Rate: 500 ml/hr; Site: left upper arm; ph 19:05 Follow up: Response: No adverse reaction; IV Status: Completed infusion; IV Intake: ph 500ml 14:20 Drug: fentaNYL (PF) 25 mcg Route: IVP; Site: left upper arm; ph 15:59 Follow up: Response: No adverse reaction; Pain is decreased ph 14:20 Drug: Zofran (Ondansetron) 4 mg Route: IVP; Site: left upper arm; ph 15:59 Follow up: Response: No adverse reaction ph Disposition: 08/30 06:59 Co-signature as Attending Physician, Joaquin Scott MD. rn Disposition: 08/29/20 16:23 Discharged to Home. Impression: Cellulitis of abdominal wall, Urinary tract infection, site not specified. - Condition is Stable. - Discharge Instructions: Cellulitis, Adult, Urinary Tract Infection, Adult. - Prescriptions for Bactrim DS 800- 160 mg Oral Tablet - take 1 tablet by ORAL route every 12 hours for 10 days; 20 tablet. - Medication Reconciliation Form, Thank You Letter, Antibiotic Education, Prescription Opioid Use form. - Follow up: Bandar Zelaya MD; When: 2 - 3 days; Reason: Recheck today's complaints. - Problem is new. - Symptoms have improved. Addendum: 08/31/2020 09:15 Addendum: Pt's wound culture grew back MRSA, checked prescription, prescribed bactrim. .r n Signatures: Dispatcher [employer] EDMS Sapna Lara RN RN Joaquin Scott MD MD rn Hall, Patricia, RN RN ph Page, Carlyle, PA PA cp Corrections: (The following items were deleted from the chart) 08/29 15:30 15:30 Normal except: CRE 0.34. cp cp 15:31 15:17 Normal except: WBC 1.1; RBC 3.57; HGB 8.8; HCT 27.0; MCV 75.4; MCH 24.7; RDW cp 17.7; MPV 7.4; SOFIA% 19.9; LYM% 51.9; MN% 22.2; EOSINOPHIL % 5.2; NEUT A 0.2. cp 19:52 16:23 08/29/2020 16:23 Discharged to Home. Impression: Cellulitis of abdominal wall; fc Urinary tract infection, site not specified. Condition is Stable. Forms are Medication Reconciliation Form, Thank You Letter, Antibiotic Education, Prescription Opioid Use. Follow up: Bandar Zelaya; When: 2 - 3 days; Reason: Recheck today's complaints. Problem is new. Symptoms have improved. cp
--- NOTE | 2020-08-29 16:24 | ER ---
Nurse's Notes [facility] Name: Jayesh Leavitt Age: 74 yrs Sex: Female : 1945 Arrival Date: 08/29/2020 Time: 13:05 Bed 18 Private MD: Diagnosis: Cellulitis of abdominal wall;Urinary tract infection, site not specified Presentation: 08/29 13:06 Chief complaint: EMS states: Pt w/ suprapubic catheter, c/o pain and leaking from site, ph site red and excoriated, family states that pt was seen yesterday at [facility], dx w/ UTI and given antibiotics, however, according to family and pt no urine was collected and site was not examined. VSS, no fever, pt non-ambulatory, A\\T\\O x 4. Coronavirus screen: Client denies travel out of the [place] in the last 14 days. At this time, the client does not indicate any symptoms associated with coronavirus-19. Ebola Screen: No symptoms or risks identified at this time. Initial Sepsis Screen: Does the patient meet any 2 criteria? No. Patient's initial sepsis screen is negative. Does the patient have a suspected source of infection? Yes: Catheter related infection ([place]/dialysis/PICC/central line). Risk Assessment: Do you want to hurt yourself or someone else? Patient reports no desire to harm self or others. Onset of symptoms was August 29, 2020. 13:06 Method Of Arrival: EMS: [facility] ph 13:06 Acuity: VELVET 3 ph Historical: - Allergies: 13:15 shrimp; ph - PMHx: 13:15 Anemia; Arthritis; Crohn's; Diabetes - NIDDM; Hypertension; Hypothyroidism; Rheumatoid ph Arthritis; - PSHx: 13:15 suprapubic catheter; ph - Immunization history:: Adult Immunizations unknown. - Social history:: Smoking status: Patient denies any tobacco usage or history of. Screenin:15 Abuse screen: Denies threats or abuse. Denies injuries from another. Nutritional ph screening: No deficits noted. Tuberculosis screening: No symptoms or risk factors identified. Fall Risk No fall in past 12 months (0 pts). Secondary diagnosis (15 points) impaired mobility. Fall Risk IV access (20 points). Ambulatory Aid- None/Bed Rest/Nurse Assist (0 pts). Gait- Normal/Bed Rest/Wheelchair (0 pts) Mental Status- Oriented to own ability (0 pts). Assessment: 13:30 General: Appears in no apparent distress. uncomfortable, Behavior is calm, cooperative, ph appropriate for age, Denies fever. Pain: Complains of pain in suprapubic area and low back. Neuro: Level of Consciousness is awake, alert, obeys commands, Oriented to person, place, time, situation. Cardiovascular: Capillary refill < 3 seconds in bilateral fingers Patient's skin is warm and dry. Respiratory: Airway is patent Respiratory effort is even, unlabored. GI: No signs and/or symptoms were reported involving the gastrointestinal system. : suprapubic catheter in place to gravity drainage wound that is red w/ drainage noted to insertion site Reports pain in suprapubic area. Derm: Skin is fragile, is thin. Musculoskeletal: Circulation, motion, and sensation intact. 14:33 Reassessment: Lab at bedside for blood draw, wound culture collected, catheter drainage ph bag replaced so that clean sample can be collected. 16:00 Reassessment: Patient appears in no apparent distress at this time. Patient and/or ph family updated on plan of care and expected duration. Pain level reassessed. Patient is alert, oriented x 3, equal unlabored respirations, skin warm/dry/pink. 16:53 Reassessment: Patient appears in no apparent distress at this time. Patient and/or ph family updated on plan of care and expected duration. Pain level reassessed. Patient is alert, oriented x 3, equal unlabored respirations, skin warm/dry/pink. 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 18:10 Reassessment: Spoke w/ pt's daughter in law who is also caregiver, informed her that pt ph has been placed up for d/c and needs to follow up w/ urologist, states, " Isn't there anything that she can be admitted for? We are trying to get her placed in a intermediate because she is hard for me to care for on my own." Informed DIL that pt did not meet admission criteria, she then stated, " Well, I'll have her daughter call up there and speak w/ you in a few minutes.". 18:30 Reassessment: Spoke w/ pt's daughter who states that they are trying to have her placed ph in a intermediate but that she understands the diagnosis and d/c instructions, states, " I have to work tonight but my brother will come and pick her up around 7 (pm).". 19:24 General: Appears in no apparent distress. pt eating crackers. Neuro: Level of bb Consciousness is awake, alert, obeys commands, Oriented to person, place, situation. Cardiovascular: Capillary refill < 3 seconds Patient's skin is warm and dry. Respiratory: Respiratory effort is even, unlabored, Respiratory pattern is regular. GI: No signs and/or symptoms were reported involving the gastrointestinal system. : suprapubic catheter in place to gravity drainage pt awaiting arrival of family member for transportation home. Derm: Skin is pink, warm \\T\\ dry. Musculoskeletal: Circulation, motion, and sensation intact. Vital Signs: 13:06 BP 119 / 72; Pulse 80; Resp 18; Temp 97.8(O); Pulse Ox 98% on R/A; ph 14:37 BP 106 / 80; Pulse 70; Resp 16; Pulse Ox 94% on R/A; ph 16:09 BP 101 / 44; Pulse 66; Resp 16; Pulse Ox 95% on R/A; ph 17:00 BP 114 / 52; Pulse 68; Resp 18; Pulse Ox 96% on R/A; ph 18:00 BP 119 / 50; Pulse 67; Resp 16; Pulse Ox 95% on R/A; ph 19:25 BP 142 / 68; Pulse 78; Resp 16 S; Temp 98(O); Pulse Ox 97% on R/A; bb 16:09 pt asleep at this time ph ED Course: 13:05 Patient arrived in ED. ph 13:14 Triage completed. ph 13:17 Lisa Garner, RN is Primary Nurse. ph 13:18 Arm band placed on Patient placed in an exam room, on a stretcher, on pulse oximetry. ph 13:18 Patient has correct armband on for positive identification. Bed in low position. Call ph light in reach. Side rails up X2. Pulse ox on. NIBP on. Door closed. Noise minimized. Warm blanket given. 13:34 Page, Carlyle, [facility]. cp 13:34 Joaquin Scott MD is Attending Physician. cp 14:38 Maintain EMS IV. Dressing intact. Site clean \\T\\ dry. Gauge \\T\\ site: 20 KEVIN. ph 16:22 Bandar Zelaya MD is Referral Physician. cp 18:40 No provider procedures requiring assistance completed. IV discontinued, intact, ph bleeding controlled, No redness/swelling at site. Pressure dressing applied. Administered Medications: 14:20 Drug: NS 0.9% 500 ml Route: IV; Rate: 500 ml/hr; Site: left upper arm; ph 19:05 Follow up: Response: No adverse reaction; IV Status: Completed infusion; IV Intake: ph 500ml 14:20 Drug: fentaNYL (PF) 25 mcg Route: IVP; Site: left upper arm; ph 15:59 Follow up: Response: No adverse reaction; Pain is decreased ph 14:20 Drug: Zofran (Ondansetron) 4 mg Route: IVP; Site: left upper arm; ph 15:59 Follow up: Response: No adverse reaction ph Intake: 19:05 IV: 500ml; Total: 500ml. ph Outcome: 16:23 Discharge ordered by MD. cp 19:52 Patient left the ED. fc 19:55 Discharged to home via wheelchair, with family. bb 19:55 Condition: stable 19:55 Discharge instructions given to patient, family, Instructed on discharge instructions, follow up and referral plans. medication usage, Demonstrated understanding of instructions, follow-up care, medications, Prescriptions given X 1. Addendum: 09/01/2020 07:25 Addendum: Culture Results: Positive wound culture. No further action required. Bacteria e b sensitive to prescribed antibiotic. 09/04/2020 08:54 Addendum: Culture Results: Positive urine culture. Phone call Attempt #1 left [email or web address] [email or web address] Signatures: Sapna Lara RN RN fc Kathryn Villeda RN RN bb Cheyenne Page RN RN aa5 Lisa Garner RN RN Carlyle Bonilla PA PA cp Leia Gonzales Corrections: (The following items were deleted from the chart) 08/29 18:40 16:53 Reassessment: Patient appears in no apparent distress at this time. Patient ph and/or family updated on plan of care and expected duration. Pain level reassessed. Patient is alert, oriented x 3, equal unlabored respirations, skin warm/dry/pink. 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 No further action eb required. Bacteria sensitive to prescribed antibiotic. eb
[2020-08-29 17:14] LABS: Urine Bacteria 20-50 /HPF (<20); Urine Culture Reflex Order NOT NEEDED; Urine Mucus 1+ /HPF (NONE SEEN); Urine RBC <5 /HPF (NONE SEEN); Urine Yeast PRESENT (NONE SEEN)
[2020-08-29 19:19] LABS: Urine Glucose NEGATIVE (NEG); Urine Specific Gravity 1.025 (1.005-1.030)
[2020-08-29 19:20] LABS: Urine Blood TRACE (NEG); Urine Protein 1+ (NEG); Urine pH 5.5 (5.0-7.0)
[2020-08-29 20:24] VITALS: BP 142/68; TEMP 98; O2SAT 97
--- OUTSIDE RECORDS SUMMARY | 2020-08-31 14:52 | XMS REPORT | Continuity of Care Document ---
:1945 Author Organization [facility] Care Team Providers Name Role Phone [facility] Unavailable Un available Problems Problem Status Onset Classification Date Comments Sourc e Date Reported DISTAL RIGHT FEMUR Active 05/16/20 M [facility] FRACTURE 19 Medical Center DISTAL RIGHT FEMUR Active 05/16/20 M [facility] FRACTURE,S/P FALL 19 [facility] Displaced 12/16/19 03/14/2018 [facility] supracondylar 18 Medica l fracture without [address] ter intracondylar extension of lower end of left femur, initial encounter for closed fracture LT FEMUR FRACTURE, Active 11/28/19 [facility] GETTING IN CAR AND 18 M edical Center CLOSED COMMINUTED Active 11/28/19 [facility] INTRA-ARTICULAR FX 18 M edical Center Crohn's disease Resolved Problem 05/23/2019 [facility] (disorder) Medical [place] Hypothyroidism Resolved Problem 05/23/2019 [facility] [place] (disorder) [facility] Center Rheumatoid Resolved Problem 05/23/2019 [facility] arthritis Medical (disorder) Center Diabetes mellitus Resolved Problem 05/23/2019 [facility] type 2 (disorder) [facility] Crohn's disease, 03/14/2018 [facility] unspecified, Medical without Center complications Acute kidney 03/14/2018 [place] [facility] failure, Medical unspecified Center Type 2 diabetes 03/14/2018 [facility] mellitus with Medica l hyperglycemia Center Periprosthetic 03/14/2018 [facility] [place] fracture around [facility] internal Center prosthetic left hip joint, initial encounter Acute 03/14/2018 [facility] posthemorrhagic [facility] anemia Center Rheumatoid 03/14/2018 [facility] arthritis, Medical unspecified Center Fall on same 03/14/2018 [place] level, Medical unspecified, Center initial encounter Vitamin D 03/14/2018 [facility] deficiency, Medical unspecified Center Leukopenia Active Problem 05/23/2019 [facility] (disorder) Medical Center OTH FRACTURE OF [place] LOWER END OF UNSP [facility] dical FEMUR, Center DISPLACED Active [facility] COMMINUTED Medical FRACTURE OF SHAFT Ce nter O Medications Medication Details Route Status Patient Ordering Order Source Instructions Provider Date melatonin 3 mg 3 mg = 1 tab, PO, Active [place] oral tablet Bedtime, PRN 2019 Medical Sleep, 0 Refill(s) Cente r Acetaminophen 1,000 mg = 2 tab, Active [place] 500 MG Oral PO, Q6Hnow, 0 2018 Medica l Tablet Refill(s) Center tramadol 50 mg = 1 tab, PO, Active [place] hydrochloride 50 Q6H, 0 Refill(s) 2019 Medical MG Oral Tablet Center sennosides, LONG-TERM 17.2 mg = 2 tab, Active [place] 8.6 MG Oral PO, Bedtime, 0 2018 Medic al Tablet Refill(s) Center pantoprazole 40 40 mg = 1 tab, PO, Active 05/21 [facility] mg oral enteric Before Breakfast, 2019 Medical coated tablet 0 Refill(s) Center methocarbamol 500 mg = 1 tab, Active [place] 500 mg oral PO, TID, PRN 2019 Medical tablet Muscle Spasms, 0 Center Refill(s) Enoxaparin 40 mg = 0.4 mL, [place] SUB-Q, [id number], 0 2018 Medic al Refill(s) Center Ergocalciferol 50,000 IntlUnit = Active [place] [address] UNT Oral 1 cap, PO, QMon, 0 2018 Medical Capsule Refill(s) Center levofloxacin 500 500 mg = 1 tab, Active [facility] mg oral tablet PO, [id number], 0 2018 Me dical Refill(s) Center Paroxetine 10 mg = 1 tab, PO, Active [place] Hydrochloride 10 Daily, 0 Refill(s) 2019 Medical MG Oral Tablet Center Benadryl Notes: (Same as: No Longer [place] Benadryl) Active 2019 Medical Center Tramadol Notes: Not to [place] exceed 400mg/day. Active 2018 Medica l (Same As: Ultram) Center Robaxin Notes: (Same No Longer [place] as:Robaxin) Active 2019 Medical Center Codeine 30 mg, 1 tab, No Longer [place] Route: PO, Drug Active 2019 Medical form: TAB, Q4H, Center Dosing Weight 72.727, kg, PRN Pain Score 7-10, Start date: 05/19/19 8:15:00 CDT, Duration: 30 day, Stop date: 06/18/19 8:14:00 CDT, 0 Levofloxacin 500 mg, 1 tab, No Longer [place] Route: PO, Drug Active 2019 Medical form: TAB, Center [id number], Dosing Weight 72.727, kg, Start date: 05/18/19 22:00:00 CDT, Duration: 5 day, Stop date: 05/22/19 22:00:00 CDT, ABX Indication: Immunocompromised Host Prophylaxis, 0 Thyroxine Notes: Take 1 hour No Longer [facility] [place] before or 2 hours Active 2019 Medica l after meal; Center Enteral feeds may interefere with the absorption of this medication. (Same as:Levothroid, Synthroid) sennosides, LONG-TERM 17.2 mg, 2 tab, Inactive [place] 8.6 MG Oral Route: PO, Drug 2019 Medi fran Tablet Form: TAB, Dosing Center Weight 72.727, kg, Bedtime, Start date: 05/17/19 21:00:00 CDT, Duration: 30 day, Stop date: 06/15/19 21:00:00 CDT Melatonin Notes: (Same as: No Longer [place] Melatonin) Active 2019 [facility] Ancef Notes: (Same as No Longer [place] Anc) Active 2019 [facility] acetaminophen Route: IV, Drug Inactive [facility] (ANES) form: INJ, ONCE, 2018 Medical Stop date: [place] 05/17/19 11:20:00 CDT neostigmine Route: IV, Drug Inactive [place] (ANES) form: INJ, ONCE, 2018 Medical Stop date: [place] 05/17/19 11:09:00 CDT glycopyrrolate Route: IV, Drug Inactive [place] (ANES) form: INJ, ONCE, 2018 Medical Stop date: [place] 05/17/19 11:09:00 CDT ondansetron Route: IV, Drug Inactive [facility] (ANES) form: INJ, ONCE, 2018 Medical Stop date: [place] 05/17/19 11:09:00 CDT propofol (ANES) Route: IV, Drug Inactive 05/17[facility] form: INJ, ONCE, 2018 Medical Stop date: [place] 05/17/19 11:04:00 CDT Naloxone Notes: Same as Inactive 05/17[facility] [place] Narcan 2019 Medical Center Hydromorphone Notes: Same as: Inactive 05/17[facility] Dilaudid 2019 Medical Center Flumazenil Notes: (Same as: Inactive 05/17[facility] Romazicon) 2019 Medical Center Oxycodone Notes: (Same as: Inactive 05/17[facility] [place] Hydrochloride 5 Roxicodone) 2019 Medi fran MG Oral Tablet Center Acetaminophen Notes: Max Inactive 05/17[facility] [place] acetaminophen 4000 2019 Medic al mg/day (4 gm/day). Teodoro barrera (Same as: Tylenol Extra Strength) Fentanyl Notes: (Same as: Inactive 05/17[facility] [place] Sublimaze) 2019 Medical Preservative free. Teodoro barrera Ondansetron Notes: (Same as: Inactive 05/17[facility] Zofran) 2019 Medical MEDICATION WASTE Center Product Size: 4 mg Product Wasted: ___ mg fentaNYL (ANES) Route: IV, Drug Inactive 05/17[facility] form: INJ, ONCE, 2018 Medical Stop date: [place] 05/17/19 9:26:00 CDT ceFAZolin (ANES) Route: IV, Drug Inactive 05/17[facility] form: INJ, ONCE, 2018 Medical Stop date: [place] 05/17/19 9:16:00 CDT phenylephrine Route: IV, Drug Inactive 05/17[facility] [place] (ANES) form: INJ, ONCE, 2018 Medical Stop date: [place] 05/17/19 9:11:00 CDT Ergocalciferol Notes: (Same as: No Longer 05/17[facility] [address] UNT Oral Vitamin D) "Do Active 2018 M edical Capsule Not Crush" [place] Docusate Sodium Notes: (Same as: No Longer 05/17 [facility] 100 MG Oral Colace) (Do Not Active 2018 Medi fran Capsule Crush) Center Paroxetine Notes: (Same as: No Longer 05/17[facility] Paxil) Active 2019 Medical Center pantoprazole Notes: Tablet No Longer [place] should not be Active 2019 Medical chewed or crushed. Te[place] r (Same as: Protonix) Ergocalciferol 50,000 IntlUnit, Inactive [place] Route: PO, Drug 2019 Medical form: TAB, Daily, Center Dosing Weight 72.727, kg, Start date: 05/17/19 9:00:00 CDT, Duration: 30 day, Stop date: 06/15/19 9:00:00 CDT oxybutynin 5 mg, Route: PO, No Longer [place] Drug form: TAB, Active 2019 Medical BID, Dosing Weight Teodoro barrera 72.727, kg, Start date: 05/17/19 9:00:00 CDT, Duration: 30 day, Stop date: 06/15/19 17:00:00 CDT pantoprazole 40 40 mg = 1 tab, PO, Inactive 04/25 [place] mg oral enteric Daily, # 30 tab, 0 2019 Medical coated tablet Refill(s) Center lisinopril 40 mg 40 mg = 1 tab, PO, Inactive [facility] oral tablet Daily, # 30 tab, 0 2019 M edical Refill(s) Center oxybutynin 5 mg 5 mg = 1 tab, PO, Inactive 05/17 [place] oral tablet BID, # 60 tab, 1 2019 Med ical Refill(s) Center gabapentin 600 600 mg = 1 tab, Inactive [place] MG Oral Tablet PO, TID, # 270 2019 Me dical tab, 0 Refill(s) Center predniSONE 5 mg 5 mg = 1 tab, PO, Inactive 05/17 [place] oral tablet Daily, Give with 2019 Med ical food., # 7 tab, 0 Center Refill(s) leflunomide 20 20 mg = 1 tab, PO, Inactive 05/17 [facility] mg oral tablet Daily, # 30 tab, 0 2019 Medical Refill(s) Center Paroxetine TAKE 1 TABLET BY No Longer [place] Hydrochloride 10 MOUTH ONCE DAILY Active 2019 Medical MG Oral Tablet IN THE MORNING Ce nter Bisacodyl Notes: (Same As: No Longer [place] Dulcolax, Active 2018 Medical Bisco-Lax) Center rocuronium Route: IV, Drug Inactive [place] (ANES) form: INJ, ONCE, 2018 Medical Stop date: [place] 05/17/19 8:36:00 CDT lidocaine (ANES) Route: IV, Drug Inactive [facility] form: INJ, ONCE, 2018 Medical Stop date: [place] 05/17/19 8:36:00 CDT fentaNYL (ANES) Route: IV, Drug Inactive [facility] form: INJ, ONCE, 2018 Medical Stop date: [place] 05/17/19 8:31:00 CDT propofol (ANES) Route: IV, Drug Inactive [facility] form: INJ, ONCE, 2018 Medical Stop date: [place] 05/17/19 8:31:00 CDT ceFAZolin (ANES) Route: IV, Drug Inactive [facility] form: INJ, ONCE, 2018 Medical Stop date: [place] 05/17/19 8:26:00 CDT Lactated Ringers Route: IV, Total Inactive 05/17 [facility] Injection IV Volume: 1,000, 2019 Medi fran (ANES) 1000 mL Start date: Cente r 05/17/19 7:34:00 CDT, Stop date: 05/17/19 8:34:00 CDT Enoxaparin Notes: (Same as: No Longer [facility] Lovenox) Active 2019 [facility] Calcium Chloride 1,000 mL, Rate: 75 No Longer [facility] 0.0014 MEQ/ML / ml/hr, Infuse Active [address] [place] [address] dical Potassium over: 13.3 hr, [place] Chloride 0.004 Route: IV, Dosing MEQ/ML / Sodium Weight 72.727 kg, Chloride 0.103 Total Volume: MEQ/ML / Sodium 1,000, Start date: Lactate 0.028 05/16/19 22:31:00 MEQ/ML CDT, Duration: 30 Injectable day, Stop date: Solution 06/15/19 22:30:00 CDT, 1.84, m2 sennosides, LONG-TERM Notes: (Same as: No Longer 05/17 [facility] Senokot) Active 2019 [facility] Acetaminophen Notes: Max [place] Long[place] acetaminophen 4000 Active 2019 Medic al mg/day (4 gm/day). [place] r (Same as: Tylenol Extra Strength) gabapentin Notes: (Same as: Inactive [facility] Neurontin) 2019 Medical Center Oxycodone Notes: (Same as: No Longer [facility] Hydrochloride 5 Roxicodone) Active 2019 Medi fran MG Oral Tablet Center Morphine Notes: (Same No Longer [facility] as:MORPhine Active 2019 [facility] Sulfate) Center Ondansetron Notes: (Same as: No Longer [facility] Zofran) Active 2019 Medical MEDICATION WASTE Center Product Size: 4 mg Product Wasted: ___ mg Glucagon 1 mg, Route: IM, No Longer [place] Drug form: Active 2019 Medical PDR/INJ, PRN, Center Dosing Weight 72.727, kg, PRN Blood Glucose Results, Start date: 05/16/19 15:48:00 CDT, Duration: 30 day, Stop date: 06/15/19 15:47:00 CDT Dextrose 50% 25 gm, 50 mL, No Longer [facility] Syringe Route: IVP, Drug Active 2019 Medical Form: INJ, Dosing Center Weight 72.727, kg, PRN, PRN Blood Glucose Results, Start date: 05/16/19 15:48:00 CDT, Duration: 30 day, Stop date: 06/15/19 15:47:00 CDT Dilaudid 0.5 mg, Route: [place] IVP, ONCE, Dosing 2019 Medica l Weight 72.727, kg, Cente r Priority: STAT, Start date: 05/16/19 14:10:00 CDT, Stop date: 05/16/19 14:10:00 CDT Tramadol 50 kg, Priority: Inactive [place] STAT, Start date: 2018 Medica l 05/16/19 14:03:00 Center CDT, Stop date: 05/16/19 14:03:00 CDT gabapentin 300 mg, Route: PO, Inactive [facility] ONCE, Dosing 2019 Medical Weight 72.727, kg, Cente r Start date: 05/16/19 14:03:00 CDT, Stop date: 05/16/19 14:03:00 CDT Acetaminophen 650 mg, Route: PO, Inactive [facility] [place] Drug form: TAB, 2019 Medical ONCE, Dosing Center Weight 72.727, kg, Priority: STAT, Start date: 05/16/19 14:03:00 CDT, Stop date: 05/16/19 14:03:00 CDT Dilaudid 0.5 mg, Route: Inactive [place] IVP, ONCE, Dosing 2019 Medica l Weight 72.727, kg, Cente r Priority: STAT, Start date: 05/16/19 11:37:00 CDT, Stop date: 05/16/19 11:37:00 CDT Zofran 4 mg, Route: IVP, Inactive [place] Drug form: INJ, 2019 Medical ONCE, Dosing Center Weight 72.727, kg, Priority: STAT, Start date: 05/16/19 11:03:00 CDT, Stop date: 05/16/19 11:03:00 CDT Morphine 4 mg, Route: IVP, Inactive [place] ONCE, Dosing 2019 Medical Weight 72.727, kg, Cente r Priority: STAT, Start date: 05/16/19 11:03:00 CDT, Stop date: 05/16/19 11:03:00 CDT tramadol 50 mg = 1 tab, PO, No Longer [place] hydrochloride 50 Q6H, PRN Pain Active 2018 M edical MG Oral Tablet Score 6-10, X 7 C enter day, # 28 tab, 0 Refill(s) senna 8.6 mg 17.2 mg = 2 tab, Active [place] oral tablet PO, Bedtime, 0 2017 Medic al Refill(s) [place] bisacodyl 10 mg 10 mg = 1 supp, Active [place] rectal MN, Daily, PRN 2018 Medical suppository Constipation, 0 Cent er Refill(s) Docusate Sodium 100 mg = 1 cap, Active [place] 100 MG Oral PO, BID, 0 2017 Medical Capsule Refill(s) [place] Ergocalciferol 50,000 IntlUnit = Active [place] [address] UNT Oral 1 cap, PO, Q7D, 0 2017 Medical Capsule Refill(s) [place] Enoxaparin 30 mg = 0.3 mL, Active [place] SUB-Q, [id number], 2018 Medical STOP DATE IS Center 12/20/17, 0 Refill(s) sennosides, LONG-TERM 17.2 mg = 2 tab, Active [place] 8.6 MG Oral PO, Bedtime, 0 2018 Medic al Tablet Refill(s) Center Prednisone Notes: (Same as: Inactive [place] PredniSONE) Take 2018 Medica l with food. Center Ergocalciferol Notes: (Same as: No Longer [place] [address] UNT Oral Vitamin D) "Do Active 2017 edical Capsule Not Crush" [place] Sodium Chloride 250 mL, Rate: On No Longer 12/02 [place] 0.9% (titrate) call for use with [address] 250 mL blood product [place] administration, Dosing Weight 74.091, kg, Route: IV, Total Volume: 250, Start Date: 12/02/17 7:41:00 INTERNET SALES REPRESENTATIVE, Duration: 1 day, Stop date: 12/03/17 7:40:00 INTERNET SALES REPRESENTATIVE, Replace Every: 24 hr Metformin 500 mg = 1 tab, No Longer [place] hydrochloride PO, BID-Meals, # Active 2017 edical 500 MG Oral 180 tab, 0 [place] Tablet Refill(s) lisinopril 40 mg 40 mg = 1 tab, PO, No Longer [place] oral tablet Daily, # 30 tab, 0 Active 2017 edical Refill(s) [place] Acetaminophen 1 tab, PO, Q6H, No Longer [facility] 300 MG / Codeine PRN pain, # 28 tab Active 2018 [facility] Phosphate 60 MG [place] Oral Tablet predniSONE 20 mg 10 mg = 0.5 tab, No Longer [facility] oral tablet PO, Daily Active 2018 [facility] Synthroid Notes: Take 1 hour No Longer H [place] before or 2 hours Active 2018 Medica l after meal; Center Enteral feeds may interefere with the absorption of this medication. (Same as:Levothroid, Synthroid) Prednisone Notes: Take with No Longer [place] food. Active 2018 [facility] Calcium Notes: (calcium No Longer [place] Carbonate 1250 carbonate-vit D Active 2018 edical MG / 500mg-400unit chew Cente r Cholecalciferol TAB) Same as: 400 UNT Chewable Oscal 500+D Tablet Sodium Chloride 250 mL, Rate: On No Longer 11/30 [facility] 0.9% (titrate) call for use with Active [address] [place] [address] 250 mL blood product Center administration, Dosing Weight 74.091, kg, Route: IV, Total Volume: 250, Start Date: 11/30/17 7:26:00 INTERNET SALES REPRESENTATIVE, Duration: 30 day, Stop date: 12/30/17 7:25:00 INTERNET SALES REPRESENTATIVE, Replace Every: 24 hr Ancef + sterile Notes: (Same As: No Longer 11/30 [facility] water 20 mL Ancef, Kefzol) Active 2018 Medic al MEDICATION Center WASTE Product Size: 1000 mg Product Wasted: ___ mg sennosides, LONG-TERM Notes: (Same as: No Longer 11/30 [place] Senokot) Active 2018 Medical Center Cefazolin Notes: (Same As: Inactive [place] Ancef, Kefzol) 2018 Medical MEDICATION Center WASTE Product Size: 1000 mg Product Wasted: ___ mg Enoxaparin Notes: (Same as: No Longer [place] Lovenox) Active [address] [place] [address] Isolyte S PH 7.4 Notes: (Same as: Inactive 11/29 [facility] 500 mL [place]te S PH7.4) 2018 [facility] Sodium Chloride 500 mL, 250 ml/hr, Inactive [facility] 0.9% (Bolus) IV Infuse Over: 1 hr, 2018 Medical Route: IV, ONCE, Center Priority: Routine, Dosing Weight 74.091 kg, Start date: 11/29/17 17:10:00 INTERNET SALES REPRESENTATIVE, Stop date: 11/29/17 17:10:00 INTERNET SALES REPRESENTATIVE hydromorphone Route: IV, Drug Inactive H [place] (ANES) form: INJ, ONCE, 2017 Medical Stop date: [place] 11/29/17 13:02:00 INTERNET SALES REPRESENTATIVE acetaminophen Route: IV, Drug Inactive H [place] (ANES) form: INJ, ONCE, 2018 Medical Stop date: [place] 11/29/17 12:47:00 INTERNET SALES REPRESENTATIVE hydrocortisone Route: IV, Drug Inactive [facility] (ANES) form: INJ, ONCE, 2018 Medical Stop date: [place] 11/29/17 12:07:00 INTERNET SALES REPRESENTATIVE norepinephrine Route: IV, Drug Inactive [place] (ANES) form: INJ, ONCE, 2017 Medical Stop date: [place] 11/29/17 12:02:00 INTERNET SALES REPRESENTATIVE phenylephrine Route: IV, Drug Inactive H [place] (ANES) form: INJ, ONCE, 2017 Medical Stop date: [place] 11/29/17 11:42:00 INTERNET SALES REPRESENTATIVE rocuronium Route: IV, Drug Inactive [place] (ANES) form: INJ, ONCE, 2017 Medical Stop date: [place] 11/29/17 11:42:00 INTERNET SALES REPRESENTATIVE fentaNYL (ANES) Route: IV, Drug Inactive [place] form: INJ, ONCE, 2017 Medical Stop date: [place] 11/29/17 11:42:00 INTERNET SALES REPRESENTATIVE ceFAZolin (ANES) Route: IV, Drug Inactive [place] form: INJ, ONCE, 2017 Medical Stop date: [place] 11/29/17 11:42:00 INTERNET SALES REPRESENTATIVE lidocaine (ANES) Route: IV, Drug Inactive [place] form: INJ, ONCE, 2017 Medical Stop date: [place] 11/29/17 11:42:00 INTERNET SALES REPRESENTATIVE propofol (ANES) Route: IV, Drug Inactive [facility] form: INJ, ONCE, 2017 Medical Stop date: [place] 11/29/17 11:42:00 INTERNET SALES REPRESENTATIVE Lactated Ringers Route: IV, Total Inactive 11/29 [facility] Injection IV Volume: 1,000, 2018 Medi fran (ANES) 1000 mL Start date: Teodoro barrera 11/29/17 10:46:00 INTERNET SALES REPRESENTATIVE, Stop date: 11/29/17 11:46:00 INTERNET SALES REPRESENTATIVE Biotene Oral Notes: Same as No Longer [place] Balance Biotene Oral Active 2018 Medical Balance Dry Mouth Center Docusate Notes: (Same as: [place] Longer [place] Colace) (Do Not Active 2018 Medical Crush) Center gabapentin 100 Notes: (Same as: No Longer [place] MG Oral Capsule Neurontin) Active 2018 Medic al Center levothyroxine 300 microgram = 1 Active [place] 300 mcg (0.3 mg) tab, PO, Daily, # 2018 Medical oral tablet 30 tab, 0 Center Refill(s) Ondansetron Notes: (Same as: No Longer [facility] Zofran) Active 2018 Medical MEDICATION WASTE Center Product Size: 4 mg Product Wasted: _0__ mg Bisacodyl Notes: (Same As: No Longer [facility] Dulcolax, Active 2018 Medical Bisco-Lax) Center tizanidine Notes: (Same As: No Longer [facility] Zanaflex) Active 2018 Medical Center Oxycodone Notes: (Same as: No Longer [facility] Hydrochloride 5 Roxicodone) Active 2018 Medi fran MG Oral Tablet Center Tramadol Notes: Not to [place] exceed 400mg/day. Active 2018 Medica l (Same As: Ultram) Center Acetaminophen Notes: Do not No Longer [facility] exceed 4 gm/day. Active 2018 Medical (Same as: Tylenol) Te[place] barrear predniSONE 20 mg 20 mg = 1 tab, PO, No Longer [facility] oral tablet Daily, # 7 tab, 0 Active 2018 Ak dical Refill(s) Center Ondansetron Notes: (Same as: Inactive [facility] Zofran) 2018 Medical MEDICATION WASTE Center Product Size: 4 mg Product Wasted: ___ mg Morphine Notes: (Same No Longer [facility] as:MORPhine Active 2018 Medical Sulfate) Center Acetaminophen Notes: (Same as: No Longer [facility] 325 MG / Milo 325/5) Do Active 2018 Medica l Hydrocodone not exceed 4gm/day C enter Bitartrate 5 MG of acetaminophen. Oral Tablet Dilaudid Notes: Same as No Longer [place] Dilaudid Active 2018 Medical Center Dilaudid 1 mg, Route: IVP, Inactive [place] ONCE, Dosing 2018 Medical Weight 68.182, kg, Teodoro barrera Priority: STAT, Start date: 11/29/17 4:09:00 INTERNET SALES REPRESENTATIVE, Stop date: 11/29/17 4:09:00 INTERNET SALES REPRESENTATIVE Zofrfuad Notes: (Same as: Inactive [place] Zofran) 2018 Medical MEDICATION WASTE Center Product Size: 4 mg Product Wasted: ___ mg Morphine Notes: (Same Inactive [facility] as:MORPhine 2018 Medical Sulfate) Center Saline Flush Notes: Same as: BD No Longer [facility] 0.9% Posiflush Sterile Active 2018 Medica l Center Allergies, Adverse Reactions, Alerts Substance Category Reaction Severity Reaction Status Date Comments S ource type Reported gabapentin< Assertion Drug Active pt states [facility] sup>1</sup> allergy having Medi fran severe Center confusion and agitation with med Immunizations No Data Provided for This Section Results Order Name Results Value Reference Date Interpretation Comments Tali rce Range ELECTROLYTE AGAP 7.8 10.0 - 05/21 [facility] S 20.0 [facility] ELECTROLYTE eGFR 118 05/21 Result [facility] Comment: The Medical eGFR is Center calculated using the CKD-EPI formula. In most young, healthy individuals the eGFR will be >90 mL/min/1.73m2 . The eGFR declines with age. An eGFR of 60-89 may be normal in some populations, particularly the elderly, for whom the CKD-EPI formula has not been extensively validated. Use of the eGFR is not recommended in the following populations:< br/>
Elaine viduals with unstable creatinine concentration s, including patients and those with serious co-morbid conditions.<b r/>
Patie nts with extremes in muscle mass or diet.

The data above are obtained from the National Kidney Disease Education Program (NKDEP) which additionally recommends that when the eGFR is used in patients with extremes of body mass index for purposes of drug dosing, the eGFR should be multiplied by the estimated BMI. ELECTROLYTE Potassium Lvl 3.8 3.5 - 5.1 05/21 [place] [facility] ELECTROLYTE Sodium Lvl 134 135 - 145 05/21 [place] [facility] ELECTROLYTE Chloride Lvl 99 95 - 109 05/21 [place] [facility] ELECTROLYTE Glucose Lvl 89 70 - 99 05/21 [facility] 2018 [facility] ELECTROLYTE BUN 10 7 - 22 05/21 [facility] 2018 [facility] ELECTROLYTE Creatinine 0.27 0.50 - 05/21 [facility] S Lvl 1.40 [facility] ELECTROLYTE CO2 31 24 - 32 05/21 [facility] 2018 [facility] ELECTROLYTE Calcium Lvl 7.8 8.5 - 10.5 05/21 [place] [facility] HEMATOLOGY Monocytes # 0.2 0.0 - 0.8 05/21 s [facility] HEMATOLOGY Lymphocytes # 0.3 1.0 - 5.5 05/21 [facility] HEMATOLOGY Eosinophils 2.5 0.0 - 4.0 05/21 [facility] HEMATOLOGY Neutrophils # 0.2 1.5 - 8.1 05/21 [facility] HEMATOLOGY Basophils 0.8 0.0 - 1.0 05/21 [facility] HEMATOLOGY Lymphocytes 40.5 20.0 - 05/21 [place] 40.0 [facility] HEMATOLOGY Segs 29.3 45.0 - 05/21 [place] 75.0 [facility] HEMATOLOGY Monocytes 26.9 2.0 - 12.0 05/21 [facility] HEMATOLOGY MCH 29.6 27.0 - 05/21 [place] 31.0 [facility] HEMATOLOGY RDW 16.8 11.5 - 05/21 [place] 14.5 [facility] HEMATOLOGY MPV 6.9 7.4 - 10.4 05/21 [facility] HEMATOLOGY Platelet 149 133 - 450 05/21 [facility] HEMATOLOGY MCHC 34.1 32.0 - 05/21 [place] 36.0 [facility] HEMATOLOGY RBC 2.71 4.20 - 05/21 [place] 5.40 [facility] HEMATOLOGY Hgb 8.0 12.0 - 05/21 16.0 [facility] HEMATOLOGY Hct 23.5 36.0 - 05/21 [place] 48.0 [facility] HEMATOLOGY MCV 86.7 80.0 - 05/21 [place] 98.0 [facility] HEMATOLOGY WBC 0.7 3.7 - 10.4 05/21 Result Comment: [facility] Center Result(s) called to Isi Granda at 05/21/2019 05:00 byJw. Read back OK. BLOOD BANK Antibody Scrn Negative 05/20 [facility] as RESULTS (05/20/19 9:51 AM) /2018 [facility] BLOOD BANK ABO/Rh A POS 05/20 [place] RESULTS /2018 [facility] BLOOD BANK RBC product Product available 05/20 [facility] RESULTS (05/20/19 7:21 AM) /2018 [facility] CHEM PANEL BUN 11 7 - 22 05/20 [facility] CHEM PANEL Glucose Lvl 80 70 - 99 05/20 [facility]2018 [facility] CHEM PANEL Sodium Lvl 132 135 - 145 05/20 [facility]2018 [facility] CHEM PANEL Creatinine 0.32 0.50 - 05/20 [facility] Lvl 1.40 /2018 [facility] CHEM PANEL Calcium Lvl 7.6 8.5 - 10.5 05/20 [facility] CHEM PANEL eGFR 111 05/[address] [facility] Comment: The [facility] eGFR is Center calculated using the CKD-EPI formula. In most young, healthy individuals the eGFR will be >90 mL/min/1.73m2 . The eGFR declines with age. An eGFR of 60-89 may be normal in some populations, particularly the elderly, for whom the CKD-EPI formula has not been extensively validated. Use of the eGFR is not recommended in the following populations:< br/>
Elaine viduals with unstable creatinine concentration s, including patients and those with serious co-morbid conditions.<b r/>
Patie nts with extremes in muscle mass or diet.

The data above are obtained from the National Kidney Disease Education Program (NKDEP) which additionally recommends that when the eGFR is used in patients with extremes of body mass index for purposes of drug dosing, the eGFR should be multiplied by the estimated BMI. CHEM PANEL AGAP 11.0 10.0 - 05/20 [facility] 20. [facility] CHEM PANEL Chloride Lvl 100 95 - 109 05/20 [facility] CHEM PANEL CO2 25 24 - 32 05/20 [facility] CHEM PANEL Potassium Lvl 4.0 3.5 - 5.1 05/20 [facility] HEMATOLOGY Neutrophils # 0.3 1.5 - 8.1 05/20 [facility] HEMATOLOGY Basophils 0.7 0.0 - 1.0 05/20 [facility]2018 [facility] HEMATOLOGY Monocytes # 0.2 0.0 - 0.8 05/20 [facility] HEMATOLOGY Lymphocytes # 0.3 1.0 - 5.5 05/20 [facility] HEMATOLOGY Monocytes 26.5 2.0 - 12.0 05/20 [facility] HEMATOLOGY Lymphocytes 34.3 20.0 - 05/20 [place] 40.0 2019 [facility] HEMATOLOGY Eosinophils 1.8 0.0 - 4.0 [place] [facility] HEMATOLOGY Segs 36.7 45.0 - 05/20 [place] 75.0 [facility] HEMATOLOGY Platelet 131 133 - 450 05/20 [facility] HEMATOLOGY MPV 7.1 7.4 - 10.4 05/20 [facility] HEMATOLOGY RDW 17.3 11.5 - 05/20 [place] 14.5 [facility] HEMATOLOGY MCHC 33.7 32.0 - 05/20 [place] 36.0 [facility] HEMATOLOGY WBC 0.9 3.7 - 10.4 05/20 Result Comment: [facility] Result(s) called to adolph jones at 05/20/2019 05:32 byaa. Read back OK. HEMATOLOGY MCH 29.5 27.0 - 05/20 [place] 31.0 [facility] HEMATOLOGY Hct 20.8 36.0 - 05/20 [place] 48.0 [facility] HEMATOLOGY MCV 87.6 80.0 - 05/20 [place] 98.0 [facility] HEMATOLOGY RBC 2.37 4.20 - 05/20 [place] 5.40 /2018 [facility] HEMATOLOGY Hgb 7.0 12.0 - 05/20 [place] 16.0 [facility] CHEM PANEL eGFR 110 05/19 Result Comment: The Medical eGFR is Center calculated using the CKD-EPI formula. In most young, healthy individuals the eGFR will be >90 mL/min/1.73m2 . The eGFR declines with age. An eGFR of 60-89 may be normal in some populations, particularly the elderly, for whom the CKD-EPI formula has not been extensively validated. Use of the eGFR is not recommended in the following populations:< br/>
Elaine viduals with unstable creatinine concentration s, including patients and those with serious co-morbid conditions.<b r/>
Patie nts with extremes in muscle mass or diet.

The data above are obtained from the National Kidney Disease Education Program (NKDEP) which additionally recommends that when the eGFR is used in patients with extremes of body mass index for purposes of drug dosing, the eGFR should be multiplied by the estimated BMI. CHEM PANEL Sodium Lvl 132 135 - 145 05/19 [facility] CHEM PANEL Glucose Lvl 115 70 - 99 05/19 [facility] CHEM PANEL Creatinine 0.34 0.50 - 05/19 [facility] Lvl 1.40 [facility] CHEM PANEL BUN 18 7 - 22 05/19 [facility] CHEM PANEL Calcium Lvl 7.9 8.5 - 10.5 05/19 [facility] CHEM PANEL AGAP 12.0 10.0 - 05/19 20.0 [facility] CHEM PANEL CO2 26 24 - 32 05/19 [facility]2018 [facility] CHEM PANEL Chloride Lvl 98 95 - 109 05/19 [facility] CHEM PANEL Potassium Lvl 4.0 3.5 - 5.1 05/19 [facility] HEMATOLOGY Segs 47.2 45.0 - 05/19 [facility] 75.0 [facility] HEMATOLOGY Lymphocytes # 0.3 1.0 - 5.5 05/19 [facility] HEMATOLOGY Monocytes # 0.3 0.0 - 0.8 05/19 [facility] HEMATOLOGY Monocytes 25.4 2.0 - 12.0 05/19 [facility] HEMATOLOGY Eosinophils 1.2 0.0 - 4.0 05/19 [facility] HEMATOLOGY Lymphocytes 25.6 20.0 - 05/19 40.0 [facility] HEMATOLOGY Basophils 0.6 0.0 - 1.0 05/19 [facility] HEMATOLOGY Neutrophils # 0.6 1.5 - 8.1 05/19 [facility] HEMATOLOGY RBC 2.52 4.20 - 05/19 [facility] 5.40 [facility] HEMATOLOGY MCV 86.1 80.0 - 05/19 [facility] 98.0 [facility] HEMATOLOGY MCH 30.6 27.0 - 05/19 [facility] 31.0 [facility] HEMATOLOGY Platelet 129 133 - 450 05/19 [facility]2018 [facility] HEMATOLOGY Hgb 7.7 12.0 - 05/19 [place] 16.0 [facility] HEMATOLOGY WBC 1.2 3.7 - 10.4 05/19 Result [facility] Comment: [facility] Result(s) called to Brittany Sanches at 05/19/2019 05:50 by RM. Read back OK. HEMATOLOGY Hct 21.7 36.0 - 05/19 [facility] 48.0 [facility] HEMATOLOGY RDW 17.1 11.5 - 05/19 [facility] 14.5 [facility] HEMATOLOGY MCHC 35.5 32.0 - 05/19 [facility] 36.0 [facility] HEMATOLOGY MPV 7.1 7.4 - 10.4 05/19 [facility] ANEMIA Ferritin Lvl 204 5 - 204 05/18 [facility] ANEMIA Vitamin B12 320 254 - 1320 05/18 [facility] Lvl [facility] ANEMIA TIBC 170 228 - 428 05/18 [facility] ANEMIA % Satur Fe 16 12 - 57 05/18 [facility] ANEMIA UIBC 143 110 - 370 05/18 [facility] ANEMIA Iron 27 30 - 160 05/18 [facility] ANEMIA Folate Lvl 25.0 >=3.0 05/18 [facility] ng/mL [facility] HEMATOLOGY Retic Auto 4.8 0.5 - 1.5 05/18 [facility] HEMATOLOGY Bands 3.0 0.0 - 11.0 05/18 [facility] HEMATOLOGY Anisocyte 1+ None Seen 05/18 [facility] *ABN* /2018 [facility] (05/18/19 4:50 AM) [place] HEMATOLOGY Plt Morph Normal Normal 05/18 [facility] (05/18/19 4:50 AM) [facility] CHEM PANEL Vitamin D, 9.7 30.0 - 05/17 [facility] 25-OH, Total 100.0 [facility] PARATHYROID PTH Intact 45.6 18.4 - 05/17 [facility] PROFILE 80.1 [facility] PARATHYROID Ca Norm WB 1.02 1.05 - 05/17 [facility] PROFILE 1. [facility] PARATHYROID Ca Ion WB 1.07 1.05 - 05/17 [facility] PROFILE 1. [facility] ANEMIA Ferritin Lvl 120 5 - 204 05/17 [facility] ANEMIA % Satur Fe 13 12 - 57 05/17 [facility] ANEMIA TIBC 227 228 - 428 05/17 [facility] ANEMIA UIBC 197 110 - 370 05/17 [facility] STUDY [facility] ANEMIA Iron 30 30 - 160 05/17 [facility] STUDY [facility] AMPICILLIN+ Culture: >100,000 CFU/mL Proteus mirabilis 05/17 [facility] SULBACTAM:S Urine >100,000 CFU/mL Klebsiella pneumoniae ssp pneumoniae /2018 Medical [facility]:PT:ISOL [place] ATE:ORDQN:M IC AMPICILLIN+ Klebsiella Klebsiella 05/17 [facility] as SULBACTAM:S pneumoniae pneumoniae /2018 [facility]:PT:ISOL ssp ssp [place] ATE:ORDQN:M pneumoniae pneumoniae IC AMPICILLIN+ Proteus Proteus 05/17 [facility] SULBACTAM:S mirabilis mirabilis /2018 Medical [facility]:PT:ISOL [place] ATE:ORDQN:M IC URINE AND UA pH 6.0 5.0 - 8.0 05/17 [facility] STOOL [facility] URINE AND UA Protein 30 mg/dL Negative 05/17 [facility] STOOL mg/dL [facility] URINE AND UA Glucose Negative Negative 05/17 [facility] STOOL mg/dL mg/dL [facility] URINE AND UA Nitrite Positive Negative 05/17 [facility] STOOL *ABN* /2018 [facility] (05/16/19 9:52 PM) [place] URINE AND UA 2.0 0.1 - 1.0 05/17 [facility] Urobilinogen /[address] [place] [address] URINE AND UA Leuk Est Trace Negative 05/17 [facility] *ABN* /2018 [facility] (05/16/19 9:52 PM) [place] URINE AND UA Sq Epi Few /LPF Few /LPF 05/17 [facility] URINE AND UA Turbidity Slight Clear 05/17 [facility] STOOL *ABN* /2018 [facility] (05/16/19 9:52 PM) [place] URINE AND UA Spec Grav 1.023 <=1.030 05/17 [facility] URINE AND UA Color Jaylin Yellow 05/17 [facility] STOOL *ABN* [facility] (05/16/19 9:52 PM) [place] URINE AND UA Ketones Negative Negative 05/17 [facility] STOOL mg/dL mg/dL [address] [place] [address] URINE AND UA Bili Negative Negative 05/17 [facility] STOOL *NA* /2018 [facility] (05/16/19 9:52 PM) [place] URINE AND UA Blood Negative Negative 05/17 [facility] STOOL (05/16/19 9:52 PM) [facility] URINE AND UA WBC 13 0 - 5 05/17 [facility] STOOL /2018 [facility] URINE AND UA Bacteria Many /HPF None Seen 05/17 [facility] as STOOL /HPF /2018 [facility] URINE AND UA Mucus Few /LPF None Seen 05/17 [facility] STOOL /LPF /[address] [place] [address] URINE AND UA Hyal Cast 17 0 - 2 05/17 [facility] CHEM PANEL Vitamin D 31 05/17 Result [facility] 1,25 ([place]) Comment: Medical Total Reference Center Range:
Ad ults: 21 - 65 CHEM PANEL Vitamin D3 21 05/17 Result [facility] 1,25 ([place] Comment: Medical Performed At: Center [employer]ations
[address], [place] [id number]<br/ >Vasquez Pham MD Ph:[phone] CHEM PANEL Vitamin D2 <10 05/17 [facility] 1,25 ([place]) [facility] PARATHYROID Ca Norm WB 1.06 1.05 - 05/17 [place] PROFILE 1. [facility] PARATHYROID Ca Ion WB 1.11 1.05 - 05/17 [facility] PROFILE 1. [facility] CHEM PANEL Globulin 2.9 2.7 - 4.2 05/16 [facility]2018 [facility] CHEM PANEL A/G Ratio 0.6 0.7 - 1.6 05/16 [facility]2018 [facility] CHEM PANEL Albumin Lvl 1.8 3.5 - 5.0 05/16 [facility] CHEM PANEL AST 21 0 - 37 05/[address] CHEM PANEL ALT 14 0 - 65 05/[address] CHEM PANEL Bili Total 0.4 0.2 - 1.3 05/[address] CHEM PANEL Alk Phos 84 39 - 136 05/[address] CHEM PANEL Bili Indirect Unable to 0.0 - 1.0 05/16 [facility] CHEM PANEL Bili Direct <0.1 0.0 - 0.3 05/16 [facility] CHEM PANEL Total Protein 4.7 6.4 - 8.4 05/16 [place]2019 [facility] PARATHYROID PTH Intact 41.7 18.4 - 05/16 [place] PROFILE 80.1 [facility] BLOOD BANK Antibody Scrn Negative 05/16 [facility] as RESULTS (05/16/19 10:57 AM) [facility] BLOOD BANK ABO/Rh A POS 05/16 [facility] RESULTS /2018 [facility] HEMATOLOGY Bands 7.0 0.0 - 11.0 05/16 /2018 [facility] HEMATOLOGY Eosinophils # 0.0 0.0 - 0.5 05/16 [place]2018 [facility] HEMATOLOGY Anisocyte 1+ None Seen 05/16 [facility] *ABN* /2018 Medical (05/16/19 10:57 AM) Cent r HEMATOLOGY Plt Morph Normal Normal 05/16 [facility] (05/16/19 10:57 AM) /2018 [facility] HEMATOLOGY Atypical 4.0 <=0.0 % 05/16 [facility] Lymphs /2018 [facility] HEMATOLOGY PTT 27.0 22.9 - 05/16 [place] 35.8 2019 [facility] HEMATOLOGY PT 13.3 12.0 - 05/16 [place] 14.7 2019 [facility] HEMATOLOGY INR 1.03 0.85 - 05/16 [place] 1.17 [facility] CARDIAC Troponin-I <0.02 0.00 - 12/06 [facility] ENZYMES 0.40 [facility] HEMATOLOGY MCV 81.1 80.0 - 12/05 [place] 98.0 [facility] HEMATOLOGY MCH 26.6 27.0 - 12/05 [place] 31.0 [facility] HEMATOLOGY MCHC 32.8 32.0 - 12/05 [place] 36.0 [facility] HEMATOLOGY RDW 21.3 11.5 - 12/05 [place] 14.5 2018 [facility] HEMATOLOGY Platelet 252 133 - 450 12/05 [facility] HEMATOLOGY WBC 6.4 3.7 - 10.4 12/05 [facility] HEMATOLOGY RBC 3.92 4.20 - 12/05 [place] 5.40 [facility] HEMATOLOGY Hgb 10.4 12.0 - 12/05 [place] 16.0 2018 [facility] HEMATOLOGY Hct 31.8 36.0 - 12/05 [place] 48.0 2018 [facility] HEMATOLOGY MPV 7.3 7.4 - 10.4 12/05 [place] [facility] HEMATOLOGY Segs-Bands # 5.6 1.5 - 8.1 12/05 [facility] HEMATOLOGY Eosinophils # 0.1 0.0 - 0.5 12/05 [facility] HEMATOLOGY Anisocyte 1+ None Seen 12/05 [facility] *ABN* /2017 [facility] (12/05/17 11:44 AM) Cente r HEMATOLOGY Lymphocytes # 0.6 1.0 - 5.5 12/05 [facility] HEMATOLOGY Monocytes # 0.2 0.0 - 0.8 12/05 [facility] HEMATOLOGY Basophils 0.2 0.0 - 1.0 12/05 [facility] HEMATOLOGY Eosinophils 1.1 0.0 - 4.0 12/05 [facility] HEMATOLOGY Monocytes 3.0 2.0 - 12.0 12/05 [facility] HEMATOLOGY Lymphocytes 9.3 20.0 - 12/05 [facility] 40.0 [facility] HEMATOLOGY Segs 86.4 45.0 - 12/05 [facility] 75.0 [facility] CHEM PANEL Phosphorus 2.7 2.5 - 4.5 12/03 [facility] CHEM PANEL Magnesium Lvl 1.8 1.8 - 2.4 12/03 [facility] CHEM PANEL eGFR 108 12/[address] [facility] Comment: The Medical eGFR is Center calculated using the CKD-EPI formula. In most young, healthy individuals the eGFR will be >90 mL/min/1.73m2 . The eGFR declines with age. An eGFR of 60-89 may be normal in some populations, particularly the elderly, for whom the CKD-EPI formula has not been extensively validated. Use of the eGFR is not recommended in the following populations:< br/>
Elaine viduals with unstable creatinine concentration s, including patients and those with serious co-morbid conditions.<b r/>
Patie nts with extremes in muscle mass or diet.

The data above are obtained from the National Kidney Disease Education Program (NKDEP) which additionally recommends that when the eGFR is used in patients with extremes of body mass index for purposes of drug dosing, the eGFR should be multiplied by the estimated BMI. CHEM PANEL Calcium Lvl 7.7 8.5 - 10.5 12/03 [facility] CHEM PANEL AGAP 12.3 10.0 - 12/03 20.0 [facility] CHEM PANEL CO2 25 24 - 32 12/03 [facility] CHEM PANEL BUN 12 7 - 22 12/03 [facility] CHEM PANEL Chloride Lvl 103 95 - 109 12/03 [facility] CHEM PANEL Potassium Lvl 4.3 3.5 - 5.1 12/03 [facility] CHEM PANEL Glucose Lvl 115 70 - 99 12/03 [facility] CHEM PANEL Creatinine 0.36 0.50 - 12/03 [place] Lvl 1.40 [facility] CHEM PANEL Sodium Lvl 136 135 - 145 12/03 [facility] HEMATOLOGY Hct 24.4 36.0 - 12/03 48.0 [facility] HEMATOLOGY Hgb 8.0 12.0 - 12/03 16.0 [facility] HEMATOLOGY RBC 3.09 4.20 - 12/03 5.40 [facility] HEMATOLOGY RDW 20.4 11.5 - 12/03 14.5 [facility] HEMATOLOGY MCV 79.2 80.0 - 12/03 98.0 [facility] HEMATOLOGY MCHC 32.7 32.0 - 12/03 36.0 [facility] HEMATOLOGY MCH 25.9 27.0 - 12/03 31.0 [facility] HEMATOLOGY WBC 3.9 3.7 - 10.4 12/03 [facility] HEMATOLOGY Platelet 232 133 - 450 12/03 [facility] HEMATOLOGY MPV 7.0 7.4 - 10.4 12/03 [facility] HEMATOLOGY Lymphocytes # 0.8 1.0 - 5.5 12/03 [facility] HEMATOLOGY Eosinophils # 0.1 0.0 - 0.5 12/03 [facility] HEMATOLOGY Monocytes # 0.3 0.0 - 0.8 12/03 [facility] HEMATOLOGY Lymphocytes 20.6 20.0 - 12/03 [place] 40.0 [facility] HEMATOLOGY Segs 70.2 45.0 - 12/03 [place] 75.0 [facility] HEMATOLOGY Monocytes 7.4 2.0 - 12.0 12/03 [facility] HEMATOLOGY Eosinophils 1.5 0.0 - 4.0 12/03 [place] [facility] HEMATOLOGY Segs-Bands # 2.7 1.5 - 8.1 12/03 [place] [facility] HEMATOLOGY Basophils 0.3 0.0 - 1.0 12/03 2017 [facility] BLOOD BANK Antibody Scrn Negative 12/03 [place] RESULTS (12/02/17 6:19 PM) [facility] BLOOD BANK ABO/Rh A POS 12/03 [place] RESULTS [facility] HEMATOLOGY Microcyte 1+ None Seen 12/03 *ABN* /2017 Medical (12/02/17 6:19 PM) [place] HEMATOLOGY Monocytes # 0.2 0.0 - 0.8 12/03 [place] [facility] HEMATOLOGY Lymphocytes # 0.5 1.0 - 5.5 12/03 [place] [facility] HEMATOLOGY Segs-Bands # 5.3 1.5 - 8.1 12/03 [facility] HEMATOLOGY Basophils 0.1 0.0 - 1.0 12/03 [facility] HEMATOLOGY Eosinophils 0.2 0.0 - 4.0 12/03 a [facility] HEMATOLOGY Monocytes 3.3 2.0 - 12.0 12/03 [facility] HEMATOLOGY Lymphocytes 8.7 20.0 - 12/03 [place] 40.0 [facility] HEMATOLOGY Segs 87.7 45.0 - 12/03 [place] 75.0 [facility] HEMATOLOGY MPV 7.5 7.4 - 10.4 12/03 [facility] HEMATOLOGY RDW 20.3 11.5 - 12/03 [place] 14.5 [facility] HEMATOLOGY MCHC 33.3 32.0 - 12/03 [place] 36.0 [facility] HEMATOLOGY MCH 26.1 27.0 - 12/03 [place] 31.0 [facility] HEMATOLOGY Platelet 230 133 - 450 12/03 2017 [facility] HEMATOLOGY WBC 6.0 3.7 - 10.4 12/03 2017 [facility] HEMATOLOGY RBC 3.26 4.20 - 12/03 [place] 5.40 [facility] HEMATOLOGY Hct 25.5 36.0 - 12/03 [facility] [place] 48.0 [facility] HEMATOLOGY Hgb 8.5 12.0 - 12/03 [facility] 16.0 [facility] HEMATOLOGY MCV 78.2 80.0 - 12/03 [facility] 98.0 [facility] BLOOD BANK RBC product Product available 12/02 [facility] RESULTS (12/02/17 7:41 AM) /2017 [facility] CHEM PANEL Magnesium Lvl 1.8 1.8 - 2.4 12/02 [facility] CHEM PANEL Phosphorus 3.3 2.5 - 4.5 12/02 [facility] ELECTROLYTE AGAP 11.3 10.0 - 12/02 [facility] S 20.0 [facility] ELECTROLYTE eGFR 94 12/02 Result [facility] Comment: The Medical eGFR is Center calculated using the CKD-EPI formula. In most young, healthy individuals the eGFR will be >90 mL/min/1.73m2 . The eGFR declines with age. An eGFR of 60-89 may be normal in some populations, particularly the elderly, for whom the CKD-EPI formula has not been extensively validated. Use of the eGFR is not recommended in the following populations:< br/>
Elaine viduals with unstable creatinine concentration s, including patients and those with serious co-morbid conditions.<b r/>
Patie nts with extremes in muscle mass or diet.

The data above are obtained from the National Kidney Disease Education Program (NKDEP) which additionally recommends that when the eGFR is used in patients with extremes of body mass index for purposes of drug dosing, the eGFR should be multiplied by the estimated BMI. ELECTROLYTE Sodium Lvl 140 135 - 145 12/02 [place] [facility] ELECTROLYTE Chloride Lvl 106 95 - 109 12/02 [place] [facility] ELECTROLYTE Potassium Lvl 4.3 3.5 - 5.1 12/02 [place] [facility] ELECTROLYTE Calcium Lvl 7.7 8.5 - 10.5 12/02 [facility] ELECTROLYTE CO2 27 24 - 32 12/02 [facility] ELECTROLYTE Glucose Lvl 131 70 - 99 12/02 [facility] ELECTROLYTE Creatinine 0.55 0.50 - 12/02 [facility] S Lvl 1.40 [facility] ELECTROLYTE BUN 17 7 - 22 12/02 [facility] S [facility] HEMATOLOGY Microcyte 1+ None Seen 12/02 [facility] *ABN* /2017 [facility] Center (12/02/17 4:40 AM) [place] CHEM PANEL Vitamin D, 3.7 30.0 - 12/01 [facility] 25-OH, Total 100.0 [facility] HEMATOLOGY Microcyte 1+ None Seen 12/01 [facility] *ABN* [facility] (12/01/17 8:18 AM) [place] HEMATOLOGY Eosinophils # 0.1 0.0 - 0.5 12/01 [place] [facility] PARATHYROID PTH Intact 55.6 11.1 - 12/01 [facility] PROFILE 79.5 [facility] BLOOD BANK RBC product Product available 11/30 [facility] RESULTS (11/30/17 7:26 AM) [facility] CHEM PANEL eGFR 99 11/30 Result [facility] Comment: The [facility] eGFR is Center calculated using the CKD-EPI formula. In most young, healthy individuals the eGFR will be >90 mL/min/1.73m2 . The eGFR declines with age. An eGFR of 60-89 may be normal in some populations, particularly the elderly, for whom the CKD-EPI formula has not been extensively validated. Use of the eGFR is not recommended in the following populations:< br/>
Elaine viduals with unstable creatinine concentration s, including patients and those with serious co-morbid conditions.<b r/>
Patie nts with extremes in muscle mass or diet.

The data above are obtained from the National Kidney Disease Education Program (NKDEP) which additionally recommends that when the eGFR is used in patients with extremes of body mass index for purposes of drug dosing, the eGFR should be multiplied by the estimated BMI. CHEM PANEL Creatinine 0.46 0.50 - 11/30 [facility] Lvl 1.40 [facility] CHEM PANEL Sodium Lvl 139 135 - 145 11/[address] CHEM PANEL BUN 21 7 - 22 11/[address] CHEM PANEL CO2 26 24 - 32 11/[address] CHEM PANEL ALT 12 0 - 65 11/[address] CHEM PANEL Albumin Lvl 1.7 3.5 - 5.0 11/30 [place] [facility] CHEM PANEL AST 13 0 - 37 11/30 [facility] Center CHEM PANEL Bili Total 0.2 0.2 - 1.3 11/30 [facility] /2017 [facility] Center CHEM PANEL Alk Phos 75 39 - 136 11/30 [facility] /2017 [facility] CHEM PANEL Calcium Lvl 7.4 8.5 - 10.5 11/30 [place] /2017 [facility] Center CHEM PANEL Total Protein 4.5 6.4 - 8.4 11/30 [place] [facility] CHEM PANEL Potassium Lvl 3.5 3.5 - 5.1 11/30 [place] [facility] CHEM PANEL Chloride Lvl 105 95 - 109 11/30 [facility] CHEM PANEL Glucose Lvl 88 70 - 99 11/30 [facility] CHEM PANEL B/C Ratio 46 6 - 25 11/30 [facility]2017 [facility] CHEM PANEL AGAP 11.5 10.0 - 11/30 [place] 20.0 [facility] CHEM PANEL Globulin 2.8 2.7 - 4.2 11/30 [facility] CHEM PANEL A/G Ratio 0.6 0.7 - 1.6 11/30 [facility] BLOOD BANK Antibody Scrn Negative 11/29 [place] RESULTS (11/29/17 5:30 AM) /2017 [facility] Center BLOOD BANK ABO/Rh A POS 11/29 [facility] RESULTS /2017 [facility] Center DRUG SCREEN UDS Note See Note 11/29 [facility] (11/29/17 2:31 AM) /2017 Medical Center DRUG SCREEN U Celia Scr Negative Negative [place] *[place]* /2017 [facility] (11/29/17 2:31 AM) Center DRUG SCREEN U Amph Scr Negative Negative [place] *[place] /2017 [facility] (11/29/17 2:31 AM) Center DRUG SCREEN U Benzodia Negative Negative [place] *NA* /2017 [facility] (11/29/17 2:31 AM) Center DRUG SCREEN U Opiate Scr Positive Negative 11/29 [place] *ABN* [facility] (11/29/17 2:31 AM) Center DRUG SCREEN U Cannab Scr Negative Negative 11/29 [place] *NA* /2017 [facility] (11/29/17 2:31 AM) Center DRUG SCREEN U Cocaine Scr Negative Negative 11/29 [place] *NA* [facility] (11/29/17 2:31 AM) Center DRUG SCREEN U Phencyc Scr Negative Negative 11/29 [place] *NA* [facility] (11/29/17 2:31 AM) Center URINE AND UA WBC 0-2 /HPF None Seen 11/29 [place] STOOL /HPF /[address] [place] [address] URINE AND UA Bacteria Many /HPF None Seen 11/29 [place] STOOL /HPF /2017 [facility] URINE AND UA RBC 0-2 /HPF 0 - 2 11/29 [facility] STOOL /[address] [place] [address] URINE AND UA Mucus Few /LPF None Seen 11/29 [place] STOOL /LPF /2017 [facility] URINE AND UA Sq Epi Few /LPF Few /LPF 11/29 [facility] [address] [place] [address] URINE AND UA Nitrite Positive Negative 11/29 [facility] STOOL *ABN* /2017 [facility] (11/29/17 2:31 AM) [place] URINE AND UA Leuk Est Negative Negative 11/29 [facility] (11/29/17 2:31 AM) /2017 [facility] URINE AND UA Bili Negative Negative 11/29 [facility] STOOL *NA* /2017 [facility] (11/29/17 2:31 AM) [place] URINE AND UA Blood Negative Negative 11/29 [facility] (11/29/17 2:31 AM) /2017 [facility] URINE AND UA 1.0 0.1 - 1.0 11/29 [facility] Urobilinogen /[address] [place] [address] URINE AND UA Glucose Negative Negative 11/29 [facility] (11/29/17 2:31 AM) /2017 [facility] URINE AND UA Ketones Trace Negative 11/29 [facility] STOOL *ABN* /2017 [facility] (11/29/17 2:31 AM) [place] URINE AND UA Spec Grav 1.025 <=1.030 11/29 [facility] STOOL /[address] [place] [address] URINE AND UA pH 6.0 5.0 - 8.0 11/29 [place] STOOL /[address] [place] [address] URINE AND UA Protein Negative Negative 11/29 [facility] STOOL (11/29/17 2:31 AM) /[address] [place] [address] URINE AND UA Color Dark Yellow Yellow 11/29 [facility] (11/29/17 2:31 AM) /2017 [facility] URINE AND UA Turbidity Slight Cloudy Clear 11/29 [facility] (11/29/17 2:31 AM) [facility] CHEM PANEL Lactic Acid 1.4 0.5 - 2.2 11/29 [place] [facility] HEMATOLOGY G-value Rapid 10.0 5.0 - 11.6 11/29 [place] [facility] HEMATOLOGY Estimated % 3.3 0.0 - 7.5 11/29 Result [facility] Comment: Medical "Significant Center Findings called to Clarisse
Gabat at 11/29/2017 02:49 by RM. Read Back OK." HEMATOLOGY Max Amplitude 67 52 - 71 11/29 [place] [facility] HEMATOLOGY R-time Rapid 0.5 0.4 - 0.7 11/29 [facility] HEMATOLOGY ACT (TEG) 97 86 - 118 11/29 [facility] HEMATOLOGY [place] 0.4 11/[address] HEMATOLOGY Angle Rapid 77 64 - 80 11/[address] HEMATOLOGY K-time Rapid 1.1 0.6 - 2.3 11/29 [facility] TOXICOLOGY Ethanol Lvl <3 11/[address] TOXICOLOGY Etoh (%) <0.003 11/[address] Pathology Reports No Data Provided for This Section Diagnostic Reports Report Value Date Source Chest 1 v for EXAM: XR CHEST 1 VIEW 05/17/2019 [facility] edical Placement DX DATE: 05/17/2019 11:23 T Center INDICATION: Line Placement - Chest 1 view for li ne placement. TECHNIQUE: Chest 1 view FINDINGS: A single AP supine view of the chest is submitted without a prior study for comparison. Cardiomediastinal silhouette is spuriously widened from the low lung volumes. There are calcified subcarinal, left hilar and left lower lobe granulomas. Bilateral lower lobe subsegmental atelectasis. No pleural effusions. S-shaped scoliosis of the th oracic spine. A right jugular central venous catheter has its tip over the distal SVC. IMPRESSION: 1. A right jugular central venous catheter has i ts tip over the distal SVC. 2. Bibasilar subsegmental atelectasis. Femur series DX EXAM: XR RIGHT FEMUR 2 VIEWS 05/17/2019 [facility] DATE: 05/17/2019 8:08 CDT Center INDICATION: POST OP - ALIGNMENT COMPARISON: Right femur radiographs 05/16/2019 TECHNIQUE: AP and lateral radiographs of the right femur FINDINGS: Diffuse osteopenia noted. Satisfactory alignment of in terval internally fixated spiral fracture of the mid to distal femoral diaphysis with lateral and posterior lateral plates and numerous screws. The 5th distal femoral screw of the lateral plate numbering caudal to cranial protrudes through medial femoral condyle by 6 mm. Unchanged satisfactory appea pradeep of total right hip and knee arthroplasties noted. Joint alignment is normal. Diffuse lateral soft tissue swelling about the thigh with subcutaneous emphysema from surgery. Surgical drain present along the posterior later al margin of the femur Skin closure nicola present laterally. IMPRESSION: Satisfactory alignment of in terval internally fixated spiral fracture of the mid to distal femoral diaphysis. The 5th distal femoral screw of the lateral plate numbering caudal to cranial protrudes through the medial femoral condyle by 6 mm. Unchanged satisfactory appearance of total right knee and hip arthroplasties. Expected postoperative soft tissue swelling and emphysema. Femur series DX EXAM: Femur series DX 05/16/2019 [facility] DATE: 05/16/2019 6:52 PM CDT [facility] er INDICATION: - healing. Prior intramedullary jessica ling. COMPARISON: Radiograph from November 29, 2017 TECHNIQUE: 2 view of left femur. DISCUSSION: Postoperative fo llow-up imaging demonstrates satisfactory alignment subsequent to intramedullary nailing of left distal femoral shaft periprosthetic fracture . Proximal and distal interlock ing screws are present. Bone remodeling is identified at the fracture site. Fracture lines are still evident. Incidental note of left total knee replacement. IMPRESSION: Postoperative fo llow-up imaging demonstrates satisfactory alignment of the fracture left distal femur periprosthetic fracture subsequent to intramedullary nailing. Bone remodeling is present at the fracture site. Portion of the fracture l ine is still evident. Femur wo contrast CT EXAM: CT RIGHT FEMUR WITHOUT CONTRAST 05/16 [facility] DATE: 05/16/2019 13:23 CDT Center INDICATION: Distal femoral s piral fracture, further evaluation in presence of arthroplasty COMPARISON: Right knee series 05/16/2019 12:01 ho urs. TECHNIQUE: Volumetric CT of the right femur is acquired without contrast. Axial, sagittal and coronal images are provided. IV contrast: None. DLP: 666 mGy-cm [place] SECTION: ER FINDINGS: Spiral fracture of the mid t o distal femoral diaphysis with almost full shaft width posterolateral displacement of the distal fracture fragment. Overlapping apposition of 3.5 cm proximally and 3 cm distally noted. The fracture begins approxim ately 1.6 cm distal to the tip of the femoral prosthesis and terminates approximately 2 cm proximal to the distal femoral prosthesis. Fractures does not extend to the femoral stem or distal femoral arthroplasty prosthesis margins. Joint alignment is normal. Satisfactory appearance of right hip and knee ar throplasties noted. No perihardware lucency identified. Moderate-large suprapatellar bursal effusion wit h synovial thickening noted Mid to distal aspect of the vastus intermedius muscle demonstrates diffuse edema with intramuscular and intermuscular hemorrhage. The deep margin of the vastu s lateralis muscle demonstrates areas of contusion. Hematoma in the distal media l aspect of the vastus medialis muscle noted at the level of the distal femur. Peripheral vascular atherosclerosis noted. Moderate degenerative change s of the symphysis pubis with chondrocalcinosis noted suggesting CPPD. Hyperdense mass on the left side of the vagina noted measuring 2.1 x 4.2 x 2.3 cm. Differential possibilities include a complex Bar tholin cyst. Visualized intrapelvic structures demonstrate no acute findings. IMPRESSION: Displaced spiral fracture of the mid to distal femoral diaphysis with almost full shaft width posterolateral displacement of the distal fracture fragment and overlapping apposition as described above. Contusion/injury of the quad riceps muscle compartment predominantly involving the vastus intermedius, vastus lateralis muscles. Hematoma in the distal medial aspect of the vast us medialis muscle. Peripheral vascular atherosclerosis. Moderate degenerative change s of the symphysis pubis with chondrocalcinosis noted suggesting CPPD. Satisfactory appearance of right hip and knee ar throplasties. Moderate-large suprapatellar bursal effusion wit h synovial thickening Hyperdense mass on the left side of the vagina. Differential possibilities include a complex Bar tholin cyst. Recommend clinical correlation with physical exa m. Knee 3 views DX EXAM: XR RIGHT KNEE 3 VIEWS 05/16/2019 [facility] DATE: 05/16/2019 11:37 CDT Cente r INDICATION: - pain s/p trauma COMPARISON: Right femur radiographs 05/16/2019 TECHNIQUE: AP, lateral and oblique radiographs of the right knee FINDINGS: Diffuse osteopenia noted. Partially visualized spiral fracture of the distal femoral diaphysis present with one third shaft width lateral and posterior displacement of the distal fragment. Approximately 6.5 cm overlapping apposition note d. The fracture terminates appr oximately 4 cm proximal to the distal femoral prosthesis without involvement of the periprosthetic bone. Satisfactory appearance of total arthroplasty of the knee noted. Joint alignment is normal. No joint effusion of the knee present. Soft tissue swelling of the distal thigh noted. Peripheral vascular atherosclerosis noted. IMPRESSION: Displaced spiral fracture of the distal right femoral diaphysis with overlapping apposition. Right total knee arthroplasty. Peripheral vascular atherosclerosis. Diffuse osteopenia. Hip 2/3 views uni w EXAM: XR RIGHT HIP 2 VIEWS 05/16/2019 [facility] pelvis DX DATE: [facility]16/2019 11:[facility] INDICATION: - pain s/p trauma COMPARISON: Right femur radiographs 05/16/2019 TECHNIQUE: AP and crosstable lateral radiographs of the rig ht hip FINDINGS: Partially visualized spiral fracture of the mid to distal femoral diaphysis noted with displacement and overlapping apposition as described on concurrent knee radiographs. The fracture does not appear to involve the femoral stem beginning approximately 1.1 cm distal to the femoral stem tip Total right hip arthroplasty in satisfactory ali gnment noted. Degenerative changes with chondrocalcinosis of t he symphysis pubis noted. Lumbar degenerative disc disease and facet arthr opathy noted. Soft tissue swelling about the mid to distal thi gh noted. IMPRESSION: Partially visualized displac ed spiral fracture of the mid-distal femoral diaphysis. Pelvis AP DX EXAM: XR PELVIS 1 VIEW 05/16/2019 [facility] DATE: 05/16/2019 11:26 CDT Center INDICATION: Pain after trauma COMPARISON: Left femur series 11/29/2017. [place] SECTION: ER TECHNIQUE: Frontal pelvis FINDINGS: Diffuse osteopenia noted. Satisfactory appearance of total right hip arthr oplasty noted on single view. The inferior tip of the femoral component is not visible. Satisfactory appearance of p artially visualized intramedullary nail in the left femur noted. Degenerative disc disease and facet arthropathy lower lumbar spine noted. Degenerative changes of the SI joints and symphy sis pubis noted. Severe left hip osteoarthros is with [id number] joint space narrowing, osteophytosis, subchondral sclerosis, and subchondral cysts/geodes. No soft tissue abnormality is identified. IMPRESSION: No fractures identified Severe osteoarthrosis of the left hip. Degenerative disc disease and facet arthropathy lumbar spine. Femur series DX EXAM: XR FEMUR 2 VIEWS 11/29/2017 [facility] DATE: 11/29/2017 10:54 AM [employer] REPRESENTATIVE Cent er INDICATION: POST OP IM NAIL - POST OP FILMS IM N AIL COMPARISON: Left femur series 11/29/2017 TECHNIQUE: AP and lateral radiographs of the fe mur Laterality: Left FINDINGS: Satisfactory align ment of the distal femur metadiaphyseal fracture post fixation using antegrade intramedullary nail and multiple interfragmentary screws. No hardware malalignment. Unchanged, satisfactory appearance of t otal knee arthroplasty. Severe left hip osteoarthrosis. Left thigh soft tissue swelling and lateral left hip soft tissue gas. IMPRESSION: Satisfactory ap pearance of distal femur metadiaphyseal fracture post internal fixation. Knee 3 views DX EXAM: XR LEFT FEMUR 2 VIEWS 11/29/2017 [facility] EXAM: XR LEFT KNEE 3 VIEWS [facility] DATE: 11/29/2017 5:22 AM [employer] SAL[employer] REPRESENTATIVE INDICATION: - 2 view distal femur in traction COMPARISON: Left femur and knee radiograph 0200 hours TECHNIQUE: 2 views of the femur, 3 views of the knee FINDINGS: Spiral distal femoral metadi aphyseal fracture with persistent three fourth shaft width anterior displacement of the distal fracture fragment and minimal posterior apex angulation. Traction pin is seen in the proximal tibia. IMPRESSION: Distal femoral metadiaphysea l fracture is improved in alignment with persistent three fourth shaft width's anterior displacement and minimal posterior apex angulation. UT SECTION: ER Femur series DX EXAM: XR LEFT FEMUR 2 VIEWS 11/29/2017 [facility] EXAM: XR LEFT KNEE 3 VIEWS [facility] r DATE: 11/29/2017 5:22 AM [employer] SAL[employer] REPRESENTATIVE INDICATION: - 2 view distal femur in traction COMPARISON: Left femur and knee radiograph 0200 hours TECHNIQUE: 2 views of the femur, 3 views of the knee FINDINGS: Spiral distal femoral metadi aphyseal fracture with persistent three fourth shaft width anterior displacement of the distal fracture fragment and minimal posterior apex angulation. Traction pin is seen in the proximal tibia. IMPRESSION: Distal femoral metadiaphysea l fracture is improved in alignment with persistent three fourth shaft width's anterior displacement and minimal posterior apex angulation. UT SECTION: ER Knee wo contrast CT EXAM: CT LEFT KNEE WITHOUT CONTRAST, WITH 3- D 11/29/2017 [facility] DATE: 11/29/2017 4:32 AM [employer] REPRESENTATIVE Cente r INDICATION: - periprosthetic fracture, distal f emur fx COMPARISON: Femur radiograph 11/29/2017 TECHNIQUE: Volumetric acquis ition of the knee without contrast. Axial, sagittal and coronal reconstructions. 3-D volume rendered images. IV contrast: None. DLP: 131 mGy-cm FINDINGS: There is a traction pin through the proximal tib ia. Spiral distal femoral metadi aphyseal fracture is again noted with about three fourth shaft width anterior displacement of the distal fracture fragment, lateral apex angulation and 1.5 cm fracture fragme nt override, improved from p rior study. Again noted small butterfly fragment which [...] fluid is present. IMPRESSION: 1. Moderately displaced, mi ldly angulated and overriding distal femoral metadiaphyseal fracture, without involvement of the femoral component of the knee arthroplasty. 2. Traction pin in the proximal tibia. 3. Moderate amount of knee joint fluid. UT SECTION: ER Hip 2/3 views uni w EXAM: XR LEFT HIP 2 VIEW AND AP PELVIS 11/29 [facility] Medical pelvis DX EXAM: XR LEFT FEMUR 2 VIEWS Cent er EXAM: XR LEFT KNEE 3 VIEWS EXAM: XR LEFT TIBIA-FIBULA 2 VIEWS DATE: 11/29/2017 1:31 AM [employer] REPRESENTATIVE INDICATION: - L leg pain COMPARISON: Radiograph from outside hospital dileep ed 11/28/2017. TECHNIQUE: AP pelvis, 2 view hip, 2 views of the femur, 3 views of the knee, 2 views of the tibia-fibula FINDINGS: Fiberglas splint seen posterolaterally in the lo wer leg and thigh. Pelvis/Hip: No acute fractu re or malalignment is identified. Severe left hip osteoarthrosis with [id number] appearance, and complete loss of superior joint space. Partially visualized lumbar spine degenerative changes Femur: Spiral and minimally comminuted, extra-articular distal femoral metadiaphyseal fracture with one shaft width anterior displacement of the distal fracture fragment as well as 5 cm fracture fragmen t override. A small posterio r butterfly fragment is minimally displaced posteriorly. The fracture is about 2.3 cm proximal to the femoral component of the knee arthroplasty, on the posterior aspect. Knee: Total knee arthroplast y hardware with patellar resurfacing. Hardware is intact without signs of loosening or displacement. Moderate amount of knee joint fluid noted. Tibia-fibula: No acute fracture or dislocation. Soft tissues: Soft tissue swelling about the dis devon thigh and knee. IMPRESSION: 1. Moderately displaced and overriding spiral distal femoral metadiaphysis fracture, with a small posterior butterfly fragment. 2. Left knee total arthroplasty without hardwar e fracture or loosening. 3. Moderate amount of knee joint fluid. 4. Left hip osteoarthrosis. UT SECTION: ER Knee 3 views DX EXAM: XR LEFT HIP 2 VIEW AND AP PELVIS 8 [facility] EXAM: XR LEFT FEMUR 2 VIEWS Cent er EXAM: XR LEFT KNEE 3 VIEWS EXAM: XR LEFT TIBIA-FIBULA 2 VIEWS DATE: 11/29/2017 1:31 AM [employer] SAL[employer] REPRESENTATIVE INDICATION: - L leg pain COMPARISON: Radiograph from outside hospital dileep ed 11/28/2017. TECHNIQUE: AP pelvis, 2 view hip, 2 views of the femur, 3 views of the knee, 2 views of the tibia-fibula FINDINGS: Fiberglas splint seen posterolaterally in the lo wer leg and thigh. Pelvis/Hip: No acute fractu re or malalignment is identified. Severe left hip osteoarthrosis with [id number] appearance, and complete loss of superior joint space. Partially visualized lumbar spine degenerative changes Femur: Spiral and minimally comminuted, extra-articular distal femoral metadiaphyseal fracture with one shaft width anterior displacement of the distal fracture fragment as well as 5 cm fracture fragmen t override. A small posterio r butterfly fragment is minimally displaced posteriorly. The fracture is about 2.3 cm proximal to the femoral component of the knee arthroplasty, on the posterior aspect. Knee: Total knee arthroplast y hardware with patellar resurfacing. Hardware is intact without signs of loosening or displacement. Moderate amount of knee joint fluid noted. Tibia-fibula: No acute fracture or dislocation. Soft tissues: Soft tissue swelling about the dis devon thigh and knee. IMPRESSION: 1. Moderately displaced and overriding spiral distal femoral metadiaphysis fracture, with a small posterior butterfly fragment. 2. Left knee total arthroplasty without hardwar e fracture or loosening. 3. Moderate amount of knee joint fluid. 4. Left hip osteoarthrosis. UT SECTION: ER Tibia fibula series EXAM: XR LEFT HIP 2 VIEW AND AP PELVIS 11/29 [facility] Medical DX EXAM: XR LEFT FEMUR 2 VIEWS Cent er EXAM: XR LEFT KNEE 3 VIEWS EXAM: XR LEFT TIBIA-FIBULA 2 VIEWS DATE: 11/29/2017 1:31 AM [employer] REPRESENTATIVE INDICATION: - L leg pain COMPARISON: Radiograph from outside hospital dileep ed 11/28/2017. TECHNIQUE: AP pelvis, 2 view hip, 2 views of the femur, 3 views of the knee, 2 views of the tibia-fibula FINDINGS: Fiberglas splint seen posterolaterally in the lo wer leg and thigh. Pelvis/Hip: No acute fractu re or malalignment is identified. Severe left hip osteoarthrosis with [id number] appearance, and complete loss of superior joint space. Partially visualized lumbar spine degenerative changes Femur: Spiral and minimally comminuted, extra-articular distal femoral metadiaphyseal fracture with one shaft width anterior displacement of the distal fracture fragment as well as 5 cm fracture fragmen t override. A small posterio r butterfly fragment is minimally displaced posteriorly. The fracture is about 2.3 cm proximal to the femoral component of the knee arthroplasty, on the posterior aspect. Knee: Total knee arthroplast y hardware with patellar resurfacing. Hardware is intact without signs of loosening or displacement. Moderate amount of knee joint fluid noted. Tibia-fibula: No acute fracture or dislocation. Soft tissues: Soft tissue swelling about the dis devon thigh and knee. IMPRESSION: 1. Moderately displaced and overriding spiral distal femoral metadiaphysis fracture, with a small posterior butterfly fragment. 2. Left knee total arthroplasty without hardwar e fracture or loosening. 3. Moderate amount of knee joint fluid. 4. Left hip osteoarthrosis. 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 TECHNIQUE: AP pelvis, 2 view hip, 2 views of the femur, 3 views of the knee, 2 views of the tibia-fibula FINDINGS: Fiberglas splint seen posterolaterally in the lo wer leg and thigh. Pelvis/Hip: No acute fractu re or malalignment is identified. Severe left hip osteoarthrosis with [id number] appearance, and complete loss of superior joint space. Partially visualized lumbar spine degenerative changes Femur: Spiral and minimally comminuted, extra-articular distal femoral metadiaphyseal fracture with one shaft width anterior displacement of the distal fracture fragment as well as 5 cm fracture fragmen t override. A small posterio r butterfly fragment is minimally displaced posteriorly. The fracture is about 2.3 cm proximal to the femoral component of the knee arthroplasty, on the posterior aspect. Knee: Total knee arthroplast y hardware with patellar resurfacing. Hardware is intact without signs of loosening or displacement. Moderate amount of knee joint fluid noted. Tibia-fibula: No acute fracture or dislocation. Soft tissues: Soft tissue swelling about the dis devon thigh and knee. IMPRESSION: 1. Moderately displaced and overriding spiral distal femoral metadiaphysis fracture, with a small posterior butterfly fragment. 2. Left knee total arthroplasty without hardwar e fracture or loosening. 3. Moderate amount of knee joint fluid. 4. Left hip osteoarthrosis. [place] SECTION: ER Consultation Notes No Data Provided for This Section Discharge Summaries No Data Provided for This Section History and Physicals No Data Provided for This Section Vital Signs Vital Sign Value Date Comments Source Heart Rate 84 05/21/2019 [facility] Respitory Rate 18 05/21/2019 [facility] Systolic (mm Hg) 103 05/21/2019 [facility] Diastolic (mm Hg) 64 05/21/2019 [facility] Temperature Oral (F) 98.1 F 05/21/2019 [facility] Systolic (mm Hg) 93 05/21/2019 [facility] Diastolic (mm Hg) 62 05/21/2019 [facility] Heart Rate 87 05/21/2019 [facility] Respitory Rate 18 05/21/2019 [facility] Temperature Oral (F) 98.6 F 05/21/2019 [facility] Systolic (mm Hg) 125 05/21/2019 [facility] Diastolic (mm Hg) 76 05/21/2019 [facility] Temperature Oral (F) 98.1 F 05/21/2019 [facility] Respitory Rate 19 05/21/2019 [facility] Heart Rate 81 05/21[facility] BMI Calculated 26.68 05/16/2019 [facility] Height 165.1 cm 05/16/2019 [facility] Weight 72.727 05/16/2019 [facility] Weight 72.727 05/16/2019 [facility] Heart Rate 77 12/06/2017 [facility] Respitory Rate 18 12/06/2017 [facility] Systolic (mm Hg) 111 12/06/2017 [facility] Diastolic (mm Hg) 58 12/06/2017 [facility] Temperature Oral (F) 98.9 F 12/06/2017 [facility] Systolic (mm Hg) 134 12/06/2017 [facility] Diastolic (mm Hg) 81 12/06/2017 [facility] Heart Rate 82 12/06/2017 [facility] Temperature Oral (F) 98.6 F 12/06/2017 [facility] Respitory Rate 18 12/06/2017 [facility] Heart Rate 90 12/06/2017 [facility] Systolic (mm Hg) 123 12/06/2017 [facility] Diastolic (mm Hg) 67 12/06/2017 [facility] Respitory Rate 17 12/06/2017 [facility] Temperature Oral (F) 98.3 F 12/06/2017 [facility] BMI Calculated 27.18 11/29/2017 [facility] Weight 74.091 11/29/2017 [facility] Height 165.1 cm 11/29/2017 [facility] Weight 68.182 11/29/2017 [facility] BMI Calculated 25.01 11/29/2017 [facility] Height 165.1 cm 11/29/2017 [facility] Encounters Location Location Encounter Encounter Reason Attending ADM DC Stat us Source Details Type Number For Provider Date Date Visit [facility] [id number] Gabriel 11/29 12/06 [facility] [place] /2017 [facility] [id number] Asuncion 05/16 05/21 [facility] David Lozoya /2018 [facility] Procedures Procedure Code Date Perfomer Comments Source section [id number] [facility] Knee replacement [id number] [facility] Assessment and Plan Assessment and Plan Date Source Extracted from:Title: Progress Note 05/21/2019 [facility] Author: Melissa Gunn DO Date: 05/20/19 1.Closed fracture of right distal femur(S72.401A) s/p ORIF. weight bearing as tolerated. f/u [facility] 2.Acute pain due to trauma + chronic pain(G89.11) controlled; continue current analgesics 3.Leukopenia(D72.819) secondary to MTX +/- fracture +/- UTI.continue levofloxacin 4.Acute UTI(N39.0) continue levofloxacin (end date 05/22) 5.Acute blood loss anemia(D62) Hb 7 - give 1 U PRBCs 6.Rheumatoid arthritis(M06.9) f/u rheum as outpatient 7.Hypothyroidism(E03.9) continue LT4 8.Mood disorder(F39) continue paroxetine 9.Vitamin D deficiency(E55.9) continue ergocalciferol lovenox SC pending SNF Extracted from:Title: Hematology Consult Note Author: Too Burden MD Date: 05/18/19 Impression and Plan Pt is a 73 year old female with a known hx of leukopenia and RA previously on MTX until about 2 months ago that presented with a mechanical fall and fracture and hematology has been consulted for leukop enia. This is likely related to her RA a nd exacerbated by the stress of her acute illness, as bone marrow etiologies have been reportedly ruled out with a BMBx from her automobile service writer with no known etiolo gy. To be sure, we will contact her [facility] physician for her BM results. Additionally, we do not recommend G-CSF at this time, but would recommend that she is started on a short course of ppx abx, such as Levofloxacin 500mg daily for 5-7 days. # Leukopenia # Neutropenia # Hx of RA Recommendations: -no need for G-CSF -recommend short course of ppx Levofloxacin -will try to obtain outpt records -recommend outpt followup with her local automobile service writer Thanks for the consult, pt seen and staffed with Dr. Burden. Albaro Crouch DO Heme/Onc Fellow [phone] Patient seen and examined, discussed plan of care with the t amy. Known to have neutropenia in setting of RA, Outpatient work up including bone marrow biopsy reported to be negative. Patient afebrile, recommend prophylactic abics. Follow up with outpatient automobile service writer after the discharge. Extracted from:Title: Hospitalist History and Physical Author: Zohaib Carson MD Date: 05/16/19 73 year old female with rheumatoid arthr itis off methotrexate past few months, hypothyroidism off medications presenting with right femur fracture. 1.Preop examination(Z01.818) 1) Type of surgery: ORIF, has previous history of surgeries 2) Medical issues that may interfere with surgery:None 3) Significant findings on physical exam: 2/6 COLTON 4) Exercise tolerance METS < 4 5) Further workup ordered and indication: EKG 2.Closed displaced comminuted fracture of shaft of femur(S7 2.353A) RLE to NWB Continue MMP OR for ORIF in AM per ORS; NPO at midnight PT/OT ordered 3.Hypocalcemia(E83.51) Will add-on vitamin D and PTH Patient may benefit from bone health consult 4.Normocytic anemia(D64.9) Will check iron panel, TIBC, ferritin in AM 5.Leukopenia(D72.819) Likely due to methotrexate, has been chr onic per patient.Contributed to why she self-discontinued methotrexate 6.Rheumatoid arthritis(M06.9) Off methotrexate for at least the past couple months. Stable, outpatient follow up with patient's director of business continuity 7.Hypothyroidism(E03.9) Stable.Patienthasn't been taking levothyroxine Lovenox OR per ORS, pending ORIF in the AM Extracted from:Title: Hospitalist progress Note 12/06/2017 [facility] Author: Karen Grady MD Date: 12/06/17 -Comminuted distal fracture ofleft femur -RA -Type 2 diabetes mellitus -Crohn's disease -Postoperative blood loss anemia -Vitamin D deficiency -Hypothyroidism PLAN: -Discharge to retirement facility today. -Continue pain control. -Patient is a follow-up with director of business continuity as an outpatient . -Patient has not had any flatus or Crohn 's disease but should follow-up as an outpatient for this. -No indication for transfusion. -Continuevitamin D replacement and check vitamin D levels in 2 months. -Continue Synthroid Discharge summary was performed on 2017please see that for further hospital events. Patient ended up staying overnight due to a social work and financial issues and there is no new medical issues that occurred over the past 24 hours. Lovenox To retirement facility today Extracted from:Title: Bone Health Author: Tila Smith Date: 12/01/17 Attending: Bandar Quintero MD Service: Internal Medicine Code status: Full Code [Ordered] Reason for Admission: CLOSED COMMINUTED INTRA-ARTICULAR FX O F DISTAL END FEMU Working DRG: None Documented Isolation: None Documented Consulting Physicians: Ismael Leblanc MD Office: Service: Orthopedic Surgery, Trauma CHIEF COMPLAINT: L periprosthetic distal femur fragility fra cture HISTORY OF PRESENT ILLNESS: Ms. Celestine napier is a 72 year old potmenopausal woman w/ PMH significant for RA, Crohn's, DM, and hypothyroidism who presented to the ED on 11/29/17. The history is obtained from both the patient and rough chart review. She reportedly fell getting into her car on 11/28/17. She was taken to the ED at an OSH and then transferred to [facility] for HLOC. She notes mary kay t she has a history of B TKA done in [facility]. She underwent L femur IMN on 11/29/17 w/ Dr. Leblanc/DRE. She states that she is feeling well today. Additionally, patient states that she rosado s not established care with a director of business continuity yet and has been diagnosed by her PCP. She recently was started on prednisone for a flare up of symptoms, but denies ever being on steroids previously. She r eports that she has been reluctant to establish rheumatology care as she is nervous about starting medications due to any side effects and felt her pain and GI sy mptoms were manageable. She reports that she actually had an appointment to see Dr. Mcnally this week with her daughter. Previous history of fracture: Denies Family history of fracture/osteoporosis: Denies Previous DEXA: Denies Prescription medication for osteoporosis/penia: Denies Supplements: Denies Physical Activity: Denies formal exercis e. Has been using walker recently to help her ambulate due to increased pain throughout her body. 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 Additional fracture risk factors: 1. Previous smoker: Quit age 56. May contribute to increased bone loss. REVIEW OF SYSTEMS: CONSTITUTIONAL: No weight loss, fever, chills, weakness or f atigue. HEENT: Eyes: No visual loss, blurred vis ion, double vision. Ears, Nose, Throat: No hearing loss, sneezing, congestion, no sore throat. SKIN: No rash or itching. CARDIOVASCULAR: No chest pain, chest pressure or chest disco mfort. RESPIRATORY: No SOB. No coughing. GASTROINTESTINAL: No loss of appetite, n ausea, vomiting or diarrhea. No abdominal pain or bloody stools. GENITOURINARY: No dysuria, hematuria, polyuria. NEUROLOGICAL: No headache, dizziness, sy ncope, paralysis, ataxia, numbness or tingling in the extremities. No change in bowel or bladder control. MUSCULOSKELETAL: See HPI. HEMATOLOGIC: No easy bleeding or bruising. LYMPHATICS: No enlarged nodes. PSYCHIATRIC: No history of depression or anxiety. ENDOCRINOLOGIC: No reports of sweating, cold or heat intolerance. No polyuria or polydipsia. PAST MEDICAL HISTORY: See HPI. FAMILY HISTORY: See HPI. Father: Alzheimers disease; Heart attack Mother: Diabetes mellitus; Hypertension SOCIAL HISTORY: See HPI. Tobacco Details: Use: Former smoker. Stopped ag e 56 Years. Tobacco smoke exposure: None. Did the Patient Smoke Cigarettes Anytime During the Last 365 Days? No. Cessation Counseling Provided? No. Vitals Tmp(F) Pulse BP RR SpO2 FIO2 12/01 07:37 98.8 78 144/85 18 98 --- 12/01 04:00 98.5 82 135/65 18 98 --- 12/01 00:00 97.7 73 120/64 18 99 --- 11/30 20:00 97.1 88 146/73 18 96 --- 11/30 16:54 98.9 81 118/66 18 97 --- 24 Hr Tmax: 98.9F (37.17c) at 11/30 16:5 4 Vital Signs are the last 5 in the past 48 hours. Date Wt(kg) Wt(lb) Ht(cm) Ht(in) Method 11/29 (initial) 68.18 150.00 Estimated 01/06 165.10 65.00 Stated PHYSICAL EXAM: CONSTITUTIONAL: 72 year old wo man laying in bed in NAD. Appears of stated age and is well nourished and well developed. PSYCHOLOGICAL: Appropriate mood and affect. Alert and orient ed. HEENT: Normocephalic, atraumatic. RESPIRATORY: Breathing is even and nonlabored on RA. MUSCULOSKELETAL: No gross deformities. No involuntary moveme nts. 24hr Labs 12/01 0818 PTH Intact 55.6 WBC 3.3 L RBC 3.64 L Hgb 9.1 L Hct 27.9 L MCV 76.6 L MCH 25.1 L MCHC 32.8 RDW 20.5 H Platelet 198 MPV 7.4 Segs 79.7 H Monocytes 3.5 Lymphocytes 14.5 L Eosinophils 1.8 Basophils 0.5 Segs-Bands # 2.7 Lymphocytes # 0.5 L Monocytes # 0.1 Eosinophils # 0.1 Microcyte 1+ 11/30 2120 POC Performing Locatio See Note Glucose POC 186 H 11/30 180 POC Performing Locatio See Note Glucose POC 127 H IMAGING: Radiology Report EXAM: XR LEFT HIP 2 VIEW AND AP PELVIS EXAM: XR LEFT FEMUR 2 VIEWS EXAM: XR LEFT KNEE 3 VIEWS EXAM: XR LEFT TIBIA-FIBULA 2 VIEWS DATE: 11/29/2017 1:31 AM INTERNET SALES REPRESENTATIVE IMPRESSION: 1. Moderately displaced and overriding spiral distal femoral metadiaphysis fracture, with a small posterior butterfly fragment. 2. Left knee total arthroplasty without hardware fracture o r loosening. 3. Moderate amount of knee joint fluid. 4. Left hip osteoarthrosis. Radiology Report EXAM: XR FEMUR 2 VIEWS DATE: 11/29/2017 10:54 AM INTERNET SALES REPRESENTATIVE FINDINGS: Satisfactory alignment of the distal femur metadiaphyseal fracture post fixation using antegrade intramedullary nail and multiple interfragmentary screws. No hardware malalignment. Unchanged, satisfactory appearance of total knee ar throplasty. Severe left hip osteoarthrosis. Left thigh soft tissue swelling and lateral left hip soft ti ssue gas. IMPRESSION: Satisfactory appearance of distal femur metadiaphyseal fracture post internal fixation. ASSESSMENT: 1. Acute L periprosthetic distal femur fragility fracture s/ p L IMN, POD #2. 2. Clinical osteoporosis 3. Hypocalcemia: Possibly secondary due to recent fracture/s urgery. PLAN: 1. Labs: Vitamin D and PTH levels ordered. 2. Medication: Calcium carbonate 500mg/vitamin D3 400IU BID. 3. Pain control: Per primary. 4. Antibiotics: Per primary. 5. PT/OT: As ordered. Weightbearing status per ortho. 6. Education: Counseled patient on etiol ogy of bone disease and importance of fall prevention, bone health, and appropriate treatment options. Educational handout given. 7. Discharge: Per primary. Follow up in [facility] ([phone]) as outpatient 3-4 weeks after discharge. Please call [phone] with any questions or concerns. Tila Smith PA-C Fragility Fracture Tax Preparer Addendum by Tila Smith on 12/02/2017 06:53 [facility] labs reviewed: 1. Vitamin D deficiency: Ergocalciferol 50,000IU weekly adde d. Recommend the following as outpatient for additional osteopo rosis workup: 1. DXA 2. Labs: BSAP, P1NP, NTx, TSH, T4 3. Repeat vitamin D and calcium level in 3 months. Extracted from:Title: History and Physical Author: Augustin Kaur MD Date: 11/29/17 Ms. Zaman is a 72 yo WF w/ pmh of RA , Crohn's disease who presents today after a femur fracture. 1.Pre-op exam - RCRI is 0. Pt is low risk for low-mode rate risk surgery. No further josue- operative work-up is indicated. - In terms of her glucocorticoids -> she has only been on for 4 days. No need for stress dose. Will stop steroids for now. - Will manage Hyperglycemia josue-op as w ell. She is not insulin dependent and will use only SSI. 2.Closed comminuted intra-articular fracture of distal end of femur - NWB, repair perortho - MMP. Holding BR since Crohn's disease. - Pre-opabove 3.Rheumatoid arthritis - Holding prednisone, f/u outpt 4.Crohn's disease - Stable. Not on medications. Will monitor for flare 5.Type 2 diabetes mellitus with hyperglycemia - SSI. Diabetic diet out ofOR. lovenox likely SNF Plan of Care No Data Provided for This Section Social History Social History Date Source Social History TypeResponse 05/16/2019 [facility] Smoking Status Former smoker; Exposure to Tobacco Smoke None; Cigarette Smoking Last 365 Days No; Reg Smoking Cessation Counseling No; Stopped at age: 56; entered on: 05/16/19 Family History No Data Provided for This Section Advance Directives No Data Provided for This Section Functional Status No Data Provided for This Section
--- OUTSIDE RECORDS SUMMARY | 2020-08-31 14:54 | XMS REPORT | Continuity of Care Document ---
:1945 Author Organization [facility] t Address [address] [place] [address] Care Team Providers Name Role Phone CALDERON Attending Clinician Unavailable Luis A Attending Clinician Miguel A Attending Clinician Raquel Lozoya Admitting Clinician Yves Quintero Admitting Clinician Problems Condition Condition Condition Status Onset Resolution Last Treating Co mments Source Name Details Category Date Date Treatment Clinician Date DISTAL Diagnosis Active 2019-05-16 Mem oria RIGHT 05-16 12:36:00 l FEMUR DISTAL 00:00: [place] FRACTURE RIGHT 00 FEMUR FRACTURE Active 05/16/2019 [facility] DISTAL Diagnosis Active 2019-05-28 Mem oria RIGHT 05-16 21:47:00 l FEMUR DISTAL 00:00: [place] FRACTURE,S RIGHT 00 /P FALL FEMUR FRACTURE,S /P FALL Active 05/16/2019 [facility] LT FEMUR Diagnosis Active 2017-11-29 M emoria FRACTURE, 11-28 04:02:00 l GETTING IN LT FEMUR 00:00: He rmann CAR AND LE FRACTURE, 00 GETTING IN CAR AND LE Active 11/28/2017 [facility] CLOSED Diagnosis Active 2017-12-26 Mem oria COMMINUTED 11-28 19:19:00 l INTRA-VINI CLOSED 00:00: Herm fiona CULAR FX COMMINUTED 00 OF INTRA-VINI CULAR FX OF Active 8 [facility] Periprosth Periprosth Problem Active U nivers etic etic ity of fracture fracture [place] of shaft of shaft Physic i of femur of femur ans Fracture Fracture Problem Active Unive rs of left of left ity of humerus humerus [place] [facility]ici ans Closed Closed Problem Active [facility] displaced displaced ity of comminuted [place] fracture fracture Physic i of shaft of shaft ans of right of right femur femur Femur Femur Problem Active [facility] fracture, fracture, ity of left left [place] [facility] ans Crohn's Problem 2018-03-14 [place] [facility] disease, 13:37:11 l unspecifie Crohn's Her patino d, without disease, complicati unspecifie ons d, without complicati ons 03/14/2018 [facility] Acute Problem 2018-03-14 Memor ia kidney 13:37:11 l failure, Acute David unspecifie kidney d failure, unspecifie d 03/14/2018 [facility] Type 2 Problem 2018-03-14 Memor ia diabetes 13:37:11 l mellitus Type 2 Carlos n with diabetes hyperglyce mellitus margarita with hyperglyce margarita 03/14/2018 [facility] Periprosth Problem 2018-03-14 M emoria etic 13:37:11 l fracture David around Periprosth internal etic prosthetic fracture left hip around joint, internal initial prosthetic encounter left hip joint, initial encounter 03/14/2018 [facility] Acute Problem 2018-03-14 Memor ia posthemorr 13:37:11 l hagic Acute [place] anemia posthemorr hagic anemia 03/14/2018 [facility] Rheumatoid Problem 2018-03-14 M emoria arthritis, 13:37:11 l unspecifie Carlos n d Rheumatoid arthritis, unspecifie d 03/14/2018 [facility] Fall on Problem 2018-03-14 [place] [facility] same 13:37:11 l level, Fall on [place] unspecifie same d, initial level, encounter unspecifie d, initial encounter 03/14/2018 [facility] Vitamin D Problem 2018-03-14 Me moria deficiency 13:37:11 l , Vitamin David unspecifie D d deficiency , unspecifie d 03/14/2018 [facility] Crohn's Problem Resolve 2019-05-23 Mem oria disease d 21:55:32 l (disorder) Crohn's Her patino disease (disorder) Resolved Problem 05/23/2019 [facility] Hypothyroi Problem Resolve 2019-05-23 Memoria dism d 21:55:32 l (disorder) Carlos n Hypothyroi dism (disorder) Resolved Problem 05/23/2019 [facility] Rheumatoid Problem Resolve 2019-05-23 Memoria arthritis d 21:55:32 l (disorder) Carlos n Rheumatoid arthritis (disorder) Resolved Problem 05/23/2019 [facility] Diabetes Problem Resolve 2019-05-23 Me moria mellitus d 21:55:32 l type 2 Diabetes Carlos n (disorder) mellitus type 2 (disorder) Resolved Problem 05/23/2019 [facility] Leukopenia Problem Active 2019-05-23 M emoria (disorder) 21:55:32 l David Leukopenia (disorder) Active Problem 05/23/2019 [facility] OTH Diagnosis Active 2017-12-26 Mem oria FRACTURE 19:19:00 l OF LOWER OTH [place] END OF FRACTURE UNSP OF LOWER FEMUR, END OF UNSP FEMUR, Active [facility] DISPLACED Diagnosis Active 2019-05-28 Memoria COMMINUTED 21:47:00 l FRACTURE [place] OF SHAFT O DISPLACED COMMINUTED FRACTURE OF SHAFT O Active [facility] Displaced Problem 2018-03-14 2018-03-14 Memoria supracondy 12-16 13:37:11 13:37:11 l lar 04:12: [place] fracture Displaced 42 without supracondy intracondy lar lar fracture extension without of lower intracondy end of lar left extension femur, of lower initial end of encounter left for closed femur, fracture initial encounter for closed fracture 8 03/14/2018 [facility] Allergies, Adverse Reactions, Alerts Allergy Allergy Status Severity Reaction(s) Onset Inactive Treating Comm ents Source Name Type Date Date Clinician gabapent gabapent Active Memori a in<sup>1 in<sup>1 l </sup> </sup> David Social History Smoking Status Start Date Stop Date Source Social History 2019-05-16 15:55:42 2019-05-16 15:55:[facility] Ordered Filled Start Stop Current Ordering Indication Dosage Frequency Signature Comments Components Source Medication Medication Date Date Medication? Clinician (SIG) Name Name melatonin 3 2018- Yes 3 mg = 1 Me moria mg oral 6-28 tab, PO, l tablet 17:10: Bedtime, [place] 00 PRN Sleep, 0 Refill(s) Acetaminoph Yes 1,000 mg = Memoria en 500 MG 6-28 2 tab, PO, l Oral Tablet 17:10: Q6Hnow, 0 H ermann Refill(s) tramadol Yes 50 mg = 1 [place] [facility] hydrochlori 6-28 tab, PO, l de 50 MG 17:10: Q6H, 0 [place] Oral Tablet 00 Refill(s) sennosides, Yes 17.2 mg = M emoria ALF 8.6 MG -28 2 tab, PO, l Oral Tablet 17:10: Bedtime, 0 [place] 00 Refill(s) pantoprazol Yes 40 mg = 1 M emoria e 40 mg -28 tab, PO, l oral 17:10: Before [place] enteric 00 Breakfast, coated 0 tablet Refill(s) methocarbam Yes 500 mg = 1 Memoria ol 500 mg -28 tab, PO, l oral tablet 17:10: TID, PRN He rm Muscle Spasms, 0 Refill(s) Enoxaparin Yes 40 mg = [place] [facility] 05-21 0.4 mL, l 17:10: SUB-Q, David 00 [id number], 0 Refill(s) Ergocalcife Yes 50,000 [place] rol [id number] 05-21 IntlUnit = l UNT Oral 17:10: 1 cap, PO, Her patino Capsule 00 QMon, 0 Refill(s) levofloxaci Yes 500 mg = 1 Memoria n 500 mg -28 tab, PO, l oral tablet 17:10: [id number], 0 Refill(s) Paroxetine Yes 10 mg = 1 Me moria Hydrochlori -28 tab, PO, l de 10 MG 17:10: Daily, 0 Leslie nn Oral Tablet 00 Refill(s) Benadryl No Notes: Memoria 05-20 (Same as: l 20:43: Benadryl) Tramadol No Notes: Not Mem oria 05-19 to exceed l 17:00: 400mg/day. (Same As: Ultram) Robaxin No Notes: Memoria 05-19 (Same l 14:45: as:Robaxin ) Codeine 2019-0 No 30 mg, 1 Memori a 6-26 tab, l 13:15: Route: PO, Drug form: TAB, Q4H, Dosing Weight 72.727, kg, PRN Pain Score 7-10, Start date: 05/19/19 8:15:00 CDT, Duration: 30 day, Stop date: 06/18/19 8:14:00 CDT, 0 Levofloxaci 2018-0 No 500 mg, 1 M emosuzannea n 6-26 tab, l 03:00: Route: PO, Drug form: TAB, [id number], Dosing Weight 72.727, kg, Start date: 05/18/19 22:00:00 CDT, Duration: 5 day, Stop date: 05/22/19 22:00:00 CDT, ABX Indication : Immunocomp romised Host Prophylaxi s, 0 Thyroxine No Notes: Memori a 6-25 Take 1 l 11:30: hour before or 2 hours after meal; Enteral feeds may interefere with the absorption of this medication . (Same as:Levothr oid, Synthroid) sennosides, 2019-0 No 17.2 mg, 2 Memoria ALF 8.6 MG 6-25 tab, l Oral Tablet 02:00: Route: PO, Drug Form: TAB, Dosing Weight 72.727, kg, Bedtime, Start date: 05/17/19 21:00:00 CDT, Duration: 30 day, Stop date: 06/15/19 21:00:00 CDT Melatonin 2018- No Notes: Memori a 6-25 (Same as: l 01:42: Melatonin) Ancef No Notes: Memoria 6-24 (Same as l 21:00: Ancef) acetaminoph No Route: IV, Memoria en (ANES) -24 Drug form: l 16:20: INJ, ONCE, Stop date: 05/17/19 11:20:00 CDT neostigmine No Route: IV, Memoria (ANES) -24 Drug form: l 16:09: INJ, ONCE, Stop date: 05/17/19 11:09:00 CDT glycopyrrol No Route: IV, Memoria ate (ANES) 05-17 Drug form: l 16:09: INJ, ONCE, Stop date: 05/17/19 11:09:00 CDT ondansetron No Route: IV, Memoria (ANES) 24 Drug form: l 16:09: INJ, ONCE, Stop date: 05/17/19 11:09:00 CDT propofol No Route: IV, Mem oria (ANES) 05-17 Drug form: l 16:04: INJ, ONCE, Stop date: 05/17/19 11:04:00 CDT Naloxone No Notes: Memoria 05-17 Same as l 15:42: Narcan Hydromorpho No Notes: [place] ne 05-17 Same as: l 15:42: Dilaudid Flumazenil No Notes: Memor ia 05-17 (Same as: l 15:42: Romazicon) Oxycodone No Notes: Memori a Hydrochlori 05-17 (Same as: l de 5 MG 15:42: Roxicodone Herm fiona Oral Tablet ) Acetaminoph No Notes: Max Memoria en 05-17 acetaminop l 15:42: hen 4000 [place] 00 mg/day (4 gm/day). (Same as: Tylenol Extra Strength) Fentanyl No Notes: Memoria 05-17 (Same as: l 15:42: Sublimaze) Preservat liliana free. Ondansetron No Notes: [place] [facility] 24 (Same as: l 15:42: Zofran) MEDICATION WASTE Product Size: 4 mg Product Wasted: ___ mg fentaNYL No Route: IV, Mem oria (ANES) 05-17 Drug form: l 14:26: INJ, ONCE, Stop date: 05/17/19 9:26:00 CDT ceFAZolin No Route: IV, Me moria (ANES) 05-17 Drug form: l 14:16: INJ, ONCE, Stop date: 05/17/19 9:16:00 CDT phenylephri No Route: IV, Memoria ne (ANES) 24 Drug form: l 14:11: INJ, ONCE, [place] 00 Stop date: 05/17/19 9:11:00 CDT Ergocalcife No Notes: [place] rol [id number] 6-24 (Same as: l UNT Oral 14:00: Vitamin D) Her patino Capsule 00 "Do Not Crush" Docusate No Notes: Memoria Sodium 100 6-24 (Same as: l MG Oral 14:00: Colace) David Capsule 00 (Do Not Crush) Paroxetine No Notes: Memor ia 6-24 (Same as: l 14:00: Paxil) David 00 pantoprazol No Notes: [place] [facility] e 6-24 Tablet l 14:00: should not David 00 be chewed or crushed. (Same as: Protonix) Ergocalcife No 50,000 [place] [facility] rol 6-24 IntlUnit, l 14:00: Route: PO, Drug form: TAB, Daily, Dosing Weight 72.727, kg, Start date: 05/17/19 9:00:00 CDT, Duration: 30 day, Stop date: 06/15/19 9:00:00 CDT oxybutynin No 5 mg, Memori a 24 Route: PO, l 14:00: Drug form: TAB, BID, Dosing Weight 72.727, kg, Start date: 05/17/19 9:00:00 CDT, Duration: 30 day, Stop date: 06/15/19 17:00:00 CDT pantoprazol No 40 mg = 1 M emoria e 40 mg 6-24 tab, PO, l oral 13:43: Daily, # David enteric 00 30 tab, 0 coated Refill(s) tablet lisinopril No 40 mg = 1 Me moria 40 mg oral 6-24 tab, PO, l tablet 13:43: Daily, # [place] 00 30 tab, 0 Refill(s) oxybutynin No 5 mg = 1 Mem oria 5 mg oral 6-24 tab, PO, l tablet 13:43: BID, # 60 Carlos n 00 tab, 1 Refill(s) gabapentin No 600 mg = 1 M emoria 600 MG Oral 6-24 tab, PO, l Tablet 13:43: TID, # 270 Leslie nn 00 tab, 0 Refill(s) predniSONE No 5 mg = 1 Mem oria 5 mg oral 6-24 tab, PO, l tablet 13:43: Daily, David 00 Give with food., # 7 tab, 0 Refill(s) leflunomide No 20 mg = 1 M emoria 20 mg oral 6-24 tab, PO, l tablet 13:43: Daily, # David 00 30 tab, 0 Refill(s) Paroxetine No TAKE 1 Memor ia Hydrochlori 6-24 TABLET BY l de 10 MG 13:43: MOUTH ONCE Her patino Oral Tablet 00 DAILY IN THE MORNING Bisacodyl No Notes: Memori a -24 (Same As: l 13:42: Dulcolax, Bisco-Lax) rocuronium No Route: IV, M emoria (ANES) 05-17 Drug form: l 13:36: INJ, ONCE, Stop date: 05/17/19 8:36:00 CDT lidocaine No Route: IV, Me moria (ANES) 05-17 Drug form: l 13:36: INJ, ONCE, Stop date: 05/17/19 8:36:00 CDT fentaNYL No Route: IV, Mem oria (ANES) - Drug form: l 13:31: INJ, ONCE, Stop date: 05/17/19 8:31:00 CDT propofol No Route: IV, Mem oria (ANES) 6-24 Drug form: l 13:31: INJ, ONCE, Stop date: 05/17/19 8:31:00 CDT ceFAZolin No Route: IV, Me moria (ANES) 6 Drug form: l 13:26: INJ, ONCE, Stop date: 05/17/19 8:26:00 CDT Lactated 2019-0 No Route: IV, Mem oria Ringers 6-24 Total l Injection 12:34: Volume: Leslie nn IV (ANES) 00 1,000, 1000 mL Start date: 05/17/19 7:34:00 CDT, Stop date: 05/17/19 8:34:00 CDT Enoxaparin No Notes: Memor ia 6-24 (Same as: l 08:48: Lovenox) [place] 00 Calcium No 1,000 mL, Memor ia Chloride 6-24 Rate: 75 l 0.0014 03:31: ml/hr, David MEQ/ML / 00 Infuse Potassium over: 13.3 Chloride hr, Route: 0.004 IV, Dosing MEQ/ML / Weight Sodium 72.727 kg, Chloride Total 0.103 Volume: MEQ/ML / 1,000, Sodium Start Lactate date: 0.028 05/16/19 MEQ/ML 22:31:00 Injectable CDT, Solution Duration: 30 day, Stop date: 06/15/19 22:30:00 CDT, 1.84, m2 sennosides, No Notes: [place] [facility] ALF 24 (Same as: l 02:00: Senokot) David Acetaminoph No Notes: Max Memoria en -23 acetaminop l 22:00: hen 4000 [place] 00 mg/day (4 gm/day). (Same as: Tylenol Extra Strength) gabapentin No Notes: Memor ia 6-23 (Same as: l 22:00: Neurontin) [place] Oxycodone No Notes: Memori a Hydrochlori - (Same as: l de 5 MG 21:21: Roxicodone Herm fiona Oral Tablet ) Morphine No Notes: Memoria 6-23 (Same l 21:21: as:MORPhin [place] 00 e Sulfate) Ondansetron No Notes: [place] [facility] 6-23 (Same as: l 21:21: Zofran) [place] MEDICATION WASTE Product Size: 4 mg Product Wasted: ___ mg Glucagon No 1 mg, Memoria 6 Route: IM, l 20:48: Drug form: David 00 PDR/INJ, PRN, Dosing Weight 72.727, kg, PRN Blood Glucose Results, Start date: 05/16/19 15:48:00 CDT, Duration: 30 day, Stop date: 06/15/19 15:47:00 CDT Dextrose 2019-0 No 25 gm, 50 [place] [facility] 50% Syringe 6-23 mL, Route: l 20:48: IVP, Drug Form: INJ, Dosing Weight 72.727, kg, PRN, PRN Blood Glucose Results, Start date: 05/16/19 15:48:00 CDT, Duration: 30 day, Stop date: 06/15/19 15:47:00 CDT Dilaudid 2019-0 No 0.5 mg, Memori a 05-16 Route: l 19:10: IVP, ONCE, Dosing Weight 72.727, kg, Priority: STAT, Start date: 05/16/19 14:10:00 CDT, Stop date: 05/16/19 14:10:00 CDT Tramadol 2019-0 No 50 kg, Memori a 05-16 Priority: l 19:03: STAT, Start date: 05/16/19 14:03:00 CDT, Stop date: 05/16/19 14:03:00 CDT gabapentin 2019-0 No 300 mg, [place] [facility] 05-16 Route: PO, l 19:03: ONCE, Dosing Weight 72.727, kg, Start date: 05/16/19 14:03:00 CDT, Stop date: 05/16/19 14:03:00 CDT Acetaminoph 2019-0 No 650 mg, Mem oria en 05-16 Route: PO, l 19:03: Drug form: [place] TAB, ONCE, Dosing Weight 72.727, kg, Priority: STAT, Start date: 05/16/19 14:03:00 CDT, Stop date: 05/16/19 14:03:00 CDT Dilaudid 2019-0 No 0.5 mg, Memori a 05-16 Route: l 16:37: IVP, ONCE, Dosing Weight 72.727, kg, Priority: STAT, Start date: 05/16/19 11:37:00 CDT, Stop date: 05/16/19 11:37:00 CDT Zofran 2019-0 No 4 mg, Memoria 05-16 Route: l 16:03: IVP, Drug form: INJ, ONCE, Dosing Weight 72.727, kg, Priority: STAT, Start date: 05/16/19 11:03:00 CDT, Stop date: 05/16/19 11:03:00 CDT Morphine 2019-0 No 4 mg, Memoria 05-16 Route: l 16:03: IVP, ONCE, Dosing Weight 72.727, kg, Priority: STAT, Start date: 05/16/19 11:03:00 CDT, Stop date: 05/16/19 11:03:00 CDT Vitamin D Vitamin D Yes DORON TAKE 1 [facility] (Ergocalcif (Ergocalcif 4-09 CALDER[place] CAPSULE ity of chata) [id number] chata) 07958 00:00: WEEKLY. [place] UNIT Oral UNIT Oral 00 Physi ci Capsule Capsule ans Acetaminoph Acetaminoph Yes DORON 1 Q6H TAKE 1 [facility] en-Codeine en-Codeine 2-15 KVNG PA TABLET ity of #3 300-30 #3 300-30 00:00: EVERY 6 [place] MG Oral MG Oral 00 HOURS Physici Tablet Tablet ans tramadol No 50 mg = 1 [place] [facility] hydrochlori 1-12 tab, PO, l de 50 MG 20:55: Q6H, PRN Leslie nn Oral Tablet 00 Pain Score 6-10, X 7 day, # 28 tab, 0 Refill(s) senna 8.6 Yes 17.2 mg = Mem oria mg oral -12 2 tab, PO, l tablet 20:55: Bedtime, 0 Leslie nn 00 Refill(s) bisacodyl Yes 10 mg = 1 Mem oria 10 mg 1-12 supp, MT, l rectal 20:55: Daily, PRN Leslie nn suppository 00 Constipati on, 0 Refill(s) Docusate Yes 100 mg = 1 Mem oria Sodium 100 1-12 cap, PO, l MG Oral 20:55: BID, 0 [place] Capsule 00 Refill(s) Ergocalcife Yes 50,000 [place] rol [id number] 1-12 IntlUnit = l UNT Oral 20:55: 1 cap, PO, Her patino Capsule 00 Q7D, 0 Refill(s) Enoxaparin Yes 30 mg = [place] [facility] 12-05 0.3 mL, l 20:55: SUB-Q, David 00 [id number], STOP DATE IS 12/20/17, 0 Refill(s) sennosides, Yes 17.2 mg = M emoria ALF 8.6 MG 12-05 2 tab, PO, l Oral Tablet 20:55: Bedtime, 0 David 00 Refill(s) Prednisone No Notes: Memor ia 12-04 (Same as: l 15:00: PredniSONE David ) Take with food. Ergocalcife No Notes: [place] rol [id number] 12-02 (Same as: l UNT Oral 15:00: Vitamin D) Her patino Capsule 00 "Do Not Crush" Sodium No 250 mL, Memoria Chloride 12-02 Rate: On l 0.9% 13:41: call for David (titrate) 00 use with 250 mL blood product administra tion, Dosing Weight 74.091, kg, Route: IV, Total Volume: 250, Start Date: 12/02/17 7:41:00 DIETITIAN RESEARCH, Duration: 1 day, Stop date: 12/03/17 7:40:00 DIETITIAN RESEARCH, Replace Every: 24 hr Metformin No 500 mg = 1 Me moria hydrochlori 12-02 tab, PO, l de 500 MG 02:07: BID-Meals, He rmann Oral Tablet 00 # 180 tab, 0 Refill(s) lisinopril No 40 mg = 1 Me moria 40 mg oral 12-02 tab, PO, l tablet 02:07: Daily, # David 00 30 tab, 0 Refill(s) Acetaminoph No 1 tab, PO, Memoria en 300 MG / 12-02 Q6H, PRN l Codeine 02:07: pain, # 28 Herm fiona Phosphate 00 tab 60 MG Oral Tablet predniSONE No 10 mg = [place] [facility] 20 mg oral 12-02 0.5 tab, l tablet 02:07: PO, Daily Carlos n 00 Synthroid No Notes: Memori a 12-01 Take 1 l 17:00: hour [place] 00 before or 2 hours after meal; Enteral feeds may interefere with the absorption of this medication . (Same as:Levothr oid, Synthroid) Prednisone No Notes: Memor ia 12-01 Take with l 17:00: food. [place] 00 Calcium No Notes: Memoria Carbonate 12-01 (calcium l 1250 MG / 15:00: carbonate- He rm Cholecalcif 00 vit D chata 400 500mg-400u UNT nit chew Chewable TAB) Same Tablet as: Oscal 500+D Sodium No 250 mL, Memoria Chloride 11-30 Rate: On l 0.9% 13:26: call for David (titrate) 00 use with 250 mL blood product administra tion, Dosing Weight 74.091, kg, Route: IV, Total Volume: 250, Start Date: 11/30/17 7:26:00 DIETITIAN RESEARCH, Duration: 30 day, Stop date: 12/30/17 7:25:00 DIETITIAN RESEARCH, Replace Every: 24 hr Ancef + No Notes: Memoria sterile 11-30 (Same As: l water 20 mL 07:30: Ancef, Herm fiona Kefzol) MEDICATION WASTE Product Size: 1000 mg Product Wasted: ___ mg sennosides, No Notes: [place] [facility] ALF 11-30 (Same as: l 03:00: Senokot) David Cefazolin No Notes: Memori a 11-30 (Same As: l 01:00: Ancef, David Kefzol) MEDICATION WASTE Product Size: 1000 mg Product Wasted: ___ mg Enoxaparin No Notes: Memor ia 11-29 (Same as: l 23:51: Lovenox) David 00 Isolyte S No Notes: Memori a PH 7.4 500 11-29 (Same as: l mL 23:12: Isolyte S David 00 PH7.4) Sodium No 500 mL, Memoria Chloride 11-29 250 ml/hr, l 0.9% 23:10: Infuse David (Bolus) IV 00 Over: 1 hr, Route: IV, ONCE, Priority: Routine, Dosing Weight 74.091 kg, Start date: 11/29/17 17:10:00 DIETITIAN RESEARCH, Stop date: 11/29/17 17:10:00 DIETITIAN RESEARCH hydromorpho 2018-0 No Route: IV, Memoria ne (ANES) 11-29 Drug form: l 19:02: INJ, ONCE, Stop date: 11/29/17 13:02:00 DIETITIAN RESEARCH acetaminoph 2017-0 No Route: IV, Memoria en (ANES) 11-29 Drug form: l 18:47: INJ, ONCE, Stop date: 11/29/17 12:47:00 DIETITIAN RESEARCH hydrocortis 2017-0 No Route: IV, Memoria one (ANES) 11-29 Drug form: l 18:07: INJ, ONCE, Stop date: 11/29/17 12:07:00 DIETITIAN RESEARCH norepinephr 2017-0 No Route: IV, Memoria ine (ANES) 11-29 Drug form: l 18:02: INJ, ONCE, Stop date: 11/29/17 12:02:00 DIETITIAN RESEARCH phenylephri 2017-0 No Route: IV, Memoria ne (ANES) 11-29 Drug form: l 17:42: INJ, ONCE, Stop date: 11/29/17 11:42:00 DIETITIAN RESEARCH rocuronium 2017-0 No Route: IV, M emoria (ANES) 11-29 Drug form: l 17:42: INJ, ONCE, Stop date: 11/29/17 11:42:00 DIETITIAN RESEARCH fentaNYL 2018-0 No Route: IV, Mem oria (ANES) 11-29 Drug form: l 17:42: INJ, ONCE, Stop date: 11/29/17 11:42:00 DIETITIAN RESEARCH ceFAZolin 2017-0 No Route: IV, Me moria (ANES) 11-29 Drug form: l 17:42: INJ, ONCE, Stop date: 11/29/17 11:42:00 DIETITIAN RESEARCH lidocaine 2018-0 No Route: IV, Me moria (ANES) 11-29 Drug form: l 17:42: INJ, ONCE, Stop date: 11/29/17 11:42:00 DIETITIAN RESEARCH propofol 2018-0 No Route: IV, Mem oria (ANES) 11-29 Drug form: l 17:42: INJ, ONCE, David Stop date: 11/29/17 11:42:00 DIETITIAN RESEARCH Lactated No Route: IV, Mem oria Ringers 11-29 Total l Injection 16:46: Volume: Leslie nn IV (ANES) 00 1,000, 1000 mL Start date: 11/29/17 10:46:00 DIETITIAN RESEARCH, Stop date: 11/29/17 11:46:00 DIETITIAN RESEARCH Biotene No Notes: Memoria Oral 11-29 Same as l Balance 16:00: Biotene Oral Balance Dry Mouth Docusate No Notes: Memoria 11-29 (Same as: l 15:00: Colace) (Do Not Crush) gabapentin No Notes: Memor ia 100 MG Oral 11-29 (Same as: l Capsule 14:00: Neurontin) Herm fiona levothyroxi Yes 300 Memori a ne 300 mcg 06 microgram l (0.3 mg) 13:48: = 1 tab, Leslie nn oral tablet 00 PO, Daily, # 30 tab, 0 Refill(s) Ondansetron No Notes: [place] [facility] 11-29 (Same as: l 13:28: Zofran) MEDICATION WASTE Product Size: 4 mg Product Wasted: _0__ mg Bisacodyl No Notes: Memori a - (Same As: l 13:28: Dulcolax, David 00 Bisco-Lax) tizanidine No Notes: Memor ia 11-29 (Same As: l 13:28: Zanaflex) Oxycodone No Notes: Memori a Hydrochlori 11-29 (Same as: l de 5 MG 13:28: Roxicodone Herm fiona Oral Tablet 00 ) Tramadol No Notes: Not Mem oria 11-29 to exceed l 13:28: 400mg/day. David (Same As: Ultram) Acetaminoph No Notes: Do M emoria en 11-29 not exceed l 12:00: 4 gm/day. David (Same as: Tylenol) predniSONE No 20 mg = 1 Me moria 20 mg oral 11-29 tab, PO, l tablet 11:51: Daily, # 7 Leslie nn 00 tab, 0 Refill(s) Ondansetron No Notes: [place] 11-29 (Same as: l 11:51: Zofran) [place] MEDICATION WASTE Product Size: 4 mg Product Wasted: ___ mg Morphine No Notes: Memoria 11-29 (Same l 11:51: as:MORPhin [place] 00 e Sulfate) Acetaminoph No Notes: [place] [facility] en 325 MG / 11-29 (Same as: l Hydrocodone 11:51: Sassafras Leslie nn Bitartrate 00 325/5) Do 5 MG Oral not exceed Tablet 4gm/day of acetaminop hen. Dilaudid No Notes: Memoria 11-29 Same as l 10:51: Dilaudid 00 Dilaudid No 1 mg, Memoria 11-29 Route: l 10:09: IVP, ONCE, [place] 00 Dosing Weight 68.182, kg, Priority: STAT, Start date: 11/29/17 4:09:00 DIETITIAN RESEARCH, Stop date: 11/29/17 4:09:00 DIETITIAN RESEARCH Zofran No Notes: Memoria 11-29 (Same as: l 07:31: Zofran) [place] MEDICATION WASTE Product Size: 4 mg Product Wasted: ___ mg Morphine No Notes: Memoria 11-29 (Same l 07:31: as:MORPhin [place] e Sulfate) Saline No Notes: Memoria Flush 0.9% 11-29 Same as: l 06:47: BD [place] 00 Posiflush Sterile Vital Signs Vital Name Observation Time Observation Value Comments Source Heart Rate 2019-05-21 20:47:00 [facility] David Respitory Rate 2019-05-21 20:47:00 Eneida Hurley Systolic (mm Hg) 2019-05-21 20:47:00 [place] Diastolic (mm Hg) 2019-05-21 20:47:00 Mem orial David Temperature Oral (F) 2019-05-21 20:47:00 98.1 F [facility] Systolic (mm Hg) 2019-05-21 16:57:00 [place] rial [place] Diastolic (mm Hg) 2019-05-21 16:57:00 Mem orial David Heart Rate 2019-05-21 16:57:00 [facility] Respitory Rate 2019-05-21 16:57:00 [facility] [place] Temperature Oral (F) 2019-05-21 16:57:00 98.6 F [facility] [place] Systolic (mm Hg) 2019-05-21 11:24:00 [place] [place] Diastolic (mm Hg) 2019-05-21 11:24:00 [facility] [place] Temperature Oral (F) 2019-05-21 11:24:00 98.1 F [facility] Respitory Rate 2019-05-21 11:24:00 [facility] [place] Heart Rate 2019-05-21 11:24:00 [facility] BMI Calculated 2019-05-16 23:51:00 [facility] [place] Height 2019-05-16 23:51:00 165.1 cm [facility] Weight 2019-05-16 23:51:00 [facility] Weight 2019-05-16 15:32:00 [facility] Heart Rate 2017-12-06 15:19:00 [facility] [place] Respitory Rate 2017-12-06 15:19:00 [facility] [place] Systolic (mm Hg) 2017-12-06 15:19:00 [place] Diastolic (mm Hg) 2017-12-06 15:19:00 [facility] Temperature Oral (F) 2017-12-06 15:19:00 98.9 F [facility] Systolic (mm Hg) 2017-12-06 10:34:00 [place] [facility] [place] Diastolic (mm Hg) 2017-12-06 10:34:00 [facility] Heart Rate 2017-12-06 10:34:00 [facility] Temperature Oral (F) 2017-12-06 10:34:00 98.6 F [facility] Respitory Rate 2017-12-06 10:34:00 [facility] [place] Heart Rate 2017-12-06 05:09:00 [facility] Systolic (mm Hg) 2017-12-06 05:09:00 [place] [facility] [place] Diastolic (mm Hg) 2017-12-06 05:09:00 [facility] [place] Respitory Rate 2017-12-06 05:09:00 [facility] Temperature Oral (F) 2017-12-06 01:47:00 98.3 F [facility] BMI Calculated 2017-11-29 13:43:00 [facility] Weight 2017-11-29 13:43:00 [facility] Height 2017-11-29 13:43:00 165.1 cm [facility] Weight 2017-11-29 06:25:00 [facility] BMI Calculated 2017-11-29 06:25:00 [facility] [place] Height 2017-11-29 06:25:00 165.1 cm [facility] Procedures Procedure Date / Time Performing Clinician Source Performed [U] XRAY FEMUR 2 [facility] 2019-07-21 00:00:00 [facility] [place] LEFT [id number] Physicians [U] XRAY FEMUR 2 [facility] 2019-06-21 00:00:00 [facility] RIGHT [address]83 Physicians [U] XRAY FEMUR 2 [facility] 2019-06-11 00:00:00 [facility] [place] RIGHT [id number] Physicians [U] XRAY FEMUR 2 S 2019-06-09 00:00:00 [facility] [place] LEFT [address] Physicians [U] XRAY FEMUR 2 [facility] 2018-04-29 00:00:00 [facility] [place] LEFT [address]83 Physicians [U] XRAY HUMERUS MIN 2 2018-03-20 00:00:00 [facility] LEFT [id number] Physicians [U] XRAY FEMUR 2 [facility] 2018-02-20 00:00:00 [facility] [place] LEFT [address] Physicians [U] XRAY FEMUR 2 [facility] 2018-01-14 00:00:00 [facility] [place] LEFT [address] Physicians section [facility] Carlos n Knee replacement Tanya napier Plan of Care Planned Activity Planned Date Details Comments Source Diagnostic Test 2018-03-23 [U] XRAY HUMERUS [facility] [place] Pending 00:00:00 MIN 2 [facility] LEFT Physicians [id number] [code = 59340] Encounters Start End Encounter Admission Attending Care Care Encounter Source Date/Time Date/Time Type Type Clinicians Facility Department ID 2019-08-02 2019-08-02 J[facility] [id number] [facility] 12:30:00 12:30:00 t; [place] CALDERON, [place] [facility] [place] [facility] 2019-06-21 2019-06-21 Rahda CALDERON [facility] Orthopedics [id number] Univers 14:00:00 14:00:00 t; [place] CALDERON, [place] [facility] [place] [facility] 2019-06-14 2019-06-14 Radha CALDERON [facility] Orthopedics [id number] Univers 13:30:00 13:30:00 t; [place] CALDERON, [place] [facility] [place] [facility] 2019-05-16 2019-05-21 Outpatient Luis A [facility] [id number] 10:32:00 16:15:00 74 2019-05-16 2019-05-16 Inpatient E [facility] MED [id number] [facility] 15:18:00 08:33:00 2018-05-04 2018-05-04 Radha CALDERON [facility] Orthopedics [id number] Univers 10:30:00 10:30:00 t; [place] CALDERON, [place] [facility] 2018-03-02 2018-03-02 Radha CALDERON [facility] Orthopedics [id number] Univers 10:30:00 10:30:00 t; [place] CALDERON, [place] ity [place] [facility] 2018-01-19 2018-01-19 Radha CALDERON [facility] Orthopedics [id number] Univers 10:30:00 10:30:00 t; [place] CALDERON, [place] ity [place] Physici ans 2017-12-22 2017-12-22 Appointgino CALDERON [facility] [id number] Univers 09:30:00 09:30:00 t; [place] CALDERON, [place]y [place] Physici ans 2017-11-29 2017-12-06 Outpatient Miguel A [facility] [id number] 00:25:00 10:30:00 Karen 05 2017-11-29 2017-12-06 Outpatient Miguel A [facility] [id number] 00:25:00 10:30:00 Karen 05 Results Test Description Test Time Test Comments Results Result Comments Source ELECTROLYTES 2019-05-21 7.8 [facility] 08:37:00 ELECTROLYTES 2019-05-21 118 [facility] 08:37:00 ELECTROLYTES 2019-05-21 3.8 [facility] 08:37:00 ELECTROLYTES 2019-05-21 134 [facility] 08:37:00 ELECTROLYTES 2019-05-21 99 [facility] 08:37:00 ELECTROLYTES 2019-05-21 89 [facility] 08:37:00 ELECTROLYTES 2019-05-21 10 [facility] 08:37:00 ELECTROLYTES 2019-05-21 0.27 [facility] 08:37:00 ELECTROLYTES 2019-05-21 31 [facility]ino 08:37:00 ELECTROLYTES 2019-05-21 7.8 [facility] patino 08:37:00 HEMATOLOGY 2019-05-21 0.2 [facility] 08:37:00 HEMATOLOGY 2019-05-21 0.3 [facility] nn 08:37:00 HEMATOLOGY 2019-05-21 2.5 [facility] nn 08:37:00 HEMATOLOGY 2019-05-21 0.2 [facility] nn 08:37:00 HEMATOLOGY 2019-05-21 0.8 [facility] nn 08:37:00 HEMATOLOGY 2019-05-21 40.5 [facility] nn 08:37:00 HEMATOLOGY 2019-05-21 29.3 [facility] nn 08:37:00 HEMATOLOGY 2019-05-21 26.9 [facility] nn 08:37:00 HEMATOLOGY 2019-05-21 08:37:00 Test Item Value Reference Range Interpretation Comme nts MCH (test code = MCH) 29.6 pg 27.0-31.0 [facility] SrdzpxkEOEZQHPXSU2318-72-60 08:37:0016.8[facility] HermannHEMATOLOGY 2019-05-21 08:37:006.9[facility] ZvyjcxhUOIZVZIRLI2643-29-33 08:37:51406Bpoyvyay HpxxqxtSYAUHZLHVD5781-72-43 08:37:0034.1[facility] XibyhzxSQUHESJUKO2506-28-35 08:37:002.71[facility] QddhbbcBLPSYPPZAY5335-28-37 08:37:008.0[facility] CCQVBGWLPQ1209-64-11 08:37:0023.5[facility] YfjvlraJGCLFUVSPI6356-53-08 08:37:00 86.7[facility] EoulugcIRIQAWGWOO6764-28-97 08:37:000.7[facility]annBLOOD BANK NWLVVVD0148-34-74 14:51:00Negative (05/20/19 9:51 AM)[facility] UBCBCAD7361-12-30 12:21:00Product available (05/20/19 7:21 AM)[facility] CHEM ABERW9000-53-24 08:41:0011[facility] HermannCHEM SADOV6024-10-81 08:41:0080 [facility]annCHEM APIZL2442-10-18 08:41:22858Ldliktvm HermannCHEM PANEL 2019-05-20 08:41:000.32[facility] HermannCHEM UWGUB5422-22-91 08:41:007.6[facility] HermannCHEM TQOYG1571-18-80 08:41:01623Rnfygqtj HermannCHEM LBHTO1779-32-58 08:41:0011.0[facility] HermannCHEM ZUHGX4652-10-64 08:41:23664Phpzhkoy HermannCHEM DBRTM0005-66-46 08:41:0025[facility] HermannCHEM VVYOE7944-00-48 08:41:004.0 [facility] PhbqtkgSBRAIQBIKC2106-34-87 08:41:000.3[facility] HermannHEMATOLOGY 2019-05-20 08:41:000.7[facility] DhavpbzDOAOMMQGMT8991-47-34 08:41:000.2[facility] NiywfgiTKBYZNBAPT4740-99-66 08:41:000.3[facility] KbryesiRMWKBGTUQF0369-76-96 08:41:0026.5[facility] DppvqhiHLJJQWJCSS1654-11-66 08:41:0034.3[facility] ZJLBYUIRWQ0568-02-43 08:41:001.8[facility] XkouxedZLEFCUQYUZ6823-13-63 08:41:00 36.7[facility] YdamjdpXUONSFAXMJ6953-00-39 08:41:05983Mdctysnf HermannHEMATOLOGY 2019-05-20 08:41:007.1[facility] GvgtesoILOWXLKMED6128-03-60 08:41:0017.3[facility] CkzsfjjGSRZFAGWYG8925-70-82 08:41:0033.7[facility] PpjhfzzSMBUTNPZJM6358-54-81 08:41:000.9[facility] XrfbfemTLUCVVCTOT0810-49-94 08:41:00 Test Item Value Reference Range Interpretation Comments MCH (test code = MCH) 29.5 pg 27.0-31.0 [facility] XqyeverRAWKXZVRXF7250-12-32 08:41:0020.8[facility] HermannHEMATOLOGY 2019-05-20 08:41:0087.6[facility] ZuzalvrFEDQAZQGJI2782-74-01 08:41:002.37[facility] CqsnkbcOGGCEYBELF2261-51-93 08:41:007.0[facility] HermannCHEM HTGLK6884-11-95 09:27:84808Livnymka HermannCHEM HRULV9742-23-31 09:27:43779Beshxlue HermannCHEM DVYWK0741-61-94 09:27:07172Zianydie HermannCHEM XZODG1907-46-09 09:27:000.34 [facility]annCHEM ZRGDV0118-52-40 09:27:0018[facility] HermannCHEM PANEL 2019-05-19 09:27:007.9[facility] HermannCHEM BXKSA9810-57-07 09:27:0012.0[facility] HermannCHEM TAIEI5240-52-25 09:27:0026[facility] HermannCHEM NXGYD0632-69-24 09:27:0098[facility] HermannCHEM SXJHN2525-28-76 09:27:004.0[facility] NUIDKBGZZF3357-74-99 09:27:0047.2[facility] XsvmofpJWZGFWOXAB6129-88-45 09:27:00 0.3[facility] NyujzdmGJYGCRGAXH9114-40-27 09:27:000.3[facility] HermannHEMATOLOGY 2019-05-19 09:27:0025.4[facility] GwenumuVHVZBIYIIV4082-31-94 09:27:001.2[facility] FljnjxaJKSTIJMFMX9889-44-41 09:27:0025.6[facility] WoedlkhXYTSEWOZBK5615-62-37 09:27:000.6[facility] JdotaypGOVSMWALSQ5059-69-29 09:27:000.6[facility] ZUAZPHMXFV7947-33-41 09:27:002.52[facility] DdppxmcCRRXRMYXZK5029-76-84 09:27:00 86.1[facility] CuuhineUFVXTOIGLW6262-48-70 09:27:00 Test Item Value Reference Range Interpretation Comments MCH (test code = MCH) 30.6 pg 27.0-31.0 [facility] LhzjxvkVFRBINUQAM4425-32-02 09:27:45004Kvkjngog HermannHEMATOLOGY 2019-05-19 09:27:007.7[facility] JunxojqVBLLFOBSNS1808-75-26 09:27:001.2[facility] TdphnsuMVYRPCKOSI0206-05-85 09:27:0021.7[facility] FektwflPDJATGGBTP1097-72-24 09:27:0017.1[facility] HthatybOYXPLSBMTE9029-12-03 09:27:0035.5[facility] KHFIXAVNWU4542-56-94 09:27:007.1[facility] HermannANEMIA JZSSU6719-00-39 09:50:00 204[facility] HermannANEMIA FROKU5886-95-02 09:50:14146Luiutcqm HermannANEMIA YKPJM0571-66-54 09:50:54669Zypuoimv HermannANEMIA EPVSL7863-15-27 09:50:0016 [facility] HermannANEMIA UYMTD0284-74-42 09:50:39673Dpavpenm HermannANEMIA STUDY 2019-05-18 09:50:0027[facility] HermannANEMIA CNGKH5000-40-12 09:50:0025.0[facility] FwpvaljCMSLTIWQTE9154-71-54 09:50:004.8[facility] YdblmcmXBDVVORZOC1131-33-52 09:50:003.0[facility] EozwddiTICAJOXHKD7954-08-10 09:50:001+ *ABN*(05/18/19 4:50 AM)[facility] JwskmsmYUCMLYWGHY6912-05-11 09:50:00Normal (05/18/19 4:50 AM)[facility] HermannCHEM PVJTZ7405-81-51 11:37:009.7[facility] HermannPARATHYROID PROFILE 2019-05-17 11:37:0045.6[facility] HermannPARATHYROID LFYPKDW3494-71-29 11:37:00 1.02[facility] HermannPARATHYROID EOIHPGC6909-55-66 11:37:001.07[facility] ANEMIA UEUOF4152-05-56 06:06:69822Lizxieqv HermannANEMIA WRXCZ0402-23-44 06:06:0013Mem[facility] HermannANEMIA ODAMV2428-05-60 06:06:17041Qkkfucna David ANEMIA TOFRT3276-08-26 06:06:04333Upiuapea HermannANEMIA SSMXB2931-49-60 06:06:0030[facility] HermannAMPICILLIN+SULBACTAM:SUSC:PT:ISOLATE:ORDQN:DIANNE 2019-05-17 05:00:00Klebsiella pneumoniae ssp pneumoniaeMemorial David AMPICILLIN+SULBACTAM:SUSC:PT:ISOLATE:ORDQN:AHR8736-14-87 05:00:00Proteus mirabilisMemorial HermannURINE AND AHZHG6916-79-28 02:52:00 Test Item Value Reference Range Interpretation Comments UA pH (test code = UA pH) 6.0 1 5.0-8.0 [facility]annURINE AND UVCVU4636-79-85 02:52:00Positive *ABN*(05/16/19 9:52 PM)[facility] AND DFPLL5177-51-59 02:52:002.0[facility]annUR[facility] AND XXNSN8407-64-27 02:52:00Trace *ABN*(05/16/19 9:52 PM)[facility] TCJRM2065-44-11 02:52:00Slight *ABN*(05/16/19 9:52 PM)[facility] BRFWK1175-82-25 02:52:00 Test Item Value Reference Range Interpretation Comments UA Spec Grav (test code = UA Spec 1.023 1 Grav) [facility] CNGKN3067-03-26 02:52:00Amber *ABN*(05/16/19 9:52 PM) [facility] LXLUU1193-35-05 02:52:00Negative *NA*(05/16/19 9:52 PM) [facility] AZERF2196-28-00 02:52:00Negative (05/16/19 9:52 PM) [facility] EFWRT6975-58-14 02:52:0013[facility]annUR[facility] AND EYQXT6415-62-91 02:52:0017[facility] HermannCHEM YVKDW7342-20-02 00:11:0031 [facility] HermannCHEM XUGFU7845-33-52 00:11:0021[facility] HermannCHEM PANEL 2019-05-17 00:11:00<10[facility] HermannPARATHYROID IEGGCYO7823-20-08 00:11:00 1.06[facility] HermannPARATHYROID AZAVQOC7277-64-37 00:11:001.11[facility] CHEM SEMER9905-98-62 22:27:002.9[facility] HermannCHEM BQTQU7504-17-07 22:27:00 Test Item Value Reference Range Interpretation Comments A/G Ratio (test code = A/G Ratio) 0.6 1 0.7-1.6 [facility] HermannCHEM OMBOO6061-52-12 22:27:001.8[facility] HermannCHEM PANEL 2019-05-16 22:27:0021[facility] HermannCHEM ZLWOK0579-67-17 22:27:0014[facility] HermannCHEM JBGXR5514-24-79 22:27:000.4[facility] HermannCHEM DLWVT0865-95-32 22:27:0084[facility] HermannCHEM NFIDY7606-89-44 22:27:00<0.1[facility] CHEM OPUKV0975-05-52 22:27:004.7[facility] HermannPARATHYROID ZDEEAHM0442-15-08 22:27:0041.7[facility] HermannBLOOD BANK POLCVPN3410-40-35 15:57:00Negative (05/16/19 10:57 AM)[facility] YaynmzpSDGMTOMRAU1680-99-24 15:57:007.0[facility] HpfikopCEOSOVDSBR3062-51-49 15:57:000.0[facility] QkbtvyhNAFOVXMJPF3965-94-58 15:57:001+ *ABN*(05/16/19 10:57 AM)[facility]EMNIJJDBW3504-65-11 15:57:00 Normal (05/16/19 10:57 AM)[facility] HospitalTzdmuxfDWOTEDCKQI8243-32-41 15:57:004.0 [facility] PuacjeeBECNLLUNJY5363-45-76 15:57:00 Test Item Value Reference Range Interpretation Comments PTT (test code = PTT) 27.0 s 22.9-35.8 [facility] HospitalXhixqubVIAACRCLSM4940-02-70 15:57:00 Test Item Value Reference Range Interpretation Comments PT (test code = PT) 13.3 s 12.0-14.7 [facility] HospitalYtscxdjBNGSCMPIXF9643-31-76 15:57:00 Test Item Value Reference Range Interpretation Comments INR (test code = INR) 1.03 1 0.85-1.17 [facility][U] XRAY FEMUR 2 VWS LEFT [id number] 10:55:00Images acquired, not reported on this accession number.[facility] CARDIAC QVOMDTP2879-28-40 05:45:00<0.02[facility] YxdwpjcMTUVIWJWQV3062-43-53 17:44:0081.1[facility] CfxmmvvCHGDOEJSQU3731-92-89 17:44:00 Test Item Value Reference Range Interpretation Comments MCH (test code = MCH) 26.6 pg 27.0-31.0 [facility] CnyrvuaLFIXQHXQUH9350-43-80 17:44:0032.8[facility] HermannHEMATOLOGY 2017-12-05 17:44:0021.3[facility] ZsthidcNWYIFGLGKR1927-45-70 17:44:47436Stgvbgxw DgijenpUBPAYCGUAZ3009-97-07 17:44:006.4[facility] JydgczrCMOODPGTQS5531-92-44 17:44:003.92[facility] VuzcechGJBSJLVXMN6493-58-16 17:44:0010.4[facility] UGQYRKRZKI4824-59-71 17:44:0031.8[facility] SuvvrqkFPYFQBXDUL0003-80-62 17:44:00 7.3[facility] YoesoviZOGAFCNAOI2286-20-35 17:44:005.6[facility] HermannHEMATOLOGY 2017-12-05 17:44:000.1[facility] MrnwxslGNZJTIYMEZ8768-57-86 17:44:001+ *ABN*(12/05/17 11:44 AM)[facility] YdgolskYDPFKNAPXT0315-28-83 17:44:000.6[facility] EpmaishFIZYNLSLYA4775-81-98 17:44:000.2[facility] ZiwhfrsPEKFEAKQWD6641-78-18 17:44:000.2[facility] HevwuxcJPNUGJWDAG2363-72-11 17:44:001.1[facility] QRPGWWIHYS5965-92-92 17:44:003.0[facility] AplgbgcDLIUWDKKMV2547-49-12 17:44:009.3 [facility] MdrbrtsLDUAAGVSFE2451-02-69 17:44:0086.4[facility] HermannCHEM PANEL 2017-12-03 10:10:002.7[facility] HermannCHEM NJIIL0633-42-78 10:10:001.8[facility] HermannCHEM WTDIE5927-74-84 10:10:04660Sjycrzqp HermannCHEM OIJMZ2130-09-78 10:10:007.7[facility] HermannCHEM WFMZO8287-35-16 10:10:0012.3[facility] HermannCHEM LTGZX8485-64-90 10:10:0025[facility] HermannCHEM WYSBV4585-48-71 10:10:0012 [facility] HermannCHEM DIETB5666-03-93 10:10:84890Sgvbrpfx HermannCHEM PANEL 2017-12-03 10:10:004.3[facility] HermannCHEM ADJVG5133-38-09 10:10:75297Nihmymxo HermannCHEM NBHRQ5138-79-97 10:10:000.36[facility] HermannCHEM YKCPT1996-68-97 10:10:17257Zgvyrxrz XgifzbcYNMOZGQMIF0852-57-76 10:10:0024.4[facility] YXUPDBJYVX7234-01-35 10:10:008.0[facility] LuylfxqKHLZESVWMW2184-18-81 10:10:00 3.09[facility] XsbjajcDYXZMFAAJG3083-39-74 10:10:0020.4[facility] HermannHEMATOLOGY 2017-12-03 10:10:0079.2[facility] OfcwgdmWEHFABXXRB2967-21-66 10:10:0032.7[facility] NzskcxcDIKQMNFDHC8090-41-01 10:10:00 Test Item Value Reference Range Interpretation Comments MCH (test code = MCH) 25.9 pg 27.0-31.0 [facility] CzmaiwwNOAVGHPJXJ2192-05-29 10:10:003.9[facility] HermannHEMATOLOGY 2017-12-03 10:10:78001Axdcvjoq MllmyadWNZRYXOUWP8746-37-34 10:10:007.0[facility] OgvpmxlYORFBGLMBP3310-39-68 10:10:000.8[facility] TtnnxdmRFSQVMZSOG4524-79-69 10:10:000.1[facility] CidkxntKRQDYVRIHJ4095-44-86 10:10:000.3[facility] NSNQGVHEXT2411-08-22 10:10:0020.6[facility] PmuxbczMJLTBVBSRI2491-77-64 10:10:00 70.2[facility] KbacrebCIMJUNRHXR7205-13-63 10:10:007.4[facility] HermannHEMATOLOGY 2017-12-03 10:10:001.5[facility] AvnbcgbQAACMRZSJG7759-54-59 10:10:002.7[facility] FhkesbnZSUYHBDMGG8421-69-74 10:10:000.3[facility] HermannBLOOD BANK RESULTS 2017-12-03 00:19:00Negative (12/02/17 6:19 PM)[facility] ZyujutnLVQAGMIWND0489-38-11 00:19:001+ *ABN*(12/02/17 6:19 PM)[facility] VfjsdsxKBFSOQNWDK5729-75-55 00:19:00 0.2[facility] LpoqwbbYCUBPGHBWH2883-89-40 00:19:000.5[facility] HermannHEMATOLOGY 2017-12-03 00:19:005.3[facility] YholyqfHYLLCNUGZE9388-90-65 00:19:000.1[facility] EbnhbftLPFOXXIYTZ7842-44-09 00:19:000.2[facility] KzpkkrdWZRACSQFZH6093-24-87 00:19:003.3[facility] QdwcajmAFVKJZMZYZ8600-65-16 00:19:008.7[facility] ZRWXDMUUGT9831-23-52 00:19:0087.7[facility] CekiffdZDAMAESBDM8657-29-09 00:19:00 7.5[facility] WxpkhizUSXOGVFHPD6253-02-82 00:19:0020.3[facility] HermannHEMATOLOGY 2017-12-03 00:19:0033.3[facility] TklvmmrPPCHKKMKDF4326-21-27 00:19:00 Test Item Value Reference Range Interpretation Comments MCH (test code = MCH) 26.1 pg 27.0-31.0 [facility] SkngeczSIZRDHINPF1726-95-35 00:19:89137Lzbspxnb HermannHEMATOLOGY 2017-12-03 00:19:006.0[facility] GynkcxuTGHLQCBSUP0301-64-76 00:19:003.26[facility] RinoyaaYEAQKHOZSG2059-34-35 00:19:0025.5[facility] GiwgczfSEKETLJQBH4622-36-01 00:19:008.5[facility] ZrpfionJGAJPJCIJF4473-87-07 00:19:0078.2[facility] BLOOD BANK YXVXWKY8500-85-12 13:41:00Product available (12/02/17 7:41 AM)[facility] HermannCHEM MBJAL6991-45-93 10:40:001.8[facility] HermannCHEM MMGDU7280-77-51 10:40:003.3[facility] FcvesahFBUHCCXORPPS3032-16-13 10:40:0011.3[facility] NPCFXIAWUJLK7996-52-51 10:40:0094[facility] DbzcrruIZODEHAOKSMY9178-23-80 10:40:00 140[facility] QizyjamPKHQYYTGFCPM3531-10-68 10:40:07877Euzeoafm [place] MDNMRRPAMDIK4137-43-18 10:40:004.3[facility] GhzgvutLVKXVTXDBLNG0002-90-79 10:40:007.7[facility] AfbdsgeDUTEUCOYWVON5626-76-82 10:40:0027[facility] DPCAHAUPNIJE3694-35-44 10:40:25525Uikrmjnv XsykummYURPSEESKMZE7768-98-31 10:40:000.55[facility] AzftwviOAFRKXBVKQFE4505-09-87 10:40:0017[facility] YWBWITQXVV2193-50-27 10:40:001+ *ABN*(12/02/17 4:40 AM)[facility] HermannCHEM PANEL 2017-12-01 14:18:003.7[facility] AhvlubcAOYETVTIHJ3813-96-83 14:18:001+ *ABN*(12/01/17 8:18 AM)[facility] GadqieeSYSENBSMRU7204-63-16 14:18:000.1[facility] HermannPARATHYROID PLYWPZZ0477-16-94 14:18:0055.6[facility] HermannBLOOD BANK QBRHWOH3903-71-70 13:26:00Product available (11/30/17 7:26 AM)[facility] HermannCHEM LONMT1077-18-66 11:29:0099[facility] HermannCHEM XYQHA2072-92-27 11:29:000.46 [facility] HermannCHEM IZRJB5320-92-37 11:29:83749Gmskvjke HermannCHEM PANEL 2017-11-30 11:29:0021[facility] HermannCHEM GCNPX6430-73-17 11:29:0026[facility] HermannCHEM HCHQP3139-11-20 11:29:0012[facility] HermannCHEM OUOCW0319-33-83 11:29:001.7[facility] HermannCHEM NDAXR6135-30-51 11:29:0013[facility] HermannCHEM OXIOF2799-32-62 11:29:000.2[facility] HermannCHEM JXNGT9462-37-85 11:29:0075 [facility] HermannCHEM EGOIK5916-87-92 11:29:007.4[facility] HermannCHEM PANEL 2017-11-30 11:29:004.5[facility] HermannCHEM OCYRQ0600-15-44 11:29:003.5[facility] HermannCHEM GEWKH0660-83-54 11:29:73127Rkjuwkfj HermannCHEM IZXNR1482-84-19 11:29:0088Mem[facility] HermannCHEM GTVOF8219-39-56 11:29:00 Test Item Value Reference Range Interpretation Comments B/C Ratio (test code = B/C Ratio) 46 1 6-25 [facility] HermannCHEM AMFTY8612-05-58 11:29:0011.5[facility] HermannCHEM PANEL 2017-11-30 11:29:002.8[facility] HermannCHEM [id number] 11:29:00 Test Item Value Reference Range Interpretation Comments A/G Ratio (test code = A/G Ratio) 0.6 1 0.7-1.6 [facility] [id number] 11:30:00Negative (11/29/17 5:30 AM) [facility]DR[facility] [id number] 08:31:39See Note (11/29/17 2:31 AM)[facility] [id number] 08:31:39Negative *NA*(11/29/17 2:31 AM)[facility] [id number] 08:31:39Negative *NA*(11/29/17 2:31 AM)[facility] [id number] 08:31:39Negative *NA*(11/29/17 2:31 AM)[facility] [id number] 08:31:39Positive *ABN*(11/29/17 2:31 AM)[facility]annDR[facility] [id number] 08:31:39Negative *NA*(11/29/17 2:31 AM)[facility] [id number] 08:31:39Negative *NA*(11/29/17 2:31 AM)[facility] [id number] 08:31:39Negative *NA*(11/29/17 2:31 AM)[facility] AND [id number] 08:31:39Positive *ABN*(11/29/17 2:31 AM)[facility] [id number] 08:31:39Negative (11/29/17 2:31 AM)[facility] [id number] 08:31:39Negative *NA*(11/29/17 2:31 AM)[facility] [id number] 08:31:39Negative (11/29/17 2:31 AM)[facility] [id number] 08:31:391.0[facility] STOOL 2017-11-29 08:31:39Negative (11/29/17 2:31 AM)[facility] STOOL 2017-11-29 08:31:39Trace *ABN*(11/29/17 2:31 AM)[facility] STOOL 2017-11-29 08:31:39 Test Item Value Reference Range Interpretation Comments UA Spec Grav (test code = UA Spec 1.025 1 Grav) [facility] [id number] 08:31:39 Test Item Value Reference Range Interpretation Comments UA pH (test code = UA pH) 6.0 1 5.0-8.0 [facility] [id number] 08:31:39Negative (11/29/17 2:31 AM) [facility] [id number] 08:31:39Dark Yellow (11/29/17 2:31 AM) [facility] [id number] 08:31:39Slight Cloudy (11/29/17 2:31 AM) [facility]annCHEM [id number] 07:31:281.4[facility]annHEMATOLOGY 2017-11-29 07:31:2810.0[facility] NjxnnojJNBNZGBJKQ0735-06-78 07:31:283.3[facility] MxsvuiePDBAPWXGOD5077-25-00 07:31:28 Test Item Value Reference Range Interpretation Comments Max Amplitude Rapid (test code = Max 67 mm 52-71 Amplitude Rapid) [facility] RbwayqiKABEPDZONG1711-64-00 07:31:28 Test Item Value Reference Range Interpretation Comments R-time Rapid (test code = R-time 0.5 min 0.4-0.7 Rapid) [facility]ImtihqiAHENKWGQRJ1001-42-99 07:31:28 Test Item Value Reference Range Interpretation Comments ACT (TEG) Rapid (test code = ACT (TEG) 97 s 86-118 Rapid) [facility] TempleLpeylcgBCVZSQYFRC6928-07-89 07:31:28 Test Item Value Reference Range Interpretation Comments Split Point Rapid (test code = Split 0.4 min Point Rapid) [facility]At[facility]rVJXXUYTISX1876-37-11 07:31:28 Test Item Value Reference Range Interpretation Comments Angle Rapid (test code = Angle 77 degrees 64-80 Rapid) [facility] TempleAgjksncBIVAJMRCDB6408-67-28 07:31:28 Test Item Value Reference Range Interpretation Comments K-time Rapid (test code = K-time 1.1 min 0.6-2.3 Rapid) [facility]HyronviVYZPLFERXZ9782-82-94 07:31:28<3[facility] HermannTOXICOLOGY 2017-11-29 07:31:28<0.003[facility]
== END 2020-08-29 19:52 | disposition home or self-care (01) ==
LOC: ER 13:00
DX: N39.0 Urinary tract infection, site not specified (principal); L03.311 Cellulitis of abdominal wall; I10 Essential (primary) hypertension; Z91.013 Allergy to seafood
CPT/HCPCS: 96361; 87040 ×2; 87088; 87070; 85025; 87086; 80048; 36415; 82550; 87205; 80076; 83605; 87077 ×2; 87186 ×2; 84484; 83690; 84145; 96375; 96374; 99284; J3010; J2405; 81003; 81015; 93005